=== PATIENT | female | born 1980 | race Hispanic/Latino ===

== ENCOUNTER 2017-09-08 18:07 | Emergency (ER) | payer OTHER ==
--- NOTE | 2017-09-08 18:38 | EDPHYS ---
Physician Documentation [facility] Name: Ruby Tapia Age: 37 yrs Sex: Female : 1980 Arrival Date: 09/08/2017 Time: 18:08 Bed 23 Private MD: ED Physician Chirag Shaw HPI: 09/08 18:47 This 37 yrs old Female presents to ER via Ambulatory with complaints of snw Incision Problem. 18:47 Patient presents to ED for recheck of: incision post tummy tuck. The affected area is snw on the suprapubic area, right inguinal area and left inguinal area. Previous treatment: in [place] several weeks ago. Progress: The patient reports unable to remove right wound margin drain. The patient has not experienced similar symptoms in the past. It is unknown whether or not the patient has recently seen a physician. 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 - Social history:: Smoking status: Patient/guardian denies using tobacco. ROS: 18:46 Constitutional: Negative for fever, chills, and weight loss, Eyes: Negative for injury, snw pain, redness, and discharge, ENT: Negative for injury, pain, and discharge, Neck: Negative for injury, pain, and swelling, Cardiovascular: Negative for chest pain, palpitations, and edema, Respiratory: Negative for shortness of breath, cough, wheezing, and pleuritic chest pain, Abdomen/GI: Negative for abdominal pain, nausea, vomiting, diarrhea, and constipation, Back: Negative for injury and pain, : Negative for injury, bleeding, discharge, and swelling, MS/Extremity: Negative for injury and deformity, Skin: Negative for injury, rash, and discoloration, incisional wound evaluation and requests removal of drain Neuro: Negative for headache, weakness, numbness, tingling, and seizure. Exam: 18:43 Constitutional: This is a well developed, well nourished patient who is awake, alert, snw and in no acute distress. Head/Face: Normocephalic, atraumatic. Eyes: Pupils equal round and reactive to light, extra-ocular motions intact. Lids and lashes normal. Conjunctiva and sclera are non-icteric and not injected. Cornea within normal limits. Periorbital areas with no swelling, redness, or edema. ENT: Nares patent. No nasal discharge, no septal abnormalities noted. Tympanic membranes are normal and external auditory canals are clear. Oropharynx with no redness, swelling, or masses, exudates, or evidence of obstruction, uvula midline. Mucous membranes moist. Neck: Trachea midline, no thyromegaly or masses palpated, and no cervical lymphadenopathy. Supple, full range of motion without nuchal rigidity, or vertebral point tenderness. No Meningismus. Chest/axilla: Normal chest wall appearance and motion. Nontender with no deformity. No lesions are appreciated. Cardiovascular: Regular rate and rhythm with a normal S1 and S2. No gallops, murmurs, or rubs. Normal PMI, no JVD. No pulse deficits. Respiratory: Lungs have equal breath sounds bilaterally, clear to auscultation and percussion. No rales, rhonchi or wheezes noted. No increased work of breathing, no retractions or nasal flaring. Back: No spinal tenderness. No costovertebral tenderness. Full range of motion. Skin: Warm, dry with normal turgor. Normal color with no rashes, no lesions, and no evidence of cellulitis. MS/ Extremity: Pulses equal, no cyanosis. Neurovascular intact. Full, normal range of motion. Neuro: Awake and alert, GCS 15, oriented to person, place, time, and situation. Cranial nerves II-XII grossly intact. Motor strength 5/5 in all extremities. Sensory grossly intact. Cerebellar exam normal. Normal gait. Psych: Awake, alert, with orientation to person, place and time. Behavior, mood, and affect are within normal limits. 18:43 Abdomen/GI: Inspection: abdomen appears normal, Bowel sounds: normal, Palpation: nontender, in all quadrants, healing surgical incision to perineum. Pt removed drain from left lower lateral margin, area closed. Pt states she has been unable to remove right lateral wound drain 2nd to embedded stitch. Pt states the area drains less than 25 ml/day. Vital Signs: 18:18 BP 125 / 78; Pulse 85; Resp 18 S; Temp 98.5(TE); Pulse Ox 98% on R/A; Weight 98.43 kg aa5 (R); Height 5 ft. 8 in. (172.72 cm) (R); Pain 8/10; 18:18 Body Mass Index 32.99 (98.43 kg, 172.72 cm) aa5 MDM: 18:20 Patient medically screened. snw 18:46 Data reviewed: vital signs, nurses notes. Data interpreted: Pulse oximetry: on room air snw is 98 %. Interpretation: normal. Counseling: I had a detailed discussion with the patient and/or guardian regarding: the historical points, exam findings, and any diagnostic results supporting the discharge/admit diagnosis, the need for outpatient follow up. Special discussion: Based on the history and exam findings, there is no indication for further emergent testing or inpatient evaluation. I discussed with the patient/guardian the need to see the general surgeon for further evaluation of the symptoms. Administered Medications: No medications were administered Disposition: 09/08/17 18:37 Discharged to Home. Impression: Post operative wound evaluation - s/p surgery in [place]. - Condition is Stable. - Discharge Instructions: Wound Check. - Prescriptions for Diclofenac Sodium 75 mg Oral Tablet Sustained Release - take 1 tablet by ORAL route 2 times per day; 30 tablet. - Medication Reconciliation Form, Thank You Letter, Antibiotic Education, Prescription Opioid Use form. - Follow up: Giorgio Barlow MD; When: 2 - 3 days; Reason: Recheck today's complaints, Continuance of care, Re-evaluation by your physician. Addendum: 09/10/2017 10:55 Co-signature as Attending Physician, Chirag Shaw MD I agree with the assessment and w a plan of care. Signatures: China Chauhan, SHEETER HELPER-C SHEETER HELPER-Csnw Marzena Harding, RN RN aa5 Chirag Shaw MD MD wv Maurilio Ware, RN RN mb3 Corrections: (The following items were deleted from the chart) 09/08 18:56 18:37 09/08/2017 18:37 Discharged to Home. Impression: Post operative wound evaluation mb3 - s/p surgery in [place]. Condition is Stable. Forms are Medication Reconciliation Form, Thank You Letter, Antibiotic Education, Prescription Opioid Use. Follow up: Giorgio Barlow; When: 2 - 3 days; Reason: Recheck today's complaints, Continuance of care, Re-evaluation by your physician. snw
--- NOTE | 2017-09-08 18:38 | ER ---
Nurse's Notes [facility] Name: Ruby Tapia Age: 37 yrs Sex: Female : 1980 Arrival Date: 09/08/2017 Time: 18:08 Bed 23 Private MD: Diagnosis: Post operative wound evaluation - s/p surgery in [place] Presentation: 09/08 18:16 Presenting complaint: Patient states: "I had a tummy tuck july 27 in [place] and I aa5 still have a drain in and I think it needs to come out". Pt reports small amount of drainage. Pt also reports abd pain. Transition of care: patient was not received from another setting of care. Onset of symptoms was September 2017. Initial Sepsis Screen: Does the patient meet any 2 criteria? No. Patient's initial sepsis screen is negative. Does the patient have a suspected source of infection? No. Patient's initial sepsis screen is negative. Care prior to arrival: None. 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 - Social history:: Smoking status: Patient/guardian denies using tobacco. Screenin:43 Abuse screen: Denies threats or abuse. Nutritional screening: No deficits noted. mb3 Tuberculosis screening: No symptoms or risk factors identified. Fall Risk None identified. Assessment: 18:38 General: Appears in no apparent distress. comfortable, Behavior is calm, cooperative, mb3 appropriate for age. Pain: Complains of pain in umbilical area Pain radiates to left upper quadrant. Neuro: No deficits noted. Cardiovascular: No deficits noted. Respiratory: No deficits noted. Respiratory effort is even, unlabored, Respiratory pattern is regular, symmetrical. GI: No signs and/or symptoms were reported involving the gastrointestinal system. Abdomen is round bruised on right lower quadrant and left lower quadrant healing scar across bottom of abdomen Bowel sounds present X 4 quads. Abd is soft Abdomen is tender to palpation in left lower quadrant. : No signs and/or symptoms were reported regarding the genitourinary system. EENT: No signs and/or symptoms were reported regarding the EENT system. Derm: No signs and/or symptoms reported regarding the dermatologic system. Skin is intact, healing surgical scar across lower abdomen. Vital Signs: 18:18 BP 125 / 78; Pulse 85; Resp 18 S; Temp 98.5(TE); Pulse Ox 98% on R/A; Weight 98.43 kg aa5 (R); Height 5 ft. 8 in. (172.72 cm) (R); Pain 8/10; 18:18 Body Mass Index 32.99 (98.43 kg, 172.72 cm) aa5 ED Course: 18:08 Patient arrived in ED. as 18:17 Triage completed. aa5 18:17 Arm band placed on. aa5 18:20 China Chauhan FNP-C [facility]. snw 18:20 Chirag Shaw MD is Attending Physician. snw 18:36 Giorgio Barlow MD is Referral Physician. snw 18:37 Maurilio Ware, [place] is Primary Nurse. mb3 18:44 Patient has correct armband on for positive identification. Bed in low position. Call mb3 light in reach. Side rails up X 1. 18:54 No provider procedures requiring assistance completed. Patient did not have IV access mb3 during this emergency room visit. Administered Medications: No medications were administered Outcome: 18:37 Discharge ordered by . snw 18:54 Discharged to home ambulatory. mb3 18:54 Condition: stable 18:54 Discharge instructions given to patient, Instructed on discharge instructions, follow up and referral plans. medication usage, Demonstrated understanding of instructions, follow-up care, medications, Prescriptions given X 1. 18:56 Patient left the ED. mb3 Signatures: China Chauhan FNP-C FNP-Jonelle Blancas Audri, RN RN aa5 Maurilio Ware RN RN mb3
[2017-09-08 19:02] VITALS: BP 125/78; TEMP 98.5; O2SAT 98
== END 2017-09-08 18:56 | disposition home or self-care (01) ==
LOC: ER 18:07
DX: Z48.00 Encounter for change or removal of nonsurgical wound dressing (principal)
CPT/HCPCS: 99282

== ENCOUNTER 2017-12-08 21:46 | Emergency (ER) | payer OTHER ==
[2017-12-08] MEDS ORDERED: MAGNE/ALUM HYDROXD 30 ML UCUP ONE (22:27)
[2017-12-08] MEDS ORDERED: LIDOCAINE VISCOUS 2% SOLN 15 ML UDC ONE (22:27)
[2017-12-08] MEDS ORDERED: ONDANSETRON 4 MG/2 ML VIAL ONE (22:28)
[2017-12-08 22:49] LABS: Urine Blood TRACE (NEG); Urine Glucose NEGATIVE (NEG); Urine Protein TRACE (NEG); Urine Specific Gravity >1.030 (1.005-1.030)
[2017-12-08 22:52] LABS: Absolute Monocytes 0.7 K/uL (0.1-1.3); Absolute Neutrophil 5.4 K/uL (1.8-8.0); Basophils % 1.2 % (0-1.3); Eosinophils % 1.5 % (0-4.4); Hematocrit 31.3 % (36.0-45.0); Lymphocytes % 23.5 % (15.3-44.8); MCH 22.6 pg (27.0-35.0); MCV 70.5 fL (80-100); MPV 9.8 fL (7.6-11.3); Monocytes % 8.4 % (3.3-12.3); RBC Red Blood Cell Count 4.44 M/uL (3.86-4.86)
[2017-12-08 23:11] LABS: Urine Bacteria <20 /HPF (<20); Urine RBC <5 /HPF (NONE SEEN)
[2017-12-08 23:12] LABS: Urine Culture Reflex Order NOT NEEDED; Urine Mucus HEAVY /HPF (NONE SEEN)
[2017-12-08 23:22] LABS: ALT/SGPT 16 U/L (12-78); AST/SGOT 16 U/L (15-37); Albumin 3.6 g/dL (3.4-5.0); Alkaline Phosphatase 61 U/L (45-117); BUN Blood Urea Nitrogen 13 mg/dL (7-18); Bicarbonate 29 mmol/L (21-32); Bilirubin Direct 0.1 mg/dL (0-0.2); Bilirubin Total 0.4 mg/dL (0.2-1.0); Glucose Level 88 mg/dL (74-106); Lipase 137 U/L (73-393); Potassium 3.4 mmol/L (3.5-5.1); Protein, Total 7.4 g/dL (6.4-8.2); Sodium Level 141 mmol/L (136-145)
--- NOTE | 2017-12-09 02:46 | ER ---
Nurse's Notes [facility] Name: Ruby Tapia Age: 37 yrs Sex: Female : 1980 Arrival Date: 12/08/2017 Time: 21:51 Bed 30 Private MD: Diagnosis: Epigastric pain Presentation: 12/08 22:58 Presenting complaint: Patient states: NAUSEA. Transition of care: patient was not rv received from another setting of care. Onset of symptoms was December 08, 2017 at 08:00. Risk Assessment: Do you want to hurt yourself or someone else? Patient reports no desire to harm self or others. Initial Sepsis Screen: Does the patient meet any 2 criteria? No. Patient's initial sepsis screen is negative. Does the patient have a suspected source of infection? No. Patient's initial sepsis screen is negative. Care prior to arrival: None. 22:58 Method Of Arrival: Ambulatory rv 22:58 Acuity: DONTE 3 rv Triage Assessment: 22:59 General: Appears in no apparent distress. comfortable, Behavior is calm, cooperative. rv Pain: Denies pain. EENT: No signs and/or symptoms were reported regarding the EENT system. Neuro: Level of Consciousness is awake, alert, obeys commands, Oriented to person, place, time, situation. Cardiovascular: Heart tones S1 S2 present. Respiratory: Airway is patent. GI: Reports nausea. : No signs and/or symptoms were reported regarding the genitourinary system. Derm: Skin is intact. Musculoskeletal: No signs and/or symptoms reported regarding the musculoskeletal system. Historical: - Home Meds: 23:02 alprazolam 1 mg Oral tab [Active]; rv - PMHx: 23:02 ADD/ADHD; Anxiety; chiari malformation; pseudotumor cerebri; rv - PSHx: 23:02 ; SPINE SURGERY; GASTRIC SURGERY; rv - Immunization history:: Adult Immunizations up to date. - Social history:: Smoking status: Patient/guardian denies using tobacco, never smoked, Patient/guardian denies using alcohol, street drugs. - Family history:: not pertinent. - Ebola Screening: : Patient negative for fever greater than or equal to 101.5 degrees Fahrenheit, and additional compatible Ebola Virus Disease symptoms Patient denies exposure to infectious person Patient denies travel to an Ebola-affected area in the 21 days before illness onset. - Hospitalizations: : No recent hospitalization is reported. Screenin:59 Abuse screen: Denies threats or abuse. Denies injuries from another. Nutritional rv screening: No deficits noted. Tuberculosis screening: No symptoms or risk factors identified. Fall Risk None identified. Assessment: 23:01 GI: Bowel sounds present X 4 quads. Abd is soft and non tender X 4 quads. rv 12/09 02:10 Reassessment: Patient appears in no apparent distress at this time. Patient and/or rv family updated on plan of care and expected duration. Pain level reassessed. Patient is alert, oriented x 3, equal unlabored respirations, skin warm/dry/pink. AWAITING CT SCAN RESULT. Vital Signs: 12/08 23:03 BP 120 / 76; Pulse 73; Temp 98.1; Pulse Ox 100% ; Weight 99.79 kg; Height 5 ft. 9 in. rv (175.26 cm); 12/09 00:18 BP 116 / 79; Pulse 72; Pulse Ox 100% ; rv 01:24 Pulse 67; Pulse Ox 98% on R/A; rv 02:10 BP 127 / 81; Pulse 75; Pulse Ox 99% on R/A; rv 02:44 BP 128 / 83; Pulse 72; Pulse Ox 99% on R/A; rv 12/08 23:03 Body Mass Index 32.49 (99.79 kg, 175.26 cm) rv ED Course: 12/08 21:51 Patient arrived in ED. ds1 21:56 Vincenzo Coates MD is Attending Physician. rn 22:59 Triage completed. rv 23:01 Arm band placed on left wrist. rv 23:03 Patient has correct armband on for positive identification. Placed in gown. Bed in low rv position. Call light in reach. Side rails up X 1. Pulse ox on. NIBP on. 23:03 Inserted saline lock: 20 gauge in right antecubital area, using aseptic technique. rv 23:13 Radiology exam delayed due to lab results not completed at this time. (HCG) vr (BUN/Creatinine). 23:34 Radiology exam delayed due to Patient finished oral contrast at 2330. Will scan at kw1 approx. 0030. 12/09 00:[address] via wheelchair. kw1 00:42 CT Abd/Pelvis - W/Contrast In Process Unspecified. EDMS 00:44 CT completed. Patient tolerated procedure well. Patient moved back from CT. kw1 01:25 Awaiting radiology results. rv 02:45 No provider procedures requiring assistance completed. IV discontinued, bleeding rv controlled, No redness/swelling at site. Pressure dressing applied. Administered Medications: 12/08 22:50 Drug: Zofran 4 mg Route: IVP; Site: right antecubital; rv 23:04 Follow up: Response: No adverse reaction; Nausea is decreased rv 23:04 Drug: GI Cocktail without - (Maalox Suspension 30 ml, Lidocaine Liquid 2 % 15 rv ml) Route: PO; 23:38 Follow up: Response: No adverse reaction; Nausea is decreased rv Outcome: 12/09 02:45 Discharge ordered by . rn 02:45 Discharged to home ambulatory. rv 02:45 Condition: improved 02:45 Discharge instructions given to patient, Instructed on discharge instructions, follow up and referral plans. medication usage. 02:52 Patient left the ED. rv Signatures: Dispatcher [employer] EDGA Melani Moore ds1 Vincenzo Coates MD MD rn Davis, Victoria vr Wilhelm, Kimberly kw1 Gonzalez Jimenez RN RN rv
--- NOTE | 2017-12-09 02:46 | EDPHYS ---
Physician Documentation [facility] Name: Ruby Tapia Age: 37 yrs Sex: Female : 1980 Arrival Date: 12/08/2017 Time: 21:51 Bed 30 Private MD: ED Physician Vincenzo Coates HPI: 12/08 22:14 This 37 yrs old Female presents to ER via Unassigned with complaints of rn Abdominal Pain, Dizziness. 22:14 This 37 yrs old Female presents to ER via Unassigned with complaints of rn Abdominal Pain, Dizziness. 22:14 The patient presents with. rn 22:14 The patient presents with abdominal pain in the epigastric area, in the right upper rn quadrant. Onset: The symptoms/episode began/occurred 5 day(s) ago. The symptoms do not radiate. Associated signs and symptoms: Pertinent positives: nausea and vomiting, Pertinent negatives: blood in stools, constipation, diarrhea, fever, shortness of breath. The symptoms are described as crampy, intermittent. Modifying factors: The symptoms are alleviated by nothing, the symptoms are aggravated by food. Severity of pain: At its worst the pain was moderate in the emergency department the pain has improved. The patient has not experienced similar symptoms in the past. Reports upper abd pain, worse with eating/drinking, gets nauseous and throws up, for 5 days, no fever/diarrhea, has had gastric sleeve in past, and tubal ligation. No hx of gallbladder problems except when but no surgery advised at the time. Reports pain makes her lightheaded and has passed out once today. NO chest pain/sob.. Historical: - Home Meds: 23:02 alprazolam 1 mg Oral tab [Active]; rv - PMHx: 23:02 ADD/ADHD; Anxiety; chiari malformation; pseudotumor cerebri; rv - PSHx: 23:02 ; SPINE SURGERY; GASTRIC SURGERY; rv - Immunization history:: Adult Immunizations up to date. - Social history:: Smoking status: Patient/guardian denies using tobacco, never smoked, Patient/guardian denies using alcohol, street drugs. - Family history:: not pertinent. - Ebola Screening: : Patient negative for fever greater than or equal to 101.5 degrees Fahrenheit, and additional compatible Ebola Virus Disease symptoms Patient denies exposure to infectious person Patient denies travel to an Ebola-affected area in the 21 days before illness onset. - Hospitalizations: : No recent hospitalization is reported. ROS: 22:14 Constitutional: Negative for fever, chills, and weight loss, Eyes: Negative for injury, rn pain, redness, and discharge, Neck: Negative for injury, pain, and swelling, Cardiovascular: Negative for chest pain, palpitations, and edema, Respiratory: Negative for shortness of breath, cough, wheezing, and pleuritic chest pain, Abdomen/GI: + abd pain and nausea/vomiting Back: Negative for injury and pain, MS/Extremity: Negative for injury and deformity, Skin: Negative for injury, rash, and discoloration, Neuro: Negative for numbness, tingling, and seizure. Exam: 22:14 Constitutional: This is a well developed, well nourished patient who is awake, alert, rn and in no acute distress. Head/Face: Normocephalic, atraumatic. Eyes: Pupils equal round and reactive to light, extra-ocular motions intact. Lids and lashes normal. Conjunctiva and sclera are non-icteric and not injected. Cornea within normal limits. Periorbital areas with no swelling, redness, or edema. ENT: MMM Cardiovascular: regular rate, no murmur, no rubs Respiratory: Clear breath sounds bilaterally, no wheezing, normal effort Abdomen/GI: soft, + tender epigastric and RUQ, no rebound, no masses, neg galdamez Skin: Warm, dry with normal turgor. Normal color with no rashes, no lesions, and no evidence of cellulitis. MS/ Extremity: Pulses equal, no cyanosis. Neurovascular intact. Full, normal range of motion. Equal circumference. Neuro: Awake and alert, GCS 15, oriented to person, place, time, and situation. Cranial nerves II-XII grossly intact. Motor strength 5/5 in all extremities. Sensory grossly intact. Cerebellar exam normal. Normal gait. Vital Signs: 23:03 BP 120 / 76; Pulse 73; Temp 98.1; Pulse Ox 100% ; Weight 99.79 kg; Height 5 ft. 9 in. rv (175.26 cm); 12/09 00:18 BP 116 / 79; Pulse 72; Pulse Ox 100% ; rv 01:24 Pulse 67; Pulse Ox 98% on R/A; rv 02:10 BP 127 / 81; Pulse 75; Pulse Ox 99% on R/A; rv 02:44 BP 128 / 83; Pulse 72; Pulse Ox 99% on R/A; rv 12/08 23:03 Body Mass Index 32.49 (99.79 kg, 175.26 cm) rv MDM: 12/08 21:56 Patient medically screened. rn 12/09 00:32 Response to treatment: the patient's symptoms have markedly improved after treatment. rn 02:44 Differential diagnosis: cholecystitis, Cholelithiasis, gastritis, gastroesophageal rn reflux disease, Hepatitis, non-specific abd pain, pancreatitis, Peptic Ulcer Disease, urinary tract infection. Data reviewed: vital signs, nurses notes, lab test result(s), EKG, radiologic studies, CT scan, and as a result, I will discharge patient. Counseling: I had a detailed discussion with the patient and/or guardian regarding: the historical points, exam findings, and any diagnostic results supporting the discharge/admit diagnosis, lab results, radiology results, the need for outpatient follow up, to return to the emergency department if symptoms worsen or persist or if there are any questions or concerns that arise at home. Special discussion: I discussed with the patient/guardian in detail that at this point there is no indication for admission to the hospital. It is understood, however, that if the symptoms persist or worsen the patient needs to return immediately for re-evaluation. Based on the history and exam findings, there is no indication for further emergent testing or inpatient evaluation. I discussed with the patient/guardian the need to see the primary care provider for further evaluation of the symptoms. ED course: CT without acute findings, normal gallbladder, will dc home with pcp f/u, antacid medication, and prn zofran. . 12/08 22:13 Order name: Basic Metabolic Panel; Complete Time: 23:24 rn 12/08 22:13 Order name: CBC with Diff; Complete Time: 23:24 rn 12/08 22:13 Order name: Hepatic Function; Complete Time: 23:24 rn 12/08 22:13 Order name: Lipase; Complete Time: 23:24 rn 12/08 22:13 Order name: Urine Microscopic Only; Complete Time: 23:24 rn 12/08 22:44 Order name: Urine Dipstick--Ancillary (enter results); Complete Time: 23:04 mw2 12/08 22:13 Order name: IV Saline Lock; Complete Time: 23:10 rn 12/08 22:13 Order name: Labs collected and sent; Complete Time: 23:10 rn 12/08 22:13 Order name: Urine Dipstick-Ancillary (obtain specimen); Complete Time: 23:10 rn 12/08 22:13 Order name: CT Abd/Pelvis - W/Contrast rn 12/08 22:14 Order name: EKG; Complete Time: 22:14 rn 12/08 22:44 Order name: Urine --Ancillary (enter results); Complete Time: 23:04 [facility] 12/08 22:14 Order name: EKG - Nurse/Tech; Complete Time: 23:04 rn Administered Medications: 12/08 22:50 Drug: Zofran 4 mg Route: IVP; Site: right antecubital; rv 23:04 Follow up: Response: No adverse reaction; Nausea is decreased rv 23:04 Drug: GI Cocktail without - (Maalox Suspension 30 ml, Lidocaine Liquid 2 % 15 rv ml) Route: PO; 23:38 Follow up: Response: No adverse reaction; Nausea is decreased rv Disposition: 12/09/17 02:45 Discharged to Home. Impression: Epigastric pain. - Condition is Stable. - Discharge Instructions: Abdominal Pain, Adult, Gastritis, Adult. - Prescriptions for Zofran ODT 4 mg Oral tablet,disintegrating - place 1 tablet by TRANSLINGUAL route every 8-10 hours As needed; 20 tablet. - Medication Reconciliation Form, Thank You Letter, Antibiotic Education, Prescription Opioid Use form. - Follow up: Private Physician; When: As needed; Reason: Recheck today's complaints, Re-evaluation by your physician. - Problem is new. - Symptoms have improved. Signatures: Dispatcher [employer] EDMS Vincenzo Coates MD MD rn Vicente, Ronaldo, RN RN rv Corrections: (The following items were deleted from the chart) 12/09 02:52 02:45 12/09/2017 02:45 Discharged to Home. Impression: Epigastric pain. Condition is rv Stable. Forms are Medication Reconciliation Form, Thank You Letter, Antibiotic Education, Prescription Opioid Use. Follow up: Private Physician; When: As needed; Reason: Recheck today's complaints, Re-evaluation by your physician. Problem is new. Symptoms have improved. rn
[2017-12-09 03:05] VITALS: TEMP 98.1
[2017-12-09 03:07] VITALS: O2SAT 99
[2017-12-09 03:08] VITALS: BP 128/83
--- NOTE | 2017-12-09 07:26 | EKG ---
Test Date: 2017-12-08 Test Time: 22:52:35 Laborer Driver: MEASUREMENT RESULTS: Intervals: Rate: 71 WV: 276 QRSD: 84 QT: 398 QTc: 432 [place]: P: 55 WV: 276 QRS: 60 T: 59 INTERPRETIVE STATEMENTS: Sinus rhythm with 1st degree AV block Otherwise normal ECG Compared to ECG 06/07/2016 19:18:45 No significant changes Electronically Signed On 12-09-17 07:25:58 CDT by Lan Linares
--- NOTE | 2017-12-09 11:42 | RAD REPORT ---
EXAM DESCRIPTION: CTAbdomen Pelvis W Contrast - 12/09/2017 7:12 am CLINICAL HISTORY: Abdominal pain. Abd pain;Nausea / vomiting COMPARISON: Abdomen Pelvis W Contrast dated 06/07/2016; CT ABD PELVIS W CONTRAST dated 02/15/2015 TECHNIQUE: Biphasic CT imaging of the abdomen and pelvis was performed with 100 ml non-ionic IV cont rast. All CT scans are performed using dose optimization technique as appropriate and may include automated exposure control or mA/KV adjustment according to patient size. FINDINGS: The lung bases are clear. The liver, spleen, pancreas, adrenal glands and kidneys are within normal limits. No bowel obstruction, free air, free fluid or abscess. The appendix is normal. No evidence of signi ficant lymphadenopathy. No suspicious bony findings. 2.5 cm right ovarian follicle. IMPRESSION: No acute intra-abdominal or pelvic finding.
== END 2017-12-09 02:52 | disposition home or self-care (01) ==
LOC: ER 21:46
DX: R10.13 Epigastric pain (principal); F90.9 Attention-deficit hyperactivity disorder, unspecified type; F41.9 Anxiety disorder, unspecified
CPT/HCPCS: 36415; 74177; 80048; 80076; 81003; 81015; 81025; 83690; 85025; 93005; 96374; 99284; J2405; Q9967

== ENCOUNTER 2018-08-31 21:57 | Emergency (ER) | payer OTHER, SELFPAY ==
--- OUTSIDE RECORDS SUMMARY | 2018-08-31 21:59 | XMS REPORT ---
:1980 [facility] Address [address] [place] [address] Dr. Peguero [address] [place] [id number] Care Team Providers Name Role Phone Unavailable Unavailable Unavailable Problems This patient has no known problems. Allergies, Adverse Reactions, Alerts This patient has no known allergies or adverse reactions. Medications This patient has no known medications.
[2018-08-31] MEDS ORDERED: KETOROLAC 30 MG/ML INJ ONE (23:10)
[2018-08-31] MEDS ORDERED: HYDROCODONE/APAP 7.5/325 MG TAB ONE (23:10)
[2018-08-31] MEDS ORDERED: DIAZEPAM 10 MG/2 ML INJ SYRINGE ONE (23:11)
[2018-08-31 23:47] LABS: Urine Blood TRACE (NEG); Urine Glucose NEGATIVE (NEG); Urine Protein NEGATIVE (NEG)
--- NOTE | 2018-09-01 00:24 | EDPHYS ---
Physician Documentation [facility] Name: Ruby Tapia Age: 38 yrs Sex: Female : 1980 Arrival Date: 08/31/2018 Time: 21:59 Bed 17 Private MD: ED Physician Go Yap HPI: 08/31 22:50 This 38 yrs old Female presents to ER via Ambulatory with complaints of Back cp Pain. 22:50 The patient presents with pain that is acute. The symptoms are located in the low back. cp Onset: The symptoms/episode began/occurred yesterday. Associated signs and symptoms: Pertinent negatives: abdominal pain, constipation, dysuria, fever, incontinence, numbness, urinary retention, weakness. The problem was sustained when bending over. Modifying factors: the patient symptoms are aggravated by movement. 22:50 Patient reports sudden back pain since yesterday after bending over to wrap hair with cp towel. 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 - Social history:: Smoking status: Patient uses tobacco products, denies chronic smoking, but will smoke occasionally. - Ebola Screening: : Patient negative for fever greater than or equal to 101.5 degrees Fahrenheit, and additional compatible Ebola Virus Disease symptoms. ROS: 23:00 Constitutional: Negative for body aches, chills, fever, poor PO intake. cp 23:00 Eyes: Negative for injury, pain, redness, and discharge. cp 23:00 Neck: Negative for pain with movement, pain at rest, stiffness, tenderness. 23:00 Cardiovascular: Negative for chest pain, edema, palpitations. 23:00 Respiratory: Negative for cough, shortness of breath, wheezing. 23:00 Abdomen/GI: Negative for abdominal pain, nausea, vomiting, and diarrhea, constipation, black/tarry stool, rectal bleeding, bowel incontinence. 23:00 Back: Positive for pain at rest, pain with movement, of the lumbar area. 23:00 : Negative for urinary symptoms, difficulty urinating, bladder incontinence. 23:00 MS/extremity: Negative for injury or acute deformity, decreased range of motion, paresthesias, tingling. 23:00 Skin: Negative for rash. 23:00 Neuro: Negative for altered mental status, headache, numbness, tingling, weakness. 23:00 All other systems are negative. Exam: 23:10 Constitutional: The patient appears in no acute distress, alert, awake, non-toxic, well cp developed, well nourished, uncomfortable. 23:10 Head/Face: Normocephalic, atraumatic. cp 23:10 Eyes: Periorbital structures: appear normal, Conjunctiva: normal, no exudate, no injection, Sclera: no appreciated abnormality, Lids and lashes: appear normal, bilaterally. 23:10 ENT: External ear(s): are unremarkable, Nose: is normal, Mouth: Lips: moist, Oral mucosa: moist, Posterior pharynx: Airway: no evidence of obstruction, patent. 23:10 Neck: ROM/movement: is normal, is supple, without pain, no range of motions limitations, no nuchal rigidity. 23:10 Chest/axilla: Inspection: normal. 23:10 Cardiovascular: Rate: normal, Rhythm: regular. 23:10 Respiratory: the patient does not display signs of respiratory distress, Respirations: normal, no use of accessory muscles, no retractions, no splinting, no tachypnea, labored breathing, is not present, Breath sounds: are clear throughout, no decreased breath sounds, no stridor, no wheezing. 23:10 Abdomen/GI: Inspection: abdomen appears normal, Palpation: abdomen is soft and non-tender, in all quadrants. 23:10 Back: pain, that is moderate, of the lumbar area, ROM is painful, with all movement, Straight leg raises: of both lower extremities does not illicit pain. 23:10 Skin: no rash present. 23:10 Neuro: Motor: moves all fours, strength is normal, Sensation: is normal, Deep tendon reflexes are 2+ (normal) in the right patellar, right Achilles, left patellar and left Achilles. Vital Signs: 22:06 BP 117 / 90; Pulse 84; Resp 18 S; Temp 99.0(O); Pulse Ox 100% on R/A; Weight 97.52 kg jd3 (R); Height 5 ft. 8 in. (172.72 cm) (R); Pain 9/10; 23:10 BP 115 / 70; Pulse 80; Resp 17; Pulse Ox 98% ; Pain 9/10; rr5 09/01 00:15 BP 95 / 60; Pulse 60; Resp 16; Pulse Ox 99% ; rr5 00:38 BP 99 / 61; Pulse 61; Resp 17; Pulse Ox 98% on R/A; rr5 08/31 22:06 Body Mass Index 32.69 (97.52 kg, 172.72 cm) jd3 MDM: 08/31 22:15 Patient medically screened. cp 23:00 Differential diagnosis: Cholelithiasis chronic back pain, ruptured disc, cp Ureterolithiasis spinal stenosis, cauda equina. 09/01 00:20 Data reviewed: vital signs, nurses notes, lab test result(s), radiologic studies, plain cp films, and as a result, I will discharge patient. 00:20 ED course: VSS. Pain markedly improved with meds. Will discharge to home for continued cp monitoring. 08/31 23:44 Order name: Urine Dipstick--Ancillary (enter results); Complete Time: 23:[address] [facility] 08/31 23:58 Interpretation: Normal except: UBLD TRACE. cp 08/31 23:44 Order name: Urine --Ancillary (enter results); Complete Time: 23:[address] [facility] 08/31 23:09 Order name: XRAY Lumbar Spine (3 Views) cp 08/31 22:44 Order name: Urine Dipstick-Ancillary (obtain specimen); Complete Time: 23:11 cp 08/31 22:44 Order name: Urine Test (obtain specimen); Complete Time: 23:11 cp 08/31 22:44 Order name: Misc. Order: give meds if negative test; Complete Time: 23:10 cp Administered Medications: 08/31 23:09 Drug: Diazepam 5 mg Route: IM; Site: left gluteus; rr5 09/01 00:39 Follow up: Response: No adverse reaction 5 08/31 23:10 Drug: Hydrocodone-Acetaminophen (7.5 mg-325 mg) 1 tabs Route: PO; rr5 09/01 00:38 Follow up: Response: No adverse reaction rr5 08/31 23:11 Drug: TORadol 60 mg Route: IM; Site: right gluteus; rr5 09/01 00:39 Follow up: Response: No adverse reaction rr5 Disposition: 09/01/18 00:23 Discharged to Home. Impression: Low back pain. - Condition is Stable. - Discharge Instructions: Back Pain, Adult, Back Injury Prevention, [id number], Back Exercises, Mftu-zy-Tbvd, Heat Therapy. - Prescriptions for Tramadol 50 mg Oral Tablet - take 1 tablet by ORAL route every 8 hours as needed. no driving while taking medication; 12 tablet. orphenadrine citrate 100 mg Oral Tablet Sustained Release - take 1 tablet by ORAL route 2 times per day As needed no driving while taking medication; 20 tablet. Medrol (Lior) 4 mg Oral Tablets, Dose Pack - take 1 tablet by ORAL route as directed - follow package instructions; 1 packet. - Medication Reconciliation Form, Thank You Letter, Antibiotic Education, Prescription Opioid Use form. - Follow up: Private Physician; When: 2 - 3 days; Reason: Recheck today's complaints. - Problem is new. - Symptoms have improved. Addendum: 09/04/2018 11:07 Co-signature as Attending Physician, Go Yap MD I agree with the assessment and c whitney plan of care. Signatures: Dispatcher [employer] EDGo Mead MD MD cha Page, Corey, PA PA cp Davies, Jonathon, RN RN jd3 Nic Mcdonough RN RN rr5 Corrections: (The following items were deleted from the chart) 09/01 00:46 00:23 09/01/2018 00:23 Discharged to Home. Impression: Low back pain. Condition is rr5 Stable. Forms are Medication Reconciliation Form, Thank You Letter, Antibiotic Education, Prescription Opioid Use. Follow up: Private Physician; When: 2 - 3 days; Reason: Recheck today's complaints. Problem is new. Symptoms have improved. cp
--- NOTE | 2018-09-01 00:24 | ER ---
Nurse's Notes [facility] Name: Ruby Tapia Age: 38 yrs Sex: Female : 1980 Arrival Date: 08/31/2018 Time: 21:59 Bed 17 Private MD: Diagnosis: Low back pain Presentation: 08/31 22:03 Presenting complaint: Patient states: "I hurt my back when bending over yesterday after jd3 getting out of the shower to put a towel over my hair and I had sharp pain it hurts to move it.". Transition of care: patient was not received from another setting of care. Onset of symptoms was August 30, 2018. Risk Assessment: Do you want to hurt yourself or someone else? Patient reports no desire to harm self or others. Initial Sepsis Screen: Does the patient meet any 2 criteria? No. Patient's initial sepsis screen is negative. Does the patient have a suspected source of infection? No. Patient's initial sepsis screen is negative. Care prior to arrival: None. 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 - Social history:: Smoking status: Patient uses tobacco products, denies chronic smoking, but will smoke occasionally. - Ebola Screening: : Patient negative for fever greater than or equal to 101.5 degrees Fahrenheit, and additional compatible Ebola Virus Disease symptoms. Screenin:23 Abuse screen: Denies threats or abuse. Denies injuries from another. Nutritional rr5 screening: No deficits noted. Tuberculosis screening: No symptoms or risk factors identified. Fall Risk None identified. Total Macias Fall Scale indicates No Risk (0-24 pts). Assessment: 22:20 General: Appears in no apparent distress. uncomfortable, Behavior is calm, cooperative, rr5 appropriate for age. Pain: Complains of pain in lumbar area Pain does not radiate. Pain currently is 9 out of 10 on a pain scale. Quality of pain is described as sharp, Pain began suddenly, Is continuous. Neuro: Level of Consciousness is awake, alert, obeys commands, Oriented to person, place, time, situation, Appropriate for age. Cardiovascular: Capillary refill < 3 seconds Patient's skin is warm and dry. Respiratory: Airway is patent Respiratory effort is even, unlabored, Respiratory pattern is regular, symmetrical. GI: No signs and/or symptoms were reported involving the gastrointestinal system. : No signs and/or symptoms were reported regarding the genitourinary system. EENT: No signs and/or symptoms were reported regarding the EENT system. Derm: Skin is intact, Skin temperature is warm. Musculoskeletal: Capillary refill < 3 seconds, Range of motion: intact in all extremities, Reports pain in lumbar area. 23:20 Reassessment: Patient appears in no apparent distress at this time. No changes from rr5 previously documented assessment. Patient is alert, oriented x 3, equal unlabored respirations, skin warm/dry/pink. 09/01 00:15 Reassessment: Patient appears in no apparent distress at this time. Patient is alert, rr5 oriented x 3, equal unlabored respirations, skin warm/dry/pink. awaiting for xray result. it feels better whenever I am not moving as verbalized. 00:37 Reassessment: Patient appears in no apparent distress at this time. Patient is alert, rr5 oriented x 3, equal unlabored respirations, skin warm/dry/pink. discharge instruction given and explained without complaints made. Vital Signs: 08/31 22:06 BP 117 / 90; Pulse 84; Resp 18 S; Temp 99.0(O); Pulse Ox 100% on R/A; Weight 97.52 kg jd3 (R); Height 5 ft. 8 in. (172.72 cm) (R); Pain 9/10; 23:10 BP 115 / 70; Pulse 80; Resp 17; Pulse Ox 98% ; Pain 9/10; rr5 09/01 00:15 BP 95 / 60; Pulse 60; Resp 16; Pulse Ox 99% ; rr5 00:38 BP 99 / 61; Pulse 61; Resp 17; Pulse Ox 98% on R/A; rr5 08/31 22:06 Body Mass Index 32.69 (97.52 kg, 172.72 cm) jd3 ED Course: 08/31 21:59 Patient arrived in ED. am2 22:05 Triage completed. jd3 22:07 Arm band placed on. jd3 22:13 Go Jameson PA is PHCP. cp 22:13 Go Yap MD is Attending Physician. cp 22:20 Nic Mcdonough, RN is Primary Nurse. rr5 22:23 No provider procedures requiring assistance completed. rr5 22:24 Patient has correct armband on for positive identification. Bed in low position. Call rr5 light in reach. Pulse ox on. NIBP on. 09/01 00:39 Patient did not have IV access during this emergency room visit. rr5 01:46 XRAY Lumbar Spine (3 Views) In Process Unspecified. EDMS Administered Medications: 08/31 23:09 Drug: Diazepam 5 mg Route: IM; Site: left gluteus; rr5 09/01 00:39 Follow up: Response: No adverse reaction rr5 08/31 23:10 Drug: Hydrocodone-Acetaminophen (7.5 mg-325 mg) 1 tabs Route: PO; rr5 09/01 00:38 Follow up: Response: No adverse reaction rr5 08/31 23:11 Drug: TORadol 60 mg Route: IM; Site: right gluteus; rr5 09/01 00:39 Follow up: Response: No adverse reaction rr5 Outcome: 00:23 Discharge ordered by MD. cp 00:39 Discharged to home ambulatory, with family. rr5 00:39 Condition: stable 00:39 Discharge instructions given to patient, Instructed on discharge instructions, follow up and referral plans. medication usage, Demonstrated understanding of instructions, follow-up care, medications, Prescriptions given X 3. 00:46 Patient left the ED. rr5 Signatures: Dispatcher [employer] EDMS Go Jameson PA PA cp Moreno, Amanda am2 Rubén Grande RN RN jNic Modi, RN RN rr5
[2018-09-01 02:26] VITALS: TEMP 99
[2018-09-01 02:30] VITALS: BP 99/61; O2SAT 98
--- NOTE | 2018-09-01 09:51 | RAD REPORT ---
EXAM DESCRIPTION: RAD - Lumbar Spine 3 Views - 09/01/2018 1:46 am CLINICAL HISTORY: Back pain FINDINGS: The alignment of the lumbar spine is satisfactory. No fracture or dislocation is seen. Minimal spondylosis involves the distal lumbar spine
== END 2018-09-01 00:46 | disposition home or self-care (01) ==
LOC: ER 21:57
DX: M54.5 Low back pain (principal); F90.9 Attention-deficit hyperactivity disorder, unspecified type; Z72.0 Tobacco use
CPT/HCPCS: 72100; 81003; 81025; 96372; 99284; J3360

== ENCOUNTER 2019-05-29 18:54 | Inpatient (IN) | payer SELFPAY ==
--- OUTSIDE RECORDS SUMMARY | 2019-05-29 18:56 | XMS REPORT ---
:1980 [facility] Address [address] [place] [address] Dr. Peguero [address] [place] [id number] Care Team Providers Name Role Phone Unavailable Unavailable Unavailable Problems This patient has no known problems. Allergies, Adverse Reactions, Alerts This patient has no known allergies or adverse reactions. Medications This patient has no known medications.
[2019-05-29 20:43] LABS: Absolute Lymphocytes (CBC) 1.7 K/uL (0.7-4.9); Basophils % 1.1 % (0-1.3); Hematocrit 26.8 % (36.0-45.0); Lymphocytes % 24.1 % (15.3-44.8); MPV 8.9 fL (7.6-11.3); RBC Red Blood Cell Count 4.21 M/uL (3.86-4.86)
[2019-05-29 20:54] LABS: Urine Blood NEGATIVE (NEG); Urine Glucose NEGATIVE (NEG); Urine Protein NEGATIVE (NEG); Urine Specific Gravity 1.015 (1.005-1.030)
[2019-05-29 21:01] LABS: ALT/SGPT 22 U/L (12-78); AST/SGOT 21 U/L (15-37); Albumin 3.6 g/dL (3.4-5.0); Alkaline Phosphatase 56 U/L (45-117); BUN Blood Urea Nitrogen 15 mg/dL (7-18); Bicarbonate 26 mmol/L (21-32); Bilirubin Direct 0.1 mg/dL (0-0.2); Bilirubin Total 0.4 mg/dL (0.2-1.0); Glucose Level 92 mg/dL (74-106); Lipase 151 U/L (73-393); Potassium 3.3 mmol/L (3.5-5.1); Protein, Total 7.5 g/dL (6.4-8.2); Sodium Level 139 mmol/L (136-145); Urine White Blood Cell Casts OK
[2019-05-29 21:02] LABS: Blood Morphology Comment NOTED (NOT SEEN); Hypochromasia 2+; Platelet Estimate ADEQ
[2019-05-29] MEDS ORDERED: PIPER/TAZO/NS 3.375gm 0 GM/0 ML BAG ONE (22:56)
[2019-05-29] MEDS ORDERED: PIPER/TAZO/NS 3.375gm 3.375 GM/100 ML BAG ONE (22:59)
--- NOTE | 2019-05-29 23:37 | EDPHYS ---
Physician Documentation [facility] Name: Ruby Tapia Age: 38 yrs Sex: Female : 1980 Arrival Date: 05/29/2019 Time: 18:57 Bed 27 Private MD: ED Physician Prasad Song HPI: 05/30 01:23 This 38 yrs old Female presents to ER via Ambulatory with complaints of tw4 Abdominal Pain. 01:23 The patient presents with abdominal pain. Onset: The symptoms/episode began/occurred tw4 last week. The symptoms do not radiate. Associated signs and symptoms: Pertinent positives: nausea, Pertinent negatives: nausea, vomiting, and diarrhea, nausea and vomiting, anorexia, blood in stools, chest pain, constipation, diarrhea, dysuria, fever, headache, hematuria, palpitations, shortness of breath, vaginal discharge, vomiting, vomiting blood. The symptoms are described as dull. Modifying factors: The symptoms are alleviated by nothing, the symptoms are aggravated by movement, pressure. Severity of pain: last week, At its worst the pain was moderate in the emergency department the pain is unchanged. The patient has not experienced similar symptoms in the past. The patient has not recently seen a physician. 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 - Social history:: Smoking status: Patient reports the use of cigarette tobacco products, smokes one-half pack cigarettes per day. - Ebola Screening: : Patient negative for fever greater than or equal to 101.5 degrees Fahrenheit, and additional compatible Ebola Virus Disease symptoms Patient denies exposure to infectious person Patient denies travel to an Ebola-affected area in the 21 days before illness onset No symptoms or risks identified at this time. ROS: 05/30 01:23 Constitutional: Negative for fever, chills, and weight loss, Eyes: Negative for injury, tw4 pain, redness, and discharge, ENT: Negative for injury, pain, and discharge, Cardiovascular: Negative for chest pain, palpitations, and edema, Respiratory: Negative for shortness of breath, cough, wheezing, and pleuritic chest pain, Back: Negative for injury and pain, MS/Extremity: Negative for injury and deformity, Skin: Negative for injury, rash, and discoloration. Abdomen/GI: Positive for abdominal pain, nausea, Negative for nausea and vomiting, nausea, vomiting, and diarrhea, vomiting, diarrhea, constipation, abdominal cramps, abdominal distension, anorexia, dysphagia, hematemesis, black/tarry stool, rectal pain, rectal bleeding. Exam: 01:23 Constitutional: This is a well developed, well nourished patient who is awake, alert, tw4 and in no acute distress. Head/Face: Normocephalic, atraumatic. Chest/axilla: Normal chest wall appearance and motion. Nontender with no deformity. No lesions are appreciated. Cardiovascular: Regular rate and rhythm with a normal S1 and S2. No gallops, murmurs, or rubs. Normal PMI, no JVD. No pulse deficits. Respiratory: Lungs have equal breath sounds bilaterally, clear to auscultation and percussion. No rales, rhonchi or wheezes noted. No increased work of breathing, no retractions or nasal flaring. Back: No spinal tenderness. No costovertebral tenderness. Full range of motion. MS/ Extremity: Pulses equal, no cyanosis. Neurovascular intact. Full, normal range of motion. Neuro: Awake and alert, GCS 15, oriented to person, place, time, and situation. Cranial nerves II-XII grossly intact. Motor strength 5/5 in all extremities. Sensory grossly intact. Cerebellar exam normal. Normal gait. 01:23 Abdomen/GI: Inspection: scar(s), are noted in the umbilical area and suprapubic area, Bowel sounds: diminished, Palpation: moderate abdominal tenderness, in the umbilical area. Vital Signs: 05/29 19:44 BP 119 / 91; Pulse 74; Resp 17 S; Temp 97.3(O); Pulse Ox 100% on R/A; Weight 91.17 kg ca1 (M); Height 5 ft. 8 in. (172.72 cm) (R); Pain 9/10; 22:36 BP 117 / 79; Pulse 81; Resp 18; Temp 98.6; Pulse Ox 100% on R/A; Pain 0/10; mg2 23:56 BP 114 / 81; Pulse 75; Resp 16; Temp 98.0(O); Pulse Ox 100% on R/A; jb4 19:44 Body Mass Index 30.56 (91.17 kg, 172.72 cm) ca1 MDM: 20:21 Patient medically screened. 05/30 01:23 Differential diagnosis: bowel obstruction, cholecystitis, Cholelithiasis, gastritis, tw4 non-specific abd pain, pancreatitis, Peptic Ulcer Disease, Perf. Duodenal Ulcer, Perf. Gastric Ulcer, Peritonitis, Ureterolithiasis. Data reviewed: vital signs, nurses notes. Data interpreted: Pulse oximetry: Interpretation: normal. Counseling: I had a detailed discussion with the patient and/or guardian regarding: the historical points, exam findings, and any diagnostic results supporting the discharge/admit diagnosis. Physician consultation: Ward Crespo MD regarding admission, to the medical/surgical unit. patient's condition, and will see patient in inpatient room. Admission orders: after a detailed discussion of the patient's condition and case, the admit orders are written by me. Special discussion: I discussed with the patient/guardian in detail that at this point there is no indication for admission to the hospital. It is understood, however, that if the symptoms persist or worsen the patient needs to return immediately for re-evaluation. 05/29 20:22 Order name: Basic Metabolic Panel; Complete Time: 22:50 05/29 22:51 Interpretation: Normal except: K 3.3; CA 8.4. 05/29 20:22 Order name: CBC with Diff; Complete Time: 22:50 05/29 22:59 Interpretation: Normal except: HGB 8.1; HCT 26.8; MCH 19.2; MCHC 30.1; RDW 18.3; MCV tw4 63.6. 05/29 20:22 Order name: Creatinine for Radiology; Complete Time: 22:50 05/29 20:22 Order name: Hepatic Function; Complete Time: 22:50 05/29 20:22 Order name: Lipase; Complete Time: 22:50 [facility] 05/29 20:49 Order name: Urine Dipstick--Ancillary (enter results); Complete Time: 22:50 [facility] 05/29 20:22 Order name: IV Saline Lock; Complete Time: 20:39 tw 05/29 20:22 Order name: Labs collected and sent; Complete Time: 20:39 tw4 05/29 20:49 Order name: Urine --Ancillary (enter results); Complete Time: 22:50 [facility] 05/29 21:02 Order name: CBC Smear Scan; Complete Time: 22:50 EDMS 05/29 21:11 Order name: CT Abd/Pelvis - IV Contrast Only tw 05/29 23:49 Order name: CONS Pharmacy Consult EDSC 05/29 23:49 Order name: NPO EDMS Administered Medications: 05/29 23:01 Drug: Zosyn 3.375 grams Route: IVPB; Infused Over: 60 mins; Site: right antecubital; mg2 05/30 00:01 Follow up: Response: No adverse reaction; IV Status: Completed infusion jb4 Disposition: 05/29/19 23:37 Hospitalization ordered by Ward Crespo for Inpatient Admission. Preliminary diagnosis is Peritoneal abscess. - Bed requested for Telemetry/MedSurg (Inpatient). - Status is Inpatient Admission. jb4 - Condition is Stable. - Problem is new. - Symptoms are unchanged. UTI on Admission? No Signatures: Dispatcher [employer] EDSC Tena Mendoza RN RN tl1 Dickson Silva RN RN jb4 Prasad Song MD MD tw4 Isauro Delgado RN RN mg2 Keerthi Huang RN RN ca1 Corrections: (The following items were deleted from the chart) 05/29 22:59 22:51 Normal except: HGB 8.1; HCT 26.8; MCV 63.6; MCH 19.2; MCHC 30.1; RDW 18.3. tw4 tw 23:53 23:37 Hospitalization Ordered by Ward Crespo MD for Inpatient Admission. Preliminary tl1 diagnosis is Peritoneal abscess. Bed requested for Telemetry/MedSurg (Inpatient). Status is Inpatient Admission. Condition is Stable. Problem is new. Symptoms are unchanged. UTI on Admission? No. tw4 05/30 00:15 05/29 23:53 05/29/2019 23:37 Hospitalization Ordered by Ward Crespo MD for Inpatient jb4 Admission. Preliminary diagnosis is Peritoneal abscess. Bed requested for Telemetry/MedSurg (Inpatient). Status is Inpatient Admission. Condition is Stable. Problem is new. Symptoms are unchanged. UTI on Admission? No. tl1
--- NOTE | 2019-05-29 23:37 | ER ---
Nurse's Notes [facility] Name: Ruby Tapia Age: 38 yrs Sex: Female : 1980 Arrival Date: 05/29/2019 Time: 18:57 Bed 27 Private MD: Diagnosis: Peritoneal abscess Presentation: 05/29 19:39 Presenting complaint: Patient states: "I went to [facility] about a month ago ca1 because I have a bulge in my stomach. They told me I have abdominal hernia, they told me if it bulges that I will have to push it back in. Today I wasn't able to do that. I was lifting a hamper, I felt it pop and can't just push it back in right now" Co/o abdominal pain, nausea. Denies vomiting. Transition of care: patient was not received from another setting of care. Onset of symptoms was May 29, 2019. Risk Assessment: Do you want to hurt yourself or someone else? Patient reports no desire to harm self or others. Initial Sepsis Screen: Does the patient meet any 2 criteria? No. Patient's initial sepsis screen is negative. Does the patient have a suspected source of infection? No. Patient's initial sepsis screen is negative. Care prior to arrival: None. 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 - Social history:: Smoking status: Patient reports the use of cigarette tobacco products, smokes one-half pack cigarettes per day. - Ebola Screening: : Patient negative for fever greater than or equal to 101.5 degrees Fahrenheit, and additional compatible Ebola Virus Disease symptoms Patient denies exposure to infectious person Patient denies travel to an Ebola-affected area in the 21 days before illness onset No symptoms or risks identified at this time. Screenin:41 Abuse screen: Denies threats or abuse. Denies injuries from another. Nutritional mg2 screening: No deficits noted. Tuberculosis screening: No symptoms or risk factors identified. Fall Risk IV access (20 points). Assessment: 20:40 General: Appears in no apparent distress. comfortable, Behavior is calm, cooperative. mg2 Pain: Complains of pain in abdomen. Neuro: Level of Consciousness is awake, alert, obeys commands, Oriented to person, place, time, situation. Cardiovascular: Capillary refill < 3 seconds Patient's skin is warm and dry. Respiratory: Airway is patent Respiratory effort is even, unlabored, Respiratory pattern is regular, symmetrical. GI: Abdomen is distended, Bowel sounds present X 4 quads. Abd is rigid in umbilical area Reports constipation, nausea. : No signs and/or symptoms were reported regarding the genitourinary system. EENT: No signs and/or symptoms were reported regarding the EENT system. Derm: Skin is intact, is healthy with good turgor, Skin is pink, warm \\T\\ dry. normal. Musculoskeletal: Circulation, motion, and sensation intact. Capillary refill < 3 seconds. 21:27 Reassessment: Patient appears in no apparent distress at this time. Patient and/or mg2 family updated on plan of care and expected duration. Pain level reassessed. sent to ct scan via wheelchair. 22:36 Reassessment: Patient appears in no apparent distress at this time. Patient and/or mg2 family updated on plan of care and expected duration. Pain level reassessed. Patient is alert, oriented x 3, equal unlabored respirations, skin warm/dry/pink. 23:50 Reassessment: Patient appears in no apparent distress at this time. Patient and/or jb4 family updated on plan of care and expected duration. Pain level reassessed. Patient is alert, oriented x 3, equal unlabored respirations, skin warm/dry/pink. Vital Signs: 19:44 BP 119 / 91; Pulse 74; Resp 17 S; Temp 97.3(O); Pulse Ox 100% on R/A; Weight 91.17 kg ca1 (M); Height 5 ft. 8 in. (172.72 cm) (R); Pain 9/10; 22:36 BP 117 / 79; Pulse 81; Resp 18; Temp 98.6; Pulse Ox 100% on R/A; Pain 0/10; mg2 23:56 BP 114 / 81; Pulse 75; Resp 16; Temp 98.0(O); Pulse Ox 100% on R/A; jb4 19:44 Body Mass Index 30.56 (91.17 kg, 172.72 cm) ca1 ED Course: 18:57 Patient arrived in ED. mr 19:39 Keerthi Huang, RN is Primary Nurse. ca1 19:42 Triage completed. ca1 19:44 Arm band placed on right wrist. ca1 20:21 Prasad Song MD is Attending Physician. tw4 20:41 Patient has correct armband on for positive identification. mg2 20:41 No provider procedures requiring assistance completed. Inserted saline lock: 20 gauge mg2 in right antecubital area, using aseptic technique. Blood collected. 21:27 Isauro Delgado, RN is Primary Nurse. mg2 21:41 CT Abd/Pelvis - IV Contrast Only In Process Unspecified. EDMS 23:35 Ward Crespo MD is Hospitalizing Provider. tw4 05/30 00:00 Patient admitted, IV remains in place. jb4 Administered Medications: 05/29 23:01 Drug: Zosyn 3.375 grams Route: IVPB; Infused Over: 60 mins; Site: right antecubital; mg2 05/30 00:01 Follow up: Response: No adverse reaction; IV Status: Completed infusion jb4 Outcome: 05/29 23:37 Decision to Hospitalize by Provider. tw4 23:59 Admitted to Tele accompanied by nurse, via wheelchair, room 419, with chart, Report jb4 called to WINSTON Dubois 23:59 Condition: stable 23:59 Discharge instructions given to patient, family, Instructed on the need for admit, Demonstrated understanding of instructions. 05/30 00:15 Patient left the ED. jb4 Signatures: Dispatcher [employer] ANNIECT Megha Agustin James, RN RN jb4 Prasad Song MD MD tw4 Isauro Delgado RN RN [facility] Keerthi Huang RN RN ca1
[2019-05-30] MEDS: NA CHLORIDE 0.9% 1,000 ML IV SCH ×3 (01:23→23:28)
[2019-05-30] MEDS: MORPHINE 2 MG/ML SYR IV PRN ×6 (01:23→20:08)
[2019-05-30 01:36] VITALS: BMI 31.7
--- NOTE | 2019-05-30 10:07 | RAD REPORT ---
EXAM DESCRIPTION: CT - Abdomen Pelvis W Contrast - 05/30/2019 6:07 am CLINICAL HISTORY: The patient is 38 years old and is Female; ABD PAIN TECHNIQUE: Axial computed tomography images of the abdomen and pelvis with intravenous contrast. S agittal and coronal reformatted images were created and reviewed. This CT exam was performed using one or more of the following dose reduction techniques: automated exposure control, adjustment of t he mA and/or kV according to patient size, and/or use of iterative reconstruction technique. DLP: 2052 mGy*cm COMPARISON: None. FINDINGS: LUNG BASES: Lung bases are clear. HEART: Visualized heart is normal. ABDOMEN: LIVER: Unremarkable. No mass. GALLBLADDER AND BILE DUCTS: Unremarkable. No calcified stones. No ductal dilation. PANCREAS: Unremarkable. No mass. No ductal dilation. SPLEEN: Unremarkable. No splenomegaly. ADRENALS: Unremarkable. No mass. KIDNEYS AND URETERS: Unremarkable. No solid mass. No hydronephrosis. STOMACH AND BOWEL: Epigastric postsurgical changes suggestive of prior sleeve gastroplasty. No obstruction. No mucosal thickening. PELVIS: APPENDIX: The appendix is seen and is within normal limits. BLADDER: Bladder is decompressed. REPRODUCTIVE: 2.5 cm right ovarian cyst. ABDOMEN and PELVIS: INTRAPERITONEAL SPACE: Unremarkable. No free air. No significant fluid collection. BONES/JOINTS: No acute fracture. No dislocation. SOFT TISSUES: Partially seen bilateral breast implants. Small rim-enhancing collection in the region of the umbilicus measuring 3.1 x 2.4 cm. Lower abdominal wall scarring. Small fat-containing umbilical hernia. VASCULATURE: Unremarkable. No abdominal aortic aneurysm. LYMPH NODES: Unremarkable. No enlarged lymph nodes. IMPRESSION: 1. Umbilical/periumbilical rim-enhancing collection measuring up to 3.1 cm concerning for abscess. Correlate with direct visualization. 2. 2.5 cm right ovarian cyst. No follow-up imaging is recommended. Reference: US recommendations based on Radiology 2010 Sep;256(3):943-54; CT/MR recommendations based on J Am Nicky Radiol 2013;10:675-681. 3. Small fat-containing of ventricle hernia. Electronically signed by: Tim Barnes DO 05/29/2019 10:11 PM REHAB NURSING TECH Due to temporary technical issues with the PACS/Fluency reporting system, reports are being signed by the in house radiologist as a courtesy to ensure prompt reporting. The interpreting radiologist is f ully responsible for the content of the report.
[2019-05-31] MEDS: MORPHINE 2 MG/ML SYR IV PRN ×3 (00:22→08:45)
[2019-05-31 00:55] VITALS: O2SAT 100
[2019-05-31] MEDS: NA CHLORIDE 0.9% 1,000 ML IV SCH (07:41)
[2019-05-31 09:20] VITALS: BP 92/60; TEMP 97.1
--- NOTE | 2019-05-31 09:39 | HP ---
Date of Admission: 05/30/2019 History Of Present Illness: This is a case of a 38-year-old patient, comes to us with an episode of abdominal pain. Patient was seen in the ER. Workup was done found to have a fluid cavity in the abd ominal wall. I am unable to say it is an abscess or not. Because the patient was having pain, she w as admitted to the hospital. Surgical service was consulted for admission. The story in her is diff icult because she has several years ago an abdominoplasty done in [place]. We have no details of that . She says she has some complications after that. Belly button got loose and start draining. She w ent back to the [place] to have it checked, but they could not just fixed the area. They packed the a lorena. She can hear and for the last few years, she has been having some belly ache. This time, she c omes with a fluid collection over the area that she has some before as a form of a seroma since she s tated the seroma was there after the surgery. There was a question about a chance of abscess in that region, so patient was admitted for observation. Also in the same time, patient found to have a sma ll umbilical hernia nearby. Past Medical History: Anxiety, ADD, Chiari malformation. Past Surgical History: Includes a tubal ligation; tummy tuck; some kind of gastric surgery, she does remember the name. Home Medications: Vyvanse. Social History: Patient smokes about half pack a day. She was concerned about smoking cessation. S he does not drink alcohol. Review of Systems: Ten-points otherwise unremarkable. Physical Examination: General: Patient is awake and alert. HEENT: Pupils are equal and reactive, anicteric. Neck: Supple. Chest: Clear. Abdomen: Soft and depressible. No guarding, rebound, or peritoneal signs. The periumbilical region shows previous scars from previous tummy tuck surgery. No erythema. No increased temperature. No evidence of cellulitis in that area. Breasts: Deferred. Pelvic: Deferred. Rectal: Deferred. Extremities: Good capillary refill. Neurologic: Cranial nerves 2 through 12 grossly within normal limits. Laboratory Data: WBC count of 6.9, hemoglobin of 8.1, potassium 3.3. Imaging Data: CAT scan of abdomen and pelvis was reviewed and interpreted by Dr. Murillo as umbilica l and periumbilical rim enhancing collection about 3.1 cm, cannot rule out abscess. Direct visualiza tion was done. There is no redness or increased temperature in that area. Patient also have a right ovarian cyst and she also small umbilical hernia with fat content. Assessment: This is a 38-year-old patient with abdominal wall fluid collection. Apparently, she has abdominoplasty in the past several years ago, never healed properly, on and off seromas that she alex cribes the last few years for that. Right now, this fluid collection does not look infected. There is no evidence of erythema, warmth, temperature, or anything on that area right now. She does have a small umbilical hernia nearby and with fatty content. No intestines. We going to get the benefit o f the doubt, continue with the antibiotics. She is going to go home and do the umbilical hernia elec tively to see there was no bowel involved in that area and if there is any question about infection i n that area, we are going to give her the antibiotics for several days and then she can have a chance to have the umbilical hernia done electively. We are going to keep the patient overnight once again and check temperatures and if by any chance this developed into an abscess, then she understands the need for I and D, although if the hernia is repaired, it may have limited the amount of repair that we can do since we should not use mesh when its an infection there. She understands that she is luis g to wait until tomorrow. If she feels better, she is going to go home and do this electively with the condition that she should take the antibiotics by mouth. СЕРГЕЙ/HILDA Voice ID: [id number]
== END 2019-05-31 11:54 | disposition home or self-care (01) | DRG 603 ==
LOC: ER 18:54 → 4TH 05-30 00:02
PROVIDERS: ADMIT Surgery; ATTEND Surgery
DX: L02.211 Cutaneous abscess of abdominal wall (principal); K42.9 Umbilical hernia without obstruction or gangrene; F17.210 Nicotine dependence, cigarettes, uncomplicated; Q07.00 Arnold-Chiari syndrome without spina bifida or hydrocephalus
CPT/HCPCS: 36415; 74177; 80048; 80076; 81003; 81025; 83690; 85025; 96365; 99285; J2270; J2543; J7030; Q9967

== ENCOUNTER 2019-10-31 00:07 | Emergency (ER) | payer SELFPAY ==
--- OUTSIDE RECORDS SUMMARY | 2019-10-31 00:11 | XMS REPORT | Continuity of Care Document ---
:1980 Author Organization [facility] t Address [address] [place] [address] Care Team Providers Name Role Phone Woody BROCK Attending Clinician Doctor Unassigned, Name Attending Clinician Unavailable Problems This patient has no known problems. Allergies, Adverse Reactions, Alerts This patient has no known allergies or adverse reactions. Medications This patient has no known medications. Procedures This patient has no known procedures. Encounters Start End Encounter Admission Attending Care Care Encounter Source Date/Time Date/Time Type Type Clinicians Facility Department ID 2019-07-18 2019-07-18 Emergency Woody [facility] [id number] 01:45:09 05:19:00 Jos Jeong [id number] [place] [id number] [place] [id number] 2019-07-18 2019-07-18 Orders Doctor [place] [id number] 00:00:00 00:00:00 Only UnassignedMAXIMILIAN [id number] [place] [facility] [id number] Results This patient has no known results.
--- NOTE | 2019-10-31 02:09 | EDPHYS ---
Physician Documentation [facility] Name: Ruby Tapia Age: 39 yrs Sex: Female : 1980 Arrival Date: 10/31/2019 Time: 00:10 Bed 6 Private MD: ANNIE Physician Go Yap HPI: 10/30 02:02 This 39 yrs old Female presents to ER via Ambulatory with complaints of Back cheyenne Pain. 02:02 The patient presents with pain that is acute, with no known mechanism of injury. The cheyenne symptoms are located in the low back. Onset: The symptoms/episode began/occurred 3 day(s) ago. The pain radiates to the right low back. Associated signs and symptoms: The patient has no apparent associated signs or symptoms. Modifying factors: The patient symptoms are alleviated by remaining still, the patient symptoms are aggravated by any movement, bending, coughing, lifting, movement. Severity of symptoms: At their worst the symptoms were mild, moderate, in the emergency department the symptoms are unchanged. The patient has experienced similar episodes in the past, several times. 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 - Social history:: Smoking status: Patient reports the use of cigarette tobacco products, smokes one-half pack cigarettes per day, Patient uses alcohol, occasionally. Patient/guardian denies using street drugs. - Family history:: not pertinent. ROS: 02:02 Constitutional: Negative for fever, chills, and weight loss, Eyes: Negative for injury, cheyenne pain, redness, and discharge, ENT: Negative for injury, pain, and discharge, Neck: Negative for injury, pain, and swelling, Cardiovascular: Negative for chest pain, palpitations, and edema, Respiratory: Negative for shortness of breath, cough, wheezing, and pleuritic chest pain, Abdomen/GI: Negative for abdominal pain, nausea, vomiting, diarrhea, and constipation, : Negative for injury, bleeding, discharge, and swelling, MS/Extremity: Negative for injury and deformity, Skin: Negative for injury, rash, and discoloration, Neuro: Negative for headache, weakness, numbness, tingling, and seizure, Psych: Negative for depression, anxiety, suicide ideation, homicidal ideation, and hallucinations, Allergy/Immunology: Negative for hives, rash, and allergies, Endocrine: Negative for neck swelling, polydipsia, polyuria, polyphagia, and marked weight changes, Hematologic/Lymphatic: Negative for swollen nodes, abnormal bleeding, and unusual bruising. 02:02 Back: Positive for decreased range of motion, pain at rest, pain with movement, radiated pain, of the right low back. Exam: 02:02 Constitutional: This is a well developed, well nourished patient who is awake, alert, cheyenne and in no acute distress. Head/Face: Normocephalic, atraumatic. Eyes: Pupils equal round and reactive to light, extra-ocular motions intact. Lids and lashes normal. Conjunctiva and sclera are non-icteric and not injected. Cornea within normal limits. Periorbital areas with no swelling, redness, or edema. ENT: Nares patent. No nasal discharge, no septal abnormalities noted. Tympanic membranes are normal and external auditory canals are clear. Oropharynx with no redness, swelling, or masses, exudates, or evidence of obstruction, uvula midline. Mucous membranes moist. Neck: Trachea midline, no thyromegaly or masses palpated, and no cervical lymphadenopathy. Supple, full range of motion without nuchal rigidity, or vertebral point tenderness. No Meningismus. Chest/axilla: Normal chest wall appearance and motion. Nontender with no deformity. No lesions are appreciated. Cardiovascular: Regular rate and rhythm with a normal S1 and S2. No gallops, murmurs, or rubs. Normal PMI, no JVD. No pulse deficits. Respiratory: Lungs have equal breath sounds bilaterally, clear to auscultation and percussion. No rales, rhonchi or wheezes noted. No increased work of breathing, no retractions or nasal flaring. Abdomen/GI: Soft, non-tender, with normal bowel sounds. No distension or tympany. No guarding or rebound. No evidence of tenderness throughout. Skin: Warm, dry with normal turgor. Normal color with no rashes, no lesions, and no evidence of cellulitis. MS/ Extremity: Pulses equal, no cyanosis. Neurovascular intact. Full, normal range of motion. Neuro: Awake and alert, GCS 15, oriented to person, place, time, and situation. Cranial nerves II-XII grossly intact. Motor strength 5/5 in all extremities. Sensory grossly intact. Cerebellar exam normal. Normal gait. Psych: Awake, alert, with orientation to person, place and time. Behavior, mood, and affect are within normal limits. 02:02 Back: pain, that is moderate, ROM is painful, normal spinal alignment noted, CVA tenderness, is absent, muscle spasm, is appreciated in the left low back, left mid back, right mid back and right low back. Vital Signs: 00:48 BP 131 / 82; Pulse 81; Resp 17; Temp 98; Pulse Ox 100% ; Weight 90.72 kg; Height 5 ft. lp1 8 in. (172.72 cm); Pain 10/10; 02:40 BP 119 / 64; Pulse 75; Resp 16; Pulse Ox 100% ; Pain 6/10; rr5 00:48 Body Mass Index 30.41 (90.72 kg, 172.72 cm) lp1 MDM: 01:12 Patient medically screened. [facility] 02:05 Differential diagnosis: Fatigue spinal injury, sprain. Data reviewed: vital signs, [facility] nurses notes. Data interpreted: satellite project site monitor: not applicable for this patient encounter. rate is 81 beats/min, Pulse oximetry: on room air is 100 %. Counseling: I had a detailed discussion with the patient and/or guardian regarding: the historical points, exam findings, and any diagnostic results supporting the discharge/admit diagnosis, the need for outpatient follow up, for definitive care, a neurologist. Administered Medications: 02:15 Drug: TORadol 30 mg Route: IM; Site: left gluteus; rr5 02:40 Follow up: Response: No adverse reaction; Pain is decreased rr5 02:16 Drug: [place] 10 mg-325 mg 1 tabs {Note: rass 0.} Route: PO; rr5 02:40 Follow up: Response: No adverse reaction; RASS: Alert and Calm (0) rr5 02:16 Drug: Decadron 10 mg Route: IM; Site: right gluteus; rr5 02:40 Follow up: Response: No adverse reaction rr5 02:16 Drug: Valium 5 mg {Note: rass 0.} Route: PO; rr5 02:40 Follow up: Response: No adverse reaction rr5 Disposition: 10/31/19 02:08 Discharged to Home. Impression: Low back pain, Sciatica, right side. - Condition is Stable. - Discharge Instructions: Back Pain, Adult, Musculoskeletal Pain, Sciatica, Back Pain, Adult, [id number]-[id number]. - Prescriptions for Ibuprofen 600 mg Oral Tablet - take 1 tablet by ORAL route every 6 hours As needed take with food; 20 tablet. Tylenol- Codeine #3 300-30 mg Oral Tablet - take 2 tablets by ORAL route every 6 hours As needed; 26 tablet. Medrol (Lior) 4 mg Oral Tablets, Dose Pack - take 1 tablet by ORAL route as directed - follow package instructions; 1 packet. Cyclobenzaprine 5 mg Oral Tablet - take 1 tablet by ORAL route 3 times per day As needed; 15 tablet. - Medication Reconciliation Form, Thank You Letter, Antibiotic Education, Prescription Opioid Use form. - Follow up: Private Physician; When: 2 - 3 days; Reason: Recheck today's complaints, Continuance of care, Re-evaluation by your physician. - Problem is new. - Symptoms have improved. Signatures: Go Yap MD MD cha Pena, Laura RN RN lp1 Nic Mcdonough RN RN rr5 Corrections: (The following items were deleted from the chart) 02:43 02:08 10/31/2019 02:08 Discharged to Home. Impression: Low back pain; Sciatica, right rr5 side. Condition is Stable. Forms are Medication Reconciliation Form, Thank You Letter, Antibiotic Education, Prescription Opioid Use. Follow up: Private Physician; When: 2 - 3 days; Reason: Recheck today's complaints, Continuance of care, Re-evaluation by your physician. Problem is new. Symptoms have improved. cheyenne
--- NOTE | 2019-10-31 02:09 | ER ---
Nurse's Notes [facility] Name: Ruby Tapia Age: 39 yrs Sex: Female : 1980 Arrival Date: 10/31/2019 Time: 00:10 Bed 6 Private MD: Diagnosis: Low back pain;Sciatica, right side Presentation: 10/30 00:46 Chief complaint: Patient states: I have had back problems from a prior accident and my lp1 back goes out and this time the pain is unbearable. I am now getting muscle spasms. This time the pain has been going on for about 2 weeks. Coronavirus screen: Patient denies a cough. Patient denies shortness of breath or difficulty breathing. Patient denies measured and/or subjective temperature greater than 100.4F prior to today's visit. Patient denies travel on a cruise ship or to a country the [facility] currently lists as an affected area. Patient denies contact with known and/or suspected case of COVID-19. Ebola Screen: Patient negative for fever greater than or equal to 101.5 degrees Fahrenheit, and additional compatible Ebola Virus Disease symptoms Patient denies exposure to infectious person. Patient denies travel to an Ebola-affected area in the 21 days before illness onset. Initial Sepsis Screen: Does the patient meet any 2 criteria? No. Patient's initial sepsis screen is negative. Does the patient have a suspected source of infection? No. Patient's initial sepsis screen is negative. Risk Assessment: Do you want to hurt yourself or someone else? Patient reports no desire to harm self or others. Onset of symptoms is unknown. 00:46 Method Of Arrival: Ambulatory lp1 00:46 Acuity: DONTE 3 lp1 Triage Assessment: 01:30 General: Appears in no apparent distress. uncomfortable, Behavior is calm, cooperative, rr5 appropriate for age. 01:30 Musculoskeletal: Circulation, motion, and sensation intact. Capillary refill < 3 rr5 seconds, Reports pain in back and right low back. 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 - Social history:: Smoking status: Patient reports the use of cigarette tobacco products, smokes one-half pack cigarettes per day, Patient uses alcohol, occasionally. Patient/guardian denies using street drugs. - Family history:: not pertinent. Screenin:30 Abuse screen: Denies threats or abuse. Denies injuries from another. Nutritional rr5 screening: No deficits noted. Tuberculosis screening: No symptoms or risk factors identified. Fall Risk Gait- Normal/Bed Rest/Wheelchair (0 pts) Total Macias Fall Scale indicates No Risk (0-24 pts). Assessment: 01:30 General: Appears in no apparent distress. uncomfortable, Behavior is calm, cooperative, rr5 appropriate for age. 01:30 Pain: Complains of pain in left low back and right low back Pain radiates to right leg rr5 Pain currently is 8 out of 10 on a pain scale. Quality of pain is described as aching, Pain began gradually, Is intermittent. Neuro: Level of Consciousness is awake, alert, obeys commands, Oriented to person, place, time, situation, Appropriate for age. Cardiovascular: Capillary refill < 3 seconds Patient's skin is warm and dry. Respiratory: Airway is compromised Respiratory effort is even, unlabored, Respiratory pattern is regular, symmetrical. GI: No signs and/or symptoms were reported involving the gastrointestinal system. : No signs and/or symptoms were reported regarding the genitourinary system. EENT: No signs and/or symptoms were reported regarding the EENT system. Derm: Skin is intact, is healthy with good turgor, Skin temperature is warm. Musculoskeletal: Capillary refill < 3 seconds, Reports pain in right low back. 02:46 Reassessment: Patient appears in no apparent distress at this time. Patient is alert, rr5 oriented x 3, equal unlabored respirations, skin warm/dry/pink. discharge instruction given and explained without complaints made. Patient states symptoms have improved. Vital Signs: 00:48 BP 131 / 82; Pulse 81; Resp 17; Temp 98; Pulse Ox 100% ; Weight 90.72 kg; Height 5 ft. lp1 8 in. (172.72 cm); Pain 10/10; 02:40 BP 119 / 64; Pulse 75; Resp 16; Pulse Ox 100% ; Pain 6/10; rr5 00:48 Body Mass Index 30.41 (90.72 kg, 172.72 cm) lp1 ED Course: 00:10 Patient arrived in ED. cl3 00:48 Triage completed. lp1 00:49 Arm band placed on right wrist. lp1 01:12 Go Yap MD is Attending Physician. [place] 01:30 Patient has correct armband on for positive identification. Bed in low position. Call rr5 light in reach. 02:07 Nic Mcdonough, RN is Primary Nurse. rr5 02:47 No provider procedures requiring assistance completed. Patient did not have IV access rr5 during this emergency room visit. Administered Medications: 02:15 Drug: TORadol 30 mg Route: IM; Site: left gluteus; rr5 02:40 Follow up: Response: No adverse reaction; Pain is decreased rr5 02:16 Drug: Harrah 10 mg-325 mg 1 tabs {Note: rass 0.} Route: PO; rr5 02:40 Follow up: Response: No adverse reaction; RASS: Alert and Calm (0) rr5 02:16 Drug: Decadron 10 mg Route: IM; Site: right gluteus; rr5 02:40 Follow up: Response: No adverse reaction rr5 02:16 Drug: Valium 5 mg {Note: rass 0.} Route: PO; rr5 02:40 Follow up: Response: No adverse reaction rr5 Outcome: 02:08 Discharge ordered by . cheyenne 02:40 Discharged to home via wheelchair. rr5 02:40 Condition: stable 02:40 Discharge instructions given to patient, Instructed on discharge instructions, follow up and referral plans. medication usage, Demonstrated understanding of instructions, follow-up care, medications, Prescriptions given X 4. 02:43 Patient left the ED. rr5 Signatures: Go Yap MD MD cha Pena, Laura, RN RN lp1 Nic Mcdonough, WINSTON RN rr5 Alysa Jaime cl3
[2019-10-31] MEDS ORDERED: HYDROCODONE/APAP 10/325 TAB ONE (02:17)
[2019-10-31] MEDS ORDERED: dexAMETHasone 10 MG/ML VIAL ONE (02:18)
[2019-10-31] MEDS ORDERED: KETOROLAC 30 MG/ML INJ ONE (02:18)
[2019-10-31] MEDS ORDERED: DIAZEPAM 5 MG TABLET ONE (02:18)
[2019-10-31 03:33] VITALS: BP 131/82; TEMP 98; O2SAT 100
== END 2019-10-31 02:43 | disposition home or self-care (01) ==
LOC: ER 00:07
DX: M54.31 Sciatica, right side (principal); F17.210 Nicotine dependence, cigarettes, uncomplicated
CPT/HCPCS: 96372; 99283; J1100

== ENCOUNTER 2019-11-30 03:38 | Emergency (ER) | payer SELFPAY ==
--- OUTSIDE RECORDS SUMMARY | 2019-11-30 03:40 | XMS REPORT | Continuity of Care Document ---
:1980 Author Organization [facility] t Address [address] [place] [address] Care Team Providers Name Role Phone Woody [...] Facility Department ID 2019-07-18 2019-07-18 Emergency Woody [facility] [id number] 01:45:09 05:19:00 Jos Jeong [id number] [place] [id number] [place] [id number] 2019-07-18 2019-07-18 Orders Doctor [place] [id number] 00:00:00 00:00:00 Only UnassignedMAXIMILIAN [id number] Hannah [facility] [id number] [id number] Results This patient has no known results.
[2019-11-30] MEDS ORDERED: TETRACAINE HCL 0.5% 4ML OPTH ONE (04:11)
[2019-11-30] MEDS ORDERED: FLUORESCEIN SODIUM 1 MG/WRAP ONE (04:17)
[2019-11-30] MEDS ORDERED: IBUPROFEN 400 MG TAB ONE (04:32)
[2019-11-30] MEDS ORDERED: CYCLOPENTOLATE 2% OPTH 2 ML ONE (04:32)
[2019-11-30] MEDS ORDERED: TOBRAMYCIN SULF 0.3% OPTH OINT ONE (05:19)
--- NOTE | 2019-11-30 05:22 | EDPHYS ---
Physician Documentation [facility] Name: Ruby Tapia Age: 39 yrs Sex: Female : 1980 Arrival Date: 11/30/2019 Time: 03:39 Bed 7 Private MD: ED Physician Jason Altamirano HPI: 11/29 04:45 This 39 yrs old Female presents to ER via Wheelchair with complaints of mh7 Blurred Vision, Urinating blood. 04:45 The patient is experiencing blurred vision, pain, tearing, The patient sustained None. mh7 Slept in contact lenses, to both eyes, caused by contact lens. Onset: The symptoms/episode began/occurred 2 day(s) ago. Duration: the symptoms are continuous. Aggravated by light, Alleviated by covering eye. Associated signs and symptoms: Pertinent negatives: chills, dizziness, ear ache, fever, headache, runny nose. Patient wears soft contacts. Severity of symptoms: At their worst the symptoms were moderate yesterday, in the emergency department the symptoms are unchanged. 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 - Social history:: Smoking status: Patient reports the use of cigarette tobacco products, denies chronic smoking, but will smoke occasionally. ROS: 04:45 Constitutional: Negative for fever, chills, and weight loss, ENT: Negative for injury, mh7 pain, and discharge, Neck: Negative for injury, pain, and swelling, Cardiovascular: Negative for chest pain, palpitations, and edema, Respiratory: Negative for shortness of breath, cough, wheezing, and pleuritic chest pain, Abdomen/GI: Negative for abdominal pain, nausea, vomiting, diarrhea, and constipation, Back: Negative for injury and pain, : Negative for injury, bleeding, discharge, and swelling, MS/Extremity: Negative for injury and deformity, Skin: Negative for injury, rash, and discoloration, Neuro: Negative for headache, weakness, numbness, tingling, and seizure, Psych: Negative for depression, anxiety, suicide ideation, homicidal ideation, and hallucinations, Allergy/Immunology: Negative for hives, rash, and allergies, Endocrine: Negative for neck swelling, polydipsia, polyuria, polyphagia, and marked weight changes, Hematologic/Lymphatic: Negative for swollen nodes, abnormal bleeding, and unusual bruising. Exam: 04:45 Constitutional: This is a well developed, well nourished patient who is awake, alert, mh7 and in no acute distress. Head/Face: Normocephalic, atraumatic. Neck: Trachea midline, no thyromegaly or masses palpated, and no cervical lymphadenopathy. Supple, full range of motion without nuchal rigidity, or vertebral point tenderness. No Meningismus. Chest/axilla: Normal chest wall appearance and motion. Nontender with no deformity. No lesions are appreciated. Cardiovascular: Regular rate and rhythm with a normal S1 and S2. No gallops, murmurs, or rubs. Normal PMI, no JVD. No pulse deficits. Respiratory: Lungs have equal breath sounds bilaterally, clear to auscultation and percussion. No rales, rhonchi or wheezes noted. No increased work of breathing, no retractions or nasal flaring. Abdomen/GI: Soft, non-tender, with normal bowel sounds. No distension or tympany. No guarding or rebound. No evidence of tenderness throughout. Back: No spinal tenderness. No costovertebral tenderness. Full range of motion. Skin: Warm, dry with normal turgor. Normal color with no rashes, no lesions, and no evidence of cellulitis. MS/ Extremity: Pulses equal, no cyanosis. Neurovascular intact. Full, normal range of motion. Neuro: Awake and alert, GCS 15, oriented to person, place, time, and situation. Cranial nerves II-XII grossly intact. Motor strength 5/5 in all extremities. Sensory grossly intact. Cerebellar exam normal. Normal gait. Psych: Awake, alert, with orientation to person, place and time. Behavior, mood, and affect are within normal limits. 05:12 Eyes: Periorbital structures: appear normal, Pupils: equal, round, and reactive to mh7 light and accomodation, Extraocular movements: intact throughout, Conjunctiva: injected, bilaterally, Corneas: abrasion, that is moderate sized, on the left, on the right, at 6 o'clock, a fluorescein strip employed to appreciate the findings, Sclera: no appreciated abnormality, Anterior chamber: No Slit Lamp Available. Lids and lashes: appear normal, funduscopic exam reveals no obvious abnormalities, Visual delatorre: are intact, Nystagmus: is not appreciated, Intraocular pressure: right eye = 15mmHg, left eye = 15mmHg. 05:29 Visual Acuity: I have reviewed the nursing documentation. [facility] Vital Signs: 04:17 BP 113 / 74; Pulse 73; Resp 16 S; Temp 98.3(O); Pulse Ox 100% on R/A; Weight 90.72 kg jd3 (R); Height 5 ft. 8 in. (172.72 cm) (R); Pain 10/10; 05:15 BP 110 / 75; Pulse 75; Resp 15 S; Pulse Ox 99% on R/A; jd3 04:17 Body Mass Index 30.41 (90.72 kg, 172.72 cm) jd3 Visual Acuity: 05:07 Left Eye Visual acuity 20/50, Pupil size 3 mm, Normal, React To Light, Reactive To jd3 Accomodation; Right Eye Visual acuity 20/50, Pupil size 3 mm, Normal, React To Light, Reactive To Accomodation; Both Eyes Visual acuity 20/50; Without Lenses; MDM: 04:02 Patient medically screened. [facility] 05:12 Differential diagnosis: Corneal abrasion of both eyes. Corneal ulcer of both eyes. 7 Foreign body in both eyes. Acute iritis of both eyes. Acute glaucoma in both eyes. Infectious conjunctivitis in both eyes. Ultraviolet keratitis in both eyes. Data reviewed: vital signs, nurses notes. Counseling: I had a detailed discussion with the patient and/or guardian regarding: the historical points, exam findings, and any diagnostic results supporting the discharge/admit diagnosis, the need for outpatient follow up, an opthalmologist. Response to treatment: the patient's symptoms have markedly improved after treatment. 11/29 04:04 Order name: Urine Dipstick-Ancillary (obtain specimen); Complete Time: 04:13 [facility] 11/29 04:04 Order name: Urine Test (obtain specimen); Complete Time: 04:13 [facility] 11/29 04:04 Order name: Fluoresene Opth strip; Complete Time: 04:12 7 Administered Medications: 04:12 Drug: Tetracaine Solution (0.5 %) 1 application Route: Topical; Site: affected area; jd3 05:15 Follow up: Response: No adverse reaction jd3 04:27 Not Given (Other Intervention Used): Cyclogyl Drops (0.5 %) 1 drops Ophthalmic once jd3 04:27 Drug: Ibuprofen 800 mg Route: PO; jd3 05:15 Follow up: Response: No adverse reaction jd3 04:27 Drug: Cyclogyl Drops (2%) 1 drops Route: Ophthalmic; Site: both eyes; jd3 05:15 Follow up: Response: No adverse reaction jd3 05:15 Not Given (Physician Discretion): Tobramycin Drops (0.3 %) 2 drops Ophthalmic once jd3 Disposition: 11/30/19 05:21 Discharged to Home. Impression: Corneal Abrasions, Dysuria. - Condition is Stable. - Discharge Instructions: Dysuria, Corneal Abrasion, [id number]. - Prescriptions for cyclopentolate 1 % Ophthalmic drops - instill 1 drop by OPHTHALMIC route 3 times per day; 5 milliliter. Ciloxan 0.3 % Ophthalmic Drops - instill 2 drop by OPHTHALMIC route every 6 hours for 7 days; 5 milliliter. Ibuprofen 800 mg Oral Tablet - take 1 tablet by ORAL route every 8 hours As needed take with food; 15 tablet. Pyridium 200 mg Oral Tablet - take 1 tablet by ORAL route every 8 hours for 2 days; 6 tablet. Tylenol- Codeine #3 300-30 mg Oral Tablet - take 2 tablets by ORAL route every 6 hours As needed; 20 tablet. - Medication Reconciliation Form, Thank You Letter, Antibiotic Education, Prescription Opioid Use form. - Follow up: Elena lEliott MD; When: 1 - 2 days; Reason: Worsening of condition, Recheck today's complaints. - Problem is new. - Symptoms have improved. Signatures: Rubén Grande RN RN jd3 Jason Altamirano MD MD 7 Corrections: (The following items were deleted from the chart) 05:42 05:21 11/30/2019 05:21 Discharged to Home. Impression: Corneal Abrasions; Dysuria. jd3 Condition is Stable. Forms are Medication Reconciliation Form, Thank You Letter, Antibiotic Education, Prescription Opioid Use. Follow up: Elena Elliott; When: 1 - 2 days; Reason: Worsening of condition, Recheck today's complaints. Problem is new. Symptoms have improved. mh7
--- NOTE | 2019-11-30 05:22 | ER ---
Nurse's Notes [facility] Name: Ruby Tapia Age: 39 yrs Sex: Female : 1980 Arrival Date: 11/30/2019 Time: 03:39 Bed 7 Private MD: Diagnosis: Corneal Abrasions;Dysuria Presentation: 11/29 04:13 Chief complaint: Patient states: "I fell asleep 2 days ago with contacts in and I woke jd3 up an it was hard to open them and very painful. I took them out and I still am having a lot of pain still. I also have been having painful urination and blood afterwards when I wipe. I took antibiotics from [place] and I got here and it wasn't that bad.". Coronavirus screen: Proceed with normal triage. Ebola Screen: Patient negative for fever greater than or equal to 101.5 degrees Fahrenheit, and additional compatible Ebola Virus Disease symptoms. Initial Sepsis Screen: Does the patient meet any 2 criteria? No. Patient's initial sepsis screen is negative. Does the patient have a suspected source of infection? No. Patient's initial sepsis screen is negative. Risk Assessment: Do you want to hurt yourself or someone else? Patient reports no desire to harm self or others. Onset of symptoms was November 30, 2019. 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 - Social history:: Smoking status: Patient reports the use of cigarette tobacco products, denies chronic smoking, but will smoke occasionally. Screenin:19 Abuse screen: Denies threats or abuse. Nutritional screening: No deficits noted. jd3 Tuberculosis screening: No symptoms or risk factors identified. Fall Risk Ambulatory Aid- None/Bed Rest/Nurse Assist (0 pts). Gait- Normal/Bed Rest/Wheelchair (0 pts) Mental Status- Oriented to own ability (0 pts). Total Macias Fall Scale indicates No Risk (0-24 pts). Assessment: 04:18 General: Appears in no apparent distress. uncomfortable, Behavior is calm, cooperative, jd3 appropriate for age. Pain: Complains of pain in right eye and left eye Quality of pain is described as sharp, stinging. Neuro: Level of Consciousness is awake, alert, obeys commands, Oriented to person, place, time, situation. Cardiovascular: Denies chest pain, Capillary refill < 3 seconds Patient's skin is warm and dry. Respiratory: Airway is patent Respiratory effort is even, unlabored, Respiratory pattern is regular, symmetrical, Denies cough, shortness of breath. GI: No signs and/or symptoms were reported involving the gastrointestinal system. : Reports burning with urination. EENT: Reports pain in right eye and left eye. Derm: Skin is intact, Skin is dry, Skin is normal, Skin temperature is warm. Musculoskeletal: Circulation, motion, and sensation intact. Range of motion: intact in all extremities. 05:07 Reassessment: Patient appears in no apparent distress at this time. Patient and/or jd3 family updated on plan of care and expected duration. Pain level reassessed. Patient is alert, oriented x 3, equal unlabored respirations, skin warm/dry/pink. Vital Signs: 04:17 BP 113 / 74; Pulse 73; Resp 16 S; Temp 98.3(O); Pulse Ox 100% on R/A; Weight 90.72 kg jd3 (R); Height 5 ft. 8 in. (172.72 cm) (R); Pain 10/10; 05:15 BP 110 / 75; Pulse 75; Resp 15 S; Pulse Ox 99% on R/A; jd3 04:17 Body Mass Index 30.41 (90.72 kg, 172.72 cm) jd3 Visual Acuity: 05:07 Left Eye Visual acuity 20/50, Pupil size 3 mm, Normal, React To Light, Reactive To jd3 Accomodation; Right Eye Visual acuity 20/50, Pupil size 3 mm, Normal, React To Light, Reactive To Accomodation; Both Eyes Visual acuity 20/50; Without Lenses; ED Course: 03:39 Patient arrived in ED. ds1 03:46 Jason Altamirano MD is Attending Physician. 7 04:12 Rubén Grande RN is Primary Nurse. jd3 04:16 Triage completed. jd3 04:18 Arm band placed on. jd3 04:19 Patient has correct armband on for positive identification. Bed in low position. Call jd3 light in reach. Side rails up X 1. Pulse ox on. NIBP on. 05:20 Elena Elliott MD is Referral Physician. 7 05:42 No provider procedures requiring assistance completed. Patient did not have IV access jd3 during this emergency room visit. Administered Medications: 04:12 Drug: Tetracaine Solution (0.5 %) 1 application Route: Topical; Site: affected area; jd3 05:15 Follow up: Response: No adverse reaction jd3 04:27 Not Given (Other Intervention Used): Cyclogyl Drops (0.5 %) 1 drops Ophthalmic once jd3 04:27 Drug: Ibuprofen 800 mg Route: PO; jd3 05:15 Follow up: Response: No adverse reaction jd3 04:27 Drug: Cyclogyl Drops (2%) 1 drops Route: Ophthalmic; Site: both eyes; jd3 05:15 Follow up: Response: No adverse reaction jd3 05:15 Not Given (Physician Discretion): Tobramycin Drops (0.3 %) 2 drops Ophthalmic once jd3 Outcome: 05:21 Discharge ordered by . 7 05:42 Discharged to home via wheelchair, with family. jd3 05:42 Condition: stable 05:42 Discharge instructions given to patient, family, Instructed on discharge instructions, follow up and referral plans. medication usage, Demonstrated understanding of instructions, follow-up care, medications, Prescriptions given X 5 05:42 Patient left the ED. jd3 Signatures: Melani Moore ds1 Rubén Grande RN RN jd3 Jason Altamirano MD MD [facility] Corrections: (The following items were deleted from the chart) 04:32 04:18 EENT: No signs and/or symptoms were reported regarding the EENT system. jd3 jd3
[2019-11-30 05:59] VITALS: TEMP 98.3
[2019-11-30 06:04] VITALS: BP 110/75; O2SAT 99
== END 2019-11-30 05:42 | disposition home or self-care (01) ==
LOC: ER 03:38
DX: S05.02XA Injury of conjunctiva and corneal abrasion without foreign body, left eye, initial encounter (principal); S05.01XA Injury of conjunctiva and corneal abrasion without foreign body, right eye, initial encounter; R30.0 Dysuria; K21.9 Gastro-esophageal reflux disease without esophagitis; F17.210 Nicotine dependence, cigarettes, uncomplicated; Z98.82 Breast implant status
CPT/HCPCS: 99283

== ENCOUNTER 2020-05-03 18:00 | Emergency (ER) | payer SELFPAY ==
--- OUTSIDE RECORDS SUMMARY | 2020-05-03 18:02 | XMS REPORT | Continuity of Care Document ---
:1980 Author Organization [facility] t Address [address] [place] [address] Care Team Providers Name Role Phone Woody [...] Facility Department ID 2019-07-18 2019-07-18 Emergency Woody [facility] [id number] 01:45:09 05:19:00 Jos Jeong [id number] [id number] [place] [id number] 2019-07-18 2019-07-18 Orders Doctor [place] [id number] 00:00:00 00:00:00 Only UnassignedMAXIMILIAN [id number] [place] [facility] [id number] Results This patient has no known results.
--- NOTE | 2020-05-03 20:27 | ER ---
Nurse's Notes [facility] Name: Ruby Tapia Age: 39 yrs Sex: Female : 1980 Arrival Date: 05/03/2020 Time: 18:01 Bed Waiting Private MD: Diagnosis: Rash and other nonspecific skin eruption;Insect bite (nonvenomous), right foot Presentation: 05/03 18:38 Chief complaint: Patient states: A month ago, noticed I was bit by something, ca1 especially at night. We've already cleaned the apartment. But still they are barrelling in my skin, my eyes, my mouth, my tongue. Itching all over. they make a hole in your skin and they come out. Because of this I have trouble breathing. My skins [place] on my face. Pt appears anxious in triage. Coronavirus screen: Client denies travel out of the [place] in the last 14 days. shortness of breath, Client presents with at least one sign or symptom that may indicate coronavirus-19. Standard/surgical mask placed on the client. Provider contacted for isolation considerations. Ebola Screen: Patient negative for fever greater than or equal to 101.5 degrees Fahrenheit, and additional compatible Ebola Virus Disease symptoms Patient denies exposure to infectious person. Patient denies travel to an Ebola-affected area in the 21 days before illness onset. No symptoms or risks identified at this time. Initial Sepsis Screen: Does the patient meet any 2 criteria? No. Patient's initial sepsis screen is negative. Does the patient have a suspected source of infection? No. Patient's initial sepsis screen is negative. Risk Assessment: Do you want to hurt yourself or someone else? Patient reports no desire to harm self or others. Onset of symptoms was May 03, 2020. 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 - Social history:: Smoking status: Patient reports the use of cigarette tobacco products, smokes one-half pack cigarettes per day. Screenin:30 Abuse screen: Denies threats or abuse. Denies injuries from another. Nutritional ca1 screening: No deficits noted. Tuberculosis screening: No symptoms or risk factors identified. Fall Risk None identified. Assessment: 20:30 General: Appears in no apparent distress. comfortable, Behavior is calm, cooperative, ca1 appropriate for age, anxious. Pain: Denies pain. Neuro: Level of Consciousness is awake, alert, obeys commands, Oriented to person, place, time, situation. Respiratory: Airway is patent Respiratory effort is even, unlabored, Respiratory pattern is regular, symmetrical. Derm: Skin is intact, is healthy with good turgor, Skin is pink, warm \T\ dry. Rash noted that is urticaria. Musculoskeletal: Circulation, motion, and sensation intact. Capillary refill < 3 seconds. Vital Signs: 18:38 BP 122 / 82; Pulse 96; Resp 16 S; Temp 97.6(TE); Pulse Ox 95% on R/A; Weight 81.65 kg ca1 (R); Height 5 ft. 8 in. (172.72 cm) (R); 20:30 BP 119 / 76; Pulse 89; Resp 16 S; Pulse Ox 98% on R/A; ca1 18:38 Body Mass Index 27.37 (81.65 kg, 172.72 cm) ca1 ED Course: 18:01 Patient arrived in ED. as 18:42 Triage completed. ca1 18:42 Arm band placed on right wrist. ca1 19:10 Prasad Song MD is Attending Physician. tw4 20:23 Roberth Moise PA is PHCP. [facility] 20:30 Patient has correct armband on for positive identification. ca1 20:52 No provider procedures requiring assistance completed. Patient did not have IV access ca1 during this emergency room visit. Administered Medications: No medications were administered Outcome: 20:27 Discharge ordered by . patricio 20:52 Discharged to home ambulatory. ca1 20:52 Condition: stable 20:52 Discharge instructions given to patient, Instructed on discharge instructions, follow up and referral plans. medication usage, Demonstrated understanding of instructions, follow-up care, medications, Prescriptions given X x5 20:52 Patient left the ED. ca1 Signatures: MickailRoberth PA PA jmm Martinez, Amelia as Wadley, Terrence, MD MD tw4 Keerthi Huang RN RN ca1 Corrections: (The following items were deleted from the chart) 18:42 18:38 Coronavirus screen: Client denies travel out of the [place] in the last 14 days. At ca1 this time, the client does not indicate any symptoms associated with coronavirus-19. ca1
--- NOTE | 2020-05-03 20:28 | EDPHYS ---
Physician Documentation [facility] Name: Ruby Tapia Age: 39 yrs Sex: Female : 1980 Arrival Date: 05/03/2020 Time: 18:01 Bed Waiting Private MD: ED Physician Prasad Song HPI: 05/03 20:24 This 39 yrs old Female presents to ER via Ambulatory with complaints of Insect jmm Bite, Rash, Shortness Of Breath. 20:24 The patient presents with itching, rash. Onset: The symptoms/episode began/occurred jmm gradually. Associated signs and symptoms: Pertinent positives: shortness of breath. Possible causes: This is a 39 year old female with a history of anxiety, hernia, pseudotumor cerebri, that presents to the ED with complaints of rash to the feet, face, shortness of breath. patient states her apartment is invested with small insects and has attempted ot bomb the apartment with no relief. Denies fever, denies itching, denies pain. . 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 - Social history:: Smoking status: Patient reports the use of cigarette tobacco products, smokes one-half pack cigarettes per day. ROS: 20:24 Constitutional: Negative for fever, chills, and weight loss, Cardiovascular: Negative jmm for chest pain, palpitations, and edema, Respiratory: Negative for shortness of breath, cough, wheezing, and pleuritic chest pain. 20:24 Skin: Positive for rash. 20:24 All other systems are negative. Exam: 20:24 Constitutional: This is a well developed, well nourished patient who is awake, alert, jmm and in no acute distress. Head/Face: atraumatic. Eyes: EOMI, no conjunctival erythema appreciated ENT: Moist Mucus Membranes Neck: Trachea midline, Supple Chest/axilla: Normal chest wall appearance and motion. Cardiovascular: Regular rate and rhythm. No edema appreciated Respiratory: Normal respirations, no respiratory distress appreciated Abdomen/GI: Non distended, soft Back: Normal ROM Skin: General appearance color normal MS/ Extremity: Moves all extremities, no obvious deformities appreciated, no edema noted to the lower extremities Neuro: Awake and alert, normal gait Psych: Behavior is normal, Mood is normal, Patient is cooperative and pleasant 20:24 Skin: mild erythema noted to the right foot, right hand.. 20:24 Neuro: Orientation: is normal, Mentation: is normal, Memory: is normal. Vital Signs: 18:38 BP 122 / 82; Pulse 96; Resp 16 S; Temp 97.6(TE); Pulse Ox 95% on R/A; Weight 81.65 kg ca1 (R); Height 5 ft. 8 in. (172.72 cm) (R); 20:30 BP 119 / 76; Pulse 89; Resp 16 S; Pulse Ox 98% on R/A; ca1 18:38 Body Mass Index 27.37 (81.65 kg, 172.72 cm) ca1 MDM: 20:26 Data reviewed: vital signs, nurses notes. Counseling: I had a detailed discussion with patricio the patient and/or guardian regarding: the historical points, exam findings, and any diagnostic results supporting the discharge/admit diagnosis, the need for outpatient follow up, to return to the emergency department if symptoms worsen or persist or if there are any questions or concerns that arise at home. ED course: Patient is alert and non toxic in appearance in the ED. Patient is advised to follow up with pcp and otherwise given strict return precautions. patient understood and agrees with the plan of care. . 20:27 Patient medically screened. [facility] Administered Medications: No medications were administered Disposition: 05/03/20 20:27 Discharged to Home. Impression: Rash and other nonspecific skin eruption, Insect bite (nonvenomous), right foot. - Condition is Stable. - Discharge Instructions: Insect Bite, Rash. - Prescriptions for Hydroxyzine HCl 25 mg Oral Tablet - take 1 tablet by ORAL route every 6 hours As needed; 30 tablet. Prednisone 20 mg Oral Tablet - take 3 tablet by ORAL route once daily for 5 days; 15 tablet. Doxycycline Hyclate 100 mg Oral Tablet - take 1 tablet by ORAL route every 12 hours; 20 tablet. Albuterol Sulfate 90 mcg/actuation - inhale 1-2 puff by INHALATION route every 4-6 hours; 1 Inhaler. Elimite 5 % Topical Cream - apply 1 application by TOPICAL route one time Wash after 12 hours.; 60 gram. - Medication Reconciliation Form, Thank You Letter, Antibiotic Education, Prescription Opioid Use form. - Follow up: Private Physician; When: 2 - 3 days; Reason: Recheck today's complaints, Continuance of care, Re-evaluation by your physician. Addendum: 05/10/2020 07:36 Co-signature as Attending Physician, Prasad Song MD I agree with the assessment and t w4 plan of care. Signatures: Roberth Moise, Prasad Rain MD MD tw4 Keerthi Huang RN RN ca1 Corrections: (The following items were deleted from the chart) 05/03 20:52 20:27 05/03/2020 20:27 Discharged to Home. Impression: Rash and other nonspecific skin ca1 eruption; Insect bite (nonvenomous), right foot. Condition is Stable. Forms are Medication Reconciliation Form, Thank You Letter, Antibiotic Education, Prescription Opioid Use. Follow up: Private Physician; When: 2 - 3 days; Reason: Recheck today's complaints, Continuance of care, Re-evaluation by your physician. patricio
[2020-05-03 21:40] VITALS: BP 119/76; O2SAT 98
[2020-05-03 21:41] VITALS: TEMP 97.6
== END 2020-05-03 20:52 | disposition home or self-care (01) ==
LOC: ER 18:00
DX: S90.861A Insect bite (nonvenomous), right foot, initial encounter (principal); F17.210 Nicotine dependence, cigarettes, uncomplicated; Z98.82 Breast implant status
CPT/HCPCS: 99282

== ENCOUNTER 2020-06-01 02:16 | Emergency (ER) | payer SELFPAY ==
--- OUTSIDE RECORDS SUMMARY | 2020-06-01 02:19 | XMS REPORT | Continuity of Care Document ---
:1980 Author Organization [facility] t Address [address] [place] [address] Care Team Providers Name Role Phone Evelyn Martínez DO Attending Clinician Doctor Unassigned, Name Attending Clinician Unavailable Woody BROCK Attending Clinician Problems This patient has no known problems. Allergies, Adverse Reactions, Alerts This patient has no known allergies or adverse reactions. Medications This patient has no known medications. Procedures This patient has no known procedures. Encounters Start End Encounter Admission Attending Care Care Encounter Source Date/Time Date/Time Type Type Clinicians Facility Department ID 2020-05-16 2020-05-16 Emergency BRITTNEY Martínez [id number] 06:33:00 06:53:00 Rashida Jeong [id number] [place] [id number] [place] [id number] 2020-05-16 2020-05-16 Orders Doctor [place] [id number] 00:00:00 00:00:00 Only UnassignedMAXIMILIAN [id number] [place] [facility] [id number] 2019-07-18 2019-07-18 Emergency BRITTNEY Mckay [id number] 01:45:09 05:19:00 Jos Jeong [id number] [place] [id number] [place] [id number] 2019-07-18 2019-07-18 Orders Doctor [place] [id number] 00:00:00 00:00:00 Only Unassigned, MAXIMILIAN [id number] [place] [facility] [id number] Results This patient has no known results.
--- OUTSIDE RECORDS SUMMARY | 2020-06-01 02:19 | XMS REPORT | Summary of Care ---
:1980 Author Organization [facility] - Health Address [address] [place] [address] Care Team Providers Name Role Phone Pcp, Does Not Have A Primary Care Provider Reason for Visit Reason Comments Skin Problem Auth/Cert Status Reason Specialty Diagnoses / Referred By Referred To Procedures Contact Contact Emergency Medicine Diagnoses SKIN PROBLEM [facility] Emergency Dept [address] [place] [address] Fax: Encounter Details Date Type Department Care Team Description 05/16/2020 Emergency [facility]-Emergency Depart ment Rashida Martínez, DO [address] [facility] [address] [place] [address] [address] Allergies No Known Allergiesdocumented as of this encounter (statuses as of 05/16/2020) Medications Medication Sig Dispensed Refills Start Date End Date Status ondansetron (ZOFRAN, Take 1 tablet 12 tablet 0 03/17/2016 Active HYDROCHLORIDE,) 4 mg by mouth every tablet 8 (eight) hours as needed for Nausea and Vomiting (N/V). ciprofloxacin HCl Take 1 tablet 20 tablet 0 03/17/2016 Active (CIPRO) 500 mg tablet by mouth 2 (two) times daily. metroNIDAZOLE (FLAGYL) Take 1 tablet 20 tablet 0 03/17/2016 Active 500 mg tablet by mouth 2 (two) times daily. acetaminophen-codeine Take 1 tablet 15 tablet 0 06/05/2016 Active (TYLENOL-CODEINE #3) by mouth every 300-30 mg tablet 4 (four) hours as needed for Pain (scale 4-6). ibuprofen 800 mg tablet Take 1 tablet 21 tablet 0 10/18/2016 Active by mouth every 6 (six) hours as needed for Temp > 38.5 C (PAIN). benzonatate 200 mg Take 1 capsule 21 capsule 0 10/18/2016 Active capsule by mouth 3 (three) times daily as needed for Cough. azithromycin 250 mg Take 1 tablet 1 Package 0 10/18/2016 Active tablet by mouth daily. topiramate (TOPAMAX) 25 Take 25 mg by 0 Active mg tablet mouth daily. acetaZOLAMIDE 500 mg Take 500 mg by 0 Active capsule mouth daily. topiramate (TOPAMAX) 25 Take 1 tablet 14 tablet 0 03/17/2017 Active mg tablet by mouth daily. acetaZOLAMIDE 500 mg Take 1 capsule 14 capsule 0 03/17/2017 Active capsule by mouth daily. butalbital-acetaminophen Take 1 tablet 20 tablet 0 03/17/2017 Active -caff 50-325-40 mg by mouth every tablet 4 (four) hours as needed (Headache). ALPRAZolam 1 mg tablet Take 1 mg by 0 Active mouth at bedtime. lisdexamfetamine Take 30 mg by 0 Active (VYVANSE) 30 mg capsule mouth every morning. pantoprazole (PROTONIX) Take 1 tablet 28 tablet 0 03/21/2017 Active 40 mg EC tablet by mouth daily. ondansetron (ZOFRAN, Take 1 tablet 12 tablet 0 03/21/2017 Active HYDROCHLORIDE,) 4 mg by mouth every tablet 8 (eight) hours as needed for Nausea and Vomiting (N/V). clindamycin 300 mg Take 1 capsule 21 capsule 0 04/26/2018 Active capsule by mouth 3 (three) times daily. traMADol (ULTRAM) 50 mg Take 1 tablet 20 tablet 0 04/24/2019 Active tabletIndications: by mouth every Abdominal discomfort, 6 (six) hours Abdominal wall seroma, as needed for initial encounter Pain (scale 7-10). naproxen sodium 550 mg Take 1 tablet 14 tablet 0 04/24/2019 Active tabletIndications: by mouth 2 Abdominal discomfort, (two) times Abdominal wall seroma, daily with initial encounter meals. ibuprofen 800 mg Take 1 tablet 30 tablet 0 07/18/2019 Active tabletIndications: by mouth every Generalized abdominal 8 (eight) pain, Cystitis, Cyst of hours. right ovary traMADol 50 mg Take 1 tablet 30 tablet 0 07/18/2019 Active tabletIndications: by mouth every Generalized abdominal 6 (six) hours pain, Cystitis, Cyst of as needed for right ovary Pain (scale 4-6). ciprofloxacin HCl 500 mg Take 1 tablet 14 tablet 0 07/18/2019 Active tabletIndications: by mouth 2 Generalized abdominal (two) times pain, Cystitis, Cyst of daily. 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 documented as of this encounter Last Filed Vital Signs Vital Sign Reading Time Taken Comments Blood Pressure 121/84 05/16/2020 6:37 AM LOADING UNIT OPERATOR Pulse 84 05/16/2020 6:37 AM LOADING UNIT OPERATOR Temperature 36.6 C (97.8 F) 05/16/2020 6:37 AM LOADING UNIT OPERATOR Respiratory Rate 18 05/16/2020 6:37 AM LOADING UNIT OPERATOR Oxygen Saturation 100% 05/16/2020 6:37 AM LOADING UNIT OPERATOR Inhaled Oxygen Concentration - - Weight 81.6 kg (180 lb) 05/16/2020 6:37 AM LOADING UNIT OPERATOR Height 172.7 cm (5' 8") 05/16/2020 6:37 AM LOADING UNIT OPERATOR Body Mass Index 27.37 05/16/2020 6:37 AM LOADING UNIT OPERATOR documented in this encounter ED Notes Clarita Haas RN - 05/16/2020 6:44 AM CSTNo bugs seen on patient Clarita Sanders RN - 05/16/2020 6:35 AM CSTPatient states bugs are coming out of her skin X4 months documented in this encounter Miscellaneous Notes ED Provider Screening Note - Rashida Martínez DO - 05/16/2020 6:27 AM LOADING UNIT OPERATOR Patient presents for eval for bugs coming out of her mouth and skin for several weeks. Has been seenat OSH and no cause found. Has tried benadryl, bug bombs and moving apartments and not helping. Denies medical problems. Denies being crazy. Denies drug abuse. BP 121/84 | Pulse 84 | Temp 36.6 C (97.8 F) (Oral) | Resp 18 | Ht 1.727 m (5' 8") | Wt 81.6kg (180 lb) | SpO2 100% | BMI 27.37 kg/m No skin lesions or burrows noted to hands/feet b/l No lesions to skin of torso/back. No emergent medical condition exists. documented in this encounter Plan of Treatment Health Maintenance Due Date Last Done Comments VARICELLA VACCINES (1 of 2 - 1983 2-dose childhood series) Depression Screening 1994 DTaP,Tdap,and Td Vaccines (1 2001 - Tdap) PAP SMEAR 04/28/2014 04/28/2011, 12/02/2009, 02/18/2008 INFLUENZA VACCINE (#1) 2020 PNEUMOCOCCAL 0-64 YEARS Aged Out No longe r eligible based COMBINED SERIES on patient's age to complete this to [facility] documented as of this encounter Procedures Procedure Name Priority Date/Time Associated Diagnosis Comme nts NOTICE OF PRIVACY Routine 05/16/2020 6:27 AM LOADING UNIT OPERATOR PRACTICES documented in this encounter Results Not on filedocumented in this encounter Insurance Payer Benefit Plan Subscriber ID Effective Phone Address Typ e / Group Dates [place] [id number] 2019-Prese [phone] P O BECKY X Medicaid WOMEN WOMEN nt 00 [id number] [place] [address] [phone] [id number] (Work) documented as of this encounter
--- OUTSIDE RECORDS SUMMARY | 2020-06-01 02:19 | XMS REPORT | Summary of Care ---
:1980 Author Organization [facility] - Health Address [address] [place] [address] Care Team Providers Name Role Phone Pcp, Does Not Have A Primary Care Provider Encounter Details Date Type Department Care Team Description 05/16/2020 Orders Only [facility] Doctor Unassigned, No [address] [facility] [place] [address] [address] [place] [address] Allergies No Known Allergiesdocumented as of this [...] Assigned at Date Recorded Not on file documented as of this encounter Last Filed Vital Signs Not on filedocumented in this encounter Plan of Treatment Health Maintenance Due Date Last Done Comments VARICELLA VACCINES (1 of 2 - 1983 2-dose childhood series) Depression Screening 1994 DTaP,Tdap,and Td Vaccines (1 2001 - Tdap) PAP SMEAR 04/28/2014 04/28/2011, 12/02/2009, 02/18/2008 INFLUENZA VACCINE (#1) 2020 PNEUMOCOCCAL 0-64 YEARS Aged Out No longe r eligible based COMBINED SERIES on patient's age to complete this to [facility] documented as of this encounter Procedures Procedure Name Priority Date/Time Associated Diagnosis Comme nts CONSENT/REFUSAL FOR Routine 05/16/2020 6:27 AM HOSPICE COORDINATOR DIAGNOSIS AND TREATMENT documented in this encounter Results Not on filedocumented in this encounter Insurance Payer Benefit Plan Subscriber ID Effective Phone Address Typ e / Group Dates [place] [id number] 2019-Presbryan [phone] P O BECKY X Medicaid WOMEN WOMEN nt 00 [id number] [place] [address] documented as of this encounter
--- NOTE | 2020-06-01 03:16 | ER ---
Nurse's Notes [facility] Name: Ruby Tapia Age: 39 yrs Sex: Female : 1980 Arrival Date: 06/01/2020 Time: 02:21 Bed 7 Private MD: Diagnosis: Pruritus Presentation: 06/01 02:35 Chief complaint: Patient states: THAT SHE HAS ITCHINESS ALL OVER HER BODY. FEELS LIKE rv SOMETHING IS BITING HER ON THE FINGERTIPS, LIPS, FEET, ALL OVER. SHE FINISHED THE PRESCRIPTION THAT WAS GIVEN TO HER LAST TIME, BUT IT SHE STILL FEEL THE SAME. Coronavirus screen: Client denies travel out of the [place] in the last 14 days. Ebola Screen: No symptoms or risks identified at this time. Onset: The symptoms/episode began/occurred and became persistent today. Anaphylaxis evaluation, no signs or symptoms of anaphylaxis were noted. 02:35 Method Of Arrival: Ambulatory rv 02:38 Initial Sepsis Screen: Does the patient meet any 2 criteria? No. Patient's initial rv sepsis screen is negative. Does the patient have a suspected source of infection? No. Patient's initial sepsis screen is negative. Risk Assessment: Do you want to hurt yourself or someone else? Patient reports no desire to harm self or others. Onset of symptoms is unknown. 02:38 Acuity: DONTE 5 rv Triage Assessment: 02:39 General: Appears comfortable, Behavior is. Pain: Denies pain. EENT: No signs and/or rv symptoms were reported regarding the EENT system. Neuro: Level of Consciousness is awake, alert, obeys commands, Oriented to person, place, time, situation. Cardiovascular: Patient's skin is warm and dry. Respiratory: Airway is patent Respiratory effort is even, unlabored. Derm: Skin is intact. SHIPFITTER: 03:00 tubal ligation rr5 Historical: - Allergies: 02:39 No Known Allergies; rv - PMHx: 02:39 ADD/ADHD; Anxiety; chiari malformation; GERD; Hernia; pseudotumor cerebri; rv - PSHx: 02:39 ; rv - Immunization history:: Adult Immunizations up to date. - Social history:: Smoking status: Patient reports the use of cigarette tobacco products, smokes one-half pack cigarettes per day. Screenin:40 Abuse screen: Denies threats or abuse. Denies injuries from another. Nutritional rv screening: No deficits noted. Tuberculosis screening: No symptoms or risk factors identified. Fall Risk None identified. Assessment: 02:39 General: see triage assessment. rr5 03:25 Reassessment: Patient appears in no apparent distress at this time. Patient is alert, rr5 oriented x 3, equal unlabored respirations, skin warm/dry/pink. discharge instruction explained, refused to sign the form. Vital Signs: 02:35 BP 131 / 86; Pulse 89; Resp 16; Temp 98; Pulse Ox 100% ; Weight 81.65 kg; Height 5 ft. rv 8 in. (172.72 cm); 02:35 Body Mass Index 27.37 (81.65 kg, 172.72 cm) rv ED Course: 02:21 Patient arrived in ED. am2 02:22 Nic Mcdonough, RN is Primary Nurse. rr5 02:29 Jason Altamirano MD is Attending Physician. mh7 02:39 Triage completed. rv 02:40 Arm band placed on right wrist. Patient placed in the treatment room, on a stretcher, rv Patient notified of wait time. 02:40 Patient has correct armband on for positive identification. rv 02:40 No provider procedures requiring assistance completed. Patient did not have IV access rv during this emergency room visit. 03:14 Jose Ryder MD is Referral Physician. mh7 Administered Medications: No medications were administered Outcome: 03:15 Discharge ordered by . mh7 03:19 Discharged to home ambulatory. rv 03:19 Condition: good 03:19 Discharge instructions given to patient, Instructed on discharge instructions, follow up and referral plans. Demonstrated understanding of instructions, follow-up care. 03:21 Patient left the ED. rv Signatures: Tracy Patel am2 Gonzalez Jimenez RN RN rv Nic Mcdonough, WINSTON RN rr5 Jason Altamirano MD MD 7 Corrections: (The following items were deleted from the chart) 03:20 02:35 Resp 16bpm; Pulse Ox 100%; Temp 98F; 81.65 kg; Height 5 ft. 8 in.; BMI: 27.3; rv rv
--- NOTE | 2020-06-01 03:16 | EDPHYS ---
Physician Documentation [facility] Name: Ruby Tapia Age: 39 yrs Sex: Female : 1980 Arrival Date: 06/01/2020 Time: 02:21 Bed 7 Private MD: ED Physician Jason Altamirano HPI: 06/01 03:10 This 39 yrs old Female presents to ER via Ambulatory with complaints of mh7 Itching, Insect Bite. 03:10 The patient was bitten on the right arm, left arm, right leg and left leg, by insects. mh7 Onset: The symptoms/episode began/occurred 2 month(s) ago. Animal information: Patient/Caregiver not able to describe the spider. Associated signs and symptoms: Pertinent positives: itching, Pertinent negatives: bony tenderness, erythema at site, fever, fluctuance, loss of consciousness, motor deficit, numbness distal to wound, pain at site, suspected foreign body, swelling at site, tenderness. Severity of symptoms: At their worst the symptoms were mild, 2 months ago, in the emergency department the symptoms are unchanged. 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 - Social history:: Smoking status: Patient reports the use of cigarette tobacco products, smokes one-half pack cigarettes per day. ROS: 03:10 Constitutional: Negative for fever, chills, and weight loss, Eyes: Negative for injury, mh7 pain, redness, and discharge, ENT: Negative for injury, pain, and discharge, Neck: Negative for injury, pain, and swelling, Cardiovascular: Negative for chest pain, palpitations, and edema, Respiratory: Negative for shortness of breath, cough, wheezing, and pleuritic chest pain, Abdomen/GI: Negative for abdominal pain, nausea, vomiting, diarrhea, and constipation, Back: Negative for injury and pain, : Negative for injury, bleeding, discharge, and swelling, MS/Extremity: Negative for injury and deformity, Neuro: Negative for headache, weakness, numbness, tingling, and seizure, Psych: Negative for depression, anxiety, suicide ideation, homicidal ideation, and hallucinations, Allergy/Immunology: Negative for hives, rash, and allergies, Endocrine: Negative for neck swelling, polydipsia, polyuria, polyphagia, and marked weight changes, Hematologic/Lymphatic: Negative for swollen nodes, abnormal bleeding, and unusual bruising. Exam: 03:10 Constitutional: This is a well developed, well nourished patient who is awake, alert, mh7 and in no acute distress. 03:10 Head/Face: Normocephalic, atraumatic. Eyes: Pupils equal round and reactive to light, extra-ocular motions intact. Lids and lashes normal. Conjunctiva and sclera are non-icteric and not injected. Cornea within normal limits. Periorbital areas with no swelling, redness, or edema. Neck: Trachea midline, no thyromegaly or masses palpated, and no cervical lymphadenopathy. Supple, full range of motion without nuchal rigidity, or vertebral point tenderness. No Meningismus. Chest/axilla: Normal chest wall appearance and motion. Nontender with no deformity. No lesions are appreciated. Cardiovascular: Regular rate and rhythm with a normal S1 and S2. No gallops, murmurs, or rubs. Normal PMI, no JVD. No pulse deficits. Respiratory: Lungs have equal breath sounds bilaterally, clear to auscultation and percussion. No rales, rhonchi or wheezes noted. No increased work of breathing, no retractions or nasal flaring. Abdomen/GI: Soft, non-tender, with normal bowel sounds. No distension or tympany. No guarding or rebound. No evidence of tenderness throughout. Back: No spinal tenderness. No costovertebral tenderness. Full range of motion. Skin: Warm, dry with normal turgor. Normal color with no rashes, no lesions, and no evidence of cellulitis. MS/ Extremity: Pulses equal, no cyanosis. Neurovascular intact. Full, normal range of motion. Neuro: Awake and alert, GCS 15, oriented to person, place, time, and situation. Cranial nerves II-XII grossly intact. Motor strength 5/5 in all extremities. Sensory grossly intact. Cerebellar exam normal. Normal gait. Psych: Awake, alert, with orientation to person, place and time. Behavior, mood, and affect are within normal limits. 03:10 Constitutional: The patient appears anxious. Vital Signs: 02:35 BP 131 / 86; Pulse 89; Resp 16; Temp 98; Pulse Ox 100% ; Weight 81.65 kg; Height 5 ft. rv 8 in. (172.72 cm); 02:35 Body Mass Index 27.37 (81.65 kg, 172.72 cm) rv MDM: 03:10 Differential diagnosis: cellulitis, Insect bites, rash, pruritis. Data reviewed: vital [facility] signs, nurses notes. Data interpreted: Pulse oximetry: on room air is 100 %. Interpretation: normal. 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 03:15 Patient medically screened. [facility] Administered Medications: No medications were administered Disposition: 06/01/20 03:15 Discharged to Home. Impression: Pruritus. - Condition is Stable. - Discharge Instructions: Pruritus. - Medication Reconciliation Form, Thank You Letter, Antibiotic Education, Prescription Opioid Use form. - Follow up: Jose Ryder MD; When: 1 - 2 days; Reason: Worsening of condition, Recheck today's complaints. - Problem is an ongoing problem. - Symptoms are unchanged. Signatures: Gonzalez Jimenez RN RN rv Jason Altamirano MD MD mh7 Corrections: (The following items were deleted from the chart) 03:21 03:15 06/01/2020 03:15 Discharged to Home. Impression: Pruritus. Condition is Stable. rv Forms are Medication Reconciliation Form, Thank You Letter, Antibiotic Education, Prescription Opioid Use. Follow up: Jose Ryder; When: 1 - 2 days; Reason: Worsening of condition, Recheck today's complaints. Problem is an ongoing problem. Symptoms are unchanged. [facility]
[2020-06-01 03:43] VITALS: BP 131/86; TEMP 98; O2SAT 100
== END 2020-06-01 03:21 | disposition home or self-care (01) ==
LOC: ER 02:16
DX: L29.9 Pruritus, unspecified (principal); F17.210 Nicotine dependence, cigarettes, uncomplicated; F90.9 Attention-deficit hyperactivity disorder, unspecified type; F41.9 Anxiety disorder, unspecified; K21.9 Gastro-esophageal reflux disease without esophagitis
CPT/HCPCS: 99281

== ENCOUNTER 2020-07-01 22:56 | Emergency (ER) | payer SELFPAY ==
--- OUTSIDE RECORDS SUMMARY | 2020-07-01 22:58 | XMS REPORT | Continuity of Care Document ---
:1980 Author Organization [facility] t Address [address] [place] [address] Care Team Providers Name Role Phone Evelyn [...] 2020-05-16 2020-05-16 Emergency BRITTNEY Martínez [id number] 06:33:00 06:53:00 Rashida Jeong [id number] [place] [id number] [place] [id number] 2020-05-16 2020-05-16 Orders Doctor IRELAND [id number] 00:00:00 00:00:00 Only UnassignedMAXIMILIAN [id number] [place] [facility] [id number] 2019-07-18 2019-07-18 Emergency BRITTNEY Mckay [id number] 01:45:09 05:19:00 Jos Jeong [id number] [place] [id number] [place] [id number] [id number] 2019-07-18 2019-07-18 Orders Doctor IRELAND [id number] 00:00:00 00:00:00 Only Unassigned, MAXIMILIAN [id number] [place] [facility] [phone] [id number] Results This patient has no known results.
[2020-07-02 00:25] LABS: Absolute Lymphocytes (CBC) 1.7 K/uL (0.7-4.9); Basophils % 1.6 % (0-1.3); Hematocrit 27.2 % (36.0-45.0); Lymphocytes % 25.7 % (15.3-44.8); MPV 9.9 fL (7.6-11.3); RBC Red Blood Cell Count 4.44 M/uL (3.86-4.86)
[2020-07-02 00:39] LABS: ALT/SGPT 26 U/L (12-78); AST/SGOT 21 U/L (15-37); Albumin 3.7 g/dL (3.4-5.0); Alkaline Phosphatase 62 U/L (45-117); BUN Blood Urea Nitrogen 10 mg/dL (7-18); Bicarbonate 28 mmol/L (21-32); Bilirubin Direct < 0.1 mg/dL (0-0.2); Bilirubin Total 0.3 mg/dL (0.2-1.0); Glucose Level 80 mg/dL (74-106); Lipase 141 U/L (73-393); Potassium 3.7 mmol/L (3.5-5.1); Protein, Total 7.5 g/dL (6.4-8.2); Sodium Level 142 mmol/L (136-145)
[2020-07-02] MEDS ORDERED: NA CHLORIDE 0.9% 1,000 ML ONE (00:57)
[2020-07-02 01:40] LABS: Blood Morphology Comment NOTED (NOT SEEN); Hypochromasia 3+; Ovalocytes 3+; Platelet Estimate ADEQ; White Blood Cell Scan OK (OK)
--- NOTE | 2020-07-02 03:18 | ER ---
Nurse's Notes [facility] Name: Ruby Tapia Age: 40 yrs Sex: Female : 1980 Arrival Date: 07/01/2020 Time: 22:57 Bed 7 Private MD: Diagnosis: Abdominal tenderness-umbilical pain;Anemia, unspecified Presentation: 07/02 00:03 Chief complaint: Patient states: Reports she started having abdominal pain nausea and ea vomiting about an hour ago. Coronavirus screen: At this time, the client does not indicate any symptoms associated with coronavirus-19. Ebola Screen: No symptoms or risks identified at this time. Initial Sepsis Screen: Does the patient meet any 2 criteria? No. Patient's initial sepsis screen is negative. Does the patient have a suspected source of infection? No. Patient's initial sepsis screen is negative. Risk Assessment: Do you want to hurt yourself or someone else? Patient reports no desire to harm self or others. Onset of symptoms was July 02, 2020. 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 - Family history:: not pertinent. - Social history:: Smoking status: Patient denies any tobacco usage or history of. Screenin:04 Abuse screen: Denies threats or abuse. Nutritional screening: No deficits noted. ea Tuberculosis screening: No symptoms or risk factors identified. Fall Risk None identified. Assessment: 00:19 General: Appears uncomfortable, Behavior is calm, cooperative. Pain: Complains of pain rr5 in umbilical area. Neuro: Level of Consciousness is awake, alert, obeys commands, Oriented to person, place, time. Respiratory: Airway is patent Respiratory effort is even, unlabored, Respiratory pattern is regular, symmetrical. GI: Abdomen is non-distended, Reports nausea, vomiting. Derm: Skin is pink, warm \T\ dry. 00:19 GI: Bowel sounds Abdomen is tender to palpation. rr5 00:19 Cardiovascular: Capillary refill < 3 seconds Patient's skin is warm and dry. : No rr5 signs and/or symptoms were reported regarding the genitourinary system. EENT: No signs and/or symptoms were reported regarding the EENT system. Musculoskeletal: Circulation, motion, and sensation intact. Capillary refill < 3 seconds. 01:24 Reassessment: Patient and/or family updated on plan of care and expected duration. Pain ea level reassessed. Patient is alert, oriented x 3, equal unlabored respirations, skin warm/dry/pink. 02:43 Reassessment: Patient and/or family updated on plan of care and expected duration. Pain ea level reassessed. Patient is alert, oriented x 3, equal unlabored respirations, skin warm/dry/pink. 03:40 Reassessment: Patient appears in no apparent distress at this time. Patient is alert, rr5 oriented x 3, equal unlabored respirations, skin warm/dry/pink. discharge instruction given and explained without complaints made Patient states symptoms have improved. Vital Signs: 00:03 Pulse 78; Resp 18; Temp 98.1; Pulse Ox 98% on R/A; Weight 77.11 kg; Height 5 ft. 8 in. ea (172.72 cm); Pain 10/10; 00:03 BP 93 / 70; rr5 01:39 BP 119 / 81; Pulse 80; Resp 18; Pulse Ox 98% on R/A; ea 03:11 BP 104 / 75; Pulse 78; Resp 18; Pulse Ox 98% ; ea 03:40 BP 115 / 70; Pulse 70; Resp 19; Pulse Ox 99% ; rr5 00:03 Body Mass Index 25.85 (77.11 kg, 172.72 cm) ea ED Course: 07/01 22:57 Patient arrived in ED. am4 23:54 Nic Mcdonough RN is Primary Nurse. rr5 07/02 00:04 Triage completed. ea 00:04 Patient has correct armband on for positive identification. Bed in low position. Call ea light in reach. Side rails up X2. Pulse ox on. NIBP on. 00:09 Go Yap MD is Attending Physician. [place] 00:22 Patient placed in an exam room, on a stretcher, on pulse oximetry. rr5 01:30 Inserted saline lock: 20 gauge in left antecubital area, using aseptic technique. Blood rr5 collected. 02:39 CT Abd/Pelvis - PO and IV Contrast In Process Unspecified. EDMS 03:18 Ward Crespo MD is Referral Physician. [facility] [place] 03:40 No provider procedures requiring assistance completed. IV discontinued, intact, rr5 bleeding controlled, No redness/swelling at site. Pressure dressing applied. Administered Medications: 00:44 Drug: NS 0.9% 1000 ml Route: IV; Rate: 1 bolus; Site: left antecubital; rr5 01:40 Follow up: Response: No adverse reaction; IV Status: Completed infusion; IV Intake: rr5 1000ml Intake: 01:40 IV: 1000ml; Total: 1000ml. rr5 Outcome: 03:18 Discharge ordered by . [place] 03:40 Discharged to home ambulatory. rr5 03:40 Condition: stable rr5 03:40 Discharge instructions given to patient, Instructed on discharge instructions, follow up and referral plans. medication usage, Demonstrated understanding of instructions, follow-up care, medications, Prescriptions given X 4. 03:42 Patient left the ED. rr5 Signatures: Dispatcher [employer] EDMS Go Yap MD MD cha Antunez, Elena, RN RN Nic Ty RN RN rr5 Jodi Crespo am4
--- NOTE | 2020-07-02 03:18 | EDPHYS ---
Physician Documentation [facility] Name: Ruby Tapia Age: 40 yrs Sex: Female : 1980 Arrival Date: 07/01/2020 Time: 22:57 Bed 7 Private MD: ED Physician Go Yap HPI: 07/02 00:21 This 40 yrs old Female presents to ER via Ambulatory with complaints of cheyenne Abdominal Pain. 00:21 The patient presents with abdominal pain in the periumbilical area. Onset: The cheyenne symptoms/episode began/occurred yesterday, last night. The symptoms do not radiate. Associated signs and symptoms: none. The symptoms are described as sharp, stabbing. Modifying factors: The symptoms are alleviated by nothing, the symptoms are aggravated by nothing. Severity of pain: At its worst the pain was mild moderate in the emergency department the pain is unchanged. The patient has not experienced similar symptoms in the past. 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 - Family history:: not pertinent. - Social history:: Smoking status: Patient denies any tobacco usage or history of. ROS: 00:21 Constitutional: Negative for fever, chills, and weight loss, Eyes: Negative for injury, cheyenne pain, redness, and discharge, ENT: Negative for injury, pain, and discharge, Neck: Negative for injury, pain, and swelling, Cardiovascular: Negative for chest pain, palpitations, and edema, Respiratory: Negative for shortness of breath, cough, wheezing, and pleuritic chest pain, Back: Negative for injury and pain, : Negative for injury, bleeding, discharge, and swelling, MS/Extremity: Negative for injury and deformity, Skin: Negative for injury, rash, and discoloration, Neuro: Negative for headache, weakness, numbness, tingling, and seizure, Psych: Negative for depression, anxiety, suicide ideation, homicidal ideation, and hallucinations, Allergy/Immunology: Negative for hives, rash, and allergies, Endocrine: Negative for neck swelling, polydipsia, polyuria, polyphagia, and marked weight changes, Hematologic/Lymphatic: Negative for swollen nodes, abnormal bleeding, and unusual bruising. 00:21 Abdomen/GI: Positive for abdominal pain, abdominal cramps, of the umbilical area. Exam: 00:21 Constitutional: This is a well developed, well nourished patient who is awake, alert, cheyenne and in no acute distress. Head/Face: Normocephalic, atraumatic. Eyes: Pupils equal round and reactive to light, extra-ocular motions intact. Lids and lashes normal. Conjunctiva and sclera are non-icteric and not injected. Cornea within normal limits. Periorbital areas with no swelling, redness, or edema. ENT: Nares patent. No nasal discharge, no septal abnormalities noted. Tympanic membranes are normal and external auditory canals are clear. Oropharynx with no redness, swelling, or masses, exudates, or evidence of obstruction, uvula midline. Mucous membranes moist. Neck: Trachea midline, no thyromegaly or masses palpated, and no cervical lymphadenopathy. Supple, full range of motion without nuchal rigidity, or vertebral point tenderness. No Meningismus. Chest/axilla: Normal chest wall appearance and motion. Nontender with no deformity. No lesions are appreciated. Cardiovascular: Regular rate and rhythm with a normal S1 and S2. No gallops, murmurs, or rubs. Normal PMI, no JVD. No pulse deficits. Respiratory: Lungs have equal breath sounds bilaterally, clear to auscultation and percussion. No rales, rhonchi or wheezes noted. No increased work of breathing, no retractions or nasal flaring. Back: No spinal tenderness. No costovertebral tenderness. Full range of motion. Skin: Warm, dry with normal turgor. Normal color with no rashes, no lesions, and no evidence of cellulitis. MS/ Extremity: Pulses equal, no cyanosis. Neurovascular intact. Full, normal range of motion. Neuro: Awake and alert, GCS 15, oriented to person, place, time, and situation. Cranial nerves II-XII grossly intact. Motor strength 5/5 in all extremities. Sensory grossly intact. Cerebellar exam normal. Normal gait. Psych: Awake, alert, with orientation to person, place and time. Behavior, mood, and affect are within normal limits. 00:21 Abdomen/GI: Inspection: abdomen appears normal, Bowel sounds: normal, Palpation: mild abdominal tenderness, in the umbilical area, Liver: no appreciated palpable abnormalities, Hernia: not appreciated. Vital Signs: 00:03 Pulse 78; Resp 18; Temp 98.1; Pulse Ox 98% on R/A; Weight 77.11 kg; Height 5 ft. 8 in. ea (172.72 cm); Pain 10/10; 00:03 BP 93 / 70; rr5 01:39 BP 119 / 81; Pulse 80; Resp 18; Pulse Ox 98% on R/A; ea 03:11 BP 104 / 75; Pulse 78; Resp 18; Pulse Ox 98% ; ea 03:40 BP 115 / 70; Pulse 70; Resp 19; Pulse Ox 99% ; rr5 00:03 Body Mass Index 25.85 (77.11 kg, 172.72 cm) ea MDM: 00:09 Patient medically screened. [place] 00:23 Differential diagnosis: bowel obstruction, non-specific abd pain, pancreatitis, cheyenne Pyelonephritis, urinary tract infection. Data reviewed: vital signs, nurses notes, lab test result(s), radiologic studies, CT scan. Data interpreted: awake overnight monitor: not applicable for this patient encounter. rate is 78 beats/min, rhythm is regular, Pulse oximetry: on room air is 98 %. Test interpretation: by ED physician or midlevel provider:. Counseling: I had a detailed discussion with the patient and/or guardian regarding: the historical points, exam findings, and any diagnostic results supporting the discharge/admit diagnosis, lab results, radiology results. 07/02 00:11 Order name: Basic Metabolic Panel ea 07/02 00:11 Order name: CBC with Diff; Complete Time: : ea 07/02 00:11 Order name: Hepatic Function; Complete Time: ea 07/02 00:11 Order name: Lipase; Complete Time: ea 07/02 00:11 Order name: Basic Metabolic Panel; Complete Time: :47 EDWI 07/02 00:12 Order name: Urine --Ancillary (enter results) tt3 07/02 00:11 Order name: IV Saline Lock; Complete Time: 00:11 ea 07/02 00:11 Order name: Labs collected and sent; Complete Time: 00:11 ea 07/02 00:11 Order name: Urine Dipstick-Ancillary (obtain specimen); Complete Time: 00:11 ea 07/02 00:11 Order name: Urine Test (obtain specimen); Complete Time: 00:11 ea 07/02 00:12 Order name: Urine Dipstick--Ancillary (enter results) tt3 07/02 00:20 Order name: CT Abd/Pelvis - PO and IV Contrast cheyenne 07/02 00:26 Order name: CBC Smear Scan; Complete Time: 01:47 EDMS Administered Medications: 00:44 Drug: NS 0.9% 1000 ml Route: IV; Rate: 1 bolus; Site: left antecubital; rr5 01:40 Follow up: Response: No adverse reaction; IV Status: Completed infusion; IV Intake: rr5 1000ml Disposition: 07/02/20 03:18 Discharged to Home. Impression: Abdominal tenderness - umbilical pain, Anemia, unspecified. - Condition is Stable. - Discharge Instructions: Abdominal Pain, Adult, Iron Deficiency Anemia, Adult, Anemia, Nonspecific, Abdominal Pain, Adult, [id number], Iron Deficiency Anemia, Adult, [id number]-[id number]. - Prescriptions for Bentyl 20 mg Oral Tablet - take 1 tablet by ORAL route every 6 hours As needed; 20 tablet. Ferrous Sulfate 325 mg (65 mg Iron) Oral Tablet - take 1 tablet by ORAL route every 8 hours; 90 tablet. Pepcid 20 mg Oral Tablet - take 1 tablet by ORAL route every 12 hours for 10 days; 20 tablet. Zofran 4 mg Oral Tablet - take 1 tablet by ORAL route every 12 hours As needed; 20 tablet. - Medication Reconciliation Form, Thank You Letter, Antibiotic Education, Prescription Opioid Use form. - Follow up: Private Physician; When: 2 - 3 days; Reason: Recheck today's complaints, Continuance of care, Re-evaluation by your physician. Follow up: Ward Crespo; When: 2 - 3 days; Reason: Recheck today's complaints, Re-evaluation by your physician. - Problem is new. - Symptoms have improved. Signatures: Dispatcher [employer] EDMS Go Yap MD MD cha Antunez, Elena, RN RN ea Roque, Raymond, RN RN rr5 Bravo Tay tt3 Corrections: (The following items were deleted from the chart) 00:13 00:12 Urine Dipstick-Ancillary ordered. tt3 tt3 00:13 00:12 Urine Test ordered. tt3 tt3 03:42 03:18 07/02/2020 03:18 Discharged to Home. Impression: Abdominal tenderness - umbilical rr5 pain; Anemia, unspecified. Condition is Stable. Discharge Instructions: Abdominal Pain, Adult, Iron Deficiency Anemia, Adult, Anemia, Nonspecific, Abdominal Pain, Adult, [id number], Iron Deficiency Anemia, Adult, Cmqk-[id number]. Prescriptions for Bentyl 20 mg Oral Tablet - take 1 tablet by ORAL route every 6 hours As needed; 20 tablet, Ferrous Sulfate 325 mg (65 mg Iron) Oral Tablet - take 1 tablet by ORAL route every 8 hours; 90 tablet, Pepcid 20 mg Oral Tablet - take 1 tablet by ORAL route every 12 hours for 10 days; 20 tablet, Zofran 4 mg Oral Tablet - take 1 tablet by ORAL route every 12 hours As needed; 20 tablet. and Forms are Medication Reconciliation Form, Thank You Letter, Antibiotic Education, Prescription Opioid Use. Follow up: Private Physician; When: 2 - 3 days; Reason: Recheck today's complaints, Continuance of care, Re-evaluation by your physician. Follow up: Ward Crespo; When: 2 - 3 days; Reason: Recheck today's complaints, Re-evaluation by your physician. Problem is new. Symptoms have improved. cheyenne
[2020-07-02 04:18] LABS: Urine Blood 3+ (NEG); Urine Glucose NEGATIVE (NEG); Urine Protein NEGATIVE (NEG); Urine Specific Gravity >1.030 (1.005-1.030)
[2020-07-02 05:45] VITALS: TEMP 98.1; O2SAT 98
[2020-07-02 05:48] VITALS: BP 104/75
--- NOTE | 2020-07-02 16:40 | RAD REPORT ---
EXAM DESCRIPTION: CT - Abdomen Pelvis W Contrast - 07/02/2020 7:00 am CLINICAL HISTORY: The patient is 40 years old and is Female; ABD PAIN TECHNIQUE: Axial computed tomography images of the abdomen and pelvis with intravenous contrast. S agittal and coronal reformatted images were created and reviewed. This CT exam was performed using one or more of the following dose reduction techniques: automated exposure control, adjustment of t he mA and/or kV according to patient size, and/or use of iterative reconstruction technique. COMPARISON: CT of the chest May 29, 2019 FINDINGS: LUNG BASES: Unremarkable. No mass. No consolidation. ABDOMEN: LIVER: Unremarkable. No mass. GALLBLADDER AND BILE DUCTS: No calcified stones. No ductal dilation. PANCREAS: No ductal dilation. No mass. SPLEEN: Unremarkable. ADRENALS: Unremarkable. No mass. KIDNEYS AND URETERS: Unremarkable. The kidneys enhance symmetrically. No obstructing renal or ure teral calculus is seen. No hydronephrosis or hydroureter. No perinephric fluid or stranding. STOMACH AND BOWEL: Postsurgical change of the stomach is present. Oral contrast is noted within t he stomach. Oral contrast is noted within several small bowel loops. The small bowel is normal in luis manuel iber. A moderate amount stool is present throughout the colon. There is no mucosal thickening or evid ence of bowel obstruction. PELVIS: APPENDIX: The appendix is normal in caliber without surrounding inflammation. BLADDER: The bladder is moderately distended. REPRODUCTIVE: A 2.5 cm simple right ovarian cyst is present. No follow-up imaging is recommended. The uterus and left ovary are normal. ABDOMEN and PELVIS: INTRAPERITONEAL SPACE: Unremarkable. No free air. No significant fluid collection. BONES/JOINTS: No acute fracture. SOFT TISSUES: Bilateral breast implants are partially visualized. Redemonstration of the 2.6 x 1.6 cm enhancing fluid collection at the level of the umbilicus is noted. The overall appearance is g rossly unchanged from prior exam. There is no surrounding inflammation. Postsurgical change of the anterior abdominal wall is present. VASCULATURE: Unremarkable. No abdominal aortic aneurysm. LYMPH NODES: Unremarkable. No enlarged lymph nodes. IMPRESSION: 1. No acute findings on this contrasted CT of the abdomen and pelvis to explain the pa tient's symptoms. 2. No change in the small rim-enhancing fluid collection at the level of the umbilicus. Electronically signed by: Therese Sahu MD 07/02/2020 2:58 AM [employer] Due to temporary technical issues with the PACS/Fluency reporting system, reports are being signed by the in house radiologists without review as a courtesy to insure prompt reporting. The interpreting radiologist is fully responsible for the content of the report.
== END 2020-07-02 03:42 | disposition home or self-care (01) ==
LOC: ER 22:56
DX: D64.9 Anemia, unspecified (principal); K21.9 Gastro-esophageal reflux disease without esophagitis
CPT/HCPCS: 36415; 74177; 80048; 80076; 81003; 81025; 83690; 85025; 96360; 99284; J7030; Q9967

== ENCOUNTER 2021-02-17 17:24 | Emergency (ER) | payer SELFPAY ==
--- NOTE | 2021-02-17 18:18 | EDPHYS ---
Physician Documentation [facility] Name: Ruby Tapia Age: 40 yrs Sex: Female : 1980 Arrival Date: 02/17/2021 Time: 17:27 Bed Treatment Private MD: ED Physician Nick Sanchez HPI: 02/17 18:26 This 40 yrs old Female presents to ER via Ambulatory with complaints of Skin jr8 Problem. 18:26 Patient came to the emergency room with complaints of feeling as if bugs were crawling jr8 in and around her skin in her eyes and mouth. Has had this in the past with no definitive diagnosis.. Historical: - Allergies: 17:58 No Known Allergies; tw2 - Home Meds: 17:58 None [Active]; tw2 - PMHx: 17:58 ADD/ADHD; Anxiety; chiari malformation; GERD; Hernia; pseudotumor cerebri; tw2 - PSHx: 17:58 section; gastric sleeve; tummy tuck; breast augmentation; tw2 - Immunization history:: Client reports having NOT received the Covid vaccine. - Social history:: Smoking status: Patient reports the use of cigarette tobacco products, smokes one pack cigarettes per day. Patient uses alcohol, occasionally. Patient/guardian denies using street drugs. ROS: 18:26 Eyes: Negative for injury, pain, redness, and discharge, ENT: Negative for injury, jr8 pain, and discharge, Neck: Negative for injury, pain, and swelling, Cardiovascular: Negative for chest pain, palpitations, and edema, Respiratory: Negative for shortness of breath, cough, wheezing, and pleuritic chest pain, Abdomen/GI: Negative for abdominal pain, nausea, vomiting, diarrhea, and constipation, Back: Negative for injury and pain, MS/Extremity: Negative for injury and deformity, Neuro: Negative for headache, weakness, numbness, tingling, and seizure. 18:26 Skin: Positive for rash. Exam: 18:26 Eyes: Pupils equal round and reactive to light, extra-ocular motions intact. Lids and jr8 lashes normal. Conjunctiva and sclera are non-icteric and not injected. Cornea within normal limits. Periorbital areas with no swelling, redness, or edema. ENT: Nares patent. No nasal discharge, no septal abnormalities noted. Tympanic membranes are normal and external auditory canals are clear. Oropharynx with no redness, swelling, or masses, exudates, or evidence of obstruction, uvula midline. Mucous membranes moist. Neck: Trachea midline, no thyromegaly or masses palpated, and no cervical lymphadenopathy. Supple, full range of motion without nuchal rigidity, or vertebral point tenderness. No Meningismus. Cardiovascular: Regular rate and rhythm with a normal S1 and S2. No gallops, murmurs, or rubs. Normal PMI, no JVD. No pulse deficits. Respiratory: Lungs have equal breath sounds bilaterally, clear to auscultation and percussion. No rales, rhonchi or wheezes noted. No increased work of breathing, no retractions or nasal flaring. Abdomen/GI: Soft, non-tender, with normal bowel sounds. No distension or tympany. No guarding or rebound. No evidence of tenderness throughout. Back: No spinal tenderness. No costovertebral tenderness. Full range of motion. Skin: Warm, dry with normal turgor. Normal color with no rashes, no lesions, and no evidence of cellulitis. MS/ Extremity: Pulses equal, no cyanosis. Neurovascular intact. Full, normal range of motion. Neuro: Awake and alert, GCS 15, oriented to person, place, time, and situation. Cranial nerves II-XII grossly intact. Motor strength 5/5 in all extremities. Sensory grossly intact. 18:26 Constitutional: The patient appears alert, awake, anxious. Vital Signs: 17:57 BP 114 / 79; Pulse 94; Resp 17; Temp 97.4(TE); Pulse Ox 100% on R/A; Weight 63.5 kg; tw2 Height 5 ft. 8 in. (172.72 cm); 17:57 Body Mass Index 21.29 (63.50 kg, 172.72 cm) tw2 MDM: 18:02 Patient medically screened. 8 18:26 Data reviewed: vital signs, nurses notes, and as a result, I will discharge patient. jr8 Data interpreted: Pulse oximetry: on room air is 100 %. Interpretation: normal. Counseling: I had a detailed discussion with the patient and/or guardian regarding: the historical points, exam findings, and any diagnostic results supporting the discharge/admit diagnosis, the need for outpatient follow up, a family practitioner, to return to the emergency department if symptoms worsen or persist or if there are any questions or concerns that arise at home. ED course: Discussed with patient that there is no identifiable rash, lesion, bug noted to his entire body. Recommended that he follow-up but at this time I cannot offer any definitive solution as we cannot identify any source.. Administered Medications: No medications were administered Disposition: 23:45 Co-signature as Attending Physician, Nick Sanchez MD I agree with the assessment and kdr plan of care. Disposition Summary: 02/17/21 18:17 Discharge Ordered Location: Home jr8 Problem: new jr8 Symptoms: are unchanged jr8 Condition: Stable jr8 Diagnosis - Encounter for general adult medical examination without abnormal findings jr8 Followup: jr8 - With: Private Physician - When: As needed - Reason: Recheck today's complaints, Continuance of care, Re-evaluation by your physician Forms: - Medication Reconciliation Form jr8 - Thank You Letter jr8 - Antibiotic Education jr8 - Prescription Opioid Use jr8 Signatures: Nick Sanchez MD MD [facility] Shay Dozier PA PA jr8 Rosy Zavala RN RN tw2
--- NOTE | 2021-02-17 18:18 | ER ---
Nurse's Notes [facility] Name: Ruby Tapia Age: 40 yrs Sex: Female : 1980 Arrival Date: 02/17/2021 Time: 17:27 Bed Treatment Private MD: Diagnosis: Encounter for general adult medical examination without abnormal findings Presentation: 02/17 17:57 Chief complaint: Patient states: i feel like something is crawling on me. the last time tw2 they told me it was scabies and i tried the cream that was precribed and it didn't work. Coronavirus screen: At this time, the client does not indicate any symptoms associated with coronavirus-19. Ebola Screen: Patient denies travel to an Ebola-affected area in the 21 days before illness onset. Initial Sepsis Screen: Does the patient meet any 2 criteria? No. Patient's initial sepsis screen is negative. Does the patient have a suspected source of infection? No. Patient's initial sepsis screen is negative. Initial Sepsis Screen: Does the patient meet any 2 criteria?. Risk Assessment: Do you want to hurt yourself or someone else? Patient reports no desire to harm self or others. Onset of symptoms was February 17, 2021. 17:57 Method Of Arrival: Ambulatory tw2 17:57 Acuity: DONTE 4 tw2 Triage Assessment: 17:59 General: Appears in no apparent distress. unkempt, Behavior is anxious, twitching and tw2 wearing sunglasses and moving constantly. Pain: Denies pain. Historical: - Allergies: 17:58 No Known Allergies; tw2 - Home Meds: 17:58 None [Active]; tw2 - PMHx: 17:58 ADD/ADHD; Anxiety; chiari malformation; GERD; Hernia; pseudotumor cerebri; tw2 - PSHx: 17:58 section; gastric sleeve; tummy tuck; breast augmentation; tw2 - Immunization history:: Client reports having NOT received the Covid vaccine. - Social history:: Smoking status: Patient reports the use of cigarette tobacco products, smokes one pack cigarettes per day. Patient uses alcohol, occasionally. Patient/guardian denies using street drugs. Vital Signs: 17:57 BP 114 / 79; Pulse 94; Resp 17; Temp 97.4(TE); Pulse Ox 100% on R/A; Weight 63.5 kg; tw2 Height 5 ft. 8 in. (172.72 cm); 17:57 Body Mass Index 21.29 (63.50 kg, 172.72 cm) tw2 ED Course: 17:27 Patient arrived in ED. mr 17:58 Triage completed. tw2 18:00 Arm band placed on. tw2 18:01 Shay Dozier PA is PHCP. jr8 18:01 Nick Sanchez MD is Attending Physician. jr8 18:34 Yelena Jernigan, WINSTON is Primary Nurse. iw Administered Medications: No medications were administered Outcome: 18:17 Discharge ordered by . jr8 18:34 Patient left the ED. iw Signatures: Megha Agustin mr Ana Martínez, RN RN iw Shay Dozier PA PA [facility] Rosy Zavala RN RN tw2 Corrections: (The following items were deleted from the chart) 18:02 17:57 Chief complaint: Patient states: i feel like something is crawling on me. the tw2 last time they told me it was scabies and i tried the cream that was precribed and it didn't work tw2 18:03 17:59 General: Appears in no apparent distress. unkempt, Behavior is anxious, twitching tw2 and wearing sunglasses. tw2
[2021-02-17 18:43] VITALS: BP 114/79; TEMP 97.4; O2SAT 100
== END 2021-02-17 18:34 | disposition home or self-care (01) ==
LOC: ER 17:24
DX: Z71.1 Person with feared health complaint in whom no diagnosis is made (principal)
CPT/HCPCS: 99281

== ENCOUNTER 2021-08-23 19:54 | Emergency (ER) | payer SELFPAY ==
--- OUTSIDE RECORDS SUMMARY | 2021-08-23 19:57 | XMS REPORT | Continuity of Care Document ---
:1980 Author Organization [facility] t Address [address] [place] [address] Care Team Providers Name Role Phone PCP, DOES NOT HAVE A Primary Care Physician Unavailable Evelyn Mason DO Attending Clinician Evelyn MASON Attending Clinician Unavailable Doctor Unassigned, Name Attending Clinician Unavailable Woody BROCK Attending Clinician WOODY Attending Clinician Unavailable PINTO Attending Clinician Unavailable WOODY Admitting Clinician Unavailable Admitting Clinician Unavailable Payers Payer Name Policy Type Policy Number Effective Date Expiration Date S ource Problems Condition Condition Condition Status Onset Resolution Last Treating Co mments Source Name Details Category Date Date Treatment Clinician Date No known No known Disease Unive rs active active ity of problems problems [facility] Allergies, Adverse Reactions, Alerts Allergy Allergy Status Severity Reaction(s) Onset Inactive Treating Comm ents Source Name Type Date Date Clinician NO KNOWN Drug Active Univers ALLERGIE Class ity of S [facility] Social History Social Habit Start Date Stop Date Quantity Comments Source Exposure to SARS-CoV-2 Not sure Un iversity [facility] [place] (event) [facility] Sex Assigned At Uni versity [facility] Smoking Status Start Date Stop Date Source Unknown if ever smoked Universit y [facility] Medications Ordered Filled Start Stop Current Ordering Indication Dosage Frequency Signature Comments Components Source Medication Medication Date Date Medication? Clinician (SIG) Name Name ketorolac 2020-0 2020- No 30mg 30 mg, Unive rs (TORADOL) - 03-12 Slow IV ity of injection 09:45: 08:46 Push, [place] 30 mg 00 :00 ONCE, 1 Medical dose, [facility] Branch 07/18/19 at 0445, WAQAR
[facility] medication : HARRISON MERINO ondansetron 2019-0 2020- No 4mg 4 mg, Slow Univers (ZOFRAN 07-17 IV Push, ity of (PF)) 08:15: 07:13 ONCE, 1 [place] injection 4 00 :00 dose, Saray Med ical mg 07/18/19 at Branch 0315, WAQAR morpHINE 2019-0 2020- No 4mg 4 mg, Slow Un tracy injection 4 07-17 IV Push, ity of mg 08:15: 07:16 ONCE, 1 [place] 00 :00 dose, Saray Medical 07/18/19 at Branch 0315, STAT iohexol 2019-0 2020- No 120mL 120 mL, Unive rs (OMNIPAQUE 07-17 Intravenou it y of 350 08:00: 07:46 s, ONCE, 1 [place] BULK-150 00 :00 dose, Saray Medica l mL) 07/18/19 at Branch injection 0300, 120 mL Routine ibuprofen 2020-0 Yes [id number] 800mg Take 1 Univers 800 mg 3- [id number] tablet by ity of tablet 00:00: mouth [place] 00 every 8 Medical (eight) Branch hours. traMADol 50 2020-0 Yes [id number] 50mg Take 1 Univers mg tablet 3 [id number] tablet by ity of 00:00: mouth [place] 00 every 6 Medical (six) Branch hours as needed for Pain (scale 4-6). ciprofloxac 2020-0 Yes [id number] 500mg Take 1 Univers in HCl 500 - [id number] tablet by it y of mg tablet 00:00: mouth 2 [place] 00 (two) Medical times Branch daily. ibuprofen 2020-0 Yes [id number] 800mg Take 1 Univers 800 mg 3-12 [id number] tablet by ity of tablet 00:00: mouth [place] 00 every 8 Medical (eight) Branch hours. traMADol 50 2020-0 Yes [id number] 50mg Take 1 Univers mg tablet 3-12 [id number] tablet by ity of 00:00: mouth [place] 00 every 6 Medical (six) Branch hours as needed for Pain (scale 4-6). ciprofloxac 2020-0 Yes [id number] 500mg Take 1 Univers in HCl 500 3-12 [id number] tablet by it y of mg tablet 00:00: mouth (two) Medical times Branch daily. ibuprofen 2019-0 Yes [id number] 800mg Take 1 Univers 800 mg 3-12 [id number] tablet by ity of tablet 00:00: mouth [place] 00 every 8 Medical (eight) Branch hours. traMADol 50 2019-0 Yes [id number] 50mg Take 1 Univers mg tablet 12 [id number] tablet by ity of 00:00: mouth [place] 00 every 6 Medical (six) Branch hours as needed for Pain (scale 4-6). ciprofloxac 2019- Yes [id number] 500mg Take 1 Univers in HCl 500 07-17 [id number] tablet by it y of mg tablet 00:00: mouth (two) Medical times Branch daily. traMADol 2018-05 Yes [id number] 50mg Take 1 Un tracy (ULTRAM) 50 2-18 tablet by ity of mg tablet 00:00: mouth 00 every 6 Medical (six) Branch hours as needed for Pain (scale 7-10). naproxen 2018-05 Yes [id number] 550mg Take 1 U nivers sodium 550 2-18 tablet by ity of mg tablet 00:00: mouth (two) Medical times Branch daily with meals. traMADol 2018-05 Yes [id number] 50mg Take 1 Un tracy (ULTRAM) 50 2-18 tablet by ity of mg tablet 00:00: mouth 00 every 6 Medical (six) Branch hours as needed for Pain (scale 7-10). naproxen 2018-05 Yes [id number] 550mg Take 1 U nivers sodium 550 2-18 tablet by ity of mg tablet 00:00: mouth (two) Medical times Branch daily with meals. traMADol 2018-05 Yes [id number] 50mg Take 1 Un tracy (ULTRAM) 50 2-18 tablet by ity of mg tablet 00:00: mouth [place] 00 every 6 Medical (six) Branch hours as needed for Pain (scale 7-10). naproxen 2018-05 Yes [id number] 550mg Take 1 U nivers sodium 550 2-18 tablet by ity of mg tablet 00:00: mouth (two) Medical times Branch daily with meals. traMADol 2018-05 Yes [id number] 50mg Take 1 Un tracy (ULTRAM) 50 2-18 tablet by ity of mg tablet 00:00: mouth [place] 00 every 6 Medical (six) Branch hours as needed for Pain (scale 7-10). naproxen 2018-05 Yes [id number] 550mg Take 1 U nivers sodium 550 2-18 tablet by ity of mg tablet 00:00: mouth 2 [place] 00 (two) Medical times Branch daily with meals. ALPRAZolam 2017-05 Yes 1mg Take 1 mg Un tracy 1 mg tablet 2-20 by mouth ity of 04:22: at [place] 55 bedtime. Medical Branch lisdexamfet 2017-05 Yes 30mg Take 30 mg Univers amine 2-20 by mouth ity of (VYVANSE) 04:22: every [place] 30 mg 55 morning. Medical capsule Branch topiramate 2017-05 Yes 25mg Take 25 mg U nivers (TOPAMAX) 2-20 by mouth ity of 25 mg 04:22: daily. [place] tablet 55 Medical Branch acetaZOLAMI 2017-05 Yes 500mg Take 500 U nivers DE 500 mg 2-20 mg by ity of capsule 04:22: mouth [place] 55 daily. Medical Branch ALPRAZolam 2017-05 Yes 1mg Take 1 mg Un tracy 1 mg tablet 2-20 by mouth ity of 04:22: at [place] bedtime. Medical Branch lisdexamfet 2017-05 Yes 30mg Take 30 mg Univers amine 2-20 by mouth ity of (VYVANSE) 04:22: every [place] 30 mg 55 morning. Medical capsule Branch topiramate 2017-05 Yes 25mg Take 25 mg U nivers (TOPAMAX) 2-20 by mouth ity of 25 mg 04:22: daily. [place] tablet 55 Medical Branch topiramate 2017-05 Yes 25mg Take 25 mg U nivers (TOPAMAX) 2-20 by mouth ity of 25 mg 04:22: daily. [place] tablet 55 Medical Branch acetaZOLAMI 2017-05 Yes 500mg Take 500 U nivers DE 500 mg 2-20 mg by ity of capsule 04:22: mouth [place] 55 daily. Medical Branch ALPRAZolam 2017-05 Yes 1mg Take 1 mg Un tracy 1 mg tablet 2-20 by mouth ity of 04:22: at [place] bedtime. Medical Branch lisdexamfet 2017-05 Yes 30mg Take 30 mg Univers amine 2-20 by mouth ity of (VYVANSE) 04:22: every [place] 30 mg 55 morning. Medical capsule Branch acetaZOLAMI 2017-05 Yes 500mg Take 500 U nivers DE 500 mg 2-20 mg by ity of capsule 04:22: mouth [place] 55 daily. Medical Branch ALPRAZolam 2017-05 Yes 1mg Take 1 mg Un tracy 1 mg tablet 2-20 by mouth ity of 04:22: at [place] 55 bedtime. Medical Branch lisdexamfet 2017-05 Yes 30mg Take 30 mg Univers amine 2-20 by mouth ity of (VYVANSE) 04:22: every [place] 30 mg 55 morning. Medical capsule Branch topiramate 2017-05 Yes 25mg Take 25 mg U nivers (TOPAMAX) 2-20 by mouth ity of 25 mg 04:22: daily. [place] tablet 55 Medical Branch acetaZOLAMI 2017-05 Yes 500mg Take 500 U nivers DE 500 mg 2-20 mg by ity of capsule 04:22: mouth [place] 55 daily. Medical Branch clindamycin 2017-05 Yes 300mg Take 1 Uni vers 300 mg 2-20 capsule by ity of capsule 00:00: mouth 3 [place] 00 (three) Medical times Branch daily. clindamycin 2017-05 Yes 300mg Take 1 Uni vers 300 mg 2-20 capsule by ity of capsule 00:00: mouth 3 [place] 00 (three) Medical times Branch daily. clindamycin 2017-05 Yes 300mg Take 1 Uni vers 300 mg 2-20 capsule by ity of capsule 00:00: mouth 3 [place] 00 (three) Medical times Branch daily. clindamycin 2017-05 Yes 300mg Take 1 Uni vers 300 mg 2-20 capsule by ity of capsule 00:00: mouth 3 [place] 00 (three) Medical times Branch daily. pantoprazol 2016-05 Yes 40mg Take 1 Univ ers e 1-14 tablet by ity of (PROTONIX) 00:00: mouth [place] 40 mg EC 00 daily. Medical tablet Branch ondansetron 2016-05 Yes 4mg Take 1 Univ ers (ZOFRAN, 1-14 tablet by ity of HYDROCHLORI 00:00: mouth [place] DE,) 4 mg 00 every 8 Medical tablet (eight) Branch hours as needed for Nausea and Vomiting (N/V). pantoprazol 2016-05 Yes 40mg Take 1 Univ ers e 1-14 tablet by ity of (PROTONIX) 00:00: mouth [place] 40 mg EC 00 daily. Medical tablet Branch ondansetron 2016-05 Yes 4mg Take 1 Univ ers (ZOFRAN, 1-14 tablet by ity of HYDROCHLORI 00:00: mouth [place] DE,) 4 mg 00 every 8 Medical tablet (eight) Branch hours as needed for Nausea and Vomiting (N/V). pantoprazol 2016-05 Yes 40mg Take 1 Univ ers e 1-14 tablet by ity of (PROTONIX) 00:00: mouth [place] 40 mg EC 00 daily. Medical tablet Branch ondansetron 2016-05 Yes 4mg Take 1 Univ ers (ZOFRAN, 1-14 tablet by ity of HYDROCHLORI 00:00: mouth [place] DE,) 4 mg 00 every 8 Medical tablet (eight) Branch hours as needed for Nausea and Vomiting (N/V). pantoprazol 2016-05 Yes 40mg Take 1 Univ ers e 1-14 tablet by ity of (PROTONIX) 00:00: mouth [place] 40 mg EC 00 daily. Medical tablet Branch ondansetron 2016-05 Yes 4mg Take 1 Univ ers (ZOFRAN, 1-14 tablet by ity of HYDROCHLORI 00:00: mouth [place] DE,) 4 mg 00 every 8 Medical tablet (eight) Branch hours as needed for Nausea and Vomiting (N/V). topiramate 2016-05 Yes 25mg Take 1 Unive rs (TOPAMAX) 1-10 tablet by ity o f 25 mg 00:00: mouth [place] tablet 00 daily. Medical Branch acetaZOLAMI 2016-05 Yes 500mg Take 1 Uni vers DE 500 mg 1-10 capsule by ity of capsule 00:00: mouth [place] 00 daily. Medical Branch butalbital- 2016-05 Yes 1{tbl} Take 1 Un tracy acetaminoph 1-10 tablet by ity of en-caff 00:00: mouth [place] 50-325-40 00 every 4 Medical mg tablet (four) Branch hours as needed (Headache) . topiramate 2016-05 Yes 25mg Take 1 Unive rs (TOPAMAX) 1-10 tablet by ity o f 25 mg 00:00: mouth [place] tablet 00 daily. Medical Branch acetaZOLAMI 2016-05 Yes 500mg Take 1 Uni vers DE 500 mg 1-10 capsule by ity of capsule 00:00: mouth [place] 00 daily. Medical Branch butalbital- 2016-05 Yes 1{tbl} Take 1 Un tracy acetaminoph 1-10 tablet by ity of en-caff 00:00: mouth [place] 50-325-40 00 every 4 Medical mg tablet (four) Branch hours as needed (Headache) . topiramate 2016-05 Yes 25mg Take 1 Unive rs (TOPAMAX) 1-10 tablet by ity o f 25 mg 00:00: mouth [place] tablet 00 daily. Medical Branch acetaZOLAMI 2016-05 Yes 500mg Take 1 Uni vers DE 500 mg 1-10 capsule by ity of capsule 00:00: mouth [place] 00 daily. Medical Branch butalbital- 2016-05 Yes 1{tbl} Take 1 Un tracy acetaminoph 1-10 tablet by ity of en-caff 00:00: mouth [place] 50-325-40 00 every 4 Medical mg tablet (four) Branch hours as needed (Headache) . topiramate 2016-05 Yes 25mg Take 1 Unive rs (TOPAMAX) 1-10 tablet by ity o f 25 mg 00:00: mouth [place] tablet 00 daily. Medical Branch acetaZOLAMI 2016-05 Yes 500mg Take 1 Uni vers DE 500 mg 1-10 capsule by ity of capsule 00:00: mouth [place] 00 daily. Medical Branch butalbital- 2016-05 Yes 1{tbl} Take 1 Un tracy acetaminoph 1-10 tablet by ity of en-caff 00:00: mouth [place] 50-325-40 00 every 4 Medical mg tablet (four) Branch hours as needed (Headache) . benzonatate Yes 200mg Take 1 Uni vers 200 mg 6-13 capsule by ity of capsule 00:00: mouth 3 [place] 00 (three) Medical times Branch daily as needed for Cough. azithromyci 2016- Yes 250mg Take 1 Uni vers n 250 mg 6-13 tablet by ity of tablet 00:00: mouth [place] 00 daily. Medical Branch ibuprofen Yes 800mg Take 1 Unive rs 800 mg 6-13 tablet by ity of tablet 00:00: mouth [place] 00 every 6 Medical (six) Branch hours as needed for Temp > 38.5 C (PAIN). benzonatate 2017-0 Yes 200mg Take 1 Uni vers 200 mg 6-13 capsule by ity of capsule 00:00: mouth 3 [place] 00 (three) Medical times Branch daily as needed for Cough. azithromyci 2017-0 Yes 250mg Take 1 Uni vers n 250 mg 6-13 tablet by ity of tablet 00:00: mouth [place] 00 daily. Medical Branch ibuprofen 2017-0 Yes 800mg Take 1 Unive rs 800 mg 6-13 tablet by ity of tablet 00:00: mouth [place] 00 every 6 Medical (six) Branch hours as needed for Temp > 38.5 C (PAIN). benzonatate 2017-0 Yes 200mg Take 1 Uni vers 200 mg 6-13 capsule by ity of capsule 00:00: mouth 3 [place] 00 (three) Medical times Branch daily as needed for Cough. azithromyci 2017-0 Yes 250mg Take 1 Uni vers n 250 mg 6-13 tablet by ity of tablet 00:00: mouth [place] 00 daily. Medical Branch ibuprofen 2017-0 Yes 800mg Take 1 Unive rs 800 mg 6-13 tablet by ity of tablet 00:00: mouth [place] 00 every 6 Medical (six) Branch hours as needed for Temp > 38.5 C (PAIN). ibuprofen 2017-0 Yes 800mg Take 1 Unive rs 800 mg 6-13 tablet by ity of tablet 00:00: mouth [place] 00 every 6 Medical (six) Branch hours as needed for Temp > 38.5 C (PAIN). benzonatate 2017-0 Yes 200mg Take 1 Uni vers 200 mg 6-13 capsule by ity of capsule 00:00: mouth 3 [place] 00 (three) Medical times Branch daily as needed for Cough. azithromyci 2017-0 Yes 250mg Take 1 Uni vers n 250 mg 6-13 tablet by ity of tablet 00:00: mouth [place] 00 daily. Medical Branch acetaminoph 2017-0 Yes 1{tbl} Take 1 Un tracy en-codeine 1-29 tablet by ity of (TYLENOL-CO 00:00: mouth [place] DEINE #3) 00 every 4 Medical 300-30 mg (four) Branch tablet hours as needed for Pain (scale 4-6). acetaminoph 2017-0 Yes 1{tbl} Take 1 Un tracy en-codeine 1-29 tablet by ity of (TYLENOL-CO 00:00: mouth [place] DEINE #3) 00 every 4 Medical 300-30 mg (four) Branch tablet hours as needed for Pain (scale 4-6). acetaminoph 2017-0 Yes 1{tbl} Take 1 Un tracy en-codeine 1-29 tablet by ity of (TYLENOL-CO 00:00: mouth [place] DEINE #3) 00 every 4 Medical 300-30 mg (four) Branch tablet hours as needed for Pain (scale 4-6). acetaminoph 2016-0 Yes 1{tbl} Take 1 Un tracy en-codeine 1-29 tablet by ity of (TYLENOL-CO 00:00: mouth [place] DEINE #3) 00 every 4 Medical 300-30 mg (four) Branch tablet hours as needed for Pain (scale 4-6). ondansetron 2015-05 Yes 4mg Take 1 Univ ers (ZOFRAN, 1-10 tablet by ity of HYDROCHLORI 00:00: mouth [place] DE,) 4 mg 00 every 8 Medical tablet (eight) Branch hours as needed for Nausea and Vomiting (N/V). ciprofloxac 2015-05 Yes 500mg Take 1 Uni vers in HCl 1-10 tablet by ity of (CIPRO) 500 00:00: mouth 2 [place] as mg tablet 00 (two) Medical times Branch daily. metroNIDAZO 2015-05 Yes 500mg Take 1 Uni vers LE (FLAGYL) 1-10 tablet by ity of 500 mg 00:00: mouth 2 [place] tablet 00 (two) Medical times Branch daily. ondansetron 2015-05 Yes 4mg Take 1 Univ ers (ZOFRAN, 1-10 tablet by ity of HYDROCHLORI 00:00: mouth [place] DE,) 4 mg 00 every 8 Medical tablet (eight) Branch hours as needed for Nausea and Vomiting (N/V). ciprofloxac 2015-05 Yes 500mg Take 1 Uni vers in HCl 1-10 tablet by ity of (CIPRO) 500 00:00: mouth 2 [place] as mg tablet 00 (two) Medical times Branch daily. metroNIDAZO 2015-05 Yes 500mg Take 1 Uni vers LE (FLAGYL) 1-10 tablet by ity of 500 mg 00:00: mouth 2 [place] tablet 00 (two) Medical times Branch daily. ondansetron 2015-05 Yes 4mg Take 1 Univ ers (ZOFRAN, 1-10 tablet by ity of HYDROCHLORI 00:00: mouth [place] DE,) 4 mg 00 every 8 Medical tablet (eight) Branch hours as needed for Nausea and Vomiting (N/V). ciprofloxac 2015-05 Yes 500mg Take 1 Uni vers in HCl 1-10 tablet by ity of (CIPRO) 500 00:00: mouth 2 [place] as mg tablet 00 (two) Medical times Branch daily. metroNIDAZO 2015-05 Yes 500mg Take 1 Uni vers LE (FLAGYL) 1-10 tablet by ity of 500 mg 00:00: mouth 2 [place] tablet 00 (two) Medical times Branch daily. ondansetron 2015-05 Yes 4mg Take 1 Univ ers (ZOFRAN, 1-10 tablet by ity of HYDROCHLORI 00:00: mouth [place] DE,) 4 mg 00 every 8 Medical tablet (eight) Branch hours as needed for Nausea and Vomiting (N/V). ciprofloxac 2015-05 Yes 500mg Take 1 Uni vers in HCl 1-10 tablet by ity of (CIPRO) 500 00:00: mouth 2 [place] as mg tablet 00 (two) Medical times Branch daily. metroNIDAZO 2015-05 Yes 500mg Take 1 Uni vers LE (FLAGYL) 1-10 tablet by ity of 500 mg 00:00: mouth 2 [place] tablet 00 (two) Medical times Branch daily. Vital Signs Vital Name Observation Time Observation Value Comments Source Systolic blood 2020-05-16 12:37:00 121 [facility] 2020-05-16 12:37:00 84 mm[facility]Hg] [facility] Heart rate 2020-05-16 12:37:00 84 /min [facility] Body temperature 2020-05-16 12:37:00 36.56 Evelyn [facility] Respiratory rate 2020-05-16 12:37:00 18 /min [facility] Body height 2020-05-16 12:37:00 172.7 cm [facility] Body weight 2020-05-16 12:37:00 81.647 kg [facility] BMI 2020-05-16 12:37:00 27.37 kg/m2 [facility] [place] [facility] Oxygen saturation in 2020-05-16 12:37:00 100 /min University of Arterial blood by [facility] Pulse oximetry Branch Systolic blood 2020-05-16 12:37:00 121 mm[Hg] Univer sity of pressure [place] [facility] Diastolic blood 2020-05-16 12:37:00 84 mm[Hg] Unive rsity of pressure [place] [facility] Heart rate 2020-05-16 12:37:00 84 /min [facility] [place] [facility] Body temperature 2020-05-16 12:37:00 36.56 Evelyn [facility] [place] [facility] Respiratory rate 2020-05-16 12:37:00 18 /min [facility] [place] [facility] Body height 2020-05-16 12:37:00 172.7 cm [facility] [place] [facility] Body weight 2020-05-16 12:37:00 81.647 kg [facility] [place] [facility] BMI 2020-05-16 12:37:00 27.37 kg/m2 [facility] [place] [facility] Oxygen saturation in 2020-05-16 12:37:00 100 /min University of Arterial blood by [facility] Pulse oximetry Branch Systolic blood 2019-07-18 10:00:00 112 mm[Hg] Univer sity [facility] [place] [facility] Diastolic blood 2019-07-18 10:00:00 69 mm[Hg] Unive rsity of [facility] [place] [facility] Heart rate 2019-07-18 10:00:00 64 /min [facility] [place] [facility] Respiratory rate 2019-07-18 10:00:00 16 /min [facility] [place] [facility] Oxygen saturation in 2019-07-18 10:00:00 96 /min University of Arterial blood by [facility] Pulse oximetry Branch Body temperature 2019-07-18 06:55:00 35.83 Evelyn [facility] [place] [facility] Body height 2019-07-18 06:55:00 175.3 cm [facility] [place] [facility] Body weight 2019-07-18 06:55:00 91.173 kg [facility] [place] [facility] BMI 2019-07-18 06:55:00 29.68 kg/m2 [facility] [place] [facility] Systolic blood 2019-07-18 10:00:00 112 mm[Hg] [place] [facility] sit of pressure [facility] Diastolic blood 2019-07-18 10:00:00 69 mm[Hg] [facility] Heart rate 2019-07-18 10:00:00 64 /min [facility] Respiratory rate 2019-07-18 10:00:00 16 /min [facility] Oxygen saturation in 2019-07-18 10:00:00 96 /min [facility] Arterial blood by [facility] Pulse oximetry [place] Body temperature 2019-07-18 06:55:00 35.83 Evelyn [facility] Body height 2019-07-18 06:55:00 175.3 cm [facility] Body weight 2019-07-18 06:55:00 91.173 kg [facility] BMI 2019-07-18 06:55:00 29.68 kg/m2 [facility] Procedures Procedure Date / Time Performing Clinician Source Performed NOTICE OF PRIVACY 2020-05-16 12:27:25 Doctor Unassigned, No [facility] PRACTICES Name [facility] CONSENT/REFUSAL FOR 2020-05-16 12:27:13 [facility] Name [facility] US TRANSVAGINAL 2019-07-18 09:47:50 Harrison Merino [facility] CT ABDOMEN PELVIS W 2019-07-18 07:55:36 Harrison Merino [facility] CONTRAST [facility] POCT TEST 2019-07-18 07:09:00 Harrison Merino [facility] LIPASE 2019-07-18 07:08:00 Harrison Merino [facility] HEPATIC FUNCTION PANEL 2019-07-18 07:08:[address] [facility] ([id number]) (ALB,T.PRO,BILI [facility] T,BU/BC,ALT,AST,ALK PHOS) BASIC METABOLIC PANEL 2019-07-18 07:08:00 Harrison Merino [facility] (NA, K, CL, CO2, Medical Branch GLUCOSE, BUN, CREATININE, CA) CBC WITH DIFFERENTIAL 2019-07-18 07:08:00 Harrison Merino [facility] PROTHROMBIN TIME / INR 2019-07-18 07:08:00 [facility] ACTIVATED PARTIAL 2019-07-18 07:08:00 Harrison Merino [facility] THRMPLAS [facility] URINALYSIS 2019-07-18 07:08:00 Woody Harrison [place] o f [facility] NOTICE OF PRIVACY 2019-07-18 06:53:55 Doctor Unassigned, No Univ [facility] PRACTICES Name [facility] Branch CONSENT/REFUSAL FOR 2019-07-18 06:42:08 Doctor Unassigned, No [facility] DIAGNOSIS AND TREATMENT Name [facility] Encounters Start End Encounter Admission Attending Care Care Encounter Source Date/Time Date/Time Type Type Clinicians Facility Department ID 2020-05-16 2020-05-16 [facility] [id number] 06:33:00 06:53:00 Rashida Jeong [id number] [place] 4.2.7.2.686 [place] [id number] [facility] 2020-05-16 2020-05-16 [facility] [id number] Univers 06:33:00 06:53:00 Rashida Jenog [id number] ity of [place] 4.2.7.2.686 [facility] [id number] [place] [id number] [place] 2020-05-16 2020-05-16 Emergency [facility] [id number] Univers 06:33:00 06:33:00 RASHIDA boothe [facility] 2020-05-16 2020-05-16 Orders Doctor [place] [id number] 00:00:00 00:00:00 Only UnassignedMAXIMILIAN [id number] [place] [facility] 4.2.7.2.68 [id number] 2020-05-16 2020-05-16 Orders Doctor [place] [id number] Univers 00:00:00 00:00:00 Only Unassigned, MAXIMILIAN [id number] ity of [place] [facility] 4.2.7.2.686 [place] [id number] [address] 2019-07-18 2019-07-18 [facility] [id number] 01:45:09 05:19:00 Harrison [place] [id number] [place] 4.2.7.2.686 [place] [id number] 2019-07-18 2019-07-18 Emergency [facility] [id number] Univers 01:45:09 05:19:00 HARRISON purcell [facility] 2019-07-18 2019-07-18 [facility] [id number] Univers 01:45:09 05:19:00 Harrison Jean-Paul 350.1.13.10 i ty of [place] 4.2.7.2.686 [facility] [id number] [address] 2019-07-18 2019-07-18 Orders Doctor BEKA [id number] [facility] 00:00:00 00:00:00 Only Unassigned, MAXIMILIAN [id number] ity of [place] [facility] 4.2.7.2.686 [place] [id number] [address] 2019-07-18 2019-07-18 Orders Doctor BEKA [id number] 00:00:00 00:00:00 Only Unassigned, MAXIMILIAN [id number] [place] [facility] 4.2.7.2.686 [id number] 2019-04-24 2019-04-24 Emergency X PINTO RUST ERT [id number] [facility] 13:52:02 15:36:00 IDA purcell [facility] Results Test Description Test Test Results Result Source Time Comments Comments US TRANSVAGINAL 2019-07- Multiple cysts in the [facility] right ovary, measuring up [facility] 09:59:13 to 29 mm. No evidence [facility] for[facility]arian torsion or significant free fluid. RL: [id number] AFC: [id number] Ordering physician: HARRISON MERINO INDICATION: Lower abdominal pain COMPARISON: CT the abdomen and pelvis dated 07/18/2019 TECHNIQUE: Grayscale and Doppler images of the pelvis were performed via anendovaginal approach. FINDINGS: The uterus measures 8.1 x 4.7 x 7.1 cm. The endometrium is withinnormal limits at 5 mm. The right ovary measures 4.4 x 3.6 x 2.2 cm and theleft ovary measures 2.2 x 1.2 x 1.4 cm. There are multiple cysts in theright ovary, measuring up to 29 mm. There is normal color-flow in theovaries bilaterally, with normal vascular waveforms. [facility], Radiant Results Inft User - 07/18/2019 5:00 AM CDTOrdering physician: HARRISON MERINOINDICATION: Lower abdominal painCOMPARISON: CT the abdomen and pelvis dated 07/18/2019TECHNIQUE: Grayscale and Doppler images of the pelvis were performed via anendovaginal approach.FINDINGS: The uterus measures 8.1 x 4.7 x 7.1 cm. The endometrium is withinnormal limits at 5 mm. The right ovary measures 4.4 x 3.6 x 2.2 cm and theleft ovary measures 2.2 x 1.2 x 1.4 cm. There are multiple cysts in theright ovary, measuring up to 29 mm. There is normal color-flow in theovaries bilaterally, with normal vascular waveforms.IMPRESSIONMultip le cysts in the right ovary, measuring up to 29 mm. 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 Br anch Thickening of the wall of the urinary bladder, with mucosal enhancement.This is likely accentuated by underdistention, but could reflect mildcystitis. Multiple right ovarian cysts without significant free fluid in the pelvis. Normal appendix. RL: [id number] AFC: [id number] Indication: Acute generalized abdominal pain COMPARISON: None TECHNIQUE: Axial images of the abdomen and pelvis are performed followingadministration of intravenous contrast material. Images were reformatted inthe coronal and sagittal plane. CT scan was performed according to ALARA(as low as reasonably achievable) policy. FINDINGS: The lung bases are clear. Bilateral breast implants are in place.The liver, gallbladder, spleen, adrenal glands and pancreas are withinnormal limits. The kidneys are normal in appearance bilaterally withouthydronephrosis. No abdominal aortic aneurysm or dissection is appreciated.The patient is status post gastric sleeve procedure, without complicatingfeatures. There is no abdominal aortic aneurysm or dissection. There is no free fluid in the pelvis. There is thickening of the wall ofthe urinary bladder, with mucosal enhancement. There are multiple rightovarian cysts, measuring up to 26 mm. There is no bowel obstruction,widespread diverticulosis or acute diverticulitis. The appendix isidentified and within normal limits. ?Bone windows through the abdomen andpelvis demonstrate no osseous destructive lesion. [facility], Radiant Results Inft User - 07/18/2019 3:11 AM CDTIndication: Acute generalized abdominal painCOMPARISON: NoneTECHNIQUE: Axial images of the abdomen and pelvis are performed followingadministration of intravenous contrast material. Images were reformatted inthe coronal and sagittal plane. CT scan was performed according to ALARA(as low as reasonably achievable) policy.FINDINGS: The lung bases are clear. Bilateral breast implants are in place.The liver, gallbladder, spleen, adrenal glands and pancreas are withinnormal limits. The kidneys are normal in appearance bilaterally withouthydronephrosis. No abdominal aortic aneurysm or dissection is appreciated.The patient is status post gastric sleeve procedure, without complicatingfeatures. There is no abdominal aortic aneurysm or dissection.There is no free fluid in the pelvis. There is thickening of the wall ofthe urinary bladder, with mucosal enhancement. There are multiple rightovarian cysts, measuring up to 26 mm. There is no bowel obstruction,widespread diverticulosis or acute diverticulitis. The appendix isidentified and within normal limits. Bone windows through the abdomen andpelvis demonstrate no osseous destructive lesion.IMPRESSIONStatus post gastric sleeve procedure without complicating features.Thickening of the wall of the urinary bladder, with mucosal enhancement.This is likely accentuated by underdistention, but could reflect mildcystitis.Multiple right ovarian cysts without significant free fluid in the pelvis.Normal appendix.RL: [id number]: [id number] Urinalysis 2019-07-18 07:44:00 Test Item Value Reference Range Interpretation Comme nts APPEARANCE (test code = Cloudy Clear A 6339231485) COLOR (test code = 0401023482) Tereza Yellow A PH (test code = 6519315808) 4.8-8.0 SP GRAVITY (test code = 1.003-1.030 4460298513) GLU U QUAL (test code = Normal Normal 0089196977) BLOOD (test code = 1456075358) 3+ Negative A KETONES (test code = 1558157763) Negative Negative PROTEIN (test code = 2887-8) 100 mg/dL Negative A UROBILIN (test code = Normal Normal 3815385260) BILIRUBIN (test code = Negative Negative 3791329676) NITRITE (test code = 0285597436) Positive Negative A LEUK JOAQUIM (test code = 500/uL Negative A 1830704909) RBC/HPF (test code = 6548401118) >182 See_Comment H [Automated message] The system which ge nerated this result transmit sameer reference range: 0 - 3 HP F. The reference range was not used to interpret th is result as normal/abnormal . WBC/HPF (test code = 7644107827) >182 See_Comment H [Automated message] The system which ge nerated this result transmit sameer reference range: 0 - 5 HP F. The reference range was not used to interpret th is result as normal/abnormal . BACTERIA (test code = Moderate Negative A 2090522072) MUCOUS (test code = 0528831421) Marked Negative LPF A SQ EPITH (test code = HPF 5710602963) WBC CLUMPS (test code = See_Comment H [Au tomated message] The 7934375507) system which ge nerated this result transmit sameer reference range: <=1 HPF. The reference range was not used to interpret th is result as normal/abnormal . YEAST BUD (test code = See_Comment H [Aut omated message] The 2273359093) system which ge nerated this result transmit sameer reference range: <=1 HPF. The reference range was not used to interpret th is result as normal/abnormal . Lab Interpretation (test code = Abnormal 89271-7) [facility] WITH [id number] 07:41:00 Test Item Value Reference Range Interpretation Comments WBC (test code = See_Comment [Automated 6690-2) message] The sy stem which generated this result transmitted reference range : 4.30 - 11.10 10*3/?L. The reference range was not used to interpret this result as normal/abnormal . RBC (test code = See_Comment [Automated 789-8) message] The sy stem which generated this result transmitted reference range : 3.93 - 5.25 10*6/?L. The reference range was not used to interpret this result as normal/abnormal . HGB (test code = 8.3 g/dL 11.6-15 L 718-7) HCT (test code = 30.9 % 35.7-45.2 L 4544-3) MCV (test code = 67.2 fL 80.6-95.5 L 787-2) MCH (test code = 18.0 pg 25.9-32.8 L 785-6) MCHC (test code = 26.9 g/dL 31.6-35.1 L 786-4) RDW-SD (test code = 43.0 fL 39-49.9 93535-2) RDW-CV (test code = 18.4 % 12-15.5 H 788-0) PLT (test code = See_Comment [Automated 777-3) message] The sy stem which generated this result transmitted reference range : 166 - 358 10*3/ ?L. The reference r jeff was not used to interpret this result as normal/abnormal . MPV (test code = 11.0 fL 9.5-12.9 89430-9) IPF % (test code = 3.2 % 1.3-7.7 Platelet count 9008546696) measured by fluorescence method. NRBC/100 WBC (test See_Comment [Automat ed code = 0065968787) message] The system which generated this result transmitted reference range : 0.0 - 10.0 /100 WBCs. The refer ence range was not u sed to interpret th is result as normal/abnormal . NRBC x10^3 (test code <0.01 See_Comment [Auto mated = 0207259535) message] The s ystem which generated this result transmitted reference range : 10*3/?L. The reference range was not used to interpret this result as normal/abnormal . GRAN MAT (NEUT) % 76.4 % (test code = 770-8) IMM GRAN % (test code 0.40 % = 8512244588) LYMPH % (test code = 11.6 % 736-9) MONO % (test code = 9.2 % 5905-5) EOS % (test code = 1.5 % 713-8) BASO % (test code = 0.9 % 706-2) GRAN MAT x10^3(ANC) 7.86 10*3/uL 1.88-7.09 H (test code = 9644067862) IMM GRAN x10^3 (test 0.04 10*3/uL 0-0.06 code = 4925306553) LYMPH x10^3 (test code 1.19 10*3/uL 1.32-3.29 L = 731-0) MONO x10^3 (test code 0.94 10*3/uL 0.33-0.92 H = 742-7) EOS x10^3 (test code = 0.15 10*3/uL 0.03-0.39 711-2) BASO x10^3 (test code 0.09 10*3/uL 0.01-0.07 H = 704-7) Lab Interpretation Abnormal (test code = 55073-8) [facility] Metabolic Panel (NA, K, CL, CO2, GLUCOSE, BUN, CREATININE, CA)2019-07-18 07:34:00 Test Item Value Reference Range Interpretation Comments NA (test code = 137 mmol/L 135-145 9768182366) K (test code = 3.3 mmol/L 3.5-5 L 5463622132) CL (test code = 102 mmol/L 98-108 1065938034) CO2 TOTAL (test code = 28 mmol/L 23-31 3516779754) AGAP (test code = 2-16 7636086775) BUN (test code = 13 mg/dL 7-23 1358259385) GLUCOSE (test code = 105 mg/dL 70-110 1176342544) CREATININE (test code = 0.64 mg/dL 0.5-1.04 0556531236) CALCIUM (test code = 8.9 mg/dL 8.6-10.6 7993517603) eGFR Calculation mL/min/1.73m2 (Non-) (test code = 4207491037) eGFR Calculation mL/min/1.73m2 () (test code = 0542901070) JARET (test code = JARET) Association of Glomerular Filtration Rate (GFR) and Staging of Kidney Disease* + --+ --+ ------+| GFR (mL/min/1.73 m2) ?| With Kidney Damage ?| ?Without Kidney Damage+ --------+ --------+ +| ?>90 ?| ?Stage one ?| ? Normal ?+ ---+ ---+ -------+| ?60-89 ?| ?Stage two ?| ? Decreased GFR ? + --+ --+ ------+| ?30-59 ?| ?Stage three ?| ? Stage three ? + --+ --+ ------+| ?15-29 ?| ?Stage four ? | ? Stage four ?+ ---+ ---+ -------+| ?<15 (or dialysis) ? ?| ?Stage five ? | ? Stage five ?+ ---+ ---+ -------+ *Each stage assumes the associated GFR level has been in effect for at least three months. ?Stages 1 to 5, with or without kidney disease, indicate chronic kidney disease. Notes: Determination of stages one and two (with eGFR >59mL/min/1.73 m2) requires estimation of kidney damage for at least three months as defined by structural or functional abnormalities of the kidney, manifested by either:Pathological abnormalities or Markers of kidney damage (including abnormalities in the composition of the blood or urine or abnormalities in imaging tests). Lab Interpretation Abnormal (test code = 09979-3) [facility] (ALB, T.PRO, BILI T, BU/BC, ALT, AST, ALK PHOS)2019-07-18 07:34:00 Test Item Value Reference Range Interpretation Comments TOTAL BILI (test code = 3966224101) 0.3 mg/dL 0.1-1.1 BILI UNCON (test code = 6896129246) 0.2 mg/dL 0.1-1.1 BILI CONJ (test code = 4496971198) 0.0 mg/dL 0-0.3 T PROTEIN (test code = 0784655056) 7.4 g/dL 6.3-8.2 ALBUMIN (test code = 6511497799) 4.3 g/dL 3.5-5 ALK PHOS (test code = 2337382432) 46 U/L 34-122 ALTv (test code = 1742-6) 17 U/L 5-35 AST(SGOT) (test code = 8181827064) 28 U/L 13-40 Lab Interpretation (test code = Normal 97333-4) [facility] [id number] 07:33:00 Test Item Value Reference Range Interpretation Comments LIPASE (test code = 1610982355) 47 U/L 0-220 Lab Interpretation (test code = Normal 62129-1) [facility]2020-[facility] 07:31:00 Test Item Value Reference Range Interpretation Comments APTT Patient (test See_Comment [Automat ed code = 3173-2) message] The system which generated this result transmitted reference range : 23 - 38 Seconds . The reference range was not used to interpr et this result as normal/abnormal . JARET (test code = JARET) The [facility]UST patient population mean normal value for aPTT is 30 seconds. Lab Interpretation Normal (test code = 24067-3) [facility] (PT) / [id number] 07:29:00 Test Item Value Reference Range Interpretation Comments PROTIME PATIENT (test See_Comment [Auto mated message] code = 5964-2) The system wh ich generated this result transmitted ref erence range: 12.0 - 1 4.7 Seconds. The re ference range was not u sed to interpret this result as normal/abnor mal. INR (test code = 6301-6) Nor mal INR <1.1; Warfarin Therap eutic range 2.0 to 3. 0 or 2.5 to 3.5, dep ending upon the indica tions. Lab Interpretation (test Normal code = 02855-5) [facility] Test, [id number] 07:09:00 Test Item Value Reference Range Interpretation Comments POCT PREG (test code = 1605) Negative On board controls acceptable with Present C Line (test code = 3574) POCT PREG LOT # (test code = 3575) [id number] POCT PREG TEST DATE (test 12/05/2020 code = 3576) Lab Interpretation (test code = Normal 21738-7) [facility]"
[2021-08-23] MEDS ORDERED: ACETAMINOPHEN 500 MG TAB ONE (20:59)
--- NOTE | 2021-08-23 21:54 | RAD REPORT ---
EXAM DESCRIPTION: RAD - Foot Left 3 View - 08/23/2021 9:48 pm CLINICAL HISTORY: Pain COMPARISON: No comparisons FINDINGS: No acute fracture or dislocation seen. Large plantar and small posterior calcaneal spur.
--- NOTE | 2021-08-24 00:22 | ER ---
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 Coronavirus screen: Client denies travel out of the [place] in the last 14 days. At this time, the client does not indicate any symptoms associated with coronavirus-19. Ebola Screen: No symptoms or risks identified at this time. Initial Sepsis Screen: Does the patient meet any 2 criteria? No. Patient's initial sepsis screen is negative. Does the patient have a suspected source of infection? No. Patient's initial sepsis screen is negative. Risk Assessment: Do you want to hurt yourself or someone else? Patient reports no desire to harm self or others. Onset of symptoms is unknown. 20:06 Method Of Arrival: Ambulatory lg3 20:06 Acuity: DONTE 3 lg3 Triage Assessment: 20:09 General: Appears in no apparent distress. uncomfortable, Behavior is calm, cooperative. lg3 Pain: Complains of pain in left foot and left lateral ankle Pain currently is 10 out of 10 on a pain scale. EENT: No deficits noted. No signs and/or symptoms were reported regarding the EENT system. Neuro: No deficits noted. Level of Consciousness is awake, alert, obeys commands, Oriented to person, place, time, situation. Cardiovascular: No deficits noted. Denies chest pain, shortness of breath. Respiratory: No deficits noted. Airway is patent Trachea midline Respiratory effort is even, unlabored, Respiratory pattern is regular, symmetrical. GI: No deficits noted. No signs and/or symptoms were reported involving the gastrointestinal system. Abdomen is round non-distended. : No deficits noted. No signs and/or symptoms were reported regarding the genitourinary system. Derm: swelling to left ankle Reports pain. Musculoskeletal: No deficits noted. Range of motion: limited in left ankle. 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 - Social history:: Smoking status: Patient reports the use of cigarette tobacco products, smokes one-half pack cigarettes per day, Patient uses alcohol, occasionally. only on a social basis. Screenin:53 Abuse screen: Denies threats or abuse. Nutritional screening: No deficits noted. al4 Tuberculosis screening: No symptoms or risk factors identified. Fall Risk No fall in past 12 months (0 pts). No IV (0 pts). Ambulatory Aid- None/Bed Rest/Nurse Assist (0 pts). Gait- Normal/Bed Rest/Wheelchair (0 pts) Mental Status- Oriented to own ability (0 pts). Total Macias Fall Scale indicates No Risk (0-24 pts). Assessment: 20:51 General: Appears in no apparent distress. comfortable, Behavior is calm, cooperative, al4 patient reports dropping an object on L foot 2 weeks ago . Pain: Complains of pain in left ankle and left foot Pain currently is 10 out of 10 on a pain scale. Neuro: Level of Consciousness is awake, alert, obeys commands, Oriented to person, place, time, situation. Cardiovascular: Capillary refill < 3 seconds Patient's skin is warm and dry. Pulses are 2+ in left dorsalis pedis artery. Respiratory: Airway is patent Respiratory effort is unlabored, Respiratory pattern is regular. Musculoskeletal: Circulation, motion, and sensation intact. 22:00 Reassessment: Patient and/or family updated on plan of care and expected duration. Pain al4 level reassessed. Patient is alert, oriented x 3, equal unlabored respirations, skin warm/dry/pink. 23:00 Reassessment: Patient and/or family updated on plan of care and expected duration. Pain al4 level reassessed. Patient is alert, oriented x 3, equal unlabored respirations, skin warm/dry/pink. Vital Signs: 20:06 BP 127 / 74; Pulse 90; Resp 17 S; Temp 98.6(O); Pulse Ox 100% on R/A; Weight 83.91 kg lg3 (R); Height 5 ft. 9 in. (175.26 cm) (R); Pain 10/10; 20:53 BP 128 / 84; Pulse 78; Resp 18; Pulse Ox 100% on R/A; Pain 10/10; al4 23:14 BP 126 / 66; Pulse 89; Resp 18; Pulse Ox 100% ; al4 20:06 Body Mass Index 27.32 (83.91 kg, 175.26 cm) lg3 ED Course: 19:56 Patient arrived in ED. ds1 20:04 Go Jameson PA is PHCP. cp 20:04 Nick Sanchez MD is Attending Physician. cp 20:09 Triage completed. lg3 20:51 Berny Mcneal is Primary Nurse. al4 21:00 Patient has correct armband on for positive identification. Bed in low position. al4 21:00 Arm band placed on. al4 21:50 XRAY Foot LEFT 3 View In Process Unspecified. EDMS 23:15 No provider procedures requiring assistance completed. Patient did not have IV access al4 during this emergency room visit. Administered Medications: 20:57 Drug: Tylenol 1000 mg Route: PO; al4 21:30 Follow up: Response: No adverse reaction al4 Outcome: 22:23 Discharge ordered by MD. cp 23:15 Discharged to home ambulatory. al4 23:15 Condition: stable 23:15 Discharge instructions given to patient, Instructed on discharge instructions, follow up and referral plans. medication usage, Demonstrated understanding of instructions, follow-up care, medications. 23:45 Patient left the ED. vc1 Signatures: Dis[facility] Melani Moore ds1 Go Jameson PA PA cp Ambika Saini RN RN lg3 Berny Mcneal al4 Iman Phan RN RN vc1 Corrections: (The following items were deleted from the chart) 08/24 02:41 04 20:53 Patient has correct armband on for positive identification. Bed in low al4 position. al4
--- NOTE | 2021-08-24 00:22 | EDPHYS ---
Physician Documentation [facility] Name: Ruby Tapia Age: 41 yrs Sex: Female : 1980 Arrival Date: 08/23/2021 Time: 19:56 Bed 20 Private MD: ED Physician Nick Sanchez HPI: 08/23 20:50 This 41 yrs old Female presents to ER via Ambulatory with complaints of Foot cp Swelling. 20:50 The patient presents with pain, that is acute, swelling, tenderness. The complaints cp affect the left foot. Context: dropped newspaper stuffer onto foot over 1 week ago. 20:50 Associated signs and symptoms: Pertinent positives: warmth, erythema, Pertinent cp negatives: calf tenderness, fever, numbness. Severity of symptoms: in the emergency department the symptoms are unchanged, despite home interventions. 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 - Social history:: Smoking status: Patient reports the use of cigarette tobacco products, smokes one-half pack cigarettes per day, Patient uses alcohol, occasionally. only on a social basis. ROS: 20:55 MS/extremity: Positive for erythema, pain, swelling, tenderness, of the lateral left cp foot, Negative for decreased range of motion, deformity, paresthesias. 20:55 Constitutional: Negative for body aches, chills, fever. cp 20:55 All other systems are negative. Exam: 21:00 Constitutional: The patient appears in no acute distress, alert, awake, non-toxic, well cp developed, well nourished, uncomfortable. 21:00 Musculoskeletal/extremity: Extremities: grossly normal except: noted in the lateral cp aspect and dorsum left foot: pain, tenderness, mild swelling and erythema noted to proximal lateral left foot below lateral malleolus, ROM: limited passive range of motion due to pain, in the left foot, Perfusion: the extremity is normally perfused throughout. Vital Signs: 20:06 BP 127 / 74; Pulse 90; Resp 17 S; Temp 98.6(O); Pulse Ox 100% on R/A; Weight 83.91 kg lg3 (R); Height 5 ft. 9 in. (175.26 cm) (R); Pain 10/10; 20:53 BP 128 / 84; Pulse 78; Resp 18; Pulse Ox 100% on R/A; Pain 10/10; al4 23:14 BP 126 / 66; Pulse 89; Resp 18; Pulse Ox 100% ; al4 20:06 Body Mass Index 27.32 (83.91 kg, 175.26 cm) lg3 MDM: 20:17 Patient medically screened. cp 21:00 Differential diagnosis: fracture, sprain, cellulitis. cp 22:23 Data reviewed: vital signs, nurses notes, radiologic studies, plain films. cp 22:23 Test interpretation: by ED physician or midlevel provider: plain radiologic studies. cp Counseling: I had a detailed discussion with the patient and/or guardian regarding: the historical points, exam findings, and any diagnostic results supporting the discharge/admit diagnosis, radiology results, to return to the emergency department if symptoms worsen or persist or if there are any questions or concerns that arise at home. Response to treatment: the patient's symptoms have mildly improved after treatment, and as a result, I will discharge patient. 08/23 20:41 Order name: XRAY Foot LEFT 3 View; Complete Time: 22:22 cp 08/23 22:22 Interpretation: Reviewed report. cp 08/23 22:23 Order name: Giovanni Wrap; Complete Time: 02:43 cp Administered Medications: 20:57 Drug: Tylenol 1000 mg Route: PO; al4 21:30 Follow up: Response: No adverse reaction al4 Disposition Summary: 08/23/21 22:23 Discharge Ordered Location: Home cp Problem: new cp Symptoms: have improved cp Condition: Stable cp Diagnosis - Pain in left foot cp Followup: cp - With: Private Physician - When: 2 - 3 days - Reason: Recheck today's complaints Discharge Instructions: - Discharge Summary Sheet cp - Foot Pain cp Forms: - Medication Reconciliation Form cp - Thank You Letter cp - Antibiotic Education cp - Prescription Opioid Use cp Prescriptions: - Cephalexin 500 mg Oral Capsule - take 1 capsule by ORAL route every 6 hours for 10 days; 40 capsule; Refills: 0, cp Product Selection Permitted - Crutches - One pair of Adult crutches; ; Refills: 0, Product Selection Permitted cp Addendum: 08/27/2021 18:12 Co-signature as Attending Physician, Nick Sanchez MD I agree with the assessment and k dr plan of care. Signatures: Dispatcher [employer] EDVT Nick Sanchez MD MD kdr Go Jameson PA PA cp Ambika Saini, RN RN lg3 Berny Mcneal4 Corrections: (The following items were deleted from the chart) 08/23 22:52 22:23 Crutches ordered. cp cp
[2021-08-24 05:44] VITALS: TEMP 98.6; O2SAT 100
[2021-08-24 05:46] VITALS: BP 128/84
== END 2021-08-23 23:45 | disposition home or self-care (01) ==
LOC: ER 19:54
DX: M79.672 Pain in left foot (principal); F17.210 Nicotine dependence, cigarettes, uncomplicated; Z98.82 Breast implant status
CPT/HCPCS: 99283

== ENCOUNTER 2021-09-28 18:31 | Emergency (ER) | payer OTHER, SELFPAY ==
--- OUTSIDE RECORDS SUMMARY | 2021-09-28 18:35 | XMS REPORT | Continuity of Care Document ---
:1980 Author Organization [facility] t Address [address] [place] [address] Care Team Providers Name Role Phone PCP, DOES NOT HAVE A Primary Care Physician Unavailable Evelyn Mason DO Attending Clinician Evelyn MASON Attending Clinician Unavailable Doctor Unassigned, Name Attending Clinician Unavailable Woody BROCK Attending Clinician WOODY Attending Clinician Unavailable PINTO Attending Clinician Unavailable WOODY Admitting Clinician Unavailable PINTO Admitting Clinician Unavailable Payers Payer Name Policy Type Policy Number Effective Date Expiration Date S ource Problems Condition Condition Condition Status Onset Resolution Last Treating Co mments Source Name Details Category Date Date Treatment Clinician Date No known No known Disease Unive rs active active ity of problems problems [facility] Allergies, Adverse Reactions, Alerts Allergy Allergy Status Severity Reaction(s) Onset Inactive Treating Comm ents Source Name Type Date Date Clinician NO KNOWN Drug Active Univers ALLERGIE Class ity of S [facility] Social History Social Habit Start Date Stop Date Quantity Comments Source Exposure to SARS-CoV-2 Not sure [facility] [place] (event) [facility] Sex Assigned At Uni versity [facility] Smoking Status Start Date Stop Date Source Unknown if ever smoked Universit y [facility] Medications Ordered Filled Start Stop Current Ordering Indication Dosage Frequency Signature Comments Components Source Medication Medication Date Date Medication? Clinician (SIG) Name Name ketorolac 2020-0 2020- No 30mg 30 mg, Unive rs (TORADOL) 07-17 03-12 Slow IV ity of injection 09:45: 08:46 [place], [place] 30 mg 00 :00 ONCE, 1 Medical dose, Saray Branch 07/18/19 at 0445, WAQAR
[facility] Restricted medication : [...] dose, Saray Medica l mL) 07/18/19 at [place] injection 0300, 120 mL Routine ibuprofen 2020-0 Yes [id number] 800mg Take 1 Univers 800 mg 3- [id number] tablet by ity of tablet 00:00: mouth [place] 00 every 8 Medical (eight) Branch hours. traMADol 50 2020-0 Yes [id number] 50mg Take 1 Univers mg tablet 3- [id number] tablet by ity of 00:00: mouth [place] 00 every 6 Medical (six) Branch hours as needed for Pain (scale 4-6). ciprofloxac 2020-0 Yes [id number] 500mg Take 1 Univers in HCl 500 - [id number] tablet by it y of mg tablet 00:00: mouth 2 [place] 00 (two) Medical times Branch daily. ibuprofen 2020-0 Yes [id number] 800mg Take 1 Univers 800 mg 3-12 [id number] tablet by ity of tablet 00:00: mouth [place] 00 every 8 Medical (eight) Branch hours. traMADol 50 2020-0 Yes [id number] 50mg Take 1 Univers mg tablet 3-12 [id number] tablet by ity of 00:00: mouth [place] 00 every 6 Medical (six) Branch hours as needed for Pain (scale 4-6). ciprofloxac 2020-0 Yes [id number] 500mg Take 1 Univers in HCl 500 3-12 [id number] tablet by it y of mg tablet 00:00: mouth (two) Medical times Branch daily. ibuprofen 2019-0 Yes [id number] 800mg Take 1 Univers 800 mg 3-12 [id number] tablet by ity of tablet 00:00: mouth [place] 00 every 8 Medical (eight) Branch hours. traMADol 50 2019-0 Yes [id number] 50mg Take 1 Univers mg tablet 3-12 [id number] tablet by ity of 00:00: mouth 00 every 6 Medical (six) Branch hours as needed for Pain (scale 4-6). ciprofloxac 2019-0 Yes [id number] 500mg Take 1 Univers in HCl 500 3-12 [id number] tablet by it y of mg tablet 00:00: mouth (two) Medical times Branch daily. traMADol 2018-05 Yes [id number] 50mg Take 1 Un tracy (ULTRAM) 50 2-18 tablet by ity of mg tablet 00:00: mouth 00 every 6 Medical (six) Branch hours as needed for Pain (scale 7-10). naproxen 2018-05 Yes [id number] 550mg Take 1 U nivers sodium 550 2-18 tablet by ity of mg tablet 00:00: mouth (two) Medical times Branch daily with meals. traMADol 2018-05 Yes [id number] 50mg Take 1 Un tracy (ULTRAM) 50 2-18 tablet by ity of mg tablet 00:00: mouth 00 every 6 Medical (six) Branch hours as needed for Pain (scale 7-10). naproxen 2018-05 Yes [id number] 550mg Take 1 U nivers sodium 550 2-18 tablet by ity of mg tablet 00:00: mouth (two) Medical times Branch daily with meals. traMADol 2018-05 Yes [id number] 50mg Take 1 Un tracy (ULTRAM) 50 2-18 tablet by ity of mg tablet 00:00: mouth 00 every 6 Medical (six) Branch hours as needed for Pain (scale 7-10). naproxen 2018-05 Yes [id number] 550mg Take 1 U nivers sodium 550 2-18 tablet by ity of mg tablet 00:00: mouth (two) Medical times Branch daily with meals. traMADol 2018-05 Yes [id number] 50mg Take 1 Un tracy (ULTRAM) 50 2-18 tablet by ity of mg tablet 00:00: mouth [place] 00 every 6 Medical (six) Branch hours as needed for Pain (scale 7-10). naproxen 2018-05 Yes [id number] 550mg Take 1 U nivers sodium 550 [...] 2-20 by mouth ity of 04:22: at [place] [address] bedtime. Medical Branch lisdexamfet 2017-05 Yes 30mg [...] Branch hours as needed (Headache) . benzonatate 2016- Yes 200mg Take 1 Uni vers 200 mg 6-13 capsule by ity of capsule 00:00: mouth 3 [place] 00 (three) Medical times Branch daily as needed for Cough. azithromyci 2016- Yes 250mg Take 1 Uni vers n 250 mg 6-13 tablet by ity of tablet 00:00: mouth [place] 00 daily. Medical Branch ibuprofen 2016- Yes 800mg Take 1 Unive rs 800 [...] Source Systolic blood 2020-05-16 12:37:00 121 mm[Hg] [facility] Diastolic blood 2020-05-16 12:37:00 84 mm[Hg] [facility] Heart rate 2020-05-16 12:37:00 84 /min [facility] Body temperature 2020-05-16 12:37:00 36.56 Evelyn [facility] Respiratory rate 2020-05-16 12:37:00 18 /min [facility] Body height 2020-05-16 12:37:00 172.7 cm [facility] Body weight 2020-05-16 12:37:00 81.647 kg [facility] BMI 2020-05-16 12:37:00 27.37 kg/m2 [facility] [place] [facility] Oxygen saturation in 2020-05-16 12:37:00 100 /min University of Arterial blood by [facility] Pulse oximetry Branch Systolic blood 2020-05-16 12:37:00 121 mm[Hg] Univer sity of pressure [place] [facility] Diastolic blood 2020-05-16 12:37:00 84 mm[Hg] Unive rsity [facility] [place] [facility] Heart rate 2020-05-16 12:37:00 84 /min [facility] [place] [facility] Body temperature 2020-05-16 12:37:00 36.56 Evelyn [facility] [place] [facility] Respiratory rate 2020-05-16 12:37:00 18 /min [facility] [place] [facility] Body height 2020-05-16 12:37:00 172.7 cm [facility] [place] [facility] Body weight 2020-05-16 12:37:00 81.647 kg [facility] [place] [facility] BMI 2020-05-16 12:37:00 27.37 kg/m2 [facility] [place] [facility] Oxygen saturation in 2020-05-16 12:37:00 100 /min University of Arterial blood by [facility] Pulse oximetry Branch Systolic blood 2019-07-18 10:00:00 112 mm[Hg] Univer sity [facility] [place] [facility] Diastolic blood 2019-07-18 10:00:00 69 mm[Hg] Unive rsity [facility] [place] [facility] Heart rate 2019-07-18 10:00:00 64 /min [facility] [place] [facility] Respiratory rate 2019-07-18 10:00:00 16 /min [facility] [place] [facility] Oxygen saturation in 2019-07-18 10:00:00 96 /min University of Arterial blood by [facility] Pulse oximetry Branch Body temperature 2019-07-18 06:55:00 35.83 Evelyn [facility] [place] [facility] Body height 2019-07-18 06:55:00 175.3 cm [facility] [place] [facility] Body weight 2019-07-18 06:55:00 91.173 kg [facility] [place] [facility] BMI 2019-07-18 06:55:00 29.68 kg/m2 [facility] [place] [facility] Systolic blood 2019-07-18 10:00:00 112 mm[Hg] [facility] sity of pressure [facility] Diastolic blood 2019-07-18 10:00:00 69 mm[Hg] [facility] pressure [facility] Heart rate 2019-07-18 10:00:00 64 /min [facility] Respiratory rate 2019-07-18 10:00:00 16 /min [facility] Oxygen saturation in 2019-07-18 10:00:00 96 /min [facility] Arterial blood by [facility] Pulse oximetry Branch Body temperature 2019-07-18 06:55:00 35.83 Evelyn [facility] Body height 2019-07-18 06:55:00 175.3 cm [facility] Body weight 2019-07-18 06:55:00 91.173 kg [facility] BMI 2019-07-18 06:55:00 29.68 kg/m2 [facility] Procedures Procedure Date / Time Performing Clinician Source Performed NOTICE OF PRIVACY 2020-05-16 12:27:25 Doctor Unassigned, No [facility] PRACTICES Name [facility] CONSENT/REFUSAL FOR 2020-05-16 12:27:13 Doctor Unassigned, No [facility] DIAGNOSIS AND TREATMENT Name [facility] US TRANSVAGINAL 2019-07-18 09:47:50 Harrison Merino [facility] CT ABDOMEN PELVIS W 2019-07-18 07:55:36 Harrison Merino [facility] CONTRAST [facility] POCT TEST 2019-07-18 07:09:00 Harrison Merino [facility] LIPASE 2019-07-18 07:08:00 Harrison Merino [facility] HEPATIC FUNCTION PANEL 2019-07-18 07:08:00 Harrison Merino [facility] ([id number]) (ALB,T.PRO,BILI [facility] T,BU/BC,ALT,AST,ALK PHOS) BASIC METABOLIC PANEL 2019-07-18 07:08:00 Harrison Merino [facility] (NA, K, CL, CO2, Medical Branch GLUCOSE, BUN, CREATININE, CA) CBC WITH DIFFERENTIAL 2019-07-18 07:08:00 Harrison Merino [facility] PROTHROMBIN TIME / INR 2019-07-18 07:08:00 Harrison Merino [facility] ACTIVATED PARTIAL 2019-07-18 07:08:00 Harrison Merino [facility] THRMPLAS DEQUAN [facility] URINALYSIS 2019-07-18 07:08:00 Harrison Merino [place] [facility] NOTICE OF PRIVACY 2019-07-18 06:53:55 Doctor Unassigned, No Univ [facility] PRACTICES Name Medical Branch CONSENT/REFUSAL FOR 2019-07-18 06:42:08 [facility] Name [facility] Encounters Start End Encounter Admission Attending Care Care Encounter Source Date/Time Date/Time Type Type Clinicians Facility Department ID 2020-05-16 2020-05-16 Emergency [facility] [id number] 06:33:00 06:53:00 Rashida Jeong 350.1.13.10 [place] 4.2.7.2.686 [place] [id number] [facility] 2020-05-16 2020-05-16 Emergency [facility] [id number] Univers 06:33:00 06:53:00 Rashida Jeong 350.1.13.10 [facility] [place] 4.2.7.2.686 [facility] [id number] [address] 2020-05-16 2020-05-16 Emergency [facility] [id number] Univers 06:33:00 06:33:00 RASHIDA purcell [facility] 2020-05-16 2020-05-16 Orders Doctor [place] [id number] 00:00:00 00:00:00 Only UnassignedMAXIMILIAN 350.1.13.10 [place] [facility] 4.2.7.2.686 [id number] 009 2020-05-16 2020-05-16 Orders Doctor [place] [id number] Univers 00:00:00 00:00:00 Only UnassignedMAXIMILIAN 350.1.13.10 ity of [place] [facility] 4.2.7.2.686 [place] [id number] [address] 2019-07-18 2019-07-18 [facility] [id number] 01:45:09 05:19:00 Harrison [place] 350.1.13.10 [place] 4.2.7.2.686 [place] [id number] 2019-07-18 2019-07-18 Emergency [facility] [id number] Univers 01:45:09 05:19:00 HARRISON itjhon [facility] 2019-07-18 2019-07-18 Emergency [facility] [id number] Univers 01:45:09 05:19:00 Harrison Jean-Paul 350.1.13.10 i ty of [place] 4.2.7.2.686 [facility] [id number] [place] [address] [place] 2019-07-18 2019-07-18 Orders Doctor BEKA 1.2.840.114 [id number] Univers 00:00:00 00:00:00 Only Unassigned, MAXIMILIAN 350.1.13.10 ity of [place] [facility] 4.2.7.2.686 [facility] [id number] [facility] 009 [place] 2019-07-18 2019-07-18 Orders Doctor BEKA 1.2.840.114 [id number] 00:00:00 00:00:00 Only Unassigned, MAXIMILIAN 350.1.13.10 [place] [facility] 4.2.7.2.686 [id number] 009 2019-04-24 2019-04-24 Emergency X SINGER [facility] ERT [id number] Univers 13:52:02 15:36:00 IDA hedrickjhon [facility] Results Test Description Test Test Results Result Source Time Comments Comments US TRANSVAGINAL 2019-07- Multiple cysts in the [facility] right ovary, measuring up [facility] 09:59:13 to 29 mm. No evidence [facility] forovarian torsion or significant free fluid. RL: 460 AFC: [id number] Ordering physician: HARRISON MERINO INDICATION: Lower abdominal [...] forovarian torsion or significant free fluid.RL: 460AFC: [id number] signed by Marce Bennett MD, PhD at [...] the pelvis. Normal appendix. RL: 460 AFC: 30549 Indication: Acute generalized abdominal pain COMPARISON: None [...] free fluid in the pelvis.Normal appendix.RL: 460AFC: 45039 Urinalysis 2019-07-18 07:44:00 Test Item Value Reference Range Interpretation Comme nts APPEARANCE (test code = Cloudy Clear A 6883201262) COLOR (test code = 3060372960) Tereza Yellow A PH (test code = 5286415962) 4.8-8.0 SP GRAVITY (test code = 1.003-1.030 8197994910) GLU U QUAL (test code = Normal Normal 7676000054) BLOOD (test code = 4587736965) 3+ Negative A KETONES (test code = 3716341838) Negative Negative PROTEIN (test code = 2887-8) 100 mg/dL Negative A UROBILIN (test code = Normal Normal 5885514534) BILIRUBIN (test code = Negative Negative 7383775515) NITRITE (test code = 4661830162) Positive Negative A LEUK JOAQUIM (test code = 500/uL Negative A 7928333101) RBC/HPF (test code = 9968055065) >182 See_Comment H [Automated message] The system which ge nerated this result transmit sameer reference range: 0 - 3 HP F. The reference range was not used to interpret th is result as normal/abnormal . WBC/HPF (test code = 5472364225) >182 See_Comment H [Automated message] The system which ge nerated this result transmit sameer reference range: 0 - 5 HP F. The reference range was not used to interpret th is result as normal/abnormal . BACTERIA (test code = Moderate Negative A 5838574093) MUCOUS (test code = 1888441681) Marked Negative LPF A SQ EPITH (test code = HPF 6161105048) WBC CLUMPS (test code = See_Comment H [Au tomated message] The 8698737261) system which ge nerated this result transmit sameer reference range: <=1 HPF. The reference range was not used to interpret th is result as normal/abnormal . YEAST BUD (test code = See_Comment H [Aut omated message] The 1208488262) system which ge nerated this result transmit sameer reference range: <=1 HPF. The reference range was not used to interpret th is result as normal/abnormal . Lab Interpretation (test code = Abnormal 89459-1) [facility] WITH [id number] 07:41:00 Test Item Value Reference Range Interpretation [...] RDW-SD (test code = 43.0 fL 39-49.9 01437-0) RDW-CV (test code = 18.4 % 12-15.5 H 788-0) PLT (test code = See_Comment [Automated 777-3) message] The sy stem which generated this result transmitted reference range : 166 - 358 10*3/ ?L. The reference r jeff was not used to interpret this result as normal/abnormal . MPV (test code = 11.0 fL 9.5-12.9 81329-4) IPF % (test code = 3.2 % 1.3-7.7 Platelet count 3195544535) measured by fluorescence method. NRBC/100 WBC (test See_Comment [Automat ed code = 9617087111) message] The system which generated this result transmitted reference range : 0.0 - 10.0 /100 WBCs. The refer ence range was not u sed to interpret th is result as normal/abnormal . NRBC x10^3 (test code <0.01 See_Comment [Auto mated = 9284957557) message] The s ystem which generated this result transmitted reference range : 10*3/?L. The reference range was not used to interpret this result as normal/abnormal . GRAN MAT (NEUT) % 76.4 % (test code = 770-8) IMM GRAN % (test code 0.40 % = 2434415899) LYMPH % (test code = 11.6 % 736-9) MONO % (test code = 9.2 % 5905-5) EOS % (test code = 1.5 % 713-8) BASO % (test code = 0.9 % 706-2) GRAN MAT x10^3(ANC) 7.86 10*3/uL 1.88-7.09 H (test code = 3985682631) IMM GRAN x10^3 (test 0.04 10*3/uL 0-0.06 code = 7960707789) LYMPH x10^3 (test code 1.19 10*3/uL 1.32-3.29 L = 731-0) MONO x10^3 (test code 0.94 10*3/uL 0.33-0.92 H = 742-7) EOS x10^3 (test code = 0.15 10*3/uL 0.03-0.39 711-2) BASO x10^3 (test code 0.09 10*3/uL 0.01-0.07 H = 704-7) Lab Interpretation Abnormal (test code = 16360-3) [facility] Metabolic Panel (NA, K, CL, CO2, GLUCOSE, BUN, CREATININE, CA)2019-07-18 07:34:00 Test Item Value Reference Range Interpretation Comments NA (test code = 137 mmol/L 135-145 5143904944) K (test code = 3.3 mmol/L 3.5-5 L 1872051658) CL (test code = 102 mmol/L 98-108 8187369558) CO2 TOTAL (test code = 28 mmol/L 23-31 0905590400) AGAP (test code = 2-16 5536711268) BUN (test code = 13 mg/dL 7-23 5329140227) GLUCOSE (test code = 105 mg/dL 70-110 0547040226) CREATININE (test code = 0.64 mg/dL 0.5-1.04 2741887061) CALCIUM (test code = 8.9 mg/dL 8.6-10.6 8699878475) eGFR Calculation mL/min/1.73m2 (Non-) (test code = 0378339285) eGFR Calculation mL/min/1.73m2 () (test code = 1846014645) JARET (test code = JARET) Association of [...] tests). Lab Interpretation Abnormal (test code = 89943-6) [facility] (ALB, T.PRO, BILI T, BU/BC, ALT, AST, ALK PHOS)2019-07-18 07:34:00 Test Item Value Reference Range Interpretation Comments TOTAL BILI (test code = 6615895874) 0.3 mg/dL 0.1-1.1 BILI UNCON (test code = 7879726992) 0.2 mg/dL 0.1-1.1 BILI CONJ (test code = 9781790093) 0.0 mg/dL 0-0.3 T PROTEIN (test code = 0156208424) 7.4 g/dL 6.3-8.2 ALBUMIN (test code = 0924274602) 4.3 g/dL 3.5-5 ALK PHOS (test code = 3904035122) 46 U/L 34-122 ALTv (test code = 1742-6) 17 U/L 5-35 AST(SGOT) (test code = 2663754688) 28 U/L 13-40 Lab Interpretation (test code = Normal 44015-7) [facility] [id number] 07:33:00 Test Item Value Reference Range Interpretation Comments LIPASE (test code = 3095868122) 47 U/L 0-220 Lab Interpretation (test code = Normal 09992-9) [facility]2020-[facility]12 07:31:00 Test Item Value Reference Range Interpretation Comments APTT Patient (test See_Comment [Automat ed code = 3173-2) message] The system which generated this result transmitted reference range : 23 - 38 Seconds . The reference range was not used to interpr et this result as normal/abnormal . JARET (test code = JARET) The [facility] patient population mean normal value for aPTT is 30 seconds. Lab Interpretation Normal (test code = 73441-3) [facility] (PT[facility] / [id number] 07:29:00 Test Item Value Reference Range Interpretation [...] tions. Lab Interpretation (test Normal code = 93170-4) [facility] Test, [id number] 07:09:00 Test Item Value Reference Range Interpretation Comments POCT PREG (test code = 1605) Negative On board controls acceptable with Present C Line (test code = 3574) POCT PREG LOT # (test code = 3575) [id number] POCT PREG TEST DATE (test 12/05/2020 code = 3576) Lab Interpretation (test code = Normal 54187-5) [facility]"
[2021-09-28] MEDS ORDERED: NA CHLORIDE 0.9% 1,000 ML ONE (20:20)
[2021-09-28] MEDS ORDERED: MORPHINE 4 MG/ML SYR ONE (20:20)
[2021-09-28] MEDS ORDERED: ONDANSETRON 4 MG/2 ML VIAL ONE (20:20)
[2021-09-28 20:38] LABS: Absolute Lymphocytes (CBC) 1.4 K/uL (0.7-4.9); Hematocrit 24.5 % (36.0-45.0); Lymphocytes % 25.7 % (15.3-44.8); RBC Red Blood Cell Count 4.08 M/uL (3.86-4.86)
[2021-09-28 20:39] LABS: Albumin 3.3 g/dL (3.4-5.0); Bilirubin Total 0.3 mg/dL (0.2-1.0); Potassium 3.8 mmol/L (3.5-5.1); Protein, Total 6.7 g/dL (6.4-8.2)
[2021-09-28 21:27] LABS: Anisocytosis 2+; Blood Morphology Comment NOTED (NOT SEEN); Hypochromasia 2+; Platelet Estimate ADEQ; White Blood Cell Scan OK (OK)
[2021-09-28 21:31] LABS: Urine Blood 3+ (Negative); Urine Glucose Negative (Negative); Urine Protein Trace (Negative); Urine Specific Gravity 1.025 (1.005-1.030)
--- NOTE | 2021-09-28 21:52 | RAD REPORT ---
EXAM DESCRIPTION: CT - Abdomen Pelvis W Contrast - 09/28/2021 9:06 pm CLINICAL HISTORY: Right flank pain COMPARISON: Abdomen Pelvis W Contrast dated 07/02/2020 TECHNIQUE: Biphasic, helical CT imaging of the abdomen and pelvis was performed following 100 ml non -ionic IV contrast. No oral contrast administered. All CT scans are performed using dose optimization technique as appropriate and may include automated exposure control or mA/KV adjustment according to patient size. FINDINGS: No suspicious findings in the lung bases. The liver, spleen, and pancreas show no suspicious findings. Gallbladder and biliary tree are also wi thout suspicious finding. Symmetric renal function is seen with no hydronephrosis or suspicious renal mass. No pyelonephritis o r acute parenchymal process. No bladder abnormalities. No adrenal abnormalities. No uterine or ovaria n suspicious findings. Small ovarian cysts or follicles present with no concerning ovarian process. N o fallopian tube dilatation. Gastric surgical changes are noted. No acute gastric finding. A few prominent small bowel loops are p resent though the pattern is generally nonspecific. No appendicitis findings. No acute colon process identifiable. No free air, free fluid or inflammatory stranding. No mass or bulky lymphadenopathy. Abdominal plasty changes are present. In the umbilical region there is a 3 centimeter x 1.5 centimete r fluid collection believed to be a chronic postoperative seroma. This is unchanged from prior imagin g. No abdominal wall hematoma or new hernia defects seen. No suspicious bony findings. IMPRESSION: Contrast enhanced CT abdomen and pelvis showing no acute or emergent finding. No significant change comparison.
[2021-09-28 22:18] LABS: Urine Specific Gravity/Preg 1.025 (1.005-1.030)
[2021-09-28 22:23] LABS: Urine Bacteria <20 /HPF (<20); Urine RBC TNTC /HPF (NONE SEEN)
--- NOTE | 2021-09-28 22:38 | ER ---
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 Coronavirus screen: At this time, the client does not indicate any symptoms associated with coronavirus-19. Ebola Screen: No symptoms or risks identified at this time. Initial Sepsis Screen: Does the patient meet any 2 criteria? No. Patient's initial sepsis screen is negative. Does the patient have a suspected source of infection? No. Patient's initial sepsis screen is negative. Risk Assessment: Do you want to hurt yourself or someone else? Patient reports no desire to harm self or others. Onset of symptoms was September 26, 2021. 19:23 Method Of Arrival: Wheelchair as6 19:23 Acuity: DONTE 3 as6 Triage Assessment: 19:27 General: Appears in no apparent distress. uncomfortable, Behavior is calm, cooperative. as6 Pain: Complains of pain in left flank and right flank Pain currently is 9 out of 10 on a pain scale. Quality of pain is described as sharp, shooting. 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 - Social history:: Smoking status: Patient reports the use of cigarette tobacco products, smokes one-half pack cigarettes per day. Screenin:40 Abuse screen: Denies threats or abuse. Denies injuries from another. Nutritional lp1 screening: No deficits noted. Tuberculosis screening: No symptoms or risk factors identified. Fall Risk None identified. Assessment: 20:21 General: Appears in no apparent distress. Behavior is cooperative, appropriate for age. sm5 Pain: Complains of pain in back and right flank and left flank. Neuro: No deficits noted. Nye Agitation-Sedation Scale (RASS): 0 - Alert and Calm Level of Consciousness is awake, alert, obeys commands, Oriented to person, place, time, situation. Cardiovascular: No deficits noted. Capillary refill < 3 seconds Patient's skin is warm and dry. Cardiovascular: Edema bilateral lower extremity. Respiratory: No deficits noted. Airway is patent Trachea midline Respiratory effort is even, unlabored. : Reports pain in right in left flank(s). 22:40 Reassessment: Provider at bedside to discuss results with patient. lp1 23:20 Reassessment: No changes from previously documented assessment. sm5 Vital Signs: 19:23 BP 123 / 78; Pulse 80; Resp 18 S; Temp 98.5(O); Pulse Ox 100% on R/A; Weight 81.65 kg as6 (R); Height 5 ft. 8 in. (172.72 cm) (R); Pain 9/10; 22:00 BP 126 / 82; Pulse 60; Resp 18; Pulse Ox 100% on R/A; lp1 23:21 BP 104 / 63; Pulse 70; Resp 17; Pulse Ox 100% on R/A; sm5 19:23 Body Mass Index 27.37 (81.65 kg, 172.72 cm) as6 ED Course: 18:33 Patient arrived in ED. rg4 19:26 Triage completed. as6 19:27 Arm band placed on. as6 19:28 Pee Calderon NP is PHCP. pm1 19:28 Nick Sanchez MD is Attending Physician. pm1 19:35 Dianne Jain RN is Primary Nurse. sm5 20:12 Inserted saline lock: 20 gauge in right antecubital area, using aseptic technique. sm5 Blood collected. 20:20 Lipase Sent. sm5 20:20 CMP Sent. sm5 20:20 CBC with Diff Sent. sm5 21:00 Patient has correct armband on for positive identification. lp1 21:07 CT Abd/Pelvis - IV Contrast Only In Process Unspecified. EDMS 23:08 Siva Chung MD is Referral Physician. pm1 23:21 No provider procedures requiring assistance completed. IV discontinued, intact, sm5 bleeding controlled, No redness/swelling at site. Pressure dressing applied. Administered Medications: 20:20 Drug: NS 0.9% 1000 ml Route: IV; Rate: 1 bolus; Site: right antecubital; sm5 23:22 Follow up: IV Status: Completed infusion; IV Intake: 1000ml sm5 20:20 Drug: Zofran (Ondansetron) 4 mg Route: IVP; Site: right antecubital; sm5 22:20 Follow up: Response: No adverse reaction sm5 20:20 Drug: morphine 4 mg Route: IVP; Site: right antecubital; sm5 22:20 Follow up: Response: Pain is decreased sm5 Medication: 22:23 VIS not applicable for this client. lp1 Intake: 23:22 IV: 1000ml; Total: 1000ml. 5 Outcome: 22:38 Discharge ordered by MD. pm1 23:21 Discharged to home ambulatory. sm5 23:21 Condition: stable 23:21 Discharge instructions given to patient, family, Instructed on discharge instructions, follow up and referral plans. medication usage, Demonstrated understanding of instructions, follow-up care, medications, Prescriptions given X 1. 23:22 Patient left the ED. sm5 Signatures: Dispatcher [employer] EDMS Xiao Lombardo RN RN lp1 Pee Calderon, JUMANA APPLICATIONS SCIENTIST pm1 Kaci Solorzano rg4 Pineda Odonnell RN RN as6 Dianne Jain RN RN sm5
--- NOTE | 2021-09-28 22:38 | EDPHYS ---
Physician Documentation [facility] Name: Ruby Tapia Age: 41 yrs Sex: Female : 1980 Arrival Date: 09/28/2021 Time: 18:33 Bed 8 Private MD: ED Physician Nick Sanchez HPI: 09/28 20:07 This 41 yrs old Female presents to ER via Wheelchair with complaints of Low pm1 Back Pain, Feet Swelling. 20:07 The patient presents with pain that is acute, with no known mechanism of injury. The pm1 symptoms are located in the right low back. The pain does not radiate. The problem was sustained from unknown cause. Onset: The symptoms/episode began/occurred 3 week(s) ago. Modifying factors: The patient symptoms are alleviated by nothing, the patient symptoms are aggravated by nothing. Associated signs and symptoms: Pertinent positives: lower extremity swelling. Severity of symptoms: in the emergency department the symptoms are unchanged. The patient has not recently seen a physician, has not seen a MD in over 6 years and stopped taking all her medications at that time. CONDUCTOR YARD: 19:27 LMP 09/28/2021 as6 Historical: - Allergies: 19:26 No Known Allergies; as6 - Home Meds: 19:26 None [Active]; as6 - PMHx: 19:26 ADD/ADHD; Anxiety; chiari malformation; GERD; Hernia; pseudotumor cerebri; as6 - PSHx: 19:26 breast augmentation; section; gastric sleeve; Tummy tuck; as6 - Immunization history:: Adult Immunizations unknown, Client reports having NOT received the Covid vaccine. - Social history:: Smoking status: Patient reports the use of cigarette tobacco products, smokes one-half pack cigarettes per day. ROS: 20:07 Constitutional: Negative for fever, chills, and weight loss, Respiratory: Negative for pm1 shortness of breath, cough, wheezing, and pleuritic chest pain, Abdomen/GI: Negative for abdominal pain, nausea, vomiting, diarrhea, and constipation. 20:07 MS/Extremity: Negative for injury and deformity, Skin: Negative for injury, rash, and discoloration. 20:07 Cardiovascular: Positive for edema, lower extremities , Negative for chest pain, palpitations. 20:07 Back: Positive for flank pain, on the right. 20:07 All other systems are negative. Exam: 20:07 Constitutional: This is a well developed, well nourished patient who is awake, alert, pm1 and in no acute distress. Head/Face: Normocephalic, atraumatic. 20:07 Skin: Warm, dry with normal turgor. Normal color with no rashes, no lesions, and no evidence of cellulitis. MS/ Extremity: Pulses equal, no cyanosis. Neurovascular intact. Full, normal range of motion. 20:07 Eyes: Exam is negative for acute changes, Periorbital structures: appear normal, Pupils: no acute changes, Extraocular movements: no acute changes, Conjunctiva: no acute changes, no injection. 20:07 ENT: Exam is negative for acute changes, Mouth: no acute changes, Lips: normal, moist, Oral mucosa: normal, pink and intact, moist. 20:07 Cardiovascular: Exam negative for acute changes, Rate: normal, Rhythm: regular, Pulses: no pulse deficits are appreciated, Heart sounds: normal, normal S1and S2, Edema: pedal edema, that is mild. 20:07 Respiratory: Exam negative for acute changes, respiratory distress, shortness of breath, Breath sounds: are clear throughout. 20:07 Abdomen/GI: Inspection: abdomen appears normal, Palpation: abdomen is soft and non-tender, in all quadrants. 20:07 Back: pain, that is mild, of the right low back. 20:07 Neuro: Exam negative for acute changes, Orientation: is normal, Mentation: is normal, Cranial nerves: CN II- XII are normal as tested, Motor: is normal, moves all fours, Sensation: is normal, no obvious gross deficits. Vital Signs: 19:23 BP 123 / 78; Pulse 80; Resp 18 S; Temp 98.5(O); Pulse Ox 100% on R/A; Weight 81.65 kg as6 (R); Height 5 ft. 8 in. (172.72 cm) (R); Pain 9/10; 22:00 BP 126 / 82; Pulse 60; Resp 18; Pulse Ox 100% on R/A; lp1 23:21 BP 104 / 63; Pulse 70; Resp 17; Pulse Ox 100% on R/A; sm5 19:23 Body Mass Index 27.37 (81.65 kg, 172.72 cm) as6 MDM: 19:58 Patient medically screened. pm1 21:03 Data reviewed: vital signs. Data interpreted: Pulse oximetry: on room air is 100 %. pm1 Interpretation: normal. 22:37 Counseling: I had a detailed discussion with the patient and/or guardian regarding: the pm1 historical points, exam findings, and any diagnostic results supporting the discharge/admit diagnosis, lab results, radiology results, the need for outpatient follow up, to return to the emergency department if symptoms worsen or persist or if there are any questions or concerns that arise at home. 22:37 ED course: Patient currently is on her menstrual cycle. Urine micro results reflective pm1 of that. Patient without any dysuria. 22:37 ED course: Patient with normal neuro exam and no acute neurological findings. Upon pm1 discharge patient reports that she has a history of pseudotumor cerebri and is currently experiencing headache and blurry vision. Patient has not seen Dr. Chung for at least 6 years for management of that. She reports scheduled 3 to 6-month lumbar puncture and medications that she has not taken for the past 6 years due to cost of visits and medications. Informed patient she needs to follow-up with Dr. Chung for further management of her pseudotumor cerebri, including lumbar puncture and continuation medications. Discussed with Dr. Sanchez and I will discharge the patient home with diamox. 09/28 20:07 Order name: CBC with Diff; Complete Time: 22:05 pm09/28 20:07 Order name: CMP; Complete Time: 20:47 pm09/28 20:07 Order name: Lipase; Complete Time: 20:47 pm09/28 20:07 Order name: Urine Microscopic Only; Complete Time: 22:24 pm09/28 21:28 Order name: CBC Smear Scan; Complete Time: 22:05 EDMS 09/28 21:31 Order name: Urine Dipstick-Ancillary; Complete Time: 22:05 EDMS 09/28 20:07 Order name: CT Abd/Pelvis - IV Contrast Only; Complete Time: 22:05 pm09/28 20:07 Order name: IV Saline Lock; Complete Time: 20:14 pm09/28 20:07 Order name: Labs collected and sent; Complete Time: 20:14 pm09/28 22:07 Order name: Urine --Ancillary (enter results); Complete Time: 22:19 wm 09/28 22:26 Order name: Urine Culture [facility] 09/28 20:07 Order name: Urine Dipstick-Ancillary (obtain specimen); Complete Time: 21:34 pm1 09/28 20:07 Order name: Urine Test (obtain specimen); Complete Time: 21:34 pm1 Administered Medications: 20:20 Drug: NS 0.9% 1000 ml Route: IV; Rate: 1 bolus; Site: right antecubital; sm5 23:22 Follow up: IV Status: Completed infusion; IV Intake: 1000ml sm5 20:20 Drug: Zofran (Ondansetron) 4 mg Route: IVP; Site: right antecubital; sm5 22:20 Follow up: Response: No adverse reaction sm5 20:20 Drug: morphine 4 mg Route: IVP; Site: right antecubital; sm5 22:20 Follow up: Response: Pain is decreased sm5 Disposition Summary: 09/28/21 22:38 Discharge Ordered Location: Home pm1 Problem: new pm1 Symptoms: have improved pm1 Condition: Stable pm1 Diagnosis - Low back pain pm1 - Edema, unspecified - dependent pm1 - Headache - pseudotumor cerebri(09/28/21 23:09) pm1 Followup: pm1 - With: Emergency Department - When: As needed - Reason: Worsening of condition Followup: pm1 - With: Siva Chung MD - When: 2 - 3 days - Reason: Recheck today's complaints, Continuance of care, Re-evaluation by your physician Discharge Instructions: - Discharge Summary Sheet pm1 - Acute Back Pain, Adult pm1 - Peripheral Edema pm1 Forms: - Medication Reconciliation Form pm1 - Thank You Letter pm1 - Antibiotic Education pm1 - Prescription Opioid Use pm1 Prescriptions: - acetazolamide 500 mg Oral capsule, extended release - take 1 capsule by ORAL route 2 times per day; 30 capsule; Refills: 0, Product pm1 Selection Permitted Addendum: 09/30/2021 03:35 Co-signature as Attending Physician, Nick Sanchez MD I agree with the assessment and k dr plan of care. Signatures: Dispatcher [employer] [facility] Nick Sanchez MD MD [facility] Pee Calderon NP [facility]ENCH pm1 Pineda Odonnell, RN RN as6 Dianne Jain RN RN sm5 Corrections: (The following items were deleted from the chart) 09/28 23:09 23:08 Headache pm1 pm1
[2021-09-28 23:56] VITALS: TEMP 98.5; O2SAT 100
[2021-09-29 00:26] VITALS: BP 104/63
== END 2021-09-28 23:22 | disposition home or self-care (01) ==
LOC: ER 18:31
DX: M54.50 Low back pain, unspecified (principal); R60.9 Edema, unspecified; R51.9 Headache, unspecified; G93.2 Benign intracranial hypertension; F17.210 Nicotine dependence, cigarettes, uncomplicated; Z98.82 Breast implant status
CPT/HCPCS: 36415; 74177; 80053; 81003; 81015; 81025; 83690; 85025; 87086; 87088; 96361; 96374; 96375; 99284; J2405; J7030; Q9967

== ENCOUNTER 2021-12-06 09:05 | Emergency (ER) | payer SELFPAY ==
[2021-12-06 09:41] LABS: Absolute Lymphocytes (CBC) 1.3 K/uL (0.7-4.9); Hematocrit 24.5 % (36.0-45.0); Lymphocytes % 22.1 % (15.3-44.8); MCV 58.3 fL (80-100); MPV 8.9 fL (7.6-11.3)
[2021-12-06 10:01] LABS: Albumin 3.5 g/dL (3.4-5.0); Bilirubin Total 0.4 mg/dL (0.2-1.0); Potassium 3.6 mmol/L (3.5-5.1); Protein, Total 7.4 g/dL (6.4-8.2)
[2021-12-06 10:11] LABS: Urine Blood Negative (Negative); Urine Glucose Negative (Negative); Urine Protein Negative (Negative); Urine Specific Gravity >=1.030 (1.005-1.030); Urine pH 5.5 (5.0-7.0)
--- NOTE | 2021-12-06 10:33 | RAD REPORT ---
EXAM DESCRIPTION: CT - Abdomen Pelvis W Contrast - 12/06/2021 10:19 am CLINICAL HISTORY: Abdominal pain COMPARISON: September 2023 TECHNIQUE: Computed axial tomography of the abdomen pelvis was obtained. 100 cc Isovue-300 was admin istered intravenously. Oral contrast was not requested which limits evaluation of bowel and appendix All CT scans are performed using dose optimization technique as appropriate and may include automated exposure control or mA/KV adjustment according to patient size. FINDINGS: Small hepatic cyst. Spleen, pancreas, adrenals and kidneys are unremarkable. Post surgical changes involve stomach. 3 centimeter fluid collection within the anterior subcutaneous fat in the periumbilical region are un changed. This may represent a seroma/chronic hematoma. There is no evidence of diverticulitis. Normal appendix 2.7 centimeter right ovarian cyst without significant free fluid IMPRESSION: 2.7 centimeter right ovarian cyst without significant free fluid
[2021-12-06 11:05] VITALS: O2SAT 100
[2021-12-06 11:08] VITALS: TEMP 97.9
[2021-12-06 11:10] VITALS: BP 113/67
[2021-12-06 13:34] LABS: Anisocytosis 1+; Blood Morphology Comment NOTED (NOT SEEN); Hypochromasia 2+; Platelet Estimate ADEQ; Polychromasia 1+; White Blood Cell Scan OK (OK)
--- NOTE | 2021-12-08 09:23 | EDPHYS ---
Physician Documentation [facility] Name: Ruby Tapia Age: 41 yrs Sex: Female : 1980 Arrival Date: 12/06/2021 Time: 09:13 Bed 7 Private MD: ED Physician Vincenzo Coates HPI: 12/06 09:50 This 41 yrs old Female presents to ER via Wheelchair with complaints of rn Abdominal Pain. 09:50 The patient presents with abdominal pain in the left upper quadrant. Onset: The rn symptoms/episode began/occurred 2 day(s) ago. The symptoms do not radiate. Associated signs and symptoms: Pertinent positives: diarrhea, Pertinent negatives: nausea and vomiting, fever, hematuria, vaginal discharge, vomiting blood. The symptoms are described as achy, crampy. Modifying factors: The symptoms are alleviated by nothing, the symptoms are aggravated by nothing. Severity of pain: At its worst the pain was moderate in the emergency department the pain is unchanged. The patient has experienced similar episodes in the past. The patient has not recently seen a physician. 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 - Social history:: Smoking status: Patient reports the use of cigarette tobacco products, denies chronic smoking, but will smoke occasionally, Reported history of juuling and/or vaping. - Family history:: not pertinent. - Hospitalizations: : No recent hospitalization is reported. ROS: 09:50 Constitutional: Negative for fever, chills, and weight loss, Eyes: Negative for injury, rn pain, redness, and discharge, Neck: Negative for injury, pain, and swelling, Cardiovascular: Negative for chest pain, palpitations, and edema, Respiratory: Negative for shortness of breath, cough, wheezing, and pleuritic chest pain, Abdomen/GI: + LUQ abd pain and diarrhea. No blood in stool. Feels different from past with hernia problems and gallbladder problems. MS/Extremity: Negative for injury and deformity, Skin: Negative for injury, rash, and discoloration, Neuro: Negative for headache, weakness, numbness, tingling, and seizure. Exam: 09:50 Constitutional: This is a well developed, well nourished patient who is awake, alert, rn and in no acute distress. Head/Face: Normocephalic, atraumatic. Cardiovascular: Regular rate and rhythm. No pulse deficits. Respiratory: No increased work of breathing, no retractions or nasal flaring. Abdomen/GI: Soft, mild LUQ tenderness, no rebound, no masses, no periumbilical tenderness Skin: Warm, dry MS/ Extremity: Pulses equal, no cyanosis. Neuro: Awake and alert, GCS 15 Vital Signs: 09:22 BP 121 / 98; Pulse 80; Resp 16; Pulse Ox 100% on R/A; Weight 97.52 kg; Height 5 ft. 8 vg1 in. (172.72 cm); Pain 10/10; 09:31 Temp 97.9(O); ap3 10:12 BP 113 / 67; Pulse 66; Pulse Ox 100% on R/A; ap3 09:22 Body Mass Index 32.69 (97.52 kg, 172.72 cm) vg1 MDM: 09:14 Patient medically screened. rn 10:40 Differential diagnosis: diverticulitis, gastritis, non-specific abd pain, pancreatitis, rn Peptic Ulcer Disease, Pyelonephritis, Ureterolithiasis. 10:40 Data reviewed: vital signs, nurses notes, lab test result(s), radiologic studies, CT rn scan, and as a result, I will discharge patient. Counseling: I had a detailed discussion with the patient and/or guardian regarding: the historical points, exam findings, and any diagnostic results supporting the discharge/admit diagnosis, lab results, radiology results, the need for outpatient follow up, to return to the emergency department if symptoms worsen or persist or if there are any questions or concerns that arise at home. Special discussion: Based on the patient's Hx, exam, and Dx evaluation, there is no indication for emergent surgery or inpatient Tx. It is understood by the patient/guardian that if the Sx's persist or worsen they need to return immediately for re-evaluation. I discussed with the patient/guardian in detail that at this point there is no indication for admission to the hospital. It is understood, however, that if the symptoms persist or worsen the patient needs to return immediately for re-evaluation. ED course: No acute findings on CT or labwork, neg UA, will dc home with return precautions. + ovarian cyst but without rupture or acute findings and unlikely to explain her current symptoms. Chronic periumbilical fluid collection that patient is aware about and Dr. Crespo did not want to intervene in past due to risk of infection, per patient. . 10:43 ED course: Pt also with chronic anemia, no gross change from previous and denies blood rn in stool or dark stool. Already seeing GI as well. . 12/06 09:30 Order name: CBC with Diff rn 12/06 09:30 Order name: CMP; Complete Time: 10:03 rn 12/06 09:30 Order name: Lipase; Complete Time: 10:03 rn 12/06 09:30 Order name: CT Abd/Pelvis - IV Contrast Only; Complete Time: 10:39 rn 12/06 10:11 Order name: Urine Dipstick-Ancillary; Complete Time: 10:12 EDMT 12/06 09:30 Order name: IV Saline Lock; Complete Time: 09:31 rn 12/06 09:30 Order name: Labs collected and sent; Complete Time: 09:31 rn 12/06 09:30 Order name: Urine Dipstick-Ancillary (obtain specimen); Complete Time: 10:11 rn 12/06 09:30 Order name: Urine Test (obtain specimen); Complete Time: 10:11 rn Administered Medications: No medications were administered Disposition Summary: 12/06/21 10:43 Discharge Ordered Location: Home rn Problem: new rn Symptoms: have improved rn Condition: Stable rn Diagnosis - Upper abdominal pain, unspecified rn - Other ovarian cysts rn Followup: rn - With: Private Physician - When: As needed - Reason: Recheck today's complaints, Re-evaluation by your physician Discharge Instructions: - Discharge Summary Sheet rn - Abdominal Pain, Adult rn - Ovarian Cyst rn Forms: - Medication Reconciliation Form rn - Thank You Letter rn - Antibiotic county attorney - Prescription Opioid Use rn Signatures: Dispatcher [employer] EDVincenzo Wolff MD MD rn Garcia, Victoria, RN RN 1
--- NOTE | 2021-12-08 09:23 | ER ---
Nurse's Notes [facility] Name: Ruby Tapia Age: 41 yrs Sex: Female : 1980 Arrival Date: 12/06/2021 Time: 09:13 Bed 7 Private MD: Diagnosis: Upper abdominal pain, unspecified;Other ovarian cysts Presentation: 12/06 09:22 Chief complaint: Patient states: LUQ and LLQ pain since Monday, denies NVD. Last BM vg1 was yesterday, stated 'normal'. Stated ABD pain while urinating and pain with 'passing gas', states has hx of ABD hernia and has been seeing Dr Crespo.. Coronavirus screen: Vaccine status: Patient reports being unvaccinated. Client denies travel out of the [place] in the last 14 days. Ebola Screen: Patient denies exposure to infectious person. Patient denies travel to an Ebola-affected area in the 21 days before illness onset. Initial Sepsis Screen: Does the patient meet any 2 criteria? No. Patient's initial sepsis screen is negative. Does the patient have a suspected source of infection? No. Patient's initial sepsis screen is negative. Risk Assessment: Do you want to hurt yourself or someone else? Patient reports no desire to harm self or others. Onset of symptoms was December 04, 2021. 09:22 Method Of Arrival: Wheelchair vg1 09:22 Acuity: DONTE 3 vg1 Triage Assessment: 09:25 General: Appears in no apparent distress. uncomfortable, Behavior is calm, cooperative. vg1 Pain: Complains of pain in left upper quadrant and left lower quadrant Pain currently is 10 out of 10 on a pain scale. Quality of pain is described as aching, Pain began 2-3 days ago. Is continuous. EENT: No signs and/or symptoms were reported regarding the EENT system. Neuro: Level of Consciousness is awake, alert, obeys commands, Oriented to person, place, time, situation. Cardiovascular: Patient's skin is warm and dry. Respiratory: Airway is patent Respiratory effort is even, unlabored. GI: Abdomen is round non-distended, Last BM was December 05, 2021. Patient currently denies diarrhea, nausea, vomiting. : Reports pain with urination. Derm: Skin is intact, Skin is pink, warm \T\ dry. Musculoskeletal: Circulation, motion, and sensation intact. 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 - Social history:: Smoking status: Patient reports the use of cigarette tobacco products, denies chronic smoking, but will smoke occasionally, Reported history of juuling and/or vaping. - Family history:: not pertinent. - Hospitalizations: : No recent hospitalization is reported. Screenin:28 Abuse screen: Denies threats or abuse. Nutritional screening: No deficits noted. vg1 Tuberculosis screening: No symptoms or risk factors identified. Fall Risk No fall in past 12 months (0 pts). No secondary diagnosis (0 pts). IV access (20 points). Ambulatory Aid- None/Bed Rest/Nurse Assist (0 pts). Gait- Normal/Bed Rest/Wheelchair (0 pts) Mental Status- Oriented to own ability (0 pts). Total Macias Fall Scale indicates No Risk (0-24 pts). Assessment: 09:27 Reassessment: SEE TRIAGE. vg1 09:28 GI: Bowel sounds present X 4 quads. Abdomen is tender to palpation in left upper vg1 quadrant and left lower quadrant. 09:31 Reassessment: patient provided with urine specimen container and education regarding ap3 proper urine collection. patient verbalized understanding. Vital Signs: 09:22 BP 121 / 98; Pulse 80; Resp 16; Pulse Ox 100% on R/A; Weight 97.52 kg; Height 5 ft. 8 vg1 in. (172.72 cm); Pain 10/10; 09:31 Temp 97.9(O); ap3 10:12 BP 113 / 67; Pulse 66; Pulse Ox 100% on R/A; ap3 09:22 Body Mass Index 32.69 (97.52 kg, 172.72 cm) vg1 ED Course: 09:13 Patient arrived in ED. am2 09:14 Vincenzo Coates MD is Attending Physician. rn 09:16 Tracy Hodges, RN is Primary Nurse. ap3 09:24 Inserted saline lock: 20 gauge in right antecubital area, using aseptic technique. ap3 Blood collected. 09:25 Triage completed. vg1 09:25 Arm band placed on. vg1 09:28 Patient has correct armband on for positive identification. Bed in low position. Call vg1 light in reach. Side rails up X 1. 09:39 CBC with Diff Sent. ap3 09:39 CMP Sent. ap3 09:39 Lipase Sent. ap3 10:21 CT Abd/Pelvis - IV Contrast Only In Process Unspecified. EDMS 10:53 No provider procedures requiring assistance completed. IV discontinued, intact, ap3 bleeding controlled, No redness/swelling at site. Pressure dressing applied. Administered Medications: No medications were administered Medication: 09:28 VIS not applicable for this client. vg1 Outcome: 10:43 Discharge ordered by MD. rn 10:53 Discharged to home ambulatory, with family. ap3 10:53 Condition: good 10:53 Discharge instructions given to patient, Instructed on discharge instructions, follow up and referral plans. Demonstrated understanding of instructions, follow-up care. 11:00 Patient left the ED. ap3 Signatures: Dispatcher [employer] [facility] Vincenzo Coates MD MD rn Moreno, Amanda am2 Tracy Hodges, RN RN ap3 Ayleen Solorzano RN RN vg1
== END 2021-12-06 11:00 | disposition home or self-care (01) ==
LOC: ER 09:05
DX: R10.12 Left upper quadrant pain (principal); N83.299 Other ovarian cyst, unspecified side; R19.7 Diarrhea, unspecified; F17.210 Nicotine dependence, cigarettes, uncomplicated; Z98.82 Breast implant status
CPT/HCPCS: 36415; 74177; 80053; 81003; 83690; 85025; 99283; Q9967

== ENCOUNTER 2022-09-18 20:01 | Emergency (ER) | payer SELFPAY ==
[2011-12-02 07:22] VITALS: BP 114/74
--- OUTSIDE RECORDS SUMMARY | 2022-09-18 20:05 | XMS REPORT | Continuity of Care Document ---
:1980 Author Organization [facility] t Address [address] [place] [address] Care Team Providers Name Role Phone PCP, PATIENT DOES NOT HAVE A Primary Care Physician UnavailRashida Castillo DO Attending Clinician RASHIDA MASON Attending Clinician Unavailable Doctor Unassigned, [place] Attending Clinician Unavailable Harrison Merino MD Attending Clinician HARRISON MERINO Attending Clinician Unavailable IDA PINTO Attending Clinician Unavailable HARRISON MERINO Admitting Clinician Unavailable IDA PINTO Admitting Clinician Unavailable Payers Payer Name Policy Type Policy Number Effective Date Expiration Date S ource Problems Condition Condition Condition Status Onset Resolution Last Treating Co mments Source Name Details Category Date Date Treatment Clinician Date No known No known Disease Unive rs active active ity of problems problems [facility] Allergies, Adverse Reactions, Alerts Allergy Allergy Status Severity Reaction(s) Onset Inactive Treating Comm ents Source Name Type Date Date Clinician NO KNOWN Drug Active Univers ALLERGIE Class ity of S [facility] Social History Social Habit Start Date Stop Date Quantity Comments Source Exposure to SARS-CoV-2 Not sure [facility] [place] [facility] Sex Assigned At Uni versity [facility] Smoking Status Start Date Stop Date Source Unknown if ever smoked [facility] y [facility] Medications Ordered Filled Start Stop Current Ordering Indication Dosage Frequency Signature Comments Components Source Medication Medication Date Date Medication? Clinician (SIG) Name Name ketorolac 2020-0 2020- No 30mg 30 mg, Unive rs (TORADOL) 3-12 03-12 Slow IV ity of injection 09:45: 08:46 Push, [place] 30 mg 00 :00 ONCE, 1 Medical dose, [place] Branch 07/18/19 at 0445, WAQAR
Fa maria parham healthy member approving Restricted medication : HARRISON MERINO [...] 0300, 120 mL Routine ibuprofen 2020-0 Yes [id number] 800mg Take 1 Univers 800 mg 3 [id number] tablet by ity of tablet 00:00: mouth [place] 00 every 8 Medical (eight) Branch hours. traMADol 50 2020-0 Yes [id number] 50mg Take 1 Univers mg tablet 3 [id number] tablet by ity of 00:00: mouth [place] 00 every 6 Medical (six) Branch hours as needed for Pain (scale 4-6). ciprofloxac 2020-0 Yes [id number] 500mg Take 1 Univers in HCl 500 07-17 [id number] tablet by it y of mg tablet 00:00: mouth 2 [place] 00 (two) Medical times Branch daily. ibuprofen 2020-0 Yes [id number] 800mg Take 1 Univers 800 mg 3- [id number] tablet by ity of tablet 00:00: mouth [place] 00 every 8 Medical (eight) Branch hours. traMADol 50 2020-0 Yes [id number] 50mg Take 1 Univers mg tablet 3-12 [id number] tablet by ity of 00:00: mouth [place] 00 every 6 Medical (six) Branch hours as needed for Pain (scale 4-6). ciprofloxac 2020-0 Yes [id number] 500mg Take 1 Univers in HCl 500 3-12 [id number] tablet by it y of mg tablet 00:00: mouth (two) Medical times Branch daily. ibuprofen 2019-0 Yes [id number] 800mg Take 1 Univers 800 mg 3-12 [id number] tablet by ity of tablet 00:00: mouth [place] 00 every 8 Medical (eight) Branch hours. traMADol 50 2019-0 Yes [id number] 50mg Take 1 Univers mg tablet 3-12 [id number] tablet by ity of 00:00: mouth [place] 00 every 6 Medical (six) Branch hours as needed for Pain (scale 4-6). ciprofloxac 2019-0 Yes [id number] 500mg Take 1 Univers in HCl 500 3-12 [id number] tablet by it y of mg tablet 00:00: mouth (two) Medical times Branch daily. traMADol 2018-05 Yes [id number] 50mg Take 1 Un tracy (ULTRAM) 50 2-18 tablet by ity of mg tablet 00:00: mouth 00 every 6 Medical (six) Branch hours as needed for Pain (scale 7-10). naproxen 2018-05 Yes [id number] 550mg Take 1 U nivers sodium 550 2-18 tablet by ity of mg tablet 00:00: mouth (two) Medical times Branch daily with meals. traMADol 2018-05 Yes [id number] 50mg Take 1 Un tracy (ULTRAM) 50 2-18 tablet by ity of mg tablet 00:00: mouth 00 every 6 Medical (six) Branch hours as needed for Pain (scale 7-10). naproxen 2018-05 Yes [id number] 550mg Take 1 U nivers sodium 550 2-18 tablet by ity of mg tablet 00:00: mouth (two) Medical times Branch daily with meals. traMADol 2018-05 Yes [id number] 50mg Take 1 Un tracy (ULTRAM) 50 2-18 tablet by ity of mg tablet 00:00: mouth 00 every 6 Medical (six) Branch hours as needed for Pain (scale 7-10). naproxen 2018-05 Yes [id number] 550mg Take 1 U nivers sodium 550 2-18 tablet by ity of mg tablet 00:00: mouth 2 [place] 00 (two) Medical times Branch daily with meals. traMADol 2018-05 Yes [id number] 50mg Take 1 Un tracy (ULTRAM) 50 2-18 tablet by ity of mg tablet 00:00: mouth [place] 00 every 6 Medical (six) Branch hours as needed for Pain (scale 7-10). naproxen 2018-05 Yes [id number] 550mg Take 1 U nivers sodium 550 2-18 tablet by ity of mg tablet 00:00: mouth 2 [place] 00 (two) Medical times Branch daily with meals. ALPRAZolam 2017-05 Yes 1mg Take 1 mg Un tracy 1 mg tablet 2-20 by mouth ity of 04:22: at [place] [address] bedtime. Medical Branch lisdexamfet 2017-05 Yes 30mg [...] by ity of capsule 04:22: mouth [place] daily. Medical Branch ALPRAZolam 2017-05 Yes 1mg Take 1 mg Un tracy 1 mg tablet 2-20 by mouth ity of 04:22: at [place] [address] bedtime. Medical Branch lisdexamfet 2017-05 Yes 30mg [...] mouth ity of 25 mg 04:22: daily. [place] tablet 55 Medical Branch acetaZOLAMI 2017-05 Yes 500mg Take 500 U nivers DE 500 mg 2-20 mg by ity of capsule 04:22: mouth [place] 55 daily. Medical Branch ALPRAZolam 2017-05 Yes 1mg Take 1 mg Un tracy 1 mg tablet 2-20 by mouth ity of 04:22: at [place] 55 bedtime. Medical Branch lisdexamfet 2017-05 Yes [...] by ity of capsule 00:00: mouth 3 00 (three) Medical times Branch daily. clindamycin 2017-05 Yes 300mg Take 1 Uni vers 300 mg 2-20 capsule by ity of capsule 00:00: mouth 3 [place] 00 (three) Medical times Branch daily. clindamycin 2017-05 Yes 300mg Take 1 Uni vers 300 mg 2-20 capsule by ity of capsule 00:00: mouth 3 [place] 00 (three) Medical times Branch daily. clindamycin 2017-05 Yes 300mg Take 1 Uni vers 300 mg 2-20 capsule by ity of capsule 00:00: mouth 3 [place] 00 (three) Medical times Branch daily. pantoprazol [...] as needed for Pain (scale 4-6). acetaminoph 2017- Yes 1{tbl} Take 1 Un tracy en-codeine 1-29 tablet by ity of (TYLENOL-CO 00:00: mouth [place] DEINE #3) 00 every 4 Medical 300-30 mg (four) Branch tablet hours as needed for Pain (scale 4-6). acetaminoph 2016- Yes 1{tbl} Take 1 Un tracy en-codeine 1-29 tablet by ity of (TYLENOL-CO 00:00: mouth [place] DEINE #3) 00 every 4 Medical 300-30 mg (four) Branch tablet hours as needed for Pain (scale 4-6). acetaminoph Yes 1{tbl} Take 1 Un tracy en-codeine [...] 00 (two) Medical times Branch daily. metroNIDAZO 2015- Yes 500mg Take 1 Uni vers LE [...] Source Systolic blood 2020-05-16 12:37:00 121 mm[Hg] [facility] [place] [facility] Diastolic blood 2020-05-16 12:37:00 84 mm[Hg] [facility] 2020-05-16 12:37:00 84 /min [facility] Body temperature 2020-05-16 12:37:00 36.56 Evelyn [facility] Respiratory rate 2020-05-16 12:37:00 18 /min [facility] Body height 2020-05-16 12:37:00 172.7 cm [facility] Body weight 2020-05-16 12:37:00 81.647 kg [facility] [place] [facility] BMI 2020-05-16 12:37:00 27.37 kg/m2 [facility] [place] [facility] Oxygen saturation in 2020-05-16 12:37:00 100 /min University of Arterial blood by [facility] Pulse oximetry Branch Systolic blood 2020-05-16 12:37:00 121 mm[Hg] Univer sity of pressure [place] [facility] Diastolic blood 2020-05-16 12:37:00 84 mm[Hg] Unive rsity of pressure [place] [facility] Heart rate 2020-05-16 12:37:00 84 /min [facility] [place] [facility] Body temperature 2020-05-16 12:37:00 36.56 Evelyn Univ ersity [facility] [place] [facility] Respiratory rate 2020-05-16 12:37:00 18 /min Univ ers[facility] [place] [facility] Body height 2020-05-16 12:37:00 172.7 cm [facility] [place] [facility] Body weight 2020-05-16 12:37:00 81.647 kg [facility] [place] [facility] BMI 2020-05-16 12:37:00 27.37 kg/m2 [facility] [place] [facility] Oxygen saturation in 2020-05-16 12:37:00 100 /min University of Arterial blood by [facility] Pulse oximetry Branch Systolic blood 2019-07-18 10:00:00 112 mm[Hg] Univer sity of pressure [place] [facility] Diastolic blood 2019-07-18 10:00:00 69 mm[Hg] Unive rsity of pressure [place] [facility] Heart rate 2019-07-18 10:00:00 64 /min [facility] [place] [facility] Respiratory rate 2019-07-18 10:00:00 16 /min Univ ersity [facility] [place] [facility] Oxygen saturation in 2019-07-18 10:00:00 96 /min University of Arterial blood by [facility] Pulse oximetry Branch Body temperature 2019-07-18 06:55:00 35.83 Evelyn Univ ers[facility] [place] [facility] Body height 2019-07-18 06:55:00 175.3 cm [facility] [place] [facility] Body weight 2019-07-18 06:55:00 91.173 kg [facility] [place] [facility] BMI 2019-07-18 06:55:00 29.68 kg/m2 [facility] Systolic blood 2019-07-18 10:00:00 112 mm[Hg] [facility] pressure [facility] Diastolic blood 2019-07-18 10:00:00 69 mm[Hg] [facility] of pressure [facility] Heart rate 2019-07-18 10:00:00 64 /min [facility] Respiratory rate 2019-07-18 10:00:00 16 /min [facility] Oxygen saturation in 2019-07-18 10:00:00 96 /min [facility] Arterial blood by [facility] Pulse oximetry [place] Body temperature 2019-07-18 06:55:00 35.83 Evelyn [facility] Body height 2019-07-18 06:55:00 175.3 cm [facility] Body weight 2019-07-18 06:55:00 91.173 kg [facility] BMI 2019-07-18 06:55:00 29.68 kg/m2 [facility] Procedures Procedure Date / Time Performing Clinician Source Performed NOTICE OF PRIVACY 2020-05-16 12:27:25 Doctor Unassigned, No [facility] PRACTICES Name [facility] CONSENT/REFUSAL FOR 2020-05-16 12:27:13 Doctor Unassigned, No [facility] DIAGNOSIS AND TREATMENT Name [facility] US TRANSVAGINAL 2019-07-18 09:47:50 Harrison Merino [facility] CT ABDOMEN PELVIS W 2019-07-18 07:55:36 Harrison Merino [facility] CONTRAST [facility] POCT TEST 2019-07-18 07:09:00 Harrison Merino [facility] LIPASE 2019-07-18 07:08:00 Harrison Merino [place] [facility] HEPATIC FUNCTION PANEL 2019-07-18 07:08:00 Harrison Merino [facility] ([id number]) (ALB,T.PRO,BILI [facility] Branch T,BU/BC,ALT,AST,ALK PHOS) BASIC METABOLIC PANEL 2019-07-18 07:08:[address] [facility] (NA, K, CL, CO2, Medical Branch GLUCOSE, BUN, CREATININE, CA) CBC WITH DIFFERENTIAL 2019-07-18 07:08:00 Harrison [facility]ino [facility] PROTHROMBIN TIME / INR 2019-07-18 07:08:00 Harrison [facility]ino [facility] 2019-07-18 07:08:00 Harrison Merino [facility] THRMPLAS [facility] URINALYSIS 2019-07-18 07:08:00 Woody Harrison [place] f [facility] NOTICE OF PRIVACY 2019-07-18 06:53:55 Doctor Unassigned, No Univ [facility] PRACTICES Name [facility] Branch CONSENT/REFUSAL FOR 2019-07-18 06:42:08 [facility], [facility] Encounters Start End Encounter Admission Attending Care Care Encounter Source Date/Time Date/Time Type Type Clinicians Facility Department ID 2020-05-16 2020-05-16 [facility] 1.2.840.114 [id number] 06:33:00 06:53:00 Rashida Jeong [id number] Printer 4.2.7.2.686 [place] [id number] [facility] 2020-05-16 2020-05-16 [facility] 1.2.840.114 [id number] Univers 06:33:00 06:53:00 Rashida Jeong 350.1.13.10 ity of Printer 4.2.7.2.686 [facility] [id number] [address] 2020-05-16 2020-05-16 Emergency [facility] E[facility] [id number] Univers 06:33:00 06:33:00 RASHIDA purcell [facility] 2020-05-16 2020-05-16 Orders Doctor [place] 1.2.840.114 [id number] 00:00:00 00:00:00 Only EunicessMAXIMILIAN schwarz 350.1.13.10 [place] [facility] 4.2.7.2.686 [id number] 2020-05-16 2020-05-16 Orders Doctor [place] 1.2.840.114 [id number] Univers 00:00:00 00:00:00 Only EunicessMAXIMILIAN schwarz 350.1.13.10 ity of [place] [facility] 4.2.7.2.686 [place] [id number] [facility] 009 [place] 2019-07-18 2019-07-18 Emergency [facility] 1.2.133.901 [id number] 01:45:09 05:19:00 Harrison Jeong 350.1.13.10 [place] 4.2.7.2.686 [place] [id number] 2019-07-18 2019-07-18 Emergency [facility] ERT [id number] Univers 01:45:09 05:19:00 HARRISON purcell [facility] 2019-07-18 2019-07-18 Emergency [facility] [id number] Univers 01:45:09 05:19:00 Harrison Jean-Paul 350.1.13.10 i ty of [place] 4[place]2.7.2.686 [place] [id number] [facility] 084 [place] 2019-07-18 2019-07-18 Orders Doctor BEKA 1.2.840.114 [id number] Univers 00:00:00 00:00:00 Only Unassigned, MAXIMILIAN 350.1.13.10 ity of [place] [facility] 4.2.7.2.686 [place] [id number] [address] 2019-07-18 2019-07-18 Orders Doctor BEKA 1.2.840.114 [id number] 00:00:00 00:00:00 Only Unassigned, MAXIMILIAN 350.1.13.10 [place] [facility] 4.2.7.2.686 [id number] 2019-04-24 2019-04-24 Emergency X PINTO [facility] ERT [id number] Univers 13:52:02 15:36:00 IDA ryleyjhon [facility] Results Test Description Test Test Results Result Source Time Comments Comments US TRANSVAGINAL 2019-07- Multiple cysts in the [facility] right ovary, measuring up [facility] 09:59:13 to 29 mm. No evidence [facility] forovarian torsion or significant free fluid. RL: 460 AFC: [id number] Ordering physician: HARRISON MERINO INDICATION: Lower abdominal [...] in theovaries bilaterally, with normal vascular waveforms. [facility], Radiant Results Inft User - 07/18/2019 5:00 [...] forovarian torsion or significant free fluid.RL: 460AFC: [id number] signed by Marce Bennett MD, PhD at [...] the pelvis. Normal appendix. RL: 460 AFC: [id number] Indication: Acute generalized abdominal pain COMPARISON: None [...] free fluid in the pelvis.Normal appendix.RL: 460AFC: [id number] Urinalysis 2019-07-18 07:44:00 Test Item Value Reference Range Interpretation Comme nts APPEARANCE (test code = Cloudy Clear A 6454951247) COLOR (test code = 0405872476) Tereza Yellow A PH (test code = 8011438643) 4.8-8.0 SP GRAVITY (test code = 1.003-1.030 4135365740) GLU U QUAL (test code = Normal Normal 3483682462) BLOOD (test code = 8075205446) 3+ Negative A KETONES (test code = 8732319408) Negative Negative PROTEIN (test code = 2887-8) 100 mg/dL Negative A UROBILIN (test code = Normal Normal 7962338084) BILIRUBIN (test code = Negative Negative 5376809257) NITRITE (test code = 0290083423) Positive Negative A LEUK JOAQUIM (test code = 500/uL Negative A 1100447279) RBC/HPF (test code = 3104420162) >182 See_Comment H [Automated message] The system which ge nerated this result transmit sameer reference range: 0 - 3 HP F. The reference range was not used to interpret th is result as normal/abnormal . WBC/HPF (test code = 9990428252) >182 See_Comment H [Automated message] The system which ge nerated this result transmit sameer reference range: 0 - 5 HP F. The reference range was not used to interpret th is result as normal/abnormal . BACTERIA (test code = Moderate Negative A 0972192173) MUCOUS (test code = 7656293410) Marked Negative LPF A SQ EPITH (test code = HPF 6783789627) WBC CLUMPS (test code = See_Comment H [Au tomated message] The 1528108084) system which ge nerated this result transmit saemer reference range: <=1 HPF. The reference range was not used to interpret th is result as normal/abnormal . YEAST BUD (test code = See_Comment H [Aut omated message] The 6400170632) system which ge nerated this result transmit sameer reference range: <=1 HPF. The reference range was not used to interpret th is result as normal/abnormal . Lab Interpretation (test code = Abnormal 62835-1) [facility] WITH [id number] 07:41:00 Test Item Value Reference Range Interpretation [...] RDW-SD (test code = 43.0 fL 39-49.9 07643-8) RDW-CV (test code = 18.4 % 12-15.5 H 788-0) PLT (test code = See_Comment [Automated 777-3) message] The sy stem which generated this result transmitted reference range : 166 - 358 10*3/ ?L. The reference r jeff was not used to interpret this result as normal/abnormal . MPV (test code = 11.0 fL 9.5-12.9 62725-1) IPF % (test code = 3.2 % 1.3-7.7 Platelet count 6738977481) measured by fluorescence method. NRBC/100 WBC (test See_Comment [Automat ed code = 7832750423) message] The system which generated this result transmitted reference range : 0.0 - 10.0 /100 WBCs. The refer ence range was not u sed to interpret th is result as normal/abnormal . NRBC x10^3 (test code <0.01 See_Comment [Auto mated = 1293148129) message] The s ystem which generated this result transmitted reference range : 10*3/?L. The reference range was not used to interpret this result as normal/abnormal . GRAN MAT (NEUT) % 76.4 % (test code = 770-8) IMM GRAN % (test code 0.40 % = 3445052159) LYMPH % (test code = 11.6 % 736-9) MONO % (test code = 9.2 % 5905-5) EOS % (test code = 1.5 % 713-8) BASO % (test code = 0.9 % 706-2) GRAN MAT x10^3(ANC) 7.86 10*3/uL 1.88-7.09 H (test code = 5658242939) IMM GRAN x10^3 (test 0.04 10*3/uL 0-0.06 code = 4191023036) LYMPH x10^3 (test code 1.19 10*3/uL 1.32-3.29 L = 731-0) MONO x10^3 (test code 0.94 10*3/uL 0.33-0.92 H = 742-7) EOS x10^3 (test code = 0.15 10*3/uL 0.03-0.39 711-2) BASO x10^3 (test code 0.09 10*3/uL 0.01-0.07 H = 704-7) Lab Interpretation Abnormal (test code = 97477-1) [facility] Metabolic Panel (NA, K, CL, CO2, GLUCOSE, BUN, CREATININE, CA)2019-07-18 07:34:00 Test Item Value Reference Range Interpretation Comments NA (test code = 137 mmol/L 135-145 5420534691) K (test code = 3.3 mmol/L 3.5-5 L 2816246198) CL (test code = 102 mmol/L 98-108 2847377178) CO2 TOTAL (test code = 28 mmol/L 23-31 9255357994) AGAP (test code = 2-16 0762036681) BUN (test code = 13 mg/dL 7-23 6047003428) GLUCOSE (test code = 105 mg/dL 70-110 8270845111) CREATININE (test code = 0.64 mg/dL 0.5-1.04 4500044255) CALCIUM (test code = 8.9 mg/dL 8.6-10.6 1198225843) eGFR Calculation mL/min/1.73m2 (Non-) (test code = 6484748515) eGFR Calculation mL/min/1.73m2 () (test code = 8569741184) JARET (test code = JARET) Association of [...] tests). Lab Interpretation Abnormal (test code = 08141-4) [facility] (ALB, T.PRO, BILI T, BU/BC, ALT, AST, ALK PHOS)2019-07-18 07:34:00 Test Item Value Reference Range Interpretation Comments TOTAL BILI (test code = 3813865331) 0.3 mg/dL 0.1-1.1 BILI UNCON (test code = 7590509717) 0.2 mg/dL 0.1-1.1 BILI CONJ (test code = 8546654761) 0.0 mg/dL 0-0.3 T PROTEIN (test code = 4486349126) 7.4 g/dL 6.3-8.2 ALBUMIN (test code = 7342338854) 4.3 g/dL 3.5-5 ALK PHOS (test code = 0574381123) 46 U/L 34-122 ALTv (test code = 1742-6) 17 U/L 5-35 AST(SGOT) (test code = 8010825083) 28 U/L 13-40 Lab Interpretation (test code = Normal 49599-3) [facility] [id number] 07:33:00 Test Item Value Reference Range Interpretation Comments LIPASE (test code = 2780283044) 47 U/L 0-220 Lab Interpretation (test code = Normal 68098-6) [facility]PTT2020-03-12 07:31:00 Test Item Value Reference Range Interpretation Comments APTT Patient (test See_Comment [Automat ed code = 3173-2) message] The system which generated this result transmitted reference range : 23 - 38 Seconds . The reference range was not used to interpr et this result as normal/abnormal . JARET (test code = JARET) The [facility] patient population mean normal value for aPTT is 30 seconds. Lab Interpretation Normal (test code = 56465-3) [facility]ress[facility]thrombin Time (PT) / [id number] 07:29:00 Test Item Value Reference Range Interpretation [...] tions. Lab Interpretation (test Normal code = 51218-3) [facility]ressPO[facility] Test, [id number] 07:09:00 Test Item Value Reference Range Interpretation Comments POCT PREG (test code = 1605) Negative On board controls acceptable with Present C Line (test code = 3574) POCT PREG LOT # (test code = 3575) [id number] POCT PREG TEST DATE (test 12/05/2020 code = 3576) Lab Interpretation (test code = Normal 35597-2) [facility]"
--- NOTE | 2022-09-18 21:32 | ER ---
Nurse's Notes [facility] Name: Ruby Tapia Age: 42 yrs Sex: Female : 1980 Arrival Date: 09/18/2022 Time: 20:01 Bed 5 Private MD: Diagnosis: Acute upper respiratory infection, unspecified Presentation: 09/18 20:15 Chief complaint: Patient states: sore throat X4 days. i cant swallow or eat it hurts so lg3 bad. i took some PCN and amoxicillin i had at home but its not helping. Coronavirus screen: Client denies travel out of the [place] in the last 14 days. At this time, the client does not indicate any symptoms associated with coronavirus-19. Ebola Screen: No symptoms or risks identified at this time. Initial Sepsis Screen: Does the patient meet any 2 criteria? No. Patient's initial sepsis screen is negative. Does the patient have a suspected source of infection? No. Patient's initial sepsis screen is negative. Risk Assessment: Do you want to hurt yourself or someone else? Patient reports no desire to harm self or others. Onset of symptoms was August 15, 2022. 20:15 Method Of Arrival: Ambulatory lg3 20:15 Acuity: DONTE 4 lg3 Triage Assessment: 20:17 General: Appears in no apparent distress. uncomfortable, Behavior is calm, cooperative. lg3 Pain: Complains of pain in throat. EENT: Oral mucosa is moist. EENT: Throat is reddened has patchy exudate has enlarged tonsils Reports difficulty swallowing. Neuro: No deficits noted. Nye Agitation-Sedation Scale (RASS): 0 - Alert and Calm Level of Consciousness is awake, alert, obeys commands, Oriented to person, place, time, situation. Cardiovascular: No deficits noted. Denies chest pain, shortness of breath, Capillary refill < 3 seconds Clubbing of nail beds is absent JVD is absent Patient's skin is warm and dry. Respiratory: No deficits noted. Airway is patent Respiratory effort is even, unlabored, Respiratory pattern is regular, symmetrical. GI: No deficits noted. No signs and/or symptoms were reported involving the gastrointestinal system. : No deficits noted. No signs and/or symptoms were reported regarding the genitourinary system. Derm: No deficits noted. No signs and/or symptoms reported regarding the dermatologic system. Skin is intact, is healthy with good turgor, Skin is dry, Skin is normal, Skin temperature is warm. Musculoskeletal: No deficits noted. No signs and/or symptoms reported regarding the musculoskeletal system. Circulation, motion, and sensation intact. Range of motion: intact in all extremities. 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 Flu vaccine is not up to date. - Social history:: Smoking status: Patient reports the use of cigarette tobacco products, denies chronic smoking, but will smoke occasionally, Patient uses alcohol, only on a social basis. Patient/guardian denies using street drugs. Screenin:20 [facility] ED Fall Risk Assessment (Adult) History of falling in the last 3 months, pf1 including since admission No falls in past 3 months (0 pts) Confusion or Disorientation No (0 pts) Intoxicated or Sedated No (0 pts) Impaired Gait No (0 pts) Mobility Assist Device Used No (0 pt) Altered Elimination No (0 pt) Score/Fall Risk Level 0 - 2 = Low Risk Oriented to surroundings, Maintained a safe environment, Educated pt \T\ family on fall prevention, incl call for assistance when getting out of bed, Assessed \T\ reinforced patient's understanding of fall precautions, Provided non-skid footwear, Hourly rounding (assess needs \T\ fall precautionary measures) done, Used ambulatory aids as needed (educated on \T\ assisted with), Used gait belt as appropriate. 20:20 Abuse screen: Denies threats or abuse. Nutritional screening: No deficits noted. pf1 Tuberculosis screening: No symptoms or risk factors identified. Assessment: 20:20 Respiratory: Breath sounds are clear bilaterally. pf1 20:20 General: Appears in no apparent distress. comfortable, well groomed, well developed, pf1 Behavior is calm, cooperative, appropriate for age, quiet. Pain: Complains of pain in sorethroat Pain began 4 days. Neuro: No deficits noted. Level of Consciousness is awake, alert, obeys commands, Oriented to person, place, time, situation. Cardiovascular: No deficits noted. Capillary refill < 3 seconds Patient's skin is warm and dry. Respiratory: No deficits noted. Airway is patent Respiratory effort is even, unlabored, Respiratory pattern is regular, symmetrical. GI: No deficits noted. No signs and/or symptoms were reported involving the gastrointestinal system. : No deficits noted. No signs and/or symptoms were reported regarding the genitourinary system. EENT: Reports pain in sorethroat when swallowing. Derm: No deficits noted. No signs and/or symptoms reported regarding the dermatologic system. Vital Signs: 20:15 BP 139 / 87; Pulse 80; Resp 18 S; Temp 97.78(TE); Pulse Ox 100% on R/A; Weight 95.25 kg lg3 (R); Height 5 ft. 8 in. ; 21:50 BP 131 / 78; Pulse 76; Resp 18; Pulse Ox 100% ; pf1 20:15 Body Mass Index 31.93 (95.25 kg, 172.72 cm) lg3 ED Course: 20:04 Patient arrived in ED. mr 20:17 Triage completed. lg3 20:17 Arm band placed on right wrist. lg3 20:20 Patient has correct armband on for positive identification. Bed in low position. Call pf1 light in reach. 20:23 China Rivera FNP-C [facility]. snw 20:23 Himanshu Huynh MD is Attending Physician. snw 20:25 Strep Sent. lg3 20:30 Flu Sent. lg3 20:30 Strep Sent. lg3 20:30 No provider procedures requiring assistance completed. pf1 21:58 Patient did not have IV access during this emergency room visit. pf1 Administered Medications: 21:50 Drug: Decadron - Dexamethasone IVP 10 mg Route: IVP; Site: Other; pf1 21:58 Follow up: Response: No adverse reaction; Marked relief of symptoms pf1 Medication: 21:58 VIS not applicable for this client. pf1 Outcome: 21:32 Discharge ordered by . snw 21:58 Discharged to home ambulatory. pf1 21:58 Condition: improved 21:58 Discharge instructions given to patient, Instructed on discharge instructions, follow up and referral plans. Demonstrated understanding of instructions, follow-up care, medications, Prescriptions given X 3. 21:58 Patient left the ED. pf1 Signatures: China Rivera, SATELLITE TV TECHNICIAN INSTALLER-C SATELLITE TV TECHNICIAN INSTALLER-Csnw Megha Agustin Lacie, RN RN lg3 Jazmyn Akhtar RN RN pf1
--- NOTE | 2022-09-18 21:33 | EDPHYS ---
Physician Documentation [facility] Name: Ruby Tapia Age: 42 yrs Sex: Female : 1980 Arrival Date: 09/18/2022 Time: 20:01 Bed 5 Private MD: ED Physician Himanshu Huynh HPI: 09/18 20:28 This 42 yrs old Female presents to ER via Ambulatory with complaints of Sore snw Throat. 20:28 The patient presents with sore throat. Severity of symptoms: At their worst the snw symptoms were moderate, severe. Associated signs and symptoms: Pertinent positives: flu-like symptoms. It is unknown whether or not the patient has had similar symptoms in the past. 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 Flu vaccine is not up to date. - Social history:: Smoking status: Patient reports the use of cigarette tobacco products, denies chronic smoking, but will smoke occasionally, Patient uses alcohol, only on a social basis. Patient/guardian denies using street drugs. ROS: 20:27 Constitutional: Negative for fever, chills, and weight loss, Eyes: Negative for injury, snw pain, redness, and discharge, Neck: Negative for injury, pain, and swelling, Cardiovascular: Negative for chest pain, palpitations, and edema, Respiratory: Negative for shortness of breath, cough, wheezing, and pleuritic chest pain, Abdomen/GI: Negative for abdominal pain, nausea, vomiting, diarrhea, and constipation, Back: Negative for injury and pain, : Negative for injury, bleeding, discharge, and swelling, MS/Extremity: Negative for injury and deformity, Skin: Negative for injury, rash, and discoloration, Neuro: Negative for headache, weakness, numbness, tingling, and seizure, Psych: Negative for depression, anxiety, suicide ideation, homicidal ideation, and hallucinations. 20:27 ENT: Positive for sore throat. Exam: 20:27 Constitutional: This is a well developed, well nourished patient who is awake, alert, snw and in no acute distress. Head/Face: Normocephalic, atraumatic. Eyes: Pupils equal round and reactive to light, extra-ocular motions intact. Lids and lashes normal. Conjunctiva and sclera are non-icteric and not injected. Cornea within normal limits. Periorbital areas with no swelling, redness, or edema. Neck: Trachea midline, no thyromegaly or masses palpated, and no cervical lymphadenopathy. Supple, full range of motion without nuchal rigidity, or vertebral point tenderness. No Meningismus. Chest/axilla: Normal chest wall appearance and motion. Nontender with no deformity. No lesions are appreciated. Cardiovascular: Regular rate and rhythm with a normal S1 and S2. No gallops, murmurs, or rubs. Normal PMI, no JVD. No pulse deficits. Respiratory: Lungs have equal breath sounds bilaterally, clear to auscultation and percussion. No rales, rhonchi or wheezes noted. No increased work of breathing, no retractions or nasal flaring. Abdomen/GI: Soft, non-tender, with normal bowel sounds. No distension or tympany. No guarding or rebound. No evidence of tenderness throughout. Back: No spinal tenderness. No costovertebral tenderness. Full range of motion. Skin: Warm, dry with normal turgor. Normal color with no rashes, no lesions, and no evidence of cellulitis. MS/ Extremity: Pulses equal, no cyanosis. Neurovascular intact. Full, normal range of motion. Neuro: Awake and alert, GCS 15, oriented to person, place, time, and situation. Cranial nerves II-XII grossly intact. Motor strength 5/5 in all extremities. Sensory grossly intact. Cerebellar exam normal. Normal gait. Psych: Awake, alert, with orientation to person, place and time. Behavior, mood, and affect are within normal limits. 20:27 ENT: TM's: are normal, Mouth: is normal, Tongue: geographic, Posterior pharynx: erythema, that is mild, Voice: is normal. Vital Signs: 20:15 BP 139 / 87; Pulse 80; Resp 18 S; Temp 97.78(TE); Pulse Ox 100% on R/A; Weight 95.25 kg lg3 (R); Height 5 ft. 8 in. ; 21:50 BP 131 / 78; Pulse 76; Resp 18; Pulse Ox 100% ; pf1 20:15 Body Mass Index 31.93 (95.25 kg, 172.72 cm) lg3 MDM: 20:28 Patient medically screened. snw 21:34 Differential diagnosis: Allergic rhinitis, bronchitis, gastroesophageal reflux disease, snw group A strep tonsillitis, pharyngitis, viral syndrome. Data reviewed: vital signs, nurses notes, lab test result(s). Counseling: I had a detailed discussion with the patient and/or guardian regarding: the historical points, exam findings, and any diagnostic results supporting the discharge/admit diagnosis, the presence of at least one elevated blood pressure reading (>120/80) during this emergency department visit, lab results, the need for outpatient follow up, to return to the emergency department if symptoms worsen or persist or if there are any questions or concerns that arise at home. Special discussion: Based on the history and exam findings, there is no indication for further emergent testing or inpatient evaluation. I discussed with the patient/guardian the need to see the primary care provider for further evaluation of the symptoms. 09/18 20:23 Order name: Strep; Complete Time: 20:53 [facility] 09/18 20:26 Order name: Flu; Complete Time: 20:53 [facility] 09/18 20:47 Order name: Throat Culture EDMS Administered Medications: 21:50 Drug: Decadron - Dexamethasone IVP 10 mg Route: IVP; Site: Other; pf1 21:58 Follow up: Response: No adverse reaction; Marked relief of symptoms pf1 Disposition: 09/19 05:21 Co-signature as Attending Physician, Himanshu Huynh MD I agree with the assessment sp4 and plan of care. I reviewed the patient's care provided by the Advanced Practice Provider and agree with the diagnosis and treatment plan. Disposition Summary: 09/18/22 21:32 Discharge Ordered Location: Home snw Condition: Stable snw Diagnosis - Acute upper respiratory infection, unspecified snw Followup: snw - With: Emergency Department - When: As needed - Reason: Worsening of condition Followup: snw - With: Private Physician - When: 2 - 3 days - Reason: Recheck today's complaints, Continuance of care, Re-evaluation by your physician Discharge Instructions: - Discharge Summary Sheet snw - Pharyngitis snw - Upper Respiratory Infection, Adult snw - Rehydration, Adult snw Forms: - Work release form snw - Medication Reconciliation Form snw - Thank You Letter snw - Antibiotic Education snw - Prescription Opioid Use snw Prescriptions: - Protonix 40 mg Oral Tablet - take 1 tablet by ORAL route once daily; 30 tablet; Refills: 0, Product snw Selection Permitted - Zyrtec 10 mg Oral Tablet - take 1 tablet by ORAL route once daily As needed; 20 tablet; Refills: 0, snw Product Selection Permitted - Pepcid 20 mg Oral Tablet - take 1 tablet by ORAL route once daily; 20 tablet; Refills: 0, Product snw Selection Permitted Signatures: Dispatcher [employer] EDMS China Rivera, HYDRO PLANT TECHNICIAN-C HYDRO PLANT TECHNICIAN-Csnw Ambika Saini RN RN lg3 Jazmyn Akhtar RN RN pf1 Himanshu Huynh MD MD sp4
[2022-09-18] MEDS ORDERED: dexAMETHasone 10 MG/ML VIAL ONE (22:00)
== END 2022-09-18 21:58 | disposition home or self-care (01) ==
LOC: ER 20:01
DX: J06.9 Acute upper respiratory infection, unspecified (principal)
CPT/HCPCS: 87070; 87081; 87804; 96374; 99284; J1100

== ENCOUNTER 2023-02-09 14:28 | Emergency (ER) | payer SELFPAY ==
--- OUTSIDE RECORDS SUMMARY | 2023-02-09 14:32 | XMS REPORT | Continuity of Care Document ---
:1980 Author Organization [facility] t Address [address] [place] [address] Care Team Providers Name Role Phone PCP, PATIENT DOES NOT HAVE A Primary Care Physician UnavailRashida Castillo DO Attending Clinician RASHIDA MASON Attending Clinician Unavailable Doctor Unassigned, Gage Attending Clinician Unavailable Harrison Merino MD Attending [...] rs active active ity of problems problems [facility] Allergies, Adverse Reactions, Alerts Allergy Allergy Status Severity Reaction(s) Onset Inactive Treating Comm ents Source Name Type Date Date Clinician NO KNOWN Drug Active Univers ALLERGIE Class ity of S [facility] Social History Social Habit Start Date Stop Date Quantity Comments Source Exposure to SARS-CoV-2 Not sure [facility] [place] [facility] Sex Assigned At Uni versity [facility] Smoking Status Start Date Stop Date Source Unknown if ever smoked [facility] y [facility] Medications Ordered Filled Start Stop Current Ordering Indication Dosage Frequency Signature Comments Components Source Medication Medication Date Date Medication? Clinician (SIG) Name Name ketorolac 2020-0 2020- No 30mg 30 mg, Unive rs (TORADOL) 3-12 03-12 Slow IV ity of injection 09:45: 08:46 [place], [place] 30 mg 00 :00 ONCE, 1 Medical dose, [place] Branch 07/18/19 at 0445, WAQAR
[facility] Restricted medication : HARRISON MERINO [...] 0300, 120 mL Routine ibuprofen 2020-0 Yes [id number] 800mg Take 1 Univers 800 mg 3 [id number] tablet by ity of tablet 00:00: mouth [place] 00 every 8 Medical (eight) Branch hours. traMADol 50 2020-0 Yes [id number] 50mg Take 1 Univers mg tablet 3 [id number] tablet by ity of 00:00: mouth [place] 00 every 6 Medical (six) Branch hours as needed for Pain (scale 4-6). ciprofloxac 2020-0 Yes [id number] 500mg Take 1 Univers in HCl 500 07-17 [id number] tablet by it y of mg tablet 00:00: mouth 2 [place] 00 (two) Medical times Branch daily. ibuprofen 2020-0 Yes [id number] 800mg Take 1 Univers 800 mg 3- [id number] tablet by ity of tablet 00:00: mouth [place] 00 every 8 Medical (eight) Branch hours. traMADol 50 2020-0 Yes [id number] 50mg Take 1 Univers mg tablet 3-12 [id number] tablet by ity of 00:00: mouth [place] 00 every 6 Medical (six) Branch hours as needed for Pain (scale 4-6). ciprofloxac 2020-0 Yes [id number] 500mg Take 1 Univers in HCl 500 3-12 [id number] tablet by it y of mg tablet 00:00: mouth (two) Medical times Branch daily. ibuprofen 2019-0 Yes [id number] 800mg Take 1 Univers 800 mg 3-12 [id number] tablet by ity of tablet 00:00: mouth [place] 00 every 8 Medical (eight) Branch hours. traMADol 50 2019-0 Yes [id number] 50mg Take 1 Univers mg tablet 3-12 [id number] tablet by ity of 00:00: mouth [place] 00 every 6 Medical (six) Branch hours as needed for Pain (scale 4-6). ciprofloxac 2019-0 Yes [id number] 500mg Take 1 Univers in HCl 500 3-12 [id number] tablet by it y of mg tablet 00:00: mouth (two) Medical times Branch daily. traMADol 2018-05 Yes [id number] 50mg Take 1 Un tracy (ULTRAM) 50 2-18 tablet by ity of mg tablet 00:00: mouth 00 every 6 Medical (six) Branch hours as needed for Pain (scale 7-10). naproxen 2018-05 Yes [id number] 550mg Take 1 U nivers sodium 550 2-18 tablet by ity of mg tablet 00:00: mouth (two) Medical times Branch daily with meals. traMADol 2018-05 Yes [id number] 50mg Take 1 Un tracy (ULTRAM) 50 2-18 tablet by ity of mg tablet 00:00: mouth 00 every 6 Medical (six) Branch hours as needed for Pain (scale 7-10). naproxen 2018-05 Yes [id number] 550mg Take 1 U nivers sodium 550 2-18 tablet by ity of mg tablet 00:00: mouth (two) Medical times Branch daily with meals. traMADol 2018-05 Yes [id number] 50mg Take 1 Un tracy (ULTRAM) 50 2-18 tablet by ity of mg tablet 00:00: mouth 00 every 6 Medical (six) Branch hours as needed for Pain (scale 7-10). naproxen 2018-05 Yes [id number] 550mg Take 1 U nivers sodium 550 2-18 tablet by ity of mg tablet 00:00: mouth 2 [place] 00 (two) Medical times Branch daily with meals. traMADol 2018-05 Yes [id number] 50mg Take 1 Un tracy (ULTRAM) 50 2-18 tablet by ity of mg tablet 00:00: mouth [place] 00 every 6 Medical (six) Branch hours as needed for Pain (scale 7-10). naproxen 2018-05 Yes [id number] 550mg Take 1 U nivers sodium 550 2-18 tablet by ity of mg tablet 00:00: mouth 2 [place] 00 (two) Medical times Branch daily with meals. ALPRAZolam 2017-05 Yes 1mg Take 1 mg Un tracy 1 mg tablet 2-20 by mouth ity of 04:22: at [place] [address] bedtime. Medical Branch lisdexamfet 2017-05 Yes 30mg [...] 2-20 by mouth ity of 04:22: at [place] [address] bedtime. Medical Branch lisdexamfet 2017-05 Yes 30mg [...] mouth ity of 25 mg 04:22: daily. [place] tablet 55 Medical Branch acetaZOLAMI 2017-05 Yes 500mg Take 500 U nivers [place] 500 mg 2-20 mg by ity of capsule 04:22: mouth [place] 55 daily. Medical Branch ALPRAZolam 2017-05 Yes 1mg Take 1 mg Un tracy 1 mg tablet 2-20 by mouth ity of 04:22: at [place] 55 bedtime. Medical Branch lisdexamfet 2017-05 Yes [...] by ity of capsule 00:00: mouth 3 [place] 00 (three) Medical times Branch daily. clindamycin 2017-05 Yes 300mg Take 1 Uni vers 300 mg 2-20 capsule by ity of capsule 00:00: mouth 3 [place] 00 (three) Medical times Branch daily. clindamycin 2017-05 Yes 300mg Take 1 Uni vers 300 mg 2-20 capsule by ity of capsule 00:00: mouth 3 [place] 00 (three) Medical times Branch daily. pantoprazol [...] Source Systolic blood 2020-05-16 12:37:00 121 mm[facility]Hg[facility] Diastolic blood 2020-05-16 12:37:00 84 mm[facility]Hg] [facility] 2020-05-16 12:37:00 84 /min [facility] Body temperature 2020-05-16 12:37:00 36.56 Evelyn [facility] Respiratory rate 2020-05-16 12:37:00 18 /min [facility] Body height 2020-05-16 12:37:00 172.7 cm [facility] Body weight 2020-05-16 12:37:00 81.647 kg [facility] [place] [facility] BMI 2020-05-16 12:37:00 27.37 kg/m2 [facility] [place] [facility] Oxygen saturation in 2020-05-16 12:37:00 100 /min University of Arterial blood by [facility] Pulse oximetry Branch Systolic blood 2020-05-16 12:37:00 121 mm[Hg] Univer sity of pressure [place] [facility] Diastolic blood 2020-05-16 12:37:00 84 mm[Hg] Unive rsity of pressure [place] [facility] Heart rate 2020-05-16 12:37:00 84 /min [facility] [place] [facility] Body temperature 2020-05-16 12:37:00 36.56 Evelyn [facility] [place] [facility] Respiratory rate 2020-05-16 12:37:00 18 /min Univ [facility] [place] [facility] Body height 2020-05-16 12:37:00 172.7 cm [facility] [place] [facility] Body weight 2020-05-16 12:37:00 81.647 kg [facility] [place] [facility] BMI 2020-05-16 12:37:00 27.37 kg/m2 [facility] [place] [facility] Oxygen saturation in 2020-05-16 12:37:00 100 /min University of Arterial blood by [facility] Pulse oximetry Branch Systolic blood 2019-07-18 10:00:00 112 mm[Hg] Univer sity of pressure [place] [facility] Diastolic blood 2019-07-18 10:00:00 69 mm[Hg] Unive rsity of pressure [place] [facility] Heart rate 2019-07-18 10:00:00 64 /min [facility] [place] [facility] Respiratory rate 2019-07-18 10:00:00 16 /min Univ ers[facility] [place] [facility] Oxygen saturation in 2019-07-18 10:00:00 96 /min University of Arterial blood by [facility] Pulse oximetry Branch Body temperature 2019-07-18 06:55:00 35.83 Evelyn [facility] [place] [facility] Body height 2019-07-18 06:55:00 175.3 cm [facility] [place] [facility] Body weight 2019-07-18 06:55:00 91.173 kg [facility] [place] [facility] BMI 2019-07-18 06:55:00 29.68 kg/m2 [facility] Systolic blood 2019-07-18 10:00:00 112 mm[Hg] [facility] pressure [facility] Diastolic blood 2019-07-18 10:00:00 69 mm[Hg] [facility] of pressure [facility] Heart rate 2019-07-18 10:00:00 64 /min [facility] Respiratory rate 2019-07-18 10:00:00 16 /min [facility] Oxygen saturation in 2019-07-18 10:00:00 96 /min [facility] Arterial blood by [facility] Pulse oximetry [place] Body temperature 2019-07-18 06:55:00 35.83 Evelyn [facility] Body height 2019-07-18 06:55:00 175.3 cm [facility] Body weight 2019-07-18 06:55:00 91.173 kg [facility] BMI 2019-07-18 06:55:00 29.68 kg/m2 [facility] Procedures Procedure Date / Time Performing Clinician Source Performed NOTICE OF PRIVACY 2020-05-16 12:27:25 Doctor Unassigned, No [facility] PRACTICES Name [facility] CONSENT/REFUSAL FOR 2020-05-16 12:27:13 Doctor Unassigned, No [facility] DIAGNOSIS AND TREATMENT Name [facility] US TRANSVAGINAL 2019-07-18 09:47:50 Harrison Merino [facility] CT ABDOMEN PELVIS W 2019-07-18 07:55:36 Harrison Merino [facility] CONTRAST [facility] POCT TEST 2019-07-18 07:09:00 Harrison Merino [facility] LIPASE 2019-07-18 07:08:00 Harrison Merino [place] [facility] HEPATIC FUNCTION PANEL 2019-07-18 07:08:00 Harrison Merino [facility] ([id number]) (ALB,T.PRO,BILI [facility] T,BU/BC,ALT,AST,ALK PHOS) BASIC METABOLIC PANEL 2019-07-18 07:08:00 Harrison Merino [facility] (NA, K, CL, CO2, Medical Branch GLUCOSE, BUN, CREATININE, CA) CBC WITH DIFFERENTIAL 2019-07-18 07:08:00 Harrison [facility] PROTHROMBIN TIME / INR 2019-07-18 07:08:00 Harrison [facility]ino [facility] [place] ACTIVATED PARTIAL 2019-07-18 07:08:00 Harrison Merino [facility] THRMPLAS [facility] URINALYSIS 2019-07-18 07:08:00 Woody Harrison [place] f [facility] NOTICE OF PRIVACY 2019-07-18 06:53:55 Doctor Unassigned, No Univ [facility] PRACTICES Name [facility] CONSENT/REFUSAL FOR 2019-07-18 06:42:08 Doctor Unassigned, No [facility] Encounters Start End Encounter Admission Attending Care Care Encounter Source Date/Time Date/Time Type Type Clinicians Facility Department ID 2020-05-16 2020-05-16 [facility] [id number] 06:33:00 06:53:00 Rashida Jeong 350.1.13.10 [place] 4.2.7.2.686 [place] [id number] [facility] 2020-05-16 2020-05-16 [facility] 1.2.840.114 [id number] Univers 06:33:00 06:53:00 Rashida Jeong 350.1.13.10 ity of [place] 4.2.7.2.686 [facility] [id number] [address] 2020-05-16 2020-05-16 Emergency [facility] [id number] Univers 06:33:00 06:33:00 RASHIDA purcell [facility] 2020-05-16 2020-05-16 Orders Doctor [place] 1.2.840.114 [id number] 00:00:00 00:00:00 Only EunicessMAXIMILIAN schwarz 350.1.13.10 [place] [facility] 4.2.7.2.686 [id number] 2020-05-16 2020-05-16 Orders Doctor [place] 1.2.840.114 [id number] Univers 00:00:00 00:00:00 Only EunicessMAXIMILIAN schwarz 350.1.13.10 ity of [place] [facility] 4.2.7.2.686 [place] [id number] [facility] [address] [place] 2019-07-18 2019-07-18 Emergency [facility] [id number] 01:45:09 05:19:00 Harrison Jeong 350.1.13.10 [place] 4.2.7.2.686 [place] [id number] 2019-07-18 2019-07-18 Emergency [facility] [id number] Univers 01:45:09 05:19:00 HARRISON purcell [facility] 2019-07-18 2019-07-18 Emergency [facility] [id number] Univers 01:45:09 05:19:00 Harrison Jean-Paul 350.1.13.10 i ty of [place] 4[place]2.7.2.686 [place] [id number] [facility] [address] [place] 2019-07-18 2019-07-18 Orders Doctor BEKA 1.2.840.114 [id number] Univers 00:00:00 00:00:00 Only Unassigned, MAXIMILIAN 350.1.13.10 ity of [facility] 4.2.7.2.686 [place] [id number] [address] 2019-07-18 2019-07-18 Orders Doctor BEKA 1.2.840.114 [id number] 00:00:00 00:00:00 Only Unassigned, MAXIMILIAN 350.1.13.10 [facility] 4.2.7.2.686 [id number] 2019-04-24 2019-04-24 Emergency X [facility] ERT [id number] Univers 13:52:02 15:36:00 IAD ryleyjhon [facility] Results Test Description Test Test Results Result Source Time Comments Comments US TRANSVAGINAL 2019-07- Multiple cysts in the [facility] right ovary, measuring up [facility] 09:59:13 to 29 mm. No evidence [facility] forovarian torsion or significant free fluid. RL: 460 AFC: [id number] Ordering physician: HARRISON MERINO INDICATION: Lower abdominal [...] in theovaries bilaterally, with normal vascular waveforms. [facility], Radiant Results Inft User - 07/18/2019 5:00 [...] forovarian torsion or significant free fluid.RL: 460AFC: [id number] signed by Marce Bennett MD, PhD at [...] the pelvis. Normal appendix. RL: 460 AFC: [id number] Indication: Acute generalized abdominal pain COMPARISON: None [...] free fluid in the pelvis.Normal appendix.RL: 460AFC: [id number] Urinalysis 2019-07-18 07:44:00 Test Item Value Reference Range Interpretation Comme nts APPEARANCE (test code = Cloudy Clear A 6914537315) COLOR (test code = 2487815234) Tereza Yellow A PH (test code = 2094479164) 4.8-8.0 SP GRAVITY (test code = 1.003-1.030 7517070246) GLU U QUAL (test code = Normal Normal 6403212263) BLOOD (test code = 4169677890) 3+ Negative A KETONES (test code = 5130243826) Negative Negative PROTEIN (test code = 2887-8) 100 mg/dL Negative A UROBILIN (test code = Normal Normal 0624912297) BILIRUBIN (test code = Negative Negative 8718375701) NITRITE (test code = 6479945397) Positive Negative A LEUK JOAQUIM (test code = 500/uL Negative A 0747698718) RBC/HPF (test code = 9330795917) >182 See_Comment H [Automated message] The system which ge nerated this result transmit sameer reference range: 0 - 3 HP F. The reference range was not used to interpret th is result as normal/abnormal . WBC/HPF (test code = 7576009617) >182 See_Comment H [Automated message] The system which ge nerated this result transmit sameer reference range: 0 - 5 HP F. The reference range was not used to interpret th is result as normal/abnormal . BACTERIA (test code = Moderate Negative A 1537623173) MUCOUS (test code = 2184617935) Marked Negative LPF A SQ EPITH (test code = HPF 0853077850) WBC CLUMPS (test code = See_Comment H [Au tomated message] The 6472524193) system which ge nerated this result transmit sameer reference range: <=1 HPF. The reference range was not used to interpret th is result as normal/abnormal . YEAST BUD (test code = See_Comment H [Aut omated message] The 8222789383) system which ge nerated this result transmit sameer reference range: <=1 HPF. The reference range was not used to interpret th is result as normal/abnormal . Lab Interpretation (test code = Abnormal 72902-8) [facility] WITH [id number] 07:41:00 Test Item Value Reference Range Interpretation [...] RDW-SD (test code = 43.0 fL 39-49.9 39991-1) RDW-CV (test code = 18.4 % 12-15.5 H 788-0) PLT (test code = See_Comment [Automated 777-3) message] The sy stem which generated this result transmitted reference range : 166 - 358 10*3/ ?L. The reference r jeff was not used to interpret this result as normal/abnormal . MPV (test code = 11.0 fL 9.5-12.9 11990-0) IPF % (test code = 3.2 % 1.3-7.7 Platelet count 6149352995) measured by fluorescence method. NRBC/100 WBC (test See_Comment [Automat ed code = 9474148951) message] The system which generated this result transmitted reference range : 0.0 - 10.0 /100 WBCs. The refer ence range was not u sed to interpret th is result as normal/abnormal . NRBC x10^3 (test code <0.01 See_Comment [Auto mated = 8779670094) message] The s ystem which generated this result transmitted reference range : 10*3/?L. The reference range was not used to interpret this result as normal/abnormal . GRAN MAT (NEUT) % 76.4 % (test code = 770-8) IMM GRAN % (test code 0.40 % = 8188254205) LYMPH % (test code = 11.6 % 736-9) MONO % (test code = 9.2 % 5905-5) EOS % (test code = 1.5 % 713-8) BASO % (test code = 0.9 % 706-2) GRAN MAT x10^3(ANC) 7.86 10*3/uL 1.88-7.09 H (test code = 4246702222) IMM GRAN x10^3 (test 0.04 10*3/uL 0-0.06 code = 6021854401) LYMPH x10^3 (test code 1.19 10*3/uL 1.32-3.29 L = 731-0) MONO x10^3 (test code 0.94 10*3/uL 0.33-0.92 H = 742-7) EOS x10^3 (test code = 0.15 10*3/uL 0.03-0.39 711-2) BASO x10^3 (test code 0.09 10*3/uL 0.01-0.07 H = 704-7) Lab Interpretation Abnormal (test code = 64250-6) [facility] Metabolic Panel (NA, K, CL, CO2, GLUCOSE, BUN, CREATININE, CA)2019-07-18 07:34:00 Test Item Value Reference Range Interpretation Comments NA (test code = 137 mmol/L 135-145 5677120948) K (test code = 3.3 mmol/L 3.5-5 L 0340081940) CL (test code = 102 mmol/L 98-108 5832495413) CO2 TOTAL (test code = 28 mmol/L 23-31 9520765894) AGAP (test code = 2-16 6884293113) BUN (test code = 13 mg/dL 7-23 6214152139) GLUCOSE (test code = 105 mg/dL 70-110 3963168440) CREATININE (test code = 0.64 mg/dL 0.5-1.04 1000295005) CALCIUM (test code = 8.9 mg/dL 8.6-10.6 4326338444) eGFR Calculation mL/min/1.73m2 (Non-) (test code = 1399656136) eGFR Calculation mL/min/1.73m2 () (test code = 2637412058) JARET (test code = JARET) Association of [...] tests). Lab Interpretation Abnormal (test code = 02092-3) [facility] (ALB, T.PRO, BILI T, BU/BC, ALT, AST, ALK PHOS)2019-07-18 07:34:00 Test Item Value Reference Range Interpretation Comments TOTAL BILI (test code = 0062164701) 0.3 mg/dL 0.1-1.1 BILI UNCON (test code = 3618408330) 0.2 mg/dL 0.1-1.1 BILI CONJ (test code = 9654213091) 0.0 mg/dL 0-0.3 T PROTEIN (test code = 1070526272) 7.4 g/dL 6.3-8.2 ALBUMIN (test code = 6386475626) 4.3 g/dL 3.5-5 ALK PHOS (test code = 2240425325) 46 U/L 34-122 ALTv (test code = 1742-6) 17 U/L 5-35 AST(SGOT) (test code = 2581441492) 28 U/L 13-40 Lab Interpretation (test code = Normal 05928-6) [facility] CenterLipase [id number] 07:33:00 Test Item Value Reference Range Interpretation Comments LIPASE (test code = 5305954889) 47 U/L 0-220 Lab Interpretation (test code = Normal 43523-6) [facility] Centera[facility]TT2020-03-12 07:31:00 Test Item Value Reference Range Interpretation Comments APTT Patient (test See_Comment [Automat ed code = 3173-2) message] The system which generated this result transmitted reference range : 23 - 38 Seconds . The reference range was not used to interpr et this result as normal/abnormal . JARET (test code = JARET) The [facility] patient population mean normal value for aPTT is 30 seconds. Lab Interpretation Normal (test code = 15442-0) [facility] CenterProthrombin Time (PT) / [id number] 07:29:00 Test Item Value Reference Range Interpretation [...] tions. Lab Interpretation (test Normal code = 27194-5) [facility] Center[facility] Test, [id number] 07:09:00 Test Item Value Reference Range Interpretation Comments POCT PREG (test code = 1605) Negative On board controls acceptable with Present C Line (test code = 3574) POCT PREG LOT # (test code = 3575) [id number] POCT PREG TEST DATE (test 12/05/2020 code = 3576) Lab Interpretation (test code = Normal 63009-0) [facility]"
--- NOTE | 2023-02-09 15:03 | RAD REPORT ---
EXAM DESCRIPTION: CT - Head Brain Wo Cont - 02/09/2023 2:48 pm CLINICAL HISTORY: HEADACHE Headache, drowsiness COMPARISON: Head Brain Wo Cont dated 08/29/2016; HEAD BRAIN W O CONTRAST dated 09/22/2009 TECHNIQUE: All CT scans are performed using dose optimization technique as appropriate and may inclu de automated exposure control or mA/KV adjustment according to patient size. FINDINGS: No intracranial hemorrhage, hydrocephalus or extra-axial fluid collection.No areas of brai n edema or evidence of midline shift. Low lying cerebellar tonsils noted. The paranasal sinuses and mastoids are clear. The calvarium is intact. IMPRESSION: No acute intracranial abnormality.
[2023-02-09] MEDS ORDERED: DIPHENHYDRAMINE 50 MG/ML VIAL ONE (15:16)
[2023-02-09] MEDS ORDERED: METOCLOPRAMIDE 10 MG/2mL INJ ONE (15:16)
[2023-02-09] MEDS ORDERED: METHYLPREDNISOLONE 125 MG INJ ONE (15:16)
[2023-02-09] MEDS ORDERED: KETOROLAC 30 MG/ML INJ ONE (15:16)
[2023-02-09] MEDS ORDERED: NA CHLORIDE 0.9% 1,000 ML ONE (15:17)
--- NOTE | 2023-02-09 15:44 | EDPHYS ---
Physician Documentation [facility] Name: Ruby Tapia Age: 42 yrs Sex: Female : 1980 Arrival Date: 02/09/2023 Time: 14:28 Bed 9 Private MD: ED Physician Axel Mendoza HPI: 02/09 14:35 This 42 yrs old Female presents to ER via Ambulatory with complaints of jh7 Headache. 14:35 The patient complains of pain to the top of head. The patient describes the headache as jh7 aching, constant, throbbing. Onset: The symptoms/episode began/occurred 1 week(s) ago. Associated signs and symptoms: Pertinent positives: nausea, blurred vision, vomiting, Pertinent negatives: altered mental status, fever, Photophobia vision loss. Headache History: The patient has had previous headaches and this one is more severe than previous episodes. 42-year-old female presents with a headache x1 week. Reports a history of pseudotumor tumor cerebri. Also reports nausea, vomiting, and blurred vision. Reports that the symptoms occur when she has a flareup, but that this time her symptoms are worse. 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 - Social history:: Smoking status: Patient denies any tobacco usage or history of. Patient/guardian denies using alcohol. ROS: 14:35 Constitutional: Negative for fever, chills, and weight loss, Eyes: Negative for injury, jh7 pain, redness, and discharge, ENT: Negative for injury, pain, and discharge, Neck: Negative for injury, pain, and swelling, Cardiovascular: Negative for chest pain, palpitations, and edema, Respiratory: Negative for shortness of breath, cough, wheezing, and pleuritic chest pain, Back: Negative for injury and pain, MS/Extremity: Negative for injury and deformity, Skin: Negative for injury, rash, and discoloration, Neuro: Negative for headache, weakness, numbness, tingling, and seizure, 14:35 Abdomen/GI: Positive for nausea and vomiting, Negative for abdominal pain, diarrhea, 14:35 Neuro: Positive for headache, visual changes, Negative for altered mental status, loss of consciousness, numbness, syncope, tingling, weakness, 14:35 All other systems are negative, Exam: 14:35 Constitutional: This is a well developed, well nourished patient who is awake, alert, jh7 and in no acute distress. Head/Face: Normocephalic, atraumatic. Eyes: Pupils equal round and reactive to light, extra-ocular motions intact. Lids and lashes normal. Conjunctiva and sclera are non-icteric and not injected. Cornea within normal limits. Periorbital areas with no swelling, redness, or edema. ENT: Nares patent. No nasal discharge, no septal abnormalities noted. Tympanic membranes are normal and external auditory canals are clear. Oropharynx with no redness, swelling, or masses, exudates, or evidence of obstruction, uvula midline. Mucous membranes moist. Neck: Trachea midline, no thyromegaly or masses palpated, and no cervical lymphadenopathy. Supple, full range of motion without nuchal rigidity, or vertebral point tenderness. No Meningismus. Cardiovascular: Regular rate and rhythm with a normal S1 and S2. No gallops, murmurs, or rubs. Normal PMI, no JVD. No pulse deficits. Respiratory: Lungs have equal breath sounds bilaterally, clear to auscultation and percussion. No rales, rhonchi or wheezes noted. No increased work of breathing, no retractions or nasal flaring. Abdomen/GI: Soft, non-tender, with normal bowel sounds. No distension or tympany. No guarding or rebound. No evidence of tenderness throughout. Skin: Warm, dry with normal turgor. Normal color with no rashes, no lesions, and no evidence of cellulitis. MS/ Extremity: Pulses equal, no cyanosis. Neurovascular intact. Full, normal range of motion. 14:35 Neuro: Orientation: to person, place, time \T\ situation. Mentation: is normal, Memory: is normal, Cerebellar function: is grossly normal, Motor: is normal, Sensation: is normal, Vital Signs: 14:37 BP 144 / 94; Pulse 75; Resp 18; Temp 97.9(TE); Pulse Ox 100% on R/A; Weight 97.98 kg; ld1 Height 5 ft. 8 in. ; Pain 10/10; 16:22 BP 102 / 54; Pulse 78; Resp 16 S; Pulse Ox 98% on R/A; Pain 5/10; cm10 14:37 Body Mass Index 32.84 (97.98 kg, 172.72 cm) ld1 14:37 Pain Scale: Adult ld1 16:22 Pain Scale: Adult cm10 NIH Stroke Scale Scores: 14:35 NIHSS Score: 0 7 Peter Coma Score: 16:10 Eye Response: spontaneous(4). Motor Response: obeys commands(6). Verbal Response: jh oriented(5). Total: 15. MDM: 14:32 Patient medically screened. [facility] 16:10 Differential diagnosis: cluster headache, migraine, neoplasm, subarachnoid bleed, jh7 tension headache. Data reviewed: vital signs, nurses notes, radiologic studies, CT scan. I considered the following discharge prescriptions or medication management in the emergency department Medications were administered in the Emergency Department. See MAR. Care significantly affected by the following chronic conditions: Pseudotumor cerebri. Counseling: I had a detailed discussion with the patient and/or guardian regarding the historical points, exam findings, and any diagnostic results supporting the discharge/admit diagnosis, the need for outpatient follow up, a neurologist, to return to the emergency department if symptoms worsen or persist or if there are any questions or concerns that arise at home. Response to treatment: the patient's symptoms have markedly improved after treatment. 02/09 14:40 Order name: CT Head Brain wo Cont; Complete Time: 15:05 [facility] Administered Medications: 15:16 Drug: diphenhydrAMINE IVP 25 mg IVP once Route: IVP; Site: right antecubital; cm10 16:12 Follow up: Response: No adverse reaction 10 15:16 Drug: metoCLOPramide IVP 10 mg IVP once; over 1 to 2 minutes Route: IVP; Site: right cm10 antecubital; 16:12 Follow up: Response: No adverse reaction 10 15:16 Drug: Ketorolac IVP 30 mg IVP once Route: IVP; Site: right antecubital; cm10 16:12 Follow up: Response: No adverse reaction cm10 15:16 Drug: MethylPrednisoLONE IVP 125 mg IVP once Route: IVP; Site: right antecubital; cm10 16:12 Follow up: Response: No adverse reaction cm10 15:17 Drug: NS 0.9% IV 1000 ml IV at 1 bolus Per protocol; 1000 mL bolus Route: IV; Rate: 1 cm10 bolus; Site: right antecubital; 16:12 Follow up: Response: No adverse reaction; IV Status: Completed infusion; IV Intake: cm10 1000ml Disposition: 16:38 I was immediately available on-site in the Emergency Department for consultation in the ms3 care of the patient. Disposition Summary: 02/09/23 15:43 Discharge Ordered Notes: Location: Home [facility] Problem: new [facility] Symptoms: have improved [facility] Condition: Stable [facility] Diagnosis - Headache [facility] Followup: [facility] - With: Private Physician - When: 2 - 3 days - Reason: Recheck today's complaints Discharge Instructions: - Discharge Summary Sheet [facility] - General Headache Without Cause [facility] - Tension Headache, Adult [facility] Forms: - Medication Reconciliation Form [facility] - Thank You Letter [facility] - Patient Portal Instructions [facility] - Leadership Thank You Letter [facility] Prescriptions: - Medrol (Lior) 4 mg Oral Tablets, Dose Pack - take 1 tablet ORAL route as directed - follow package instructions; 1 packet; [facility] Refills: 0, Product Selection Permitted NIH Stroke Scale - NIH Stroke Score Date: 02/09/2023 Time: 14:35 Total Score = 0 10. Dysarthria (speech clarity - read or repeat words) - 0(Normal) 11. Extinction and Inattention (visual/tactile/auditory/spatial/personal) - 0(No abnormality) 1a. Level of Consciousness (LOC) - 0(Alert) 1b. Level of Consciousness (LOC) (Month \T\ Age) - 0(Both) 1c. LOC Commands (Open \T\ Closes Eyes/Information And Referral Director) - 0(Both) 2. Best Gaze (Lateral Gaze Paresis) - 0(Normal) 3. Visual Field Loss - 0(No visual loss) 4. Facial Palsy - 0(Normal) 5a. Left Arm: Motor (10-second hold) - 0(No drift) 5b. Right Arm: Motor (10-second hold) - 0(No drift) 6a. Left Leg: Motor (5-second hold - always test supine) - 0(No drift) 6b. Right Leg: Motor (5-second hold - always test supine) - 0(No drift) 7. Limb Ataxia (finger/nose \T\ heel/hernandez - test with eyes open) - 0(Absent) 8. Sensory Loss (pinprick arms/legs/face) - 0(Normal) 9. Best Language: Aphasia (description/naming/reading) - 0(No aphasia) Initials: [facility] Signatures: Dispatcher [employer] EDMS Axel Mendoza, DO DO ms3 Yelena Mendoza, RN RN ld1 Karen Sanches, TAMPING MACHINE OPERATOR ROAD FORMS TAMPING MACHINE OPERATOR ROAD FORMS jh7 Nara Crespo, WINSTON RN cm10
--- NOTE | 2023-02-09 15:44 | ER ---
Nurse's Notes [facility] Name: Ruby Tapia Age: 42 yrs Sex: Female : 1980 Arrival Date: 02/09/2023 Time: 14:28 Bed 9 Private MD: Diagnosis: Headache Presentation: 02/09 14:35 Chief complaint: Patient states: Headache X 1 week. Coronavirus screen: At this time, ld1 the client does not indicate any symptoms associated with coronavirus-19. Ebola Screen: No symptoms or risks identified at this time. Risk Assessment: Do you want to hurt yourself or someone else? Patient reports no desire to harm self or others. Onset of symptoms was February 09, 2023 at 14:37. 14:35 Method Of Arrival: Ambulatory ld1 14:35 Acuity: DONTE 3 ld1 15:21 Initial Sepsis Screen: Does the patient meet any 2 criteria? No. Patient's initial cm10 sepsis screen is negative. Does the patient have a suspected source of infection? No. Patient's initial sepsis screen is negative. Triage Assessment: 14:37 Headache History: The patient has had previous headaches and this one is similar to ld1 previous episodes. General: Appears in no apparent distress. comfortable, Behavior is calm, cooperative, appropriate for age. Pain: Complains of pain in face Pain does not radiate. Pain currently is 10 out of 10 on a pain scale. Quality of pain is described as throbbing, Pain began suddenly, Also complains of. EENT: No signs and/or symptoms were reported regarding the EENT system. Neuro: Level of Consciousness is awake, alert, obeys commands, Oriented to person, place, time, situation. Neuro: Reports blurred vision slurred speech. Cardiovascular: Capillary refill < 3 seconds Patient's skin is warm and dry. Respiratory: Airway is patent Respiratory effort is even, unlabored. GI: Abdomen is round non-distended, Reports nausea, vomiting. : No signs and/or symptoms were reported regarding the genitourinary system. Derm: No signs and/or symptoms reported regarding the dermatologic system. Musculoskeletal: No signs and/or symptoms reported regarding the musculoskeletal system. 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 - Social history:: Smoking status: Patient denies any tobacco usage or history of. Patient/guardian denies using alcohol. Screenin:20 [facility] ED Fall Risk Assessment (Adult) History of falling in the last 3 months, cm10 including since admission No falls in past 3 months (0 pts) Confusion or Disorientation No (0 pts) Intoxicated or Sedated No (0 pts) Impaired Gait No (0 pts) Mobility Assist Device Used No (0 pt) Altered Elimination No (0 pt) Score/Fall Risk Level 0 - 2 = Low Risk Oriented to surroundings, Maintained a safe environment, Hourly rounding (assess needs \T\ fall precautionary measures) done. Abuse screen: Denies threats or abuse. Denies injuries from another. Nutritional screening: No deficits noted. Tuberculosis screening: No symptoms or risk factors identified. Assessment: 15:19 General: Appears in no apparent distress. comfortable, Behavior is calm, cooperative. cm10 Pain: Complains of pain in top of head Pain does not radiate. Pain currently is 10 out of 10 on a pain scale. Is continuous. Neuro: No deficits noted. Level of Consciousness is awake, alert, obeys commands, Oriented to person, place, time, situation, Reports headache. Cardiovascular: No deficits noted. Respiratory: No deficits noted. Airway is patent Respiratory effort is even, unlabored, Respiratory pattern is regular, symmetrical. GI: No deficits noted. No signs and/or symptoms were reported involving the gastrointestinal system. : No deficits noted. No signs and/or symptoms were reported regarding the genitourinary system. EENT: No deficits noted. No signs and/or symptoms were reported regarding the EENT system. Derm: No deficits noted. No signs and/or symptoms reported regarding the dermatologic system. Skin is intact, Skin is pink, warm \T\ dry. Musculoskeletal: No deficits noted. No signs and/or symptoms reported regarding the musculoskeletal system. Vital Signs: 14:37 BP 144 / 94; Pulse 75; Resp 18; Temp 97.9(TE); Pulse Ox 100% on R/A; Weight 97.98 kg; ld1 Height 5 ft. 8 in. ; Pain 10/10; 16:22 BP 102 / 54; Pulse 78; Resp 16 S; Pulse Ox 98% on R/A; Pain 5/10; cm10 14:37 Body Mass Index 32.84 (97.98 kg, 172.72 cm) ld1 14:37 Pain Scale: Adult ld1 16:22 Pain Scale: Adult cm10 Peter Coma Score: 16:10 Eye Response: spontaneous(4). Motor Response: obeys commands(6). Verbal Response: jh7 oriented(5). Total: 15. NIH Stroke Scale Scores: 14:35 NIHSS Score: 0 7 ED Course: 14:31 Patient arrived in ED. mg5 14:32 Karen Sanches FNP is PHCP. jh7 14:32 Axel Mendoza DO is Attending Physician. jh7 14:37 Triage completed. ld1 14:37 Arm band placed on right wrist. ld1 14:50 CT Head Brain wo Cont In Process Unspecified. EDMS 15:17 Inserted saline lock: 20 gauge in right antecubital area, using aseptic technique. cm10 15:20 Patient has correct armband on for positive identification. Bed in low position. Call cm10 light in reach. Side rails up X 1. Provided Education on: ER process and procedures. . 15:21 No provider procedures requiring assistance completed. cm10 16:22 IV discontinued, intact, bleeding controlled, No redness/swelling at site. Pressure cm10 dressing applied. Administered Medications: 15:16 Drug: diphenhydrAMINE IVP 25 mg IVP once Route: IVP; Site: right antecubital; cm10 16:12 Follow up: Response: No adverse reaction cm10 15:16 Drug: metoCLOPramide IVP 10 mg IVP once; over 1 to 2 minutes Route: IVP; Site: right cm10 antecubital; 16:12 Follow up: Response: No adverse reaction cm10 15:16 Drug: Ketorolac IVP 30 mg IVP once Route: IVP; Site: right antecubital; cm10 16:12 Follow up: Response: No adverse reaction cm10 15:16 Drug: MethylPrednisoLONE IVP 125 mg IVP once Route: IVP; Site: right antecubital; cm10 16:12 Follow up: Response: No adverse reaction cm10 15:17 Drug: NS 0.9% IV 1000 ml IV at 1 bolus Per protocol; 1000 mL bolus Route: IV; Rate: 1 cm10 bolus; Site: right antecubital; 16:12 Follow up: Response: No adverse reaction; IV Status: Completed infusion; IV Intake: cm10 1000ml Medication: 15:20 VIS not applicable for this client. cm10 Intake: 16:12 IV: 1000ml; Total: 1000ml. cm10 Outcome: 15:43 Discharge ordered by MD. crespo 16:23 Discharged to home ambulatory, with significant other, cm10 16:23 Condition: good 16:23 Discharge instructions given to patient, Instructed on discharge instructions, follow up and referral plans. medication usage, Demonstrated understanding of instructions, follow-up care, medications, Prescriptions given X 1, 16:23 Patient left the ED. cm10 NIH Stroke Scale - NIH Stroke Score Date: 02/09/2023 Time: 14:35 Total Score = 0 10. Dysarthria (speech clarity - read or repeat words) - 0(Normal) 11. Extinction and Inattention (visual/tactile/auditory/spatial/personal) - 0(No abnormality) 1a. Level of Consciousness (LOC) - 0(Alert) 1b. Level of Consciousness (LOC) (Month \T\ Age) - 0(Both) 1c. LOC Commands (Open \T\ Closes Eyes/Denitrator) - 0(Both) 2. Best Gaze (Lateral Gaze Paresis) - 0(Normal) 3. Visual Field Loss - 0(No visual loss) 4. Facial Palsy - 0(Normal) 5a. Left Arm: Motor (10-second hold) - 0(No drift) 5b. Right Arm: Motor (10-second hold) - 0(No drift) 6a. Left Leg: Motor (5-second hold - always test supine) - 0(No drift) 6b. Right Leg: Motor (5-second hold - always test supine) - 0(No drift) 7. Limb Ataxia (finger/nose \T\ heel/hernandez - test with eyes open) - 0(Absent) 8. Sensory Loss (pinprick arms/legs/face) - 0(Normal) 9. Best Language: Aphasia (description/naming/reading) - 0(No aphasia) Initials: jh7 Signatures: Dispatcher [employer] Yelena Dacosta, RN RN ld1 Karen Sanches, CARON LOG RAFTER jh7 Nara Crespo RN RN cm10 Danna Jacobs 5
[2023-02-09 17:55] VITALS: TEMP 97.9
[2023-02-09 17:56] VITALS: BP 102/54; O2SAT 98
== END 2023-02-09 16:23 | disposition home or self-care (01) ==
LOC: ER 14:28
DX: R51.9 Headache, unspecified (principal)
CPT/HCPCS: 70450; 96361; 96374; 96375; 99284; J1200; J2765; J2930; J7030

== ENCOUNTER 2023-02-24 18:59 | Emergency (ER) | payer SELFPAY ==
--- OUTSIDE RECORDS SUMMARY | 2023-02-24 19:03 | XMS REPORT | Continuity of Care Document ---
:1980 Author Organization [facility] t Address [address] [place] [address] Care Team Providers Name Role Phone PCP, PATIENT DOES NOT HAVE A Primary Care Physician UnavailRashida Castillo DO Attending Clinician RASHIDA MASON Attending Clinician Unavailable Doctor Unassigned, [place] Attending Clinician Unavailable Harrison Merino MD Attending [...] rs active active ity of problems problems [facility] Allergies, Adverse Reactions, Alerts Allergy Allergy Status Severity Reaction(s) Onset Inactive Treating Comm ents Source Name Type Date Date Clinician NO KNOWN Drug Active Univers ALLERGIE Class ity of S [facility] Social History Social Habit Start Date Stop Date Quantity Comments Source Exposure to SARS-CoV-2 Not sure [facility] [place] [facility] Sex Assigned At Uni versity [facility] Smoking Status Start Date Stop Date Source Unknown if ever smoked [facility] y [facility] Medications Ordered Filled Start Stop Current Ordering Indication Dosage Frequency Signature Comments Components Source Medication Medication Date Date Medication? Clinician (SIG) Name Name ketorolac 2020-0 2020- No 30mg 30 mg, Unive rs (TORADOL) 3-12 03-12 Slow IV ity of injection 09:45: 08:46 [place], [place] 30 mg 00 :00 ONCE, 1 Medical dose, [place] [facility] 07/18/19 at 0445, WAQAR
[facility] Restricted medication : [...] 0300, 120 mL Routine ibuprofen 2020-0 Yes [id number] 800mg Take 1 Univers 800 mg 3 [id number] tablet by ity of tablet 00:00: mouth [place] 00 every 8 Medical (eight) Branch hours. traMADol 50 2020-0 Yes [id number] 50mg Take 1 Univers mg tablet 3 [id number] tablet by ity of 00:00: mouth [place] 00 every 6 Medical (six) Branch hours as needed for Pain (scale 4-6). ciprofloxac 2020-0 Yes [id number] 500mg Take 1 Univers in HCl 500 07-17 [id number] tablet by it y of mg tablet 00:00: mouth 2 [place] 00 (two) Medical times Branch daily. ibuprofen 2020-0 Yes [id number] 800mg Take 1 Univers 800 mg 3- [id number] tablet by ity of tablet 00:00: mouth [place] 00 every 8 Medical (eight) Branch hours. traMADol 50 2020-0 Yes [id number] 50mg Take 1 Univers mg tablet 3-12 [id number] tablet by ity of 00:00: mouth [place] 00 every 6 Medical (six) Branch hours as needed for Pain (scale 4-6). ciprofloxac 2020-0 Yes [id number] 500mg Take 1 Univers in HCl 500 3-12 [id number] tablet by it y of mg tablet 00:00: mouth (two) Medical times Branch daily. ibuprofen 2019-0 Yes [id number] 800mg Take 1 Univers 800 mg 3-12 [id number] tablet by ity of tablet 00:00: mouth [place] 00 every 8 Medical (eight) Branch hours. traMADol 50 2019-0 Yes [id number] 50mg Take 1 Univers mg tablet 3-12 [id number] tablet by ity of 00:00: mouth [place] 00 every 6 Medical (six) Branch hours as needed for Pain (scale 4-6). ciprofloxac 2019-0 Yes [id number] 500mg Take 1 Univers in HCl 500 3-12 [id number] tablet by it y of mg tablet 00:00: mouth (two) Medical times Branch daily. traMADol 2018-05 Yes [id number] 50mg Take 1 Un tracy (ULTRAM) 50 2-18 tablet by ity of mg tablet 00:00: mouth 00 every 6 Medical (six) Branch hours as needed for Pain (scale 7-10). naproxen 2018-05 Yes [id number] 550mg Take 1 U nivers sodium 550 2-18 tablet by ity of mg tablet 00:00: mouth (two) Medical times Branch daily with meals. traMADol 2018-05 Yes [id number] 50mg Take 1 Un tracy (ULTRAM) 50 2-18 tablet by ity of mg tablet 00:00: mouth 00 every 6 Medical (six) Branch hours as needed for Pain (scale 7-10). naproxen 2018-05 Yes [id number] 550mg Take 1 U nivers sodium 550 2-18 tablet by ity of mg tablet 00:00: mouth (two) Medical times Branch daily with meals. traMADol 2018-05 Yes [id number] 50mg Take 1 Un tracy (ULTRAM) 50 2-18 tablet by ity of mg tablet 00:00: mouth 00 every 6 Medical (six) Branch hours as needed for Pain (scale 7-10). naproxen 2018-05 Yes [id number] 550mg Take 1 U nivers sodium 550 2-18 tablet by ity of mg tablet 00:00: mouth 2 [place] 00 (two) Medical times Branch daily with meals. traMADol 2018-05 Yes [id number] 50mg Take 1 Un tracy (ULTRAM) 50 2-18 tablet by ity of mg tablet 00:00: mouth [place] 00 every 6 Medical (six) Branch hours as needed for Pain (scale 7-10). naproxen 2018-05 Yes [id number] 550mg Take 1 U nivers sodium 550 2-18 tablet by ity of mg tablet 00:00: mouth 2 [place] 00 (two) Medical times Branch daily with meals. ALPRAZolam 2017-05 Yes 1mg Take 1 mg Un tracy 1 mg tablet 2-20 by mouth ity of 04:22: at [place] [address] bedtime. Medical Branch lisdexamfet 2017-05 Yes 30mg [...] 2-20 by mouth ity of 04:22: at [place] [address] bedtime. Medical Branch lisdexamfet 2017-05 Yes 30mg [...] mouth ity of 25 mg 04:22: daily. [place] tablet 55 Medical Branch acetaZOLAMI 2017-05 Yes 500mg Take 500 U nivers [place] 500 mg 2-20 mg by ity of capsule 04:22: mouth [place] 55 daily. Medical Branch ALPRAZolam 2017-05 Yes 1mg Take 1 mg Un tracy 1 mg tablet 2-20 by mouth ity of 04:22: at [place] 55 bedtime. Medical Branch lisdexamfet 2017-05 Yes [...] by ity of capsule 00:00: mouth 3 [place] 00 (three) Medical times Branch daily. clindamycin 2017-05 Yes 300mg Take 1 Uni vers 300 mg 2-20 capsule by ity of capsule 00:00: mouth 3 [place] 00 (three) Medical times Branch daily. clindamycin 2017-05 Yes 300mg Take 1 Uni vers 300 mg 2-20 capsule by ity of capsule 00:00: mouth 3 [place] 00 (three) Medical times Branch daily. pantoprazol [...] Source Systolic blood 2020-05-16 12:37:00 121 mm[Hg] [facility] Diastolic blood 2020-05-16 12:37:00 84 mm[Hg] [facility] rate 2020-05-16 12:37:00 84 /min [facility] Body temperature 2020-05-16 12:37:00 36.56 Evelyn [facility] Respiratory rate 2020-05-16 12:37:00 18 /min [facility] Body height 2020-05-16 12:37:[address] [facility] Body weight 2020-05-16 12:37:00 81.647 kg [facility] [place] [facility] BMI 2020-05-16 12:37:00 27.37 kg/m2 [facility] [place] [facility] Oxygen saturation in 2020-05-16 12:37:00 100 /min University of Arterial blood by [facility] Pulse oximetry Branch Systolic blood 2020-05-16 12:37:00 121 mm[Hg] Univer sity of pressure [place] [facility] Diastolic blood 2020-05-16 12:37:00 84 mm[Hg] Unive rsity of pressure [place] [facility] Heart rate 2020-05-16 12:37:00 84 /min [facility] [place] [facility] Body temperature 2020-05-16 12:37:00 36.56 Evelyn [facility] [place] [facility] Respiratory rate 2020-05-16 12:37:00 18 /min [facility] [place] [facility] Body height 2020-05-16 12:37:00 172.7 cm [facility] [place] [facility] Body weight 2020-05-16 12:37:00 81.647 kg [facility] [place] [facility] BMI 2020-05-16 12:37:00 27.37 kg/m2 [facility] [place] [facility] Oxygen saturation in 2020-05-16 12:37:00 100 /min University of Arterial blood by [facility] Pulse oximetry Branch Systolic blood 2019-07-18 10:00:00 112 mm[Hg] Univer sity of pressure [place] [facility] Diastolic blood 2019-07-18 10:00:00 69 mm[Hg] Unive rsity of pressure [place] [facility] Heart rate 2019-07-18 10:00:00 64 /min [facility] [place] [facility] Respiratory rate 2019-07-18 10:00:00 16 /min Univ [facility] [place] [facility] Oxygen saturation in 2019-07-18 10:00:00 96 /min University of Arterial blood by [facility] Pulse oximetry Branch Body temperature 2019-07-18 06:55:00 35.83 Evelyn [facility] [place] [facility] Body height 2019-07-18 06:55:00 175.3 cm [facility] [place] [facility] Body weight 2019-07-18 06:55:00 91.173 kg [facility] [place] [facility] BMI 2019-07-18 06:55:00 29.68 kg/m2 [facility] Systolic blood 2019-07-18 10:00:00 112 mm[Hg] [facility] pressure [facility] Diastolic blood 2019-07-18 10:00:00 69 mm[Hg] [facility] of pressure [facility] Heart rate 2019-07-18 10:00:00 64 /min [facility] Respiratory rate 2019-07-18 10:00:00 16 /min [facility] Oxygen saturation in 2019-07-18 10:00:00 96 /min [facility] Arterial blood by [facility] Pulse oximetry [place] Body temperature 2019-07-18 06:55:00 35.83 Evelyn [facility] Body height 2019-07-18 06:55:[address] [facility] Body weight 2019-07-18 06:55:[address] [facility] BMI 2019-07-18 06:55:00 29.68 kg/m2 [facility] Procedures Procedure Date / Time Performing Clinician Source Performed NOTICE OF PRIVACY 2020-05-16 12:27:25 Doctor Unassigned, No [facility] PRACTICES Name [facility] CONSENT/REFUSAL FOR 2020-05-16 12:27:13 Doctor Unassigned, No [facility] DIAGNOSIS AND TREATMENT Name [facility] US TRANSVAGINAL 2019-07-18 09:47:50 Harrison Merino [facility] CT ABDOMEN PELVIS W 2019-07-18 07:55:36 Harrison Merino [facility] CONTRAST [facility] POCT TEST 2019-07-18 07:09:[address] [facility] LIPASE 2019-07-18 07:08:00 Harrison Merino [place] [facility] HEPATIC FUNCTION PANEL 2019-07-18 07:08:00 Harrison Merino [facility] ([id number]) (ALB,T.PRO,BILI [facility] T,BU/BC,ALT,AST,ALK PHOS) BASIC METABOLIC PANEL 2019-07-18 07:08:00 Harrison Merino [facility] (NA, K, CL, CO2, Medical Branch GLUCOSE, BUN, CREATININE, CA) CBC WITH DIFFERENTIAL 2019-07-18 07:08:00 Harrison [facility]ino [facility] PROTHROMBIN TIME / INR 2019-07-18 07:08:00 Harrison [facility]ino [facility] 2019-07-18 07:08:00 Harrison Merino [facility] THRMPLAS [facility] URINALYSIS 2019-07-18 07:08:00 Woody Harrison [place] [facility] NOTICE OF PRIVACY 2019-07-18 06:53:55 Doctor Unassigned, No Univ [facility] PRACTICES Name [facility] CONSENT/REFUSAL FOR 2019-07-18 06:42:08 Doctor Unassigned, No [facility] Encounters Start End Encounter Admission Attending Care Care Encounter Source Date/Time Date/Time Type Type Clinicians Facility Department ID 2020-05-16 2020-05-16 [facility] [id number] [id number] 06:33:00 06:53:00 Rashida Jeong 350.1.13.10 [place] 4.2.7.2.686 [place] [id number] [facility] 2020-05-16 2020-05-16 [facility] 1.2.840.114 [id number] Univers 06:33:00 06:53:00 Rashida Jeong 350.1.13.10 ity of [place] 4.2.7.2.686 [facility] [id number] [address] 2020-05-16 2020-05-16 Emergency [facility] ERT [id number] Univers 06:33:00 06:33:00 RASHIDA purcell [facility] 2020-05-16 2020-05-16 Orders Doctor [place] 1.2.840.114 [id number] 00:00:00 00:00:00 Only EunicessMAXIMILIAN schwarz 350.1.13.10 [place] [facility] 4.2.7.2.686 [id number] 2020-05-16 2020-05-16 Orders Doctor [place] 1.2.840.114 [id number] Univers 00:00:00 00:00:00 Only EunicessMAXIMILIAN schwarz 350.1.13.10 ity of [place] [facility] 4.2.7.2.686 [place] [id number] [facility] [address] [place] 2019-07-18 2019-07-18 [facility] [id number] [id number] 01:45:09 05:19:00 Harrison Jeong 350.1.13.10 [place] 4.2.7.2.686 [place] [id number] 2019-07-18 2019-07-18 Emergency [facility] ERT [id number] Univers 01:45:09 05:19:00 HARRISON purcell [facility] 2019-07-18 2019-07-18 Emergency [facility] [id number] Univers 01:45:09 05:19:00 Harrison Jean-Paul 350.1.13.10 i ty of [place] 4[place]2.[place] [id number] [facility] 0[address] [place] 2019-07-18 2019-07-18 Orders Doctor BEKA 1.2.840.114 [id number] Univers 00:00:00 00:00:00 Only Unassigned, MAXIMILIAN 350.1.13.10 ity of [place] [facility] 4.2.7.2.686 [place] [id number] [address] 2019-07-18 2019-07-18 Orders Doctor BEKA 1.2.840.114 [id number] 00:00:00 00:00:00 Only Unassigned, MAXIMILIAN 350.1.13.10 [place] [facility] 4.2.7.2.686 [id number] 2019-04-24 2019-04-24 Emergency X PINTO [facility] ERT [id number] Univers 13:52:02 15:36:00 IAD ryleyjhon [facility] Results Test Description Test Test Results Result Source Time Comments Comments US TRANSVAGINAL 2019-07- Multiple cysts in the University [facility] right ovary, measuring up [facility] 09:59:13 to 29 mm. No evidence [facility] forovarian torsion or significant free fluid. RL: 460 AFC: 32284 Ordering physician: HARRISON MERINO INDICATION: Lower abdominal [...] in theovaries bilaterally, with normal vascular waveforms. [facility], Radiant Results Inft User - 07/18/2019 [...] forovarian torsion or significant free fluid.RL: 460AFC: [id number] signed by Marce Bennett MD, PhD at [...] the pelvis. Normal appendix. RL: 460 AFC: 21331 Indication: Acute generalized abdominal pain COMPARISON: None [...] free fluid in the pelvis.Normal appendix.RL: 460AFC: 13228 Urinalysis 2019-07-18 07:44:00 Test Item Value Reference Range Interpretation Comme nts APPEARANCE (test code = Cloudy Clear A 8990197996) COLOR (test code = 1721654679) Tereza Yellow A PH (test code = 7530848942) 4.8-8.0 SP GRAVITY (test code = 1.003-1.030 9100625972) GLU U QUAL (test code = Normal Normal 5522759104) BLOOD (test code = 8291477727) 3+ Negative A KETONES (test code = 4816922244) Negative Negative PROTEIN (test code = 2887-8) 100 mg/dL Negative A UROBILIN (test code = Normal Normal 8025563508) BILIRUBIN (test code = Negative Negative 9585943061) NITRITE (test code = 6351498720) Positive Negative A LEUK JOAQUIM (test code = 500/uL Negative A 7946286414) RBC/HPF (test code = 1767975386) >182 See_Comment H [Automated message] The system which ge nerated this result transmit sameer reference range: 0 - 3 HP F. The reference range was not used to interpret th is result as normal/abnormal . WBC/HPF (test code = 7470489869) >182 See_Comment H [Automated message] The system which ge nerated this result transmit sameer reference range: 0 - 5 HP F. The reference range was not used to interpret th is result as normal/abnormal . BACTERIA (test code = Moderate Negative A 6506780885) MUCOUS (test code = 5509457053) Marked Negative LPF A SQ EPITH (test code = HPF 7868868870) WBC CLUMPS (test code = See_Comment H [Au tomated message] The 4030086770) system which ge nerated this result transmit sameer reference range: <=1 HPF. The reference range was not used to interpret th is result as normal/abnormal . YEAST BUD (test code = See_Comment H [Aut omated message] The 0650501811) system which ge nerated this result transmit sameer reference range: <=1 HPF. The reference range was not used to interpret th is result as normal/abnormal . Lab Interpretation (test code = Abnormal 68101-0) [facility] WITH [id number] 07:41:00 Test Item Value Reference Range Interpretation [...] RDW-SD (test code = 43.0 fL 39-49.9 46081-3) RDW-CV (test code = 18.4 % 12-15.5 H 788-0) PLT (test code = See_Comment [Automated 777-3) message] The sy stem which generated this result transmitted reference range : 166 - 358 10*3/ ?L. The reference r jeff was not used to interpret this result as normal/abnormal . MPV (test code = 11.0 fL 9.5-12.9 53911-6) IPF % (test code = 3.2 % 1.3-7.7 Platelet count 5027651760) measured by fluorescence method. NRBC/100 WBC (test See_Comment [Automat ed code = 4526791667) message] The system which generated this result transmitted reference range : 0.0 - 10.0 /100 WBCs. The refer ence range was not u sed to interpret th is result as normal/abnormal . NRBC x10^3 (test code <0.01 See_Comment [Auto mated = 0292403480) message] The s ystem which generated this result transmitted reference range : 10*3/?L. The reference range was not used to interpret this result as normal/abnormal . GRAN MAT (NEUT) % 76.4 % (test code = 770-8) IMM GRAN % (test code 0.40 % = 8630968156) LYMPH % (test code = 11.6 % 736-9) MONO % (test code = 9.2 % 5905-5) EOS % (test code = 1.5 % 713-8) BASO % (test code = 0.9 % 706-2) GRAN MAT x10^3(ANC) 7.86 10*3/uL 1.88-7.09 H (test code = 0353068999) IMM GRAN x10^3 (test 0.04 10*3/uL 0-0.06 code = 7572815305) LYMPH x10^3 (test code 1.19 10*3/uL 1.32-3.29 L = 731-0) MONO x10^3 (test code 0.94 10*3/uL 0.33-0.92 H = 742-7) EOS x10^3 (test code = 0.15 10*3/uL 0.03-0.39 711-2) BASO x10^3 (test code 0.09 10*3/uL 0.01-0.07 H = 704-7) Lab Interpretation Abnormal (test code = 38184-1) [facility] Metabolic Panel (NA, K, CL, CO2, GLUCOSE, BUN, CREATININE, CA)2019-07-18 07:34:00 Test Item Value Reference Range Interpretation Comments NA (test code = 137 mmol/L 135-145 6551212504) K (test code = 3.3 mmol/L 3.5-5 L 5392532937) CL (test code = 102 mmol/L 98-108 1272133372) CO2 TOTAL (test code = 28 mmol/L 23-31 5993312865) AGAP (test code = 2-16 7752139886) BUN (test code = 13 mg/dL 7-23 0662730549) GLUCOSE (test code = 105 mg/dL 70-110 3371686749) CREATININE (test code = 0.64 mg/dL 0.5-1.04 2101473404) CALCIUM (test code = 8.9 mg/dL 8.6-10.6 9259231285) eGFR Calculation mL/min/1.73m2 (Non-) (test code = 3289202115) eGFR Calculation mL/min/1.73m2 () (test code = 8166239959) JARET (test code = JARET) Association of [...] tests). Lab Interpretation Abnormal (test code = 56785-7) [facility] (ALB, T.PRO, BILI T, BU/BC, ALT, AST, ALK PHOS)2019-07-18 07:34:00 Test Item Value Reference Range Interpretation Comments TOTAL BILI (test code = 3773639131) 0.3 mg/dL 0.1-1.1 BILI UNCON (test code = 5161378529) 0.2 mg/dL 0.1-1.1 BILI CONJ (test code = 1195486267) 0.0 mg/dL 0-0.3 T PROTEIN (test code = 4445715812) 7.4 g/dL 6.3-8.2 ALBUMIN (test code = 7346139436) 4.3 g/dL 3.5-5 ALK PHOS (test code = 7593184967) 46 U/L 34-122 ALTv (test code = 1742-6) 17 U/L 5-35 AST(SGOT) (test code = 7736296519) 28 U/L 13-40 Lab Interpretation (test code = Normal 99951-5) [facility] CenterLipase [id number] 07:33:00 Test Item Value Reference Range Interpretation Comments LIPASE (test code = 1069526885) 47 U/L 0-220 Lab Interpretation (test code = Normal 04100-6) [facility] CenteraPTT2020-03-12 07:31:00 Test Item Value Reference Range Interpretation Comments APTT Patient (test See_Comment [Automat ed code = 3173-2) message] The system which generated this result transmitted reference range : 23 - 38 Seconds . The reference range was not used to interpr et this result as normal/abnormal . JARET (test code = JARET) The [facility] patient population mean normal value for aPTT is 30 seconds. Lab Interpretation Normal (test code = 70728-6) [facility] CenterProthrombin Time (PT) / [id number] 07:29:00 Test Item Value Reference Range Interpretation [...] tions. Lab Interpretation (test Normal code = 94292-0) [facility] CenterPO[facility] Test, [id number] 07:09:00 Test Item Value Reference Range Interpretation Comments POCT PREG (test code = 1605) Negative On board controls acceptable with Present C Line (test code = 3574) POCT PREG LOT # (test code = 3575) [id number] POCT PREG TEST DATE (test 12/05/2020 code = 3576) Lab Interpretation (test code = Normal 85937-2) [facility]"
[2023-02-24 19:44] LABS: Absolute Lymphocytes (CBC) 0.9 K/uL (0.7-4.9); Hematocrit 22.9 % (36.0-45.0); Lymphocytes % 14.3 % (15.3-44.8); MPV 8.3 fL (7.6-11.3); Platelets 282 thou/uL (152-406); RBC Red Blood Cell Count 4.02 M/uL (3.86-4.86)
[2023-02-24] MEDS ORDERED: NA CHLORIDE 0.9% 1,000 ML ONE ×2 (19:44→22:03)
[2023-02-24] MEDS ORDERED: PROMETHAZINE INJ 25 MG/ML AMP ONE ×2 (19:44→22:56)
[2023-02-24 19:51] LABS: Bilirubin Total 0.5 mg/dL (0.2-1.0); Potassium 2.8 mEq/L (3.5-5.1); Protein, Total 7.2 g/dL (6.4-8.2)
[2023-02-24 19:53] LABS: Specific Gravity 1.026 (1.005-1.030)
[2023-02-24 20:03] LABS: Specific Gravity 1.026 (1.005-1.030); Urine Bacteria <20 /HPF (<20); Urine Bilirubin NEGATIVE (Negative); Urine Blood Negative (Negative); Urine Clarity Turbid (Clear); Urine Color Yellow (Yellow); Urine Crystals Unidentified Few /HPF (None Seen); Urine Glucose NEGATIVE (Negative); Urine Mucus Slight /HPF (None Seen); Urine Protein 1+ (Negative); Urine RBC <5 /HPF (None Seen); Urine Urobilinogen 1+ (Normal)
[2023-02-24] MEDS ORDERED: KCL 20 MEQ/100 mL IVPB 100 ML IV ONE (20:40)
[2023-02-24] MEDS ORDERED: KETOROLAC 30 MG/ML INJ ONE (20:55)
[2023-02-24 21:02] LABS: Anisocytosis 2+; Blood Morphology Comment NOTED (NOT SEEN); Hypochromasia 2+; Ovalocytes 1+; Platelet Estimate ADEQ; Poikilocytosis 1+; Polychromasia 1+; White Blood Cell Scan OK (OK)
[2023-02-24 21:12] LABS: Ferritin 14.6 ng/mL (8-388); Thyroid Stimulating Hormone 0.903 uIU/mL (0.358-3.740)
[2023-02-24] MEDS ORDERED: ONDANSETRON 4 MG/2 ML VIAL ONE (22:09)
[2023-02-24] MEDS ORDERED: NA CHLORIDE 0.9% 250 ML ONE (22:19)
[2023-02-25] MEDS ORDERED: ACETAMINOPHEN 500 MG TAB ONE (00:16)
--- NOTE | 2023-02-25 03:07 | ER ---
Nurse's Notes [facility] – [place], [place] Name: Ruby Tapia Age: 42 yrs Sex: Female : 1980 Arrival Date: 02/24/2023 Time: 18:59 Bed 10 Private MD: Diagnosis: Iron deficiency anemia, unspecified;Volume depletion, unspecified;Acute upper respiratory infection, unspecified Presentation: 02/24 19:04 Chief complaint: Patient states: "Yesterday, I started having body aches. my lips mb9 swollen, facial pain, headaches, and N/V.". Coronavirus screen: Vaccine status: Patient reports being unvaccinated. Ebola Screen: No symptoms or risks identified at this time. Initial Sepsis Screen: Does the patient meet any 2 criteria? No. Patient's initial sepsis screen is negative. Does the patient have a suspected source of infection? No. Patient's initial sepsis screen is negative. Risk Assessment: Do you want to hurt yourself or someone else? Patient reports no desire to harm self or others. Onset of symptoms was February 24, 2023. 19:04 Method Of Arrival: Wheelchair mb9 19:04 Acuity: DONTE 3 mb9 Triage Assessment: 19:06 General: Appears in no apparent distress. Behavior is calm, cooperative. Pain: mb9 Complains of pain in entire body Quality of pain is described as aching. EENT: No signs and/or symptoms were reported regarding the EENT system. Neuro: Nye Agitation-Sedation Scale (RASS): 0 - Alert and Calm Level of Consciousness is awake, alert, obeys commands, Oriented to person, place, time, situation, Appropriate for age. Neuro: Reports headache. Cardiovascular: Patient's skin is warm and dry. Respiratory: Reports cough that is Airway is patent Respiratory effort is even, unlabored, Respiratory pattern is regular, symmetrical. GI: Reports nausea, vomiting. : No signs and/or symptoms were reported regarding the genitourinary system. Derm: Skin is pink, warm \\T\\ dry. Musculoskeletal: Range of motion: intact in all extremities. Historical: - Allergies: 19:05 No Known Allergies; mb9 - Home Meds: 19:05 None [Active]; mb9 - PMHx: 19:05 ADD/ADHD; Anemia; Anxiety; chiari malformation; GERD; Hernia; pseudotumor cerebri; mb9 - PSHx: 19:05 breast augmentation; section; gastric sleeve; right ovary removal; tubal mb9 ligation; Tummy tuck; - Immunization history:: Adult Immunizations up to date. - Social history:: Smoking status: Patient reports the use of cigarette tobacco products, denies chronic smoking, but will smoke occasionally, Reported history of juuling and/or vaping. Screenin:25 [facility] ED Fall Risk Assessment (Adult) History of falling in the last 3 months, km8 including since admission No falls in past 3 months (0 pts) Confusion or Disorientation No (0 pts) Intoxicated or Sedated No (0 pts) Impaired Gait No (0 pts) Mobility Assist Device Used No (0 pt) Altered Elimination No (0 pt) Score/Fall Risk Level 0 - 2 = Low Risk Oriented to surroundings, Maintained a safe environment, Educated pt \\T\\ family on fall prevention, incl call for assistance when getting out of bed, Assessed \\T\\ reinforced patient's understanding of fall precautions. Abuse screen: Denies threats or abuse. Denies injuries from another. Nutritional screening: No deficits noted. Tuberculosis screening: No symptoms or risk factors identified. Assessment: 19:25 General: Appears in no apparent distress. comfortable, Behavior is calm, cooperative, km8 appropriate for age. 19:25 Neuro: No deficits noted. Nye Agitation-Sedation Scale (RASS): 0 - Alert and Calm km8 Level of Consciousness is awake, alert, obeys commands, Oriented to person, place, time, situation. Cardiovascular: No deficits noted. Denies chest pain, shortness of breath, Capillary refill < 3 seconds Patient's skin is warm and dry. Respiratory: No deficits noted. Airway is patent Respiratory effort is even, unlabored, Respiratory pattern is regular, symmetrical. GI:. : Reports burning with urination. EENT: No deficits noted. No signs and/or symptoms were reported regarding the EENT system. Derm: No deficits noted. No signs and/or symptoms reported regarding the dermatologic system. Skin is intact, is healthy with good turgor, Skin is dry, Skin is normal, Skin temperature is warm. Musculoskeletal: No deficits noted. No signs and/or symptoms reported regarding the musculoskeletal system. Range of motion: intact in all extremities. 19:25 Pain: Complains of pain in generalized body aches. GI: Reports nausea, vomiting. km8 22:14 Reassessment: Patient appears in no apparent distress at this time. No changes from km8 previously documented assessment. Patient and/or family updated on plan of care and expected duration. Pain level reassessed. Patient is alert, oriented x 3, equal unlabored respirations, skin warm/dry/pink. pt signed consent for blood; educated on possible risk for reaction and what to report to nurse. 23:10 General: blood transfusion started; see transfusion paperwork for vitals and other info.km8 23:43 Reassessment: Patient appears in no apparent distress at this time. No changes from km8 previously documented assessment. Patient and/or family updated on plan of care and expected duration. Pain level reassessed. Patient is alert, oriented x 3, equal unlabored respirations, skin warm/dry/pink. 02/25 01:38 General: first unit of blood transfusion complete with no complications; waiting for km8 2nd unit from blood bank. 02:23 General: 2nd uint of blood started at 0205; see transfusion paperwork for vitals and [facility] other info. 03:07 General: d/c after 2nd unit of blood has finished transfusing. km8 04:00 Reassessment: Patient appears in no apparent distress at this time. Patient is alert, kl oriented x 3, equal unlabored respirations, skin warm/dry/pink. Vital Signs: 02/24 19:04 BP 127 / 84; Pulse 98; Resp 18; Temp 97.5; Pulse Ox 100% on R/A; Weight 97.98 kg; mb9 Height 5 ft. 8 in. ; 19:49 BP 102 / 80; Pulse 96; Resp 16; Pulse Ox 100% on R/A; km8 20:30 BP 112 / 88; Pulse 95; Resp 16 S; Pulse Ox 100% on R/A; km8 02/25 04:01 BP 120 / 70; Pulse 81; Resp 18; Temp 98.6(TE); kl 02/24 19:04 Body Mass Index 32.84 (97.98 kg, 172.72 cm) mb9 ED Course: 02/24 19:01 Patient arrived in ED. jj6 19:05 Triage completed. mb9 19:05 Arm band placed on. mb9 19:07 China Rivera FNP-C is [facility]. snw 19:07 Iggy Suh MD is Attending Physician. snw 19:13 Montserrat Cabrera, WINSTON is Primary Nurse. km8 19:25 Patient has correct armband on for positive identification. Bed in low position. Call km8 light in reach. Side rails up X 1. Client placed on continuous cardiac and pulse oximetry monitoring. NIBP monitoring applied. Door closed. Noise minimized. Warm blanket given. 19:28 CMP Sent. 8 19:28 CBC with Diff Sent. km8 19:28 Inserted saline lock: 20 gauge in right antecubital area, using aseptic technique. km8 Blood collected. 19:45 Strep Sent. km8 19:46 COVID-19 SARS RT PCR Sent. km8 19:46 Flu Sent. km8 19:46 Test, Urine Sent. km8 19:46 Urinalysis w/ reflexes Sent. km8 19:46 Urine Culture Sent. km8 20:07 Warm blanket given. km8 20:39 TSH Sent. km8 20:39 TS Sent. km8 20:39 Iron Level Sent. km8 20:39 Bb Add On Sent. km8 20:54 Inserted saline lock: 20 gauge in left wrist, using aseptic technique. km8 22:15 Provided Education on: Blood Transfusion. Consent for blood and/or blood product km8 transfusion explained by staff, signed by patient. 02/25 04:00 No provider procedures requiring assistance completed. IV discontinued, intact, kl bleeding controlled, No redness/swelling at site. Pressure dressing applied. Administered Medications: 02/24 19:45 Drug: NS 0.9% IV 1000 ml IV at 1000 ml once Route: IV; Rate: 1000 ml; Site: right 8 antecubital; 21:53 Follow up: Response: No adverse reaction; IV Status: Completed infusion; IV Intake: km8 1000ml 19:45 Drug: Promethazine IVP 12.5 mg IVP once; in NS bolus Route: IVP; Site: right [facility] antecubital; 21:53 Follow up: Response: No adverse reaction; Nausea unchanged km8 20:38 Drug: Potassium Chloride IV 20 mEq IV at calculated rate once; administer over 1-2 km8 hours Route: IV; Rate: calculated rate; Site: right antecubital; 22:35 Follow up: Response: No adverse reaction; IV Status: Completed infusion; IV Intake: km8 100ml 20:54 Drug: Ketorolac IVP 15 mg IVP once Route: IVP; Site: left wrist; km8 21:53 Follow up: Response: No adverse reaction; Pain is decreased km8 22:00 Drug: Ondansetron IVP 4 mg IVP once; over 2 minutes Route: IVP; Site: right antecubital;km8 22:30 Follow up: Response: No adverse reaction; Nausea unchanged km8 22:49 Drug: Promethazine IVP 12.5 mg IVP once Route: IVP; Site: right antecubital; km8 23:45 Follow up: Response: No adverse reaction; Marked relief of symptoms; Nausea is decreasedkm8 Intake: 21:53 IV: 1000ml; Total: 1000ml. 8 22:35 IV: 100ml; Total: 1100ml. km8 Outcome: 02/25 03:06 Discharge ordered by MD. macias 04:02 Patient left the ED. kl Signatures: Bibi Jaime RN RN China Eubanks, SLIP TENDER-C SLIP TENDER-Csnw Karen Montoya Mary Beth RN RN mb9 Montserrat Cabrera RN RN km8 Corrections: (The following items were deleted from the chart) 02/24 20:30 19:04 Acuity: DONTE 4 mb9 mb9 02/25 02:25 02/24 23:10 General: blood transfusion started; see separate paperwork. km8 km8
--- NOTE | 2023-02-25 03:07 | EDPHYS ---
Physician Documentation [facility] [place] Name: Ruby Tapia Age: 42 yrs Sex: Female : 1980 Arrival Date: 02/24/2023 Time: 18:59 Bed 10 Private MD: ED Physician Iggy Suh HPI: 02/24 19:45 This 42 yrs old Female presents to ER via Wheelchair with complaints of snw Nausea/Vomiting, Fever, Facial Swelling, Mouth Swelling. 19:45 The patient presents to the emergency department with nausea, vomiting. Onset: The snw symptoms/episode began/occurred suddenly, 2 day(s) ago, and became worse today, and became persistent. Possible causes: unknown. The symptoms are aggravated by nothing. The symptoms are alleviated by nothing. Associated signs and symptoms: Pertinent positives: abdominal pain, anorexia, fever, nausea, vomiting, bodyaches, chills. Severity of symptoms: At their worst the symptoms were moderate severe. The patient has not experienced similar symptoms in the past. The patient has not recently seen a physician. Historical: - Allergies: 19:05 No Known Allergies; mb9 - Home Meds: 19:05 None [Active]; mb9 - PMHx: 19:05 ADD/ADHD; Anemia; Anxiety; chiari malformation; GERD; Hernia; pseudotumor cerebri; mb9 - PSHx: 19:05 breast augmentation; section; gastric sleeve; right ovary removal; tubal mb9 ligation; Tummy tuck; - Immunization history:: Adult Immunizations up to date. - Social history:: Smoking status: Patient reports the use of cigarette tobacco products, denies chronic smoking, but will smoke occasionally, Reported history of juuling and/or vaping. ROS: 19:42 Eyes: Negative for injury, pain, redness, and discharge, ENT: Negative for injury, snw pain, and discharge, Neck: Negative for injury, pain, and swelling, Cardiovascular: Negative for chest pain, palpitations, and edema, Respiratory: Negative for shortness of breath, cough, wheezing, and pleuritic chest pain, 19:42 MS/Extremity: Negative for injury and deformity, Skin: Negative for injury, rash, and discoloration, Neuro: Negative for headache, weakness, numbness, tingling, and seizure, Psych: Negative for depression, anxiety, suicide ideation, homicidal ideation, and hallucinations, 19:42 Constitutional: Positive for body aches, malaise, poor PO intake, 19:42 Constitutional: Positive for chills, fever, 19:42 Abdomen/GI: Positive for abdominal pain, nausea and vomiting, 19:42 Back: Positive for radiated pain, 19:42 : Positive for urinary symptoms, burning with urination, Exam: 19:42 Head/Face: Normocephalic, atraumatic. Eyes: Pupils equal round and reactive to light, snw extra-ocular motions intact. Lids and lashes normal. Conjunctiva and sclera are non-icteric and not injected. Cornea within normal limits. Periorbital areas with no swelling, redness, or edema. ENT: Nares patent. No nasal discharge, no septal abnormalities noted. Tympanic membranes are normal and external auditory canals are clear. Oropharynx with no redness, swelling, or masses, exudates, or evidence of obstruction, uvula midline. Mucous membranes moist. Neck: Trachea midline, no thyromegaly or masses palpated, and no cervical lymphadenopathy. Supple, full range of motion without nuchal rigidity, or vertebral point tenderness. No Meningismus. Chest/axilla: Normal chest wall appearance and motion. Nontender with no deformity. No lesions are appreciated. Cardiovascular: Regular rate and rhythm with a normal S1 and S2. No gallops, murmurs, or rubs. Normal PMI, no JVD. No pulse deficits. Respiratory: Lungs have equal breath sounds bilaterally, clear to auscultation and percussion. No rales, rhonchi or wheezes noted. No increased work of breathing, no retractions or nasal flaring. 19:42 Skin: Warm, dry with normal turgor. Normal color with no rashes, no lesions, and no evidence of cellulitis. MS/ Extremity: Pulses equal, no cyanosis. Neurovascular intact. Full, normal range of motion. Neuro: Awake and alert, GCS 15, oriented to person, place, time, and situation. Cranial nerves II-XII grossly intact. Motor strength 5/5 in all extremities. Sensory grossly intact. Cerebellar exam normal. Normal gait. Psych: Awake, alert, with orientation to person, place and time. Behavior, mood, and affect are within normal limits. 19:42 Constitutional: The patient appears alert, awake, oral area with edema, mild ulceration at gingival/lip junction greater at upper lip but present at lower lip 19:42 Abdomen/GI: Inspection: abdomen appears normal, Bowel sounds: normal, Palpation: mild abdominal tenderness, in the left lower quadrant, 19:42 Back: pain, all over, Vital Signs: 19:04 BP 127 / 84; Pulse 98; Resp 18; Temp 97.5; Pulse Ox 100% on R/A; Weight 97.98 kg; mb9 Height 5 ft. 8 in. ; 19:49 BP 102 / 80; Pulse 96; Resp 16; Pulse Ox 100% on R/A; km8 20:30 BP 112 / 88; Pulse 95; Resp 16 S; Pulse Ox 100% on R/A; km8 02/25 04:01 BP 120 / 70; Pulse 81; Resp 18; Temp 98.6(TE); kl 02/24 19:04 Body Mass Index 32.84 (97.98 kg, 172.72 cm) mb9 MDM: 02/24 19:08 Patient medically screened. snw 19:44 Differential diagnosis: Nonspecific abd pain, gastritis, UTI, pyelo, viral illness. snw Data reviewed: vital signs, nurses notes, lab test result(s). I considered the following discharge prescriptions or medication management in the emergency department Medications were administered in the Emergency Department. See JUL. 23:22 Counseling: I had a detailed discussion with the patient and/or guardian regarding the snw historical points, exam findings, and any diagnostic results supporting the discharge/admit diagnosis, lab results. Response to treatment: the patient's symptoms have mildly improved after treatment. Special discussion: Based on the history and exam findings, there is no indication for further emergent testing or inpatient evaluation. I discussed with the patient/guardian the need to see the primary care provider for further evaluation of the symptoms. 02/24 20:12 Order name: TS snw 02/24 19:08 Order name: CBC with Diff; Complete Time: 21:04 snw 02/24 19:08 Order name: CMP; Complete Time: 19:52 snw 02/24 19:24 Order name: Test, Urine; Complete Time: 20:05 snw 02/24 19:24 Order name: Urinalysis w/ reflexes; Complete Time: 20:05 snw 02/24 19:24 Order name: Urine Culture snw 02/24 19:24 Order name: Flu; Complete Time: 20:15 snw 02/24 19:24 Order name: COVID-19 SARS RT PCR; Complete Time: 20:37 snw 02/24 19:24 Order name: Strep; Complete Time: 20:08 snw 02/24 20:07 Order name: Throat Culture EDMS 02/24 20:12 Order name: TSH; Complete Time: 21:13 snw 02/24 20:12 Order name: Bb Add On snw 02/24 20:12 Order name: Iron Level; Complete Time: 21:13 snw 02/24 20:33 Order name: Packed RBC Leukored EDMS 02/24 21:03 Order name: CBC Smear Scan; Complete Time: 21:04 EDMS 02/24 19:24 Order name: Ice pack; Complete Time: 19:45 snw Administered Medications: 19:45 Drug: NS 0.9% IV 1000 ml IV at 1000 ml once Route: IV; Rate: 1000 ml; Site: right [facility] antecubital; 21:53 Follow up: Response: No adverse reaction; IV Status: Completed infusion; IV Intake: km8 1000ml 19:45 Drug: Promethazine IVP 12.5 mg IVP once; in NS bolus Route: IVP; Site: right [facility] antecubital; 21:53 Follow up: Response: No adverse reaction; Nausea unchanged [facility] 20:38 Drug: Potassium Chloride IV 20 mEq IV at calculated rate once; administer over 1-2 km8 hours Route: IV; Rate: calculated rate; Site: right antecubital; 22:35 Follow up: Response: No adverse reaction; IV Status: Completed infusion; IV Intake: km8 100ml 20:54 Drug: Ketorolac IVP 15 mg IVP once Route: IVP; Site: left wrist; [facility] 21:53 Follow up: Response: No adverse reaction; Pain is decreased km8 22:00 Drug: Ondansetron IVP 4 mg IVP once; over 2 minutes Route: IVP; Site: right antecubital;[facility] 22:30 Follow up: Response: No adverse reaction; Nausea unchanged [facility] 22:49 Drug: Promethazine IVP 12.5 mg IVP once Route: IVP; Site: right antecubital; km8 23:45 Follow up: Response: No adverse reaction; Marked relief of symptoms; Nausea is decreasedkm8 Disposition: 21:53 Co-signature as Attending Physician, Iggy Suh MD I reviewed the patient's care rt provided by the Advanced Practice Provider and agree with the diagnosis and treatment plan. Disposition Summary: 02/25/23 03:06 Discharge Ordered Notes: Location: Home snw Condition: Stable snw Diagnosis - Iron deficiency anemia, unspecified snw - Volume depletion, unspecified snw - Acute upper respiratory infection, unspecified snw Followup: snw - With: Emergency Department - When: As needed - Reason: Worsening of condition Followup: snw - With: Private Physician - When: 2 - 3 days - Reason: Recheck today's complaints, Continuance of care, Re-evaluation by your physician Discharge Instructions: - Discharge Summary Sheet snw - Iron Deficiency Anemia, Adult snw - Dehydration, Adult snw - Upper Respiratory Infection, Adult snw - Rehydration, Adult snw Forms: - Work release form snw - Medication Reconciliation Form snw - Thank You Letter snw - Antibiotic Education snw - Prescription Opioid Use snw - Patient Portal Instructions snw - Leadership Thank You Letter snw Prescriptions: - Zyrtec 10 mg Oral Tablet - take 1 tablet ORAL route once daily As needed; 20 tablet; Refills: 0, Product snw Selection Permitted - Pepcid 20 mg Oral Tablet - take 1 tablet ORAL route once daily; 20 tablet; Refills: 0, Product Selection snw Permitted - promethazine 25 mg Oral Tablet - take 1 tablet ORAL route every 6 hours As needed; 20 tablet; Refills: 0, snw Product Selection Permitted Critical care time excluding procedures: 22:05 Critical care time: Bedside Care: 10 minutes, Consultation: 10 minutes, Family snw Intervention: 10 minutes. Total time: 30 minutes Signatures: Dispatcher [employer] China Lucero FNP-C BOREMATIC OPERATOR-Csnw Megha Monroe, RN RN mb9 Iggy Suh MD MD rt Montserrat Cabrera RN RN km8
[2023-02-25 04:11] VITALS: O2SAT 100
[2023-02-25 04:14] VITALS: BP 120/70; TEMP 98.6
== END 2023-02-25 04:02 | disposition home or self-care (01) ==
LOC: ER 18:59
DX: E86.9 Volume depletion, unspecified (principal); D50.9 Iron deficiency anemia, unspecified; J06.9 Acute upper respiratory infection, unspecified; Z20.822 Contact with and (suspected) exposure to COVID-19
CPT/HCPCS: 36415; 80053; 81001; 81025; 82728; 84443; 85025; 86850; 86900; 86901; 86920; 87070; 87077; 87081; 87086; 87088; 87186; 87635; 87804; 99284; J2405; J2550; J3480; J7030; J7050; P9016

== ENCOUNTER 2024-12-23 23:06 | Emergency (ER) | payer OTHER, SELFPAY ==
[2024-12-23] MEDS ORDERED: ONDANSETRON 4 MG/2 ML VIAL ONE (23:39)
[2024-12-23] MEDS ORDERED: KETOROLAC 30 MG/ML INJ ONE (23:39)
[2024-12-23] MEDS ORDERED: NA CHLORIDE 0.9% 2,000 ML ONE (23:39)
[2024-12-23] MEDS ORDERED: MORPHINE 4 MG/ML SYR ONE (23:39)
[2024-12-23] MEDS ORDERED: METOCLOPRAMIDE 10 MG/2mL INJ ONE (23:39)
[2024-12-23 23:42] LABS: Absolute Lymphocytes (CBC) 2.1 K/uL (0.7-4.9); Hematocrit 26.2 % (36.0-45.0); Hemoglobin 7.9 g/dL (12.0-15.0); MCH 18.4 pg (27.0-35.0); MCHC 30.0 g/dL (32.0-36.0); MCV 61.3 fL (80-100); MPV 8.6 fL (7.6-11.3); Nucleated RBC Absolute Count 0.0 (0-0); Nucleated Red Blood Cells % 0.1 % (0-0); RBC Red Blood Cell Count 4.28 M/uL (3.86-4.86); White Blood Count 7.20 thou/uL (4.3-10.9)
[2024-12-23 23:50] LABS: Sqamous Epithelial <5 /HPF (None Seen); Urine Micro Reflex YN NO BILL MICROSCOPIC
[2024-12-24 00:05] LABS: ALT/SGPT 16.0 U/L (13-56); AST/SGOT 13.0 U/L (15-37); Albumin 3.5 g/dL (3.4-5.0); Albumin/Globulin Ratio 1.0 (1.1-1.8); Alkaline Phosphatase 56.0 U/L (45-117); Anion Gap 5.6 mEq/L (5.0-15.0); BUN Blood Urea Nitrogen 17.0 mg/dL (7-18); Globulin 3.6 g/dL (2.3-3.5); Glucose Level 93.0 mg/dL (74-106); Lipase 53.0 U/L (13-75); Potassium 3.6 mEq/L (3.5-5.1)
[2024-12-24 00:10] LABS: Anisocytosis 2+; Blood Morphology Comment NOTED (NOT SEEN); Hypochromasia 1+; Microcytosis 2+; Ovalocytes 1+; White Blood Cell Scan OK (OK)
[2024-12-24] MEDS ORDERED: CEFTRIAXONE 1000 MG/VIAL ONE (00:52)
--- NOTE | 2024-12-24 03:15 | RAD REPORT ---
EXAM: CT Abdomen and Pelvis With Intravenous Contrast CLINICAL HISTORY: The patient is 44 years old and is Female; ABD PAIN TECHNIQUE: Axial computed tomography images of the abdomen and pelvis with intravenous contrast. Sagittal and coronal reformatted images were created and reviewed. This CT exam was performed using one or more of the following dose reduction techniques: automated exposure control, adjustmen t of the mA and/or kV according to patient size, and/or use of iterative reconstruction technique. COMPARISON: CT abdomen and pelvis with contrast December 06, 2021. FINDINGS: Lung bases: Unremarkable. No mass. No consolidation. ABDOMEN: Liver: Hepatomegaly. Gallbladder and bile ducts: Unremarkable. No calcified stones. No ductal dilation. Pancreas: Unremarkable. No mass. No ductal dilation. Spleen: Unremarkable. No splenomegaly. Adrenals: Unremarkable. No mass. Kidneys and ureters: Unremarkable. No solid mass. No hydronephrosis. Stomach and bowel: Postsurgical changes in the stomach. No obstruction. No mucosal thickening. PELVIS: Appendix: The appendix is normal. Bladder: Unremarkable. Reproductive: Unremarkable as visualized. ABDOMEN and PELVIS: Intraperitoneal space: Unremarkable. No free air. No significant fluid collection. Bones/joints: No acute fracture. No dislocation. Soft tissues: Bilateral breast implants. Redemonstration of a small 3.5 cm subcutaneous fluid collection in the periumbilical region, similar to prior. Vasculature: Unremarkable. No abdominal aortic aneurysm. Lymph nodes: Unremarkable. No enlarged lymph nodes. IMPRESSION: No acute finding in the abdomen/pelvis. Electronically signed by: Rodriguez Smith MD 12/24/2024 03:11 AM Fix8T 8 Due to temporary technical issues with the PACS/opendorse reporting system, reports are being rosaline d by the in-house radiologist without review as a courtesy to ensure prompt reporting the interpreting radiologist is fully responsible for the content of the report. Transcribed Date/Time: 12/24/2024 3:15 AM
--- NOTE | 2024-12-24 03:36 | EDPHYS ---
Physician Documentation [facility] Name: Ruby Tapia Age: 44 yrs Sex: Female : 1980 Arrival Date: 12/23/2024 Time: 23:06 Bed 18 Private MD: ED Physician Himanshu Huynh HPI: 12/23 23:11 This 44 yrs old Female presents to ER via Unassigned with complaints of sp4 Abdominal Pain, Nausea/Vomiting. 12/24 06:52 44-year-old female presents with acute onset of abdominal pain nausea vomiting. sp4 Historical: - Allergies: 12/23 23:34 No Known Allergies; kd3 - PMHx: 23:34 ADD/ADHD; Anemia; Anxiety; chiari malformation; GERD; Hernia; pseudotumor cerebri; kd3 - PSHx: 23:34 breast augmentation; section; right ovary removal; gastric sleeve; Tummy tuck; kd3 tubal ligation; - Immunization history:: Adult Immunizations up to date. - Infectious Disease History:: Denies. - Social history:: Smoking status: Patient reports the use of cigarette tobacco products, denies chronic smoking, but will smoke occasionally. - Family history:: not pertinent. ROS: 12/24 06:52 Constitutional: Negative for fever, chills, and weight loss, positive for abdominal sp4 pain nausea vomiting. All other systems are negative, Exam: 06:52 Constitutional: This is a well developed, well nourished patient who is awake, alert, sp4 and in no acute distress. Head/Face: Normocephalic, atraumatic. Eyes: Pupils equal round and reactive to light, extra-ocular motions intact. Lids and lashes normal. Conjunctiva and sclera are not injected. Cornea within normal limits. Periorbital areas with no swelling, redness, or edema. ENT: Nares patent. No nasal discharge, no septal abnormalities noted. Tympanic membranes are normal and external auditory canals are clear. Oropharynx with no redness, swelling, or masses, exudates, or evidence of obstruction, uvula midline. Mucous membranes moist. Neck: Trachea midline, no thyromegaly or masses palpated, and no cervical lymphadenopathy. Supple, full range of motion without nuchal rigidity, or vertebral point tenderness. Chest/axilla: Normal chest wall appearance and motion. Nontender with no deformity. No lesions are appreciated. Cardiovascular: Regular rate and rhythm with a normal S1 and S2. No gallops, murmurs, or rubs. No pulse deficits. Respiratory: Lungs have equal breath sounds bilaterally, clear to auscultation and percussion. No rales, rhonchi or wheezes noted. No increased work of breathing, no retractions or nasal flaring. Abdomen/GI: Soft, with normal bowel sounds. No distension or tympany. No guarding or rebound. No evidence of tenderness throughout. Back: No spinal tenderness. No costovertebral tenderness. Skin: Warm, dry with normal turgor. Normal color with no rashes, no lesions, and no evidence of cellulitis. MS/ Extremity: Pulses equal, no cyanosis. Neurovascular intact. Full, normal range of motion. Neuro: Awake and alert, GCS 15, oriented to person, place, time, and situation. Cranial nerves II-XII grossly intact. Motor strength 5/5 in all extremities. Sensory grossly intact. Psych: Awake, alert, with orientation to person, place and time. Behavior, mood, and affect are within normal limits Vital Signs: 12/23 23:31 BP 118 / 79; Pulse 77; Resp 18; Temp 98.1(O); Pulse Ox 100% on R/A; Weight 91.17 kg; kd3 Height 5 ft. 8 in. ; 12/24 00:59 BP 106 / 58; Pulse 63; Resp 16; Pulse Ox 99% on R/A; kd3 02:30 BP 112 / 81; Pulse 68; Resp 18; Pulse Ox 97% on R/A; kd3 03:43 BP 116 / 77; Pulse 84; Resp 18; Pulse Ox 99% on R/A; kd3 12/23 23:31 Body Mass Index 30.56 (91.17 kg, 172.72 cm) kd3 Peter Coma Score: 06:52 Eye Response: spontaneous(4). Motor Response: obeys commands(6). Verbal Response: sp4 oriented(5). Total: 15. MDM: 12/23 23:13 Medical Screening Exam initiated sp4 12/24 03:27 ED course: CLINICAL HISTORY: The patient is 44 years old and is Female; ABD PAIN sp4 TECHNIQUE: Axial computed tomography images of the abdomen and pelvis with intravenous contrast. Sagittal and coronal reformatted images were created and reviewed. This CT exam was performed using one or more of the following dose reduction techniques: automated exposure control, adjustment of the mA and/or kV according to patient size, and/or use of iterative reconstruction technique. COMPARISON: CT abdomen and pelvis with contrast December 06, 2021. FINDINGS: Lung bases: Unremarkable. No mass. No consolidation. ABDOMEN: Liver: Hepatomegaly. Gallbladder and bile ducts: Unremarkable. No calcified stones. No ductal dilation. Pancreas: Unremarkable. No mass. No ductal dilation. Spleen: Unremarkable. No splenomegaly. Adrenals: Unremarkable. No mass. Kidneys and ureters: Unremarkable. No solid mass. No hydronephrosis. Stomach and bowel: Postsurgical changes in the stomach. No obstruction. No mucosal thickening. PELVIS: Appendix: The appendix is normal. Bladder: Unremarkable. Reproductive: Unremarkable as visualized. RADIOLOGY SERVICES REPORT ABDOMEN and PELVIS: Intraperitoneal space: Unremarkable. No free air. No significant fluid collection. Bones/joints: No acute fracture. No dislocation. Soft tissues: Bilateral breast implants. Redemonstration of a small 3.5 cm subcutaneous fluid collection in the periumbilical region, similar to prior. Vasculature: Unremarkable. No abdominal aortic aneurysm. Lymph nodes: Unremarkable. No enlarged lymph nodes. IMPRESSION: No acute finding in the abdomen/pelvis. Electronically signed by: Rodriguez Smith MD 12/24/2024 03:11 AM. 06:53 Differential diagnosis: Nonspecific abd pain, gastritis, pancreatitis, diverticulitis, sp4 viral gastroenteritis, gastroenteritis. Data reviewed: vital signs, nurses notes, lab test result(s), radiologic studies, CT scan. Consideration of Admission/Observation Escalation of care including admission/observation considered. ED course: Stable for discharge home with follow-up with Dr. Crespo.. 12/23 23:13 Order name: CBC with Diff; Complete Time: 00:51 sp4 12/23 23:13 Order name: CMP; Complete Time: 00:51 sp4 12/23 23:13 Order name: Lipase; Complete Time: 00:51 sp4 12/23 23:13 Order name: UA W/ Microscopic; Complete Time: 00:51 sp4 12/23 23:13 Order name: Test, Urine; Complete Time: 00:51 sp4 12/23 23:46 Order name: CBC Smear Scan; Complete Time: 00:51 EDMS 12/23 23:13 Order name: CT Abd/Pelvis - IV Contrast Only sp4 12/23 23:13 Order name: IV Saline Lock; Complete Time: 23:31 sp4 12/23 23:13 Order name: Labs collected and sent; Complete Time: 23:31 sp4 Administered Medications: 12/23 23:56 Drug: morphine IVP or IV 4 mg IVP once over 4 mins Route: IVP; Infused Over: 4 mins; kd3 Site: right antecubital; 23:56 Drug: Ketorolac IVP 30 mg IVP once Route: IVP; Site: right antecubital; kd3 23:56 Drug: Droperidol IVP 2.5 mg IVP once Route: IVP; Site: right antecubital; kd3 23:56 Drug: metoCLOPramide IVP 10 mg IVP once; over 1 to 2 minutes Route: IVP; Site: right kd3 antecubital; 23:56 Drug: NS 0.9% IV 1000 ml IV at 1000 ml once; to be given as a bolus over 60 minutes kd3 Route: IV; Rate: 1000 ml; Site: right antecubital; 23:57 Drug: Ondansetron IVP 4 mg IVP once; over 2 minutes Route: IVP; Site: right antecubital;kd3 23:57 Drug: NS 0.9% IV 1000 ml IV at 1 bolus Per protocol; to be given as a bolus over 60 kd3 minutes Route: IV; Rate: 1 bolus; Site: right antecubital; 12/24 01:02 Drug: Rocephin - Rocephin (cefTRIAXone) IVPB 1 grams IVPB once over 30 mins; (mix in 50 kd3 mL NS) Route: IVPB; Infused Over: 30 mins; Site: right antecubital; 03:42 Drug: HYDROcodone-acetaminophen PO 5 mg-325 mg 2 tabs PO once Route: PO; kd3 03:42 Drug: Dicyclomine PO 20 mg PO once Route: PO; kd3 03:42 Drug: Promethazine PO 25 mg PO once Route: PO; kd3 03:42 Drug: Pantoprazole PO 40 mg PO once Route: PO; kd3 03:42 Drug: Famotidine PO 20 mg PO once Route: PO; kd3 Disposition: 06:54 Chart complete. sp4 Disposition Summary: 12/24/24 03:36 Discharge Ordered Notes: Clear liquid diet advised for 24 hours Location: Home sp4 Problem: new sp4 Symptoms: have improved sp4 Condition: Stable sp4 Diagnosis - Abdominal pain, Generalized sp4 - Acute gastritis with nausea and vomiting sp4 Followup: sp4 - With: Ward Crespo MD - When: 7 - 10 days - Reason: Recheck today's complaints Discharge Instructions: - Discharge Summary Sheet sp4 - Clear Liquid Diet, Adult, [id number] sp4 Forms: - Patient Portal Instructions sp4 Prescriptions: - dicyclomine 20 mg Oral tablet - take 1 tablet ORAL route 3 times per day PRN cramps; 30 tablet; Refills: 0, sp4 Product Selection Permitted - Cephalexin 250 mg Oral Capsule - take 1 capsule ORAL route every 12 hours for 10 days; 20 capsule; Refills: 0, sp4 Product Selection Permitted - Protonix 40 mg Oral Tablet - take 1 tablet ORAL route once daily; 30 tablet; Refills: 0, Product Selection sp4 Permitted - Tramadol 50 mg Oral tablet - take 1 tablet ORAL route every 8 hours as needed; 30 tablet; Refills: 0, sp4 Product Selection Permitted - promethazine 25 mg Oral tablet - take 1 tablet ORAL route every 6 hours As needed PRN nausea; 30 tablet; sp4 Refills: 0, Product Selection Permitted Signatures: Dispatcher [employer] Tamela Machado RN RN kd3 Himanshu Huynh MD MD sp4
--- NOTE | 2024-12-24 03:36 | ER ---
Nurse's Notes [facility] Name: Ruby Tapia Age: 44 yrs Sex: Female : 1980 Arrival Date: 12/23/2024 Time: 23:06 Bed 18 Private MD: Diagnosis: Abdominal pain, Generalized;Acute gastritis with nausea and vomiting Presentation: 12/23 23:31 Chief complaint: Patient states: I have a hernia and gall bladder issues. Dr. Crespo kd3 wanted to do surgery on my hernia but he said that because of some trapped fluid, he would have to leave it open and so i declined the surgery, The past couple of weeks, the pain has been worse. today it has caused some vomiting. Coronavirus screen: Vaccine status: Patient reports being unvaccinated. Ebola Screen: No symptoms or risks identified at this time. Initial Sepsis Screen: Does the patient meet any 2 criteria? No. Patient's initial sepsis screen is negative. Does the patient have a suspected source of infection? No. Patient's initial sepsis screen is negative. Risk Assessment: Do you want to hurt yourself or someone else? Patient reports no desire to harm self or others. Onset of symptoms was December 23, 2024. 23:31 Method Of Arrival: Ambulatory kd3 23:31 Acuity: DONTE 3 kd3 Triage Assessment: 23:34 General: Appears in no apparent distress. Behavior is calm, cooperative. Pain: kd3 Complains of pain in epigastric area and umbilical area. GI: Abdomen is non-distended. Historical: - Allergies: 23:34 No Known Allergies; kd3 - PMHx: 23:34 ADD/ADHD; Anemia; Anxiety; chiari malformation; GERD; Hernia; pseudotumor cerebri; kd3 - PSHx: 23:34 breast augmentation; section; right ovary removal; gastric sleeve; Tummy tuck; kd3 tubal ligation; - Immunization history:: Adult Immunizations up to date. - Infectious Disease History:: Denies. - Social history:: Smoking status: Patient reports the use of cigarette tobacco products, denies chronic smoking, but will smoke occasionally. - Family history:: not pertinent. Screenin:35 [facility] ED Fall Risk Assessment (Adult) History of falling in the last 3 months, kd3 including since admission No falls in past 3 months (0 pts) Confusion or Disorientation No (0 pts) Intoxicated or Sedated No (0 pts) Impaired Gait No (0 pts) Mobility Assist Device Used No (0 pt) Altered Elimination No (0 pt) Score/Fall Risk Level 0 - 2 = Low Risk Maintained a safe environment. Abuse screen: Denies threats or abuse. Denies injuries from another. Nutritional screening: No deficits noted. Tuberculosis screening: No symptoms or risk factors identified. Assessment: 23:35 GI: Bowel sounds present X 4 quads. Abd is soft X 4 quads Abdomen is tender to kd3 palpation in epigastric area and umbilical area. Vital Signs: 23:31 BP 118 / 79; Pulse 77; Resp 18; Temp 98.1(O); Pulse Ox 100% on R/A; Weight 91.17 kg; kd3 Height 5 ft. 8 in. ; 12/24 00:59 BP 106 / 58; Pulse 63; Resp 16; Pulse Ox 99% on R/A; kd3 02:30 BP 112 / 81; Pulse 68; Resp 18; Pulse Ox 97% on R/A; kd3 03:43 BP 116 / 77; Pulse 84; Resp 18; Pulse Ox 99% on R/A; kd3 18 23:31 Body Mass Index 30.56 (91.17 kg, 172.72 cm) kd3 Peter Coma Score: 06:52 Eye Response: spontaneous(4). Motor Response: obeys commands(6). Verbal Response: sp4 oriented(5). Total: 15. ED Course: 12/23 23:08 Patient arrived in ED. [id number] 23:11 Himanshu Huynh MD is Attending Physician. sp4 23:14 Tamela Crowder, [place] is Primary Nurse. kd3 23:31 UA W/ Microscopic Sent. kd3 23:31 Test, Urine Sent. kd3 23:31 CBC with Diff Sent. kd3 23:31 CMP Sent. kd3 23:31 Lipase Sent. kd3 23:31 No provider procedures requiring assistance completed. Inserted saline lock: 20 gauge kd3 in right antecubital area, using aseptic technique. Blood collected. Flushed with 10 mL NS. 23:34 Triage completed. kd3 23:34 Arm band placed on right wrist. kd3 23:35 Patient has correct armband on for positive identification. Provided Education on: kd3 radiology . 12/24 00:05 CT Abd/Pelvis - IV Contrast Only In Process Unspecified. EDMS 03:35 Ward Crespo MD is Referral Physician. sp4 03:42 IV discontinued, intact, bleeding controlled, No redness/swelling at site. Pressure kd3 dressing applied. Administered Medications: 12/23 23:56 Drug: morphine IVP or IV 4 mg IVP once over 4 mins Route: IVP; Infused Over: 4 mins; kd3 Site: right antecubital; 23:56 Drug: Ketorolac IVP 30 mg IVP once Route: IVP; Site: right antecubital; kd3 23:56 Drug: Droperidol IVP 2.5 mg IVP once Route: IVP; Site: right antecubital; kd3 23:56 Drug: metoCLOPramide IVP 10 mg IVP once; over 1 to 2 minutes Route: IVP; Site: right kd3 antecubital; 23:56 Drug: NS 0.9% IV 1000 ml IV at 1000 ml once; to be given as a bolus over 60 minutes kd3 Route: IV; Rate: 1000 ml; Site: right antecubital; 23:57 Drug: Ondansetron IVP 4 mg IVP once; over 2 minutes Route: IVP; Site: right antecubital;kd3 23:57 Drug: NS 0.9% IV 1000 ml IV at 1 bolus Per protocol; to be given as a bolus over 60 kd3 minutes Route: IV; Rate: 1 bolus; Site: right antecubital; 12/24 01:02 Drug: Rocephin - Rocephin (cefTRIAXone) IVPB 1 grams IVPB once over 30 mins; (mix in 50 kd3 mL NS) Route: IVPB; Infused Over: 30 mins; Site: right antecubital; 03:42 Drug: HYDROcodone-acetaminophen PO 5 mg-325 mg 2 tabs PO once Route: PO; kd3 03:42 Drug: Dicyclomine PO 20 mg PO once Route: PO; kd3 03:42 Drug: Promethazine PO 25 mg PO once Route: PO; kd3 03:42 Drug: Pantoprazole PO 40 mg PO once Route: PO; kd3 03:42 Drug: Famotidine PO 20 mg PO once Route: PO; kd3 Medication: 12/23 23:35 VIS not applicable for this client. kd3 Outcome: 12/24 03:36 Discharge ordered by . sp4 03:43 Discharged to home ambulatory, kd3 03:43 Condition: stable 03:43 Discharge instructions given to patient, family, Instructed on discharge instructions, follow up and referral plans. Demonstrated understanding of instructions, follow-up care, medications, 03:49 Prescriptions given X 5 kd3 03:49 Patient left the ED. kd3 Signatures: Dispatcher [employer] EDMS Karen Montoya6 Tamela Crowder RN RN kd3 Himanshu Huynh MD MD sp4
[2024-12-24] MEDS ORDERED: PANTOPRAZOLE 40MG TABLET PO ONE (03:38)
[2024-12-24] MEDS ORDERED: PROMETHAZINE 25 MG TABLET ONE (03:39)
[2024-12-24] MEDS ORDERED: FAMOTIDINE 20 MG TAB ONE (03:39)
[2024-12-24] MEDS ORDERED: DICYCLOMINE HCL 10 MG CAP ONE (03:39)
[2024-12-24] MEDS ORDERED: HYDROCODONE/APAP 5/325 MG TAB ONE (03:39)
[2024-12-24 11:27] VITALS: TEMP 98.1
[2024-12-24 11:34] VITALS: BP 116/77; O2SAT 99
== END 2024-12-24 03:49 | disposition home or self-care (01) ==
LOC: ER 23:06
DX: K29.00 Acute gastritis without bleeding (principal); F17.210 Nicotine dependence, cigarettes, uncomplicated; Z98.82 Breast implant status
CPT/HCPCS: 36415; 74177; 80053; 81001; 81025; 83690; 85025; J0696; J1790; J2405; J2765; J7030; Q0169; Q9967